=== PATIENT | female | born 1945 | race Caucasian/White ===

== ENCOUNTER 2016-08-01 14:41 | Outpatient (RCR) | payer MEDICARE ==
[~2016-08-01 14:41] MED LIST: ALBU2.5V52 INH; ALPR.5T; ALPR0.5T PO; ALPR0.5T7 PO; ALPR0.5T72 PO; ATR20T PO; AZIT500T2 PO; BACL20TA PO; CALC625T; CEFD300C3 PO; CEPH500C PO; CITA20TA7 PO; DOCU-161; DOCU100T7; DULO60CA6; ENOX40DI8 SC; ERGO2000 PO; FRSM40T; FURO20TA4 PO; FURO40TA4; FURO40TA4 PO; GABA-488 PO; GABA800T2 PO; HYDR-2856; HYDR-2890 PO; HYDR-3583 PO; HYDR-3720; HYDR-3820 PO; IPRA3AMP IH; IPRA3AMP INH; LACT1CAP53 PO; LACT1CAP62 PO; LISI-556 PO; MELA1TAB20 PO; MELO15TA14; METF-380 PO; NFPRILOC40; NITR100C3 PO; OMEP20CA6 PO; RIVA10TA PO; SENN-40 PO; SULF1TAB35 PO; TRAZ150T42 PO; TRZ100T PO; TRZ50T; vitamin d2 PO
--- OUTSIDE RECORDS SUMMARY | 2016-08-01 14:45 | XMS REPORT | Continuity of Care Document ---
Author Author [facility] Organization [facility] Address Unknown Phone Unavailable Care Team Providers Care Machine Shop Helper Name Role Phone RICHARDSON SANDRA DO PCP Insurance Providers Payer Name Policy Number Subscriber Name Relationship Wps Medicare [id number] Jeri Byrd 18 Self / Same As Patient Advance Directives Directive Response Recorded Date/Time Advance Directives No 04/11/16 5:22am Health Care Power of Operations Coordinator No 04/11/16 5:22am Organ Donor No 04/11/16 5:22am Resuscitation Status Full Code 04/11/16 5:22am Chief Complaint and Reason for Visit Chief Complaint LEFT DISLOCATED TIB/FIB FX,ACUTE ON CHRONIC RENAL Reason for Visit COPD (chronic obstructive pulmonary disease) Dislocation of left ankle joint Fall from chair or bed Fracture of tibia and fibula Hypoventilation associated with obesity syndrome Hypoxia Urinary tract infection Problems Active Problems Medical Problem Onset Date Status Acute on chronic renal failure Unknown Acute COPD (chronic obstructive pulmonary disease) Unknown Acute Dislocation of left ankle joint Unknown Acute Fall from chair or bed Unknown Acute Fracture of tibia and fibula Unknown Acute Hypoventilation associated with obesity syndrome Unknown Acute Hypoxia Unknown Acute Urinary tract infection Unknown Acute Medications Current Home Medications Medication Dose Units Route Directions Days/Qty Instructions Start Date Omeprazole 20 Mg 20 Mg Oral Twice A Day 01/17/10 Hydrocodone Bit/Acetaminophen 1 Each 1-2 Tab Oral Every 4HRS as needed for Pain NEEDED FOR PAIN 10-325MG TABLET 01/15/14 Atorvastatin Calcium 20 Mg 20 Mg Oral Bedtime 01/15/14 Lisinopril 5 Mg 5 Mg Oral Daily 07/04/15 Citalopram Hydrobromide 20 Mg 20 Mg Oral Daily 07/04/15 [Vitamin D2] Unknown Dose Oral Every Saturday07/04/15 Furosemide 20 Mg 20 Mg Oral Daily 04/12/16 Gabapentin 300 Mg 300 Mg Oral Bedtime 04/12/16 Ipratropium/Albuterol Sulfate (Duoneb) 3 Ml 3 Ml Inhalation As Needed as needed for Shortness Of Breath 30 04/17/16 Enoxaparin Sodium 40 Mg/0.4 Ml 40 Mg Subcutaneously Daily@ 30 Sennosides/Docusate Sodium 1 Each 1 Each Oral Twice A Day 60 04/17/16 Alprazolam 0.5 Mg 0.5 Mg Oral Twice A Day as needed for Anxiety 60 Past Home Medications Medication Directions Ordered Status Furosemide (Lasix) 40 Mg Tablet, 11/21/09 Discontinued Omeprazole 40 Mg Capsule., 11/21/09 Discontinued Gabapentin 800 Mg Tablet, 800 Mg Oral Three Times A Day 11/21/09 Discontinued Trazodone Hcl 50 Mg Tab, 11/21/09 Discontinued Metformin Hcl (Glucophage) 1,000 Mg Tablet, 1000 Mg Oral Twice A Day Discontinued Acetaminophen/Hydrocodone Bitart 1 Ea Tab, 11/21/09 Discontinued Duloxetine Hcl 60 Mg Capsule., 11/21/09 Discontinued Docusate Sodium 100 Mg Tablet, 11/21/09 Discontinued Calcium Polycarbophil 625 Mg Tablet, 11/21/09 Discontinued Alprazolam 0.5 Mg Tablet, 11/21/09 Discontinued Trimethoprim/Sulfamethoxazole 1 Each Tablet, 1 Each Oral Twice A Day Discontinued Trazodone Hcl 100 Mg Tab, 150 Mg Oral Bedtime 01/17/10 Discontinued Furosemide 40 Mg Tab, 01/17/10 Discontinued Docusate Sodium 100 Mg Capsule, 01/17/10 Discontinued Meloxicam 15 Mg Tablet, 01/17/10 Discontinued Hydroxyzine Hcl 25 Mg Tablet, 01/17/10 Discontinued Alprazolam 0.5 Mg Tab.rapdis, 0.5 Mg Oral Bedtime for Insomnia 09/21/10 Discontinued Cefdinir (Omnicef) 300 Mg Capsule, 2 Each Oral Daily 09/27/10 Discontinued Acetaminophen/Hydrocodone Bitart 1 Tab Tab, 1-2 Ea Oral Q4hr Prn 09/27/10 Discontinued Furosemide (Lasix) 40 Mg Tablet, 1 Each Oral Daily 10/26/12 Discontinued Cephalexin Monohydrate (Keflex) 500 Mg Capsule, 1 Each Oral Four Times Daily 01/03/14 Discontinued Lactobacillus Acidophilus 1 Mg Tablet, 1 Mg Oral Twice A Day 01/03/14 Discontinued Trazodone Hcl 150 Mg Tablet, 150 Mg Oral Bedtime 01/15/14 Discontinued Alprazolam 0.5 Mg Tablet, 0.5 Mg Oral Twice A Day as needed for Anxiety 01/15 Discontinued Lactobacillus Acidophilus 1 Each Capsule, 1 Cap Oral Twice A Day 01/15/14 Discontinued Nitrofurantoin Macrocrystals 100 Mg Capsule, 100 Mg Oral Daily 01/15/14 Discontinued Metformin Hcl (Glucophage) 1,000 Mg Tablet, 1000 Mg Oral Daily 01/18/14 Discontinued Albuterol Sulfate 2.5 Mg/3 Ml Nebu, 2.5 Mg Inhalation Respiratory Three Times A Day 01/18/14 Discontinued Cefdinir (Omnicef) 300 Mg Capsule, 1 Each Oral Twice A Day 01/18/14 Discontinued Melatonin/Pyridoxine Hcl (B6) 1 Each Tab.mphase, 10 Mg Oral Bedtime 07/04/15 Discontinued Baclofen 20 Mg Tablet, 20 Mg Oral Bedtime 04/12/16 Discontinued Social History Social History Problem Response Recorded Date/Time Alcohol Use Denies Use 04/11/2016 5:23am Recreational Drug Use No 04/11/2016 5:23am Recent Foreign Travel No 04/11/2016 5:17am Recent Infectious Disease Exposure No 04/11/2016 5:17am Hospitalization with Isolation Droplet 04/17/2016 3:37pm Sexually Transmitted Disease No 04/11/2016 5:23am HIV/AIDS No 04/11/2016 5:23am Smoking Status Former Smoker 04/11/2016 5:25am Do you dip or chew tobacco? No 07/04/2015 10:04am Type Used Cigarettes 04/17/2016 3:37pm Query Response Start Date Stop Date Smoking Status Former Smoker 07/07/2005 Hospital Discharge Instructions Patient Instructions Physician Instructions Goal/Follow Up Appt.: Fwup with [place] in [address] Peck on April 26 Activity as Tolerated: No (complet non weight bearing of left leg) PT and OT Total non weightbearing to left leg Elevate Extremity: Elevate Above Heart Discharge Diet: ADA Diet, Cardiac Diet Symptoms to Report to Physicia: Extremity Discoloration, Swelling Increased, Fever Over 101 Degrees F, Pain/Pressure in Chest, Shortness of Breath If Any Problems/Questions/Issu: Go to Emergency Room Infection Signs and Symptoms: Increased Redness, Foul Odor of Wound, Increased Drainage, Increased Swelling, Temperature Above 101 F Operative Area Clean and Dry: Keep Incision Clean/Dry Care Plan Goal:: Fwup with me in [address] Peck on April 26 Plan of Care Discharge Date 04/17/16 2:40pm Disposition 03 XFER SNF Instructions/Education Provided Ankle Fracture (GEN) Prescriptions See Medication Section Referrals (Unspecified) - Today Reason(s) for Referral: COPD (chronic obstructive pulmonary disease) Hypoxia Hypoventilation associated with obesity syndrome RICHARDSON SANDRA DO (Unspecified) - 3 Weeks Address: [address] [place] [address] VICTOR HUGO PECK MD (Unspecified) - 04/26/16 Address: [address] [place] [phone] Care Plan and Goals See Discharge Instructions Section Functional Status Query Response Date Recorded Patient Orientation Person Confused April 16, 2016 1:55pm Patient Orientation Person Situation Confused April 17, 2016 3:37pm Comprehension Ability Understands Concepts April 17, 2016 8:00am Allergies, Adverse Reactions, Alerts Allergen Type Severity Reaction Status Last Updated ciprofloxacin ([id number]) Allergy Unknown Active 10/11/08 ofloxacin ([id number]) Allergy Unknown Active 10/11/08 Immunizations No immunization records. Vital Signs Acute Vital Signs Vital Response Date/Time Temperature (Fahrenheit) 96.2 degrees F (97.6 - 99.5) 04/17/2016 2:40pm Temperature (Calculated Celsius) 35.90385 degrees C (36.4 - 37.5) 04/17/2016 1:37pm Temperature Source Tympanic 04/17/2016 2:40pm Pulse Rate (adult) 72 bpm (60 - 90) 04/17/2016 2:40pm Respiratory Rate 18 bpm (12 - 24) 04/17/2016 2:40pm O2 Sat by Pulse Oximetry 100 % (88 - 100) 04/17/2016 2:40pm Blood Pressure 136/64 mm Hg 04/17/2016 2:40pm Blood Pressure Mean 88 mm Hg 04/17/2016 1:37pm Pain Numeric Pain Scale 9 04/17/2016 2:40pm Height (Feet) 5 feet 04/11/2016 5:17am Height (Inches) 0.00 inches 04/11/2016 5:17am Height (Calculated Centimeters) 152.916134 cm 04/11/2016 5:17am Weight (Pounds) 252 pounds 04/17/2016 6:00am Weight (Ounces) 0.0 oz 04/14/2016 6:00am Weight (Calculated Grams) 708395.278 gm 04/17/2016 6:00am Weight (Calculated Kilograms) 114.272029 kilograms 04/17/2016 6:00am Calculated BMI 45.2 04/11/2016 5:17am Results Laboratory Results Test Name Result Units Flags Reference Collection Date/Time Result Date/ Time Comments White Blood Count 5.0 10^3/uL 4.3-11.0 03/06/2016 1:pm 03/06/2016 1: 39pm Red Blood Count 3.99 10^6/uL L 4.35-5.85 03/06/2016 1:03/06/2016 1: 39pm Hemoglobin 11.3 G/DL L 11.5-16.0 03/06/2016 1:03/06/2016 1:39pm Hematocrit 37 % 35-52 03/06/2016 1:03/06/2016 1:39pm Mean Corpuscular Volume 93 FL 80-99 03/06/2016 1:03/06/2016 1: 39pm Mean Corpuscular Hemoglobin 28 PG 25-34 03/06/2016 1:pm 03/06/2016 1: 39pm Mean Corpuscular Hemoglobin Concent 31 G/DL L 32-36 03/06/2016 1: 1:39pm Red Cell Distribution Width 15.4 % H 10.0-14.5 03/06/2016 1:2015 1:39pm Platelet Count 151 10^3/uL 130-400 03/06/2016 1:03/06/2016 1:39pm Mean Platelet Volume 10.0 FL 7.4-10.4 03/06/2016 1:03/06/2016 1: 39pm Neutrophils (%) (Auto) 71 % 42-75 03/06/2016 1:03/06/2016 1:39pm Lymphocytes (%) (Auto) 8 % L 12-44 03/06/2016 1:03/06/2016 1:39pm Monocytes (%) (Auto) 7 % 0-12 03/06/2016 1:03/06/2016 1:39pm Eosinophils (%) (Auto) 15 % H 0-10 03/06/2016 1:03/06/2016 1:39pm Basophils (%) (Auto) 0 % 0-10 03/06/2016 1:03/06/2016 1:39pm Neutrophils # (Auto) 3.5 X 10^3 1.8-7.8 03/06/2016 1:03/06/2016 1: 39pm Lymphocytes # (Auto) 0.4 X 10^3 L 1.0-4.0 03/06/2016 1:03/06/2016 1: 39pm Monocytes # (Auto) 0.3 X 10^3 0.0-1.0 03/06/2016 1:03/06/2016 1: 39pm Eosinophils # (Auto) 0.7 10^3/uL H 0.0-0.3 03/06/2016 1:03/06/2016 1 :39pm Basophils # (Auto) 0.0 10^3/uL 0.0-0.1 03/06/2016 1:03/06/2016 1: 39pm Sodium Level 139 MMOL/L 135-145 03/06/2016 1:03/06/2016 2:08pm Potassium Level 4.6 MMOL/L 3.6-5.0 03/06/2016 1:38pm 03/06/2016 2:08pm Chloride Level 108 MMOL/L H 98-107 03/06/2016 1:03/06/2016 2:08pm Carbon Dioxide Level 26 MMOL/L 21-32 03/06/2016 1:38pm 03/06/2016 2: 08pm Anion Gap 5 MMOL/L 5-14 03/06/2016 1:38pm 03/06/2016 2:08pm Blood Urea Nitrogen 31 MG/DL H 7-18 03/06/2016 1:38pm 03/06/2016 2:08pm Creatinine 1.66 MG/DL H 0.60-1.30 03/06/2016 1:38pm 03/06/2016 2:08pm BUN/Creatinine Ratio 19 03/06/2016 1:38pm 03/06/2016 2:08pm Estimat Glomerular Filtration Rate 31 03/06/2016 1:38pm 03/06/2016 2:08pm GFR INTERPRETIVE DATA UNITS FOR ESTIMATED GFR (eGFR): mL/min/1.73 M2 REFERENCE RANGE FOR ESTIMATED GFR (eGFR) eGFR NORMAL eGFR >60 MODERATELY DECREASED eGFR 30-59 SEVERLY DECREASED eGFR 15-29 KIDNEY FAILURE <15 (OR DIALYSIS) Glucose Level 93 MG/DL 70-105 03/06/2016 1:pm 03/06/2016 2:08pm Calcium Level 9.1 MG/DL 8.5-10.1 03/06/2016 1:38pm 03/06/2016 2:08pm Total Bilirubin 0.9 MG/DL 0.1-1.0 03/06/2016 1:38pm 03/06/2016 2:08pm Alkaline Phosphatase 92 U/L 40-136 03/06/2016 1:38pm 03/06/2016 2:08pm Aspartate Amino Transf (AST/SGOT) 14 U/L 5-34 03/06/2016 1:2015 2:08pm Alanine Aminotransferase (ALT/SGPT) < 6 U/L 0-55 03/06/2016 1:38pm 2:08pm Total Protein 6.2 G/DL L 6.4-8.2 03/06/2016 1:pm 03/06/2016 2:08pm Albumin 3.6 G/DL 3.2-4.5 03/06/2016 1:38pm 03/06/2016 2:08pm Thyroid Stimulating Hormone (TSH) 0.98 UIU/ML 0.35-4.94 03/06/2016 1: 38pm 03/06/2016 2:29pm Free Thyroxine 0.91 NG/DL 0.70-1.48 03/06/2016 1:38pm 03/06/2016 2: 29pm Pending Laboratory Results Test Name Collection Date/Time Pending Microbiology Results Procedure Source Collection Date/Time Procedures No known history of procedures. Encounters Encounter Location Arrival/Admit Date Discharge/Depart Date Attending Provider Discharged Inpatient [facility] 04/11/16 3:25am 2:40pm VICTOR HUGO PECK MD Registered Recurring [facility] 03/28/16 10:01am VITALY LIGHT MD Recent Diagnosis COPD (chronic obstructive pulmonary disease) Dislocation of left ankle joint Fall from chair or bed Fracture of tibia and fibula Hypoventilation associated with obesity syndrome Hypoxia Urinary tract infection
[2016-08-01 15:05] LABS: BASOPHILS % (AUTO) 0 % (0-10); EOSINOPHILS # (AUTO) 0.3 10^3/uL (0.0-0.3); EOSINOPHILS % (AUTO) 5 % (0-10); LYMPHOCYTES # (AUTO) 0.6 X 10^3 (1.0-4.0); LYMPHOCYTES % (AUTO) 10 % (12-44); MEAN CORPUSCULAR HEMOGLOBIN 28 PG (25-34); MEAN CORPUSCULAR HGB CONC 30 G/DL (32-36); MEAN CORPUSCULAR VOLUME 96 FL (80-99); MEAN PLATELET VOLUME 9.4 FL (7.4-10.4); MONOCYTES # (AUTO) 0.6 X 10^3 (0.0-1.0); MONOCYTES % (AUTO) 10 % (0-12); NEUTROPHILS # (AUTO) 4.8 X 10^3 (1.8-7.8); NEUTROPHILS % (AUTO) 75 % (42-75); PLATELET COUNT 278 10^3/uL (130-400); RED BLOOD COUNT 3.42 10^6/uL (4.35-5.85); RED CELL DISTRIBUTION WIDTH 15.9 % (10.0-14.5); WHITE BLOOD COUNT 6.3 10^3/uL (4.3-11.0)
[2016-08-01 15:52] LABS: ALANINE AMINOTRANSFERASE 11 U/L (0-55); ALBUMIN 3.2 G/DL (3.2-4.5); ANION GAP 6 MMOL/L (5-14); ASPARTATE AMINO TRANSFERASE 14 U/L (5-34); BILIRUBIN,TOTAL 1.5 MG/DL (0.1-1.0); BLOOD UREA NITROGEN 16 MG/DL (7-18); BUN/CREATININE RATIO 18; CALCIUM 9.3 MG/DL (8.5-10.1); CARBON DIOXIDE 32 MMOL/L (21-32); CHLORIDE 101 MMOL/L (98-107); GFR ESTIMATED > 60; GLUCOSE 95 MG/DL (70-105); POTASSIUM 4.2 MMOL/L (3.6-5.0); SODIUM 139 MMOL/L (135-145); TOTAL PROTEIN 6.8 G/DL (6.4-8.2)
[2016-08-22] MEDS ORDERED: MULT1TAB69 PO (16:01)
[2016-08-22] MEDS ORDERED: HYDR-3820 PO ×2 (16:01)
[2016-08-22] MEDS ORDERED: GUAI5SYR PO (16:01)
[2016-08-23] MEDS ORDERED: FURO-124 PO (09:20)
[2016-08-23] MEDS ORDERED: RIVA20TA PO (09:20)
[2016-08-23] MEDS ORDERED: POTA20TA8 PO (09:20)
== END 2016-10-30 | disposition home or self-care (01) ==
LOC: ONC 14:41
PROVIDERS: ATTEND Internal Medicine Hematology & Oncology
DX: C54.1 Malignant neoplasm of endometrium (principal)
CPT/HCPCS: 36415; 80053; 85025; 99213

== ENCOUNTER → 2016-10-18 | Outpatient (CLI) | payer MEDICARE ==
[~2016-10-18] MED LIST changes: +FURO-124 PO; +GUAI5SYR PO; +MULT1TAB69 PO; +POTA20TA8 PO; +RIVA20TA PO
--- OUTSIDE RECORDS SUMMARY | 2016-10-18 15:14 | XMS REPORT | Continuity of Care Document ---
Author Author [facility] Organization [facility] Address Unknown Phone Unavailable Care Team Providers Care Social Media Campaign Manager Name Role Phone RICHARDSON SANDRA DO PCP Insurance Providers Payer Name Policy Number Subscriber Name Relationship Wps Medicare [id number] Jeri Byrd 18 Self / Same As Patient Advance Directives Directive Response Recorded Date/Time Advance Directives No 04/11/16 5:22am Health Care Power of Synthetic Department Supervisor No 04/11/16 5:22am Organ Donor No 04/11/16 [...] Physician Instructions Goal/Follow Up Appt.: Fwup with [place] in [address] Peck [...] DO (Unspecified) - 3 Weeks Address: [address] [place] [address] VICTOR HUGO PECK MD (Unspecified) - 04/26/16 Address: [address] [place] [phone] Care Plan and Goals See Discharge Instructions Section Functional Status Query Response Date Recorded Patient Orientation Person Confused April 16, 2016 1:55pm Patient Orientation Person Situation Confused April 17, 2016 3:37pm Comprehension Ability Understands Concepts April 17, 2016 8:00am Allergies, Adverse Reactions, Alerts Allergen Type Severity Reaction Status Last Updated ciprofloxacin ([id number]) Allergy Unknown Active 10/11/08 ofloxacin ([id number]) Allergy Unknown Active 10/11/08 Immunizations No immunization records. Vital Signs Acute Vital Signs Vital Response Date/Time Temperature (Fahrenheit) 96.2 degrees F (97.6 - 99.5) 04/17/2016 2:40pm Temperature (Calculated Celsius) 35.80795 degrees C (36.4 - 37.5) 04/17/2016 1:37pm [...] 0.00 inches 04/11/2016 5:17am Height (Calculated Centimeters) 152.806550 cm 04/11/2016 5:17am Weight (Pounds) 252 pounds 04/17/2016 6:00am Weight (Ounces) 0.0 oz 04/14/2016 6:00am Weight (Calculated Grams) 116060.278 gm 04/17/2016 6:00am Weight (Calculated Kilograms) 114.712459 kilograms 04/17/2016 6:00am Calculated BMI 45.2 04/11/2016 [...] Discharge/Depart Date Attending Provider Discharged Inpatient [facility] 04/11/16 3:25am 2:40pm VICTOR HUGO PECK MD Registered Recurring [facility] 03/28/16 10:01am VITALY LIGHT MD Recent Diagnosis COPD (chronic obstructive pulmonary disease) Dislocation of left ankle joint Fall from chair or bed Fracture of tibia and fibula Hypoventilation associated with obesity syndrome Hypoxia Urinary tract infection
--- NOTE | 2016-10-18 18:17 | Diagnostic Imaging Report ---
INDICATION: Postop drainage. EXAMINATION: Left ankle. Three views were obtained. FINDINGS: The previous left ankle exam of 05/09/16 noted an orthopedic plate and screw fixation device securing a nondisplaced fracture of the distal fibula. There are also two orthopedic fixation screws obliquely traversing a fracture of the medial malleolus of the distal tibia. On this exam, the orthopedic hardware seems to be in good position. The fracture line involving the medial malleolus is still visible, however, indicating that the fracture has not healed completely. The fibular fracture appears stable. In the interval since the previous exam, the interface between the articular surfaces of the tibia and talar dome has become indistinct. I am concerned that there is an erosive process present such as osteomyelitis. I would recommend MRI be performed for further study. There is also generalized soft tissue edema about the ankle joint. IMPRESSION: 1. The articular surfaces of the distal tibia and talar dome are indistinct and the possibility that there is erosion of the articular surface due to osteomyelitis should certainly be considered. MRI would be recommended for further study. 2. The orthopedic hardware securing the fractures of the distal tibia and fibula, seen previously, appear stable. However, the fracture line through the medial malleolus is still evident indicating the fracture has not healed completely. 3. These results were discussed with Dr. Anita Tolliver.. Dictated by: Dictated on workstation # [id number]
== END ==
LOC: RAD 15:09
PROVIDERS: ATTEND Family Medicine
DX: M25.572 Pain in left ankle and joints of left foot (principal)
CPT/HCPCS: 73610

== ENCOUNTER → 2016-10-18 | Outpatient (CLI) | payer MEDICARE ==
--- OUTSIDE RECORDS SUMMARY | 2016-10-18 10:24 | XMS REPORT | Continuity of Care Document ---
Author Author [facility] Organization [facility] Address Unknown Phone Unavailable Care Team Providers Care Legal Financial Specialist Name Role Phone RICHARDSON SANDRA DO PCP Insurance Providers Payer Name Policy Number Subscriber Name Relationship Wps Medicare [id number] Jeri Byrd 18 Self / Same As Patient Advance Directives Directive Response Recorded Date/Time Advance Directives No 04/11/16 5:22am Health Care Power of Store Assistant No 04/11/16 5:22am Organ Donor No 04/11/16 [...] Physician Instructions Goal/Follow Up Appt.: Fwup with [place] in [address] Peck [...] DO (Unspecified) - 3 Weeks Address: [address] [place] [address] VICTOR HUGO PECK MD (Unspecified) - 04/26/16 Address: [address] [place] [phone] Care Plan and Goals See Discharge Instructions Section Functional Status Query Response Date Recorded Patient Orientation Person Confused April 16, 2016 1:55pm Patient Orientation Person Situation Confused April 17, 2016 3:37pm Comprehension Ability Understands Concepts April 17, 2016 8:00am Allergies, Adverse Reactions, Alerts Allergen Type Severity Reaction Status Last Updated ciprofloxacin ([id number]) Allergy Unknown Active 10/11/08 ofloxacin ([id number]) Allergy Unknown Active 10/11/08 Immunizations No immunization records. Vital Signs Acute Vital Signs Vital Response Date/Time Temperature (Fahrenheit) 96.2 degrees F (97.6 - 99.5) 04/17/2016 2:40pm Temperature (Calculated Celsius) 35.02975 degrees C (36.4 - 37.5) 04/17/2016 1:37pm [...] 0.00 inches 04/11/2016 5:17am Height (Calculated Centimeters) 152.350180 cm 04/11/2016 5:17am Weight (Pounds) 252 pounds 04/17/2016 6:00am Weight (Ounces) 0.0 oz 04/14/2016 6:00am Weight (Calculated Grams) 194357.278 gm 04/17/2016 6:00am Weight (Calculated Kilograms) 114.648105 kilograms 04/17/2016 6:00am Calculated BMI 45.2 04/11/2016 [...] Discharge/Depart Date Attending Provider Discharged Inpatient [facility] 04/11/16 3:25am 2:40pm VICTOR HUGO PECK MD Registered Recurring [facility] 03/28/16 10:01am VITALY LIGHT MD Recent Diagnosis COPD (chronic obstructive pulmonary disease) Dislocation of left ankle joint Fall from chair or bed Fracture of tibia and fibula Hypoventilation associated with obesity syndrome Hypoxia Urinary tract infection
[2016-10-18 11:09] LABS: ALBUMIN 3.3 G/DL (3.2-4.5); BILIRUBIN,TOTAL 0.7 MG/DL (0.1-1.0); CALCIUM 9.7 MG/DL (8.5-10.1); CREATININE SERUM 1.11 MG/DL (0.60-1.30); MAGNESIUM 1.7 MG/DL (1.8-2.4); POTASSIUM 4.2 MMOL/L (3.6-5.0); TOTAL PROTEIN 6.9 G/DL (6.4-8.2)
== END ==
LOC: LAB 10:20
PROVIDERS: ATTEND Nurse Practitioner Family
DX: R06.09 Other forms of dyspnea (principal); I10 Essential (primary) hypertension; I48.0 Paroxysmal atrial fibrillation; Z79.01 Long term (current) use of anticoagulants
CPT/HCPCS: 36415; 80053; 83735

== ENCOUNTER → 2016-10-18 | Outpatient (CLI) | payer MEDICARE ==
[~2016-10-18] VITALS: Ht 175.3 cm; Wt 95.3 kg
[~2016-10-18] MED LIST changes: +CATHETER FLUSH 10 ML SYR IV PRN; +REGADENOSON 0.4 MG/5 ML SYR (LEXISCAN) IV ONE
--- OUTSIDE RECORDS SUMMARY | 2016-10-18 07:21 | XMS REPORT | Continuity of Care Document ---
Author Author [facility] Organization [facility] Address Unknown Phone Unavailable Care Team Providers Care Boring Machine Operator Vertical Name Role Phone RICHARDSON SANDRA DO PCP Insurance Providers Payer Name Policy Number Subscriber Name Relationship Wps Medicare [id number] Jeri Byrd 18 Self / Same As Patient Advance Directives Directive Response Recorded Date/Time Advance Directives No 04/11/16 5:22am Health Care Power of Flux Mixer No 04/11/16 5:22am Organ Donor No 04/11/16 [...] Physician Instructions Goal/Follow Up Appt.: Fwup with [place] in [address] Peck [...] DO (Unspecified) - 3 Weeks Address: [address] [place] [address] VICTOR HUGO PECK MD (Unspecified) - 04/26/16 Address: [address] [place] [phone] Care Plan and Goals See Discharge Instructions Section Functional Status Query Response Date Recorded Patient Orientation Person Confused April 16, 2016 1:55pm Patient Orientation Person Situation Confused April 17, 2016 3:37pm Comprehension Ability Understands Concepts April 17, 2016 8:00am Allergies, Adverse Reactions, Alerts Allergen Type Severity Reaction Status Last Updated ciprofloxacin ([id number]) Allergy Unknown Active 10/11/08 ofloxacin ([id number]) Allergy Unknown Active 10/11/08 Immunizations No immunization records. Vital Signs Acute Vital Signs Vital Response Date/Time Temperature (Fahrenheit) 96.2 degrees F (97.6 - 99.5) 04/17/2016 2:40pm Temperature (Calculated Celsius) 35.56127 degrees C (36.4 - 37.5) 04/17/2016 1:37pm [...] 0.00 inches 04/11/2016 5:17am Height (Calculated Centimeters) 152.663065 cm 04/11/2016 5:17am Weight (Pounds) 252 pounds 04/17/2016 6:00am Weight (Ounces) 0.0 oz 04/14/2016 6:00am Weight (Calculated Grams) 236639.278 gm 04/17/2016 6:00am Weight (Calculated Kilograms) 114.333996 kilograms 04/17/2016 6:00am Calculated BMI 45.2 04/11/2016 [...] Discharge/Depart Date Attending Provider Discharged Inpatient [facility] 04/11/16 3:25am 2:40pm VICTOR HUGO PECK MD Registered Recurring [facility] 03/28/16 10:01am VITALY LIGHT MD Recent Diagnosis COPD (chronic obstructive pulmonary disease) Dislocation of left ankle joint Fall from chair or bed Fracture of tibia and fibula Hypoventilation associated with obesity syndrome Hypoxia Urinary tract infection
[2016-10-18 08:58] VITALS: BP 119/61
[2016-10-18 09:13] VITALS: BP 101/71
[2016-10-18 09:15] VITALS: BP 125/63
--- NOTE | 2016-10-19 08:27 | STRESS TEST ---
PROCEDURE PHYSICIAN: NASH ARCINIEGA DATE OF PROCEDURE: 10/18/2016 RESTING AND POST REGADENOSON TECHNETIUM 99M TETROFOSMIN SPECT CT IMAGING: ORDERING PHYSICIAN: Colleen Jesus APRN PRIMARY PHYSICIAN: Dr. Tolliver. CLINICAL DIAGNOSIS: 1. Exertional shortness of breath. 2. Hypertension. Baseline images were carried out after injection of 10.86 mCi of technetium 99m tetrofosmin. This was followed by 0.4 mg of regadenoson and 29.9 mCi tetrofosmin for stress imaging. The electrocardiogram showed sinus rhythm at baseline and it did not change significantly with the regadenoson infusion. Isolated premature ventricular contractions were seen. She noted mild shortness of breath following regadenoson infusion which resolved in a few minutes. Review of images at rest and following stress, does not indicate any significant perfusion defects consistent with significant myocardial ischemia or infarction. Gated images show normal global left ventricular systolic function with normal regional wall motion. Left ventricular ejection fraction is calculated to be 37 mL. TID is absent (0.98). CONCLUSION: 1. No evidence of significant myocardial ischemia or infarction on this study. 2. Normal regional wall motion. 3. Normal global left ventricular systolic function with a calculated ejection fraction of 76%. Job ID: [id number] Dictated Date: 10/18/2016 15:39:10 Event Planning Intern Date: 10/19/2016 08:17:59 / [email or web address]
== END ==
LOC: CARD 07:17
PROVIDERS: ATTEND Nurse Practitioner Family
DX: I10 Essential (primary) hypertension (principal); I48.0 Paroxysmal atrial fibrillation; R06.09 Other forms of dyspnea; Z79.01 Long term (current) use of anticoagulants
CPT/HCPCS: 78452; 93017

== ENCOUNTER → 2016-10-19 | Outpatient (CLI) | payer MEDICARE ==
[~2016-10-19] MED LIST changes: -CATHETER FLUSH 10 ML SYR IV PRN; -REGADENOSON 0.4 MG/5 ML SYR (LEXISCAN) IV ONE
--- OUTSIDE RECORDS SUMMARY | 2016-10-19 17:24 | XMS REPORT | Continuity of Care Document ---
Author Author [facility] Organization [facility] Address Unknown Phone Unavailable Care Team Providers Care Printed Circuit Board Reworker Name Role Phone RICHARDSON SANDRA DO PCP Insurance Providers Payer Name Policy Number Subscriber Name Relationship Wps Medicare [id number] Jeri Byrd 20 Self / Same As Patient Advance Directives Directive Response Recorded Date/Time Advance Directives No 04/11/16 5:22am Health Care Power of Store Manager No 04/11/16 5:22am Organ Donor No 04/11/16 [...] Physician Instructions Goal/Follow Up Appt.: Fwup with pa in [address] Peck [...] DO (Unspecified) - 3 Weeks Address: [address] [place] [address] VICTOR HUGO PECK MD (Unspecified) - 04/26/16 Address: [address] [place] [phone] Care Plan and Goals See Discharge Instructions Section Functional Status Query Response Date Recorded Patient Orientation Person Confused April 16, 2016 1:55pm Patient Orientation Person Situation Confused April 17, 2016 3:37pm Comprehension Ability Understands Concepts April 17, 2016 8:00am Allergies, Adverse Reactions, Alerts Allergen Type Severity Reaction Status Last Updated ciprofloxacin ([id number]) Allergy Unknown Active 10/11/08 ofloxacin ([id number]) Allergy Unknown Active 10/11/08 Immunizations No immunization records. Vital Signs Acute Vital Signs Vital Response Date/Time Temperature (Fahrenheit) 96.2 degrees F (97.6 - 99.5) 04/17/2016 2:40pm Temperature (Calculated Celsius) 35.50387 degrees C (36.4 - 37.5) 04/17/2016 1:37pm [...] 0.00 inches 04/11/2016 5:17am Height (Calculated Centimeters) 152.031361 cm 04/11/2016 5:17am Weight (Pounds) 252 pounds 04/17/2016 6:00am Weight (Ounces) 0.0 oz 04/14/2016 6:00am Weight (Calculated Grams) 817262.278 gm 04/17/2016 6:00am Weight (Calculated Kilograms) 114.092125 kilograms 04/17/2016 6:00am Calculated BMI 45.2 04/11/2016 [...] Discharge/Depart Date Attending Provider Discharged Inpatient [facility] 04/11/16 3:25am 2:40pm VICTOR HUGO PECK MD Registered Recurring [facility] 03/28/16 10:01am VITALY LIGHT MD Recent Diagnosis COPD (chronic obstructive pulmonary disease) Dislocation of left ankle joint Fall from chair or bed Fracture of tibia and fibula Hypoventilation associated with obesity syndrome Hypoxia Urinary tract infection
--- NOTE | 2016-10-19 20:00 | Diagnostic Imaging Report ---
PROCEDURE: MRI left joint lower extremity without contrast. TECHNIQUE: Multiplanar, multisequence non contrast-enhanced MRI of the left lower extremity was accomplished. INDICATION: Left ankle erosions COMPARISON: Radiographs dated October 18, 2016 FINDINGS: Examination is severely limited and nearly nondiagnostic secondary to artifact from orthopedic hardware and patient motion. Orthopedic hardware is identified associated with the distal tibia and fibula. Magnetic susceptibly artifact related to the hardware completely limits evaluation of these osseous structures. Low T1 weighted signal and slightly high T2 weighted signal is identified within the talus, most prominent on series 7, image 8. However, significant artifact is identified within this region, so it is unclear whether this is real signal or artifact. No definite large ankle joint effusion. Small posterior and plantar calcaneal enthesophytes. The Achilles tendon is intact. IMPRESSION: Severely limited examination which is nearly nondiagnostic. Abnormal signal identified within the talus. Although it is favored that this is simply artifact, marrow edema not excluded. Osteomyelitis not excluded. Three-phase nuclear bone scan could help further evaluate if there remains concern for osteomyelitis. Dictated by: Dictated on workstation # [id number]
== END ==
LOC: RAD 17:21
PROVIDERS: ATTEND Family Medicine
DX: M85.872 Other specified disorders of bone density and structure, left ankle and foot (principal)
CPT/HCPCS: 73721

== ENCOUNTER → 2016-11-06 | Outpatient (CLI) | payer MEDICARE ==
--- OUTSIDE RECORDS SUMMARY | 2016-11-06 10:10 | XMS REPORT | Continuity of Care Document ---
Author Author [facility] Organization [facility] Address Unknown Phone Unavailable Care Team Providers Care Camera Operator Name Role Phone RICHARDSON SANDRA DO PCP Insurance Providers Payer Name Policy Number Subscriber Name Relationship Wps Medicare [id number] Jeri Byrd 18 Self / Same As Patient Advance Directives Directive Response Recorded Date/Time Advance Directives No 04/11/16 5:22am Health Care Power of Airfield Operations Specialist No 04/11/16 5:22am Organ Donor No 04/11/16 [...] Physician Instructions Goal/Follow Up Appt.: Fwup with ok in [address] Peck [...] DO (Unspecified) - 3 Weeks Address: [address] [place] [address] VICTOR HUGO PECK MD (Unspecified) - 04/26/16 Address: [address] [place] [phone] Care Plan and Goals See Discharge Instructions Section Functional Status Query Response Date Recorded Patient Orientation Person Confused April 16, 2016 1:55pm Patient Orientation Person Situation Confused April 17, 2016 3:37pm Comprehension Ability Understands Concepts April 17, 2016 8:00am Allergies, Adverse Reactions, Alerts Allergen Type Severity Reaction Status Last Updated ciprofloxacin ([id number]) Allergy Unknown Active 10/11/08 ofloxacin ([id number]) Allergy Unknown Active 10/11/08 Immunizations No immunization records. Vital Signs Acute Vital Signs Vital Response Date/Time Temperature (Fahrenheit) 96.2 degrees F (97.6 - 99.5) 04/17/2016 2:40pm Temperature (Calculated Celsius) 35.61620 degrees C (36.4 - 37.5) 04/17/2016 1:37pm [...] 0.00 inches 04/11/2016 5:17am Height (Calculated Centimeters) 152.171451 cm 04/11/2016 5:17am Weight (Pounds) 252 pounds 04/17/2016 6:00am Weight (Ounces) 0.0 oz 04/14/2016 6:00am Weight (Calculated Grams) 940936.278 gm 04/17/2016 6:00am Weight (Calculated Kilograms) 114.630231 kilograms 04/17/2016 6:00am Calculated BMI 45.2 04/11/2016 [...] Discharge/Depart Date Attending Provider Discharged Inpatient [facility] 04/11/16 3:25am 2:40pm VICTOR HUGO PECK MD Registered Recurring [facility] 03/28/16 10:01am VITALY LIGHT MD Recent Diagnosis COPD (chronic obstructive pulmonary disease) Dislocation of left ankle joint Fall from chair or bed Fracture of tibia and fibula Hypoventilation associated with obesity syndrome Hypoxia Urinary tract infection
[2016-11-06] MEDS: NS 100 ML (IVPB) BAG IV ONE ×2 (10:37→11:03)
[2016-11-06] MEDS: IOHEXOL 350 MG/ML 100 ML (OMNIPAQUE 350) VIAL IV ONE ×2 (10:37→11:03)
== END ==
LOC: RAD 10:06
PROVIDERS: ATTEND Internal Medicine Hematology & Oncology
DX: C54.1 Malignant neoplasm of endometrium (principal)

== ENCOUNTER → 2016-12-06 | Outpatient (CLI) | payer MEDICARE ==
[~2016-12-06] MED LIST changes: +BARIUM SUSPENSION 2.1% (VANILLA SILQ) 450 ML PO ONE; +CATHETER FLUSH 10 ML SYR IV PRN; +IOHEXOL 350 MG/ML 100 ML (OMNIPAQUE 350) VIAL IV ONE; +NS 100 ML (IVPB) BAG IV ONE
--- OUTSIDE RECORDS SUMMARY | 2016-12-06 09:08 | XMS REPORT | Continuity of Care Document ---
Author Author [facility] Organization [facility] Address Unknown Phone Unavailable Care Team Providers Care Delphi Programmer Name Role Phone RICHARDSON SANDRA DO PCP Insurance Providers Payer Name Policy Number Subscriber Name Relationship Wps Medicare [id number] Jeri Byrd 20 Self / Same As Patient Advance Directives Directive Response Recorded Date/Time Advance Directives No 04/11/16 5:22am Health Care Power of Mushroom Spawn Maker No 04/11/16 5:22am Organ Donor No 04/11/16 [...] Physician Instructions Goal/Follow Up Appt.: Fwup with sd in [address] Peck [...] DO (Unspecified) - 3 Weeks Address: [address] [place] [address] VICTOR HUGO PECK MD (Unspecified) - 04/26/16 Address: [address] [place] [phone] Care Plan and Goals See Discharge Instructions Section Functional Status Query Response Date Recorded Patient Orientation Person Confused April 16, 2016 1:55pm Patient Orientation Person Situation Confused April 17, 2016 3:37pm Comprehension Ability Understands Concepts April 17, 2016 8:00am Allergies, Adverse Reactions, Alerts Allergen Type Severity Reaction Status Last Updated ciprofloxacin ([id number]) Allergy Unknown Active 10/11/08 ofloxacin ([id number]) Allergy Unknown Active 10/11/08 Immunizations No immunization records. Vital Signs Acute Vital Signs Vital Response Date/Time Temperature (Fahrenheit) 96.2 degrees F (97.6 - 99.5) 04/17/2016 2:40pm Temperature (Calculated Celsius) 35.42004 degrees C (36.4 - 37.5) 04/17/2016 1:37pm [...] 0.00 inches 04/11/2016 5:17am Height (Calculated Centimeters) 152.873101 cm 04/11/2016 5:17am Weight (Pounds) 252 pounds 04/17/2016 6:00am Weight (Ounces) 0.0 oz 04/14/2016 6:00am Weight (Calculated Grams) 530713.278 gm 04/17/2016 6:00am Weight (Calculated Kilograms) 114.802489 kilograms 04/17/2016 6:00am Calculated BMI 45.2 04/11/2016 [...] Discharge/Depart Date Attending Provider Discharged Inpatient [facility] 04/11/16 3:25am 2:40pm VICTOR HUGO PECK MD Registered Recurring [facility] 03/28/16 10:01am VITALY LIGHT MD Recent Diagnosis COPD (chronic obstructive pulmonary disease) Dislocation of left ankle joint Fall from chair or bed Fracture of tibia and fibula Hypoventilation associated with obesity syndrome Hypoxia Urinary tract infection
--- NOTE | 2016-12-06 13:09 | Diagnostic Imaging Report ---
PROCEDURE: CT chest, abdomen, and pelvis with contrast. TECHNIQUE: Multiple contiguous axial images were obtained through the chest, abdomen, and pelvis after the administration of intravenous contrast. INDICATION: History of endometrial carcinoma. Surveillance. COMPARISON: 11/10/15 and 10/15/13. CT CHEST FINDINGS: Visible thyroid has heterogeneous low attenuation which may represent thyroid nodules, is unchanged. No supraclavicular or axillary lymphadenopathy. No enlarged mediastinal lymph nodes. There are a few stable subcentimeter lower paratracheal lymph nodes, the largest measuring 0.6 cm. No hilar or juxtaphrenic lymphadenopathy. Normal-caliber thoracic aorta. The heart is normal in size without pericardial effusion. No hiatus hernia. No pleural effusion or pneumothorax. No endoluminal lesion in the trachea or central bronchi. Scattered mosaic attenuation within the lungs likely due to air trapping. Stable reticular nodular opacities in the right upper lobe, chronic in nature. Stable chronic linear scarring/atelectasis in the lung bases, greater on the right. No concerning osseous lesions in the thorax to suggest skeletal metastases. IMPRESSION: 1. Stable CT chest without evidence of metastatic disease. 2. Mosaic attenuation of the lungs suggests chronic air-trapping. CT ABDOMEN AND PELVIS FINDINGS: No free air or fluid in the abdomen and pelvis. No focal hepatic lesion. Gallbladder is normal. The spleen and adrenals are also normal. Diffuse fatty atrophy of the pancreas. 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 No suspicious renal mass lesion on either side. No obstructive uropathy. Status post hysterectomy. Urinary bladder is partially distended with mild circumferential wall thickening. Sigmoid colon diverticulosis without active diverticulitis. No dilated loops of small bowel to indicate obstruction. The stomach is decompressed, which limits evaluation for wall thickening. Normal-caliber thoracic aorta with moderate atherosclerotic plaquing. No abdominal or pelvic lymphadenopathy. No concerning osseous lesions in the abdomen and pelvis to suggest skeletal metastasis. Mild diastasis of the rectus abdominis muscles. IMPRESSION: 1. No evidence of metastatic disease in the abdomen or pelvis. 2. Hysterectomy without evidence of local recurrence. Dictated by: Dictated on workstation # [id number]
== END ==
LOC: RAD 09:04
PROVIDERS: ATTEND Internal Medicine Hematology & Oncology
DX: C54.1 Malignant neoplasm of endometrium (principal)
CPT/HCPCS: 71260; 74177

== ENCOUNTER 2017-01-23 13:52 | Outpatient (RCR) | payer MEDICARE ==
--- OUTSIDE RECORDS SUMMARY | 2016-10-31 13:02 | XMS REPORT | Continuity of Care Document ---
Author Author [facility] Organization [facility] Address Unknown Phone Unavailable Care Team Providers Care Internet Site Designer Name Role Phone RICHARDSON SANDRA DO PCP Insurance Providers Payer Name Policy Number Subscriber Name Relationship Wps Medicare [id number] Jeri Byrd 18 Self / Same As Patient Advance Directives Directive Response Recorded Date/Time Advance Directives No 04/11/16 5:22am Health Care Power of Rib Cutter No 04/11/16 5:22am Organ Donor No 04/11/16 [...] Physician Instructions Goal/Follow Up Appt.: Fwup with in in [address] Peck [...] DO (Unspecified) - 3 Weeks Address: [address] [place] [address] VICTOR HUGO PECK MD (Unspecified) - 04/26/16 Address: [address] [place] [phone] Care Plan and Goals See Discharge Instructions Section Functional Status Query Response Date Recorded Patient Orientation Person Confused April 16, 2016 1:55pm Patient Orientation Person Situation Confused April 17, 2016 3:37pm Comprehension Ability Understands Concepts April 17, 2016 8:00am Allergies, Adverse Reactions, Alerts Allergen Type Severity Reaction Status Last Updated ciprofloxacin ([id number]) Allergy Unknown Active 10/11/08 ofloxacin ([id number]) Allergy Unknown Active 10/11/08 Immunizations No immunization records. Vital Signs Acute Vital Signs Vital Response Date/Time Temperature (Fahrenheit) 96.2 degrees F (97.6 - 99.5) 04/17/2016 2:40pm Temperature (Calculated Celsius) 35.82028 degrees C (36.4 - 37.5) 04/17/2016 1:37pm [...] 0.00 inches 04/11/2016 5:17am Height (Calculated Centimeters) 152.292323 cm 04/11/2016 5:17am Weight (Pounds) 252 pounds 04/17/2016 6:00am Weight (Ounces) 0.0 oz 04/14/2016 6:00am Weight (Calculated Grams) 743529.278 gm 04/17/2016 6:00am Weight (Calculated Kilograms) 114.515839 kilograms 04/17/2016 6:00am Calculated BMI 45.2 04/11/2016 [...] Discharge/Depart Date Attending Provider Discharged Inpatient [facility] 04/11/16 3:25am 2:40pm VICTOR HUGO PECK MD Registered Recurring [facility] 03/28/16 10:01am VITALY LIGHT MD Recent Diagnosis COPD (chronic obstructive pulmonary disease) Dislocation of left ankle joint Fall from chair or bed Fracture of tibia and fibula Hypoventilation associated with obesity syndrome Hypoxia Urinary tract infection
[2016-10-31 13:22] LABS: BASOPHILS % (AUTO) 0 % (0-10); EOSINOPHILS # (AUTO) 0.2 10^3/uL (0.0-0.3); EOSINOPHILS % (AUTO) 5 % (0-10); LYMPHOCYTES # (AUTO) 0.6 X 10^3 (1.0-4.0); LYMPHOCYTES % (AUTO) 13 % (12-44); MEAN CORPUSCULAR HEMOGLOBIN 28 PG (25-34); MEAN CORPUSCULAR HGB CONC 31 G/DL (32-36); MEAN CORPUSCULAR VOLUME 91 FL (80-99); MONOCYTES # (AUTO) 0.4 X 10^3 (0.0-1.0); MONOCYTES % (AUTO) 8 % (0-12); NEUTROPHILS # (AUTO) 3.2 X 10^3 (1.8-7.8); NEUTROPHILS % (AUTO) 74 % (42-75); PLATELET COUNT 261 10^3/uL (130-400); RED BLOOD COUNT 4.05 10^6/uL (4.35-5.85); RED CELL DISTRIBUTION WIDTH 15.8 % (10.0-14.5); WHITE BLOOD COUNT 4.3 10^3/uL (4.3-11.0)
[2016-10-31 14:06] LABS: BILIRUBIN,TOTAL 0.6 MG/DL (0.1-1.0); CALCIUM 9.4 MG/DL (8.5-10.1); CREATININE SERUM 1.07 MG/DL (0.60-1.30); POTASSIUM 3.8 MMOL/L (3.6-5.0); TOTAL PROTEIN 6.4 G/DL (6.4-8.2)
[~2017-01-23 13:52] MED LIST changes: -BARIUM SUSPENSION 2.1% (VANILLA SILQ) 450 ML PO ONE; -CATHETER FLUSH 10 ML SYR IV PRN; -IOHEXOL 350 MG/ML 100 ML (OMNIPAQUE 350) VIAL IV ONE; -NS 100 ML (IVPB) BAG IV ONE
[2017-01-23 14:33] LABS: BASOPHILS % (AUTO) 0 % (0-10); EOSINOPHILS # (AUTO) 0.2 10^3/uL (0.0-0.3); EOSINOPHILS % (AUTO) 4 % (0-10); LYMPHOCYTES # (AUTO) 0.8 X 10^3 (1.0-4.0); LYMPHOCYTES % (AUTO) 16 % (12-44); MEAN CORPUSCULAR HEMOGLOBIN 28 PG (25-34); MEAN CORPUSCULAR HGB CONC 30 G/DL (32-36); MEAN CORPUSCULAR VOLUME 93 FL (80-99); MEAN PLATELET VOLUME 9.2 FL (7.4-10.4); MONOCYTES # (AUTO) 0.4 X 10^3 (0.0-1.0); MONOCYTES % (AUTO) 8 % (0-12); NEUTROPHILS # (AUTO) 3.5 X 10^3 (1.8-7.8); NEUTROPHILS % (AUTO) 72 % (42-75); PLATELET COUNT 231 10^3/uL (130-400); RED BLOOD COUNT 4.63 10^6/uL (4.35-5.85); RED CELL DISTRIBUTION WIDTH 14.9 % (10.0-14.5); WHITE BLOOD COUNT 4.9 10^3/uL (4.3-11.0)
[2017-01-23 15:27] LABS: ALBUMIN 3.5 G/DL (3.2-4.5); BILIRUBIN,TOTAL 0.7 MG/DL (0.1-1.0); CALCIUM 9.6 MG/DL (8.5-10.1); CREATININE SERUM 1.55 MG/DL (0.60-1.30); POTASSIUM 3.9 MMOL/L (3.6-5.0)
== END 2017-01-29 | disposition home or self-care (01) ==
LOC: ONC 13:52
PROVIDERS: ATTEND Internal Medicine Hematology & Oncology
DX: C54.1 Malignant neoplasm of endometrium (principal); J44.9 Chronic obstructive pulmonary disease, unspecified; G47.30 Sleep apnea, unspecified; I12.9 Hypertensive chronic kidney disease with stage 1 through stage 4 chronic kidney disease, or unspecified chronic kidney disease; E11.22 Type 2 diabetes mellitus with diabetic chronic kidney disease; N18.3 Chronic kidney disease, stage 3 (moderate); I48.91 Unspecified atrial fibrillation; G89.29 Other chronic pain; F32.9 Major depressive disorder, single episode, unspecified; E66.01 Morbid (severe) obesity due to excess calories; Z68.41 Body mass index [BMI] 40.0-44.9, adult; Z79.01 Long term (current) use of anticoagulants; Z79.899 Other long term (current) drug therapy
CPT/HCPCS: 36415; 80053; 82378; 85025; 86304; 99213

== ENCOUNTER → 2017-04-29 | Outpatient (CLI) | payer MEDICARE ==
[~2017-04-29] MED LIST changes: +ACIDOPHILUS PROB1 MG PO; -LACT1CAP53 PO
[2017-04-29 15:52] LABS: BILIRUBIN,URINE NEGATIVE (NEGATIVE); KETONES,URINE NEGATIVE (NEGATIVE); LEUKOCYTE ESTERASE ,URINE 3+ (NEGATIVE); NITRITE,URINE POSITIVE (NEGATIVE); PH,URINE 5 (5-9); PROTEIN,URINE 1+ (NEGATIVE); UROBILINOGEN,URINE NORMAL (NORMAL)
[2017-04-29 16:06] LABS: WBC,URINE TNTC /HPF
== END ==
LOC: CVS 15:37
PROVIDERS: ATTEND Family Medicine
DX: R41.0 Disorientation, unspecified (principal); R32 Unspecified urinary incontinence
CPT/HCPCS: 81000; 87077; 87088; 87186

== ENCOUNTER → 2017-05-15 | Outpatient (CLI) | payer MEDICARE ==
[~2017-05-15] MED LIST changes: +ACET325T38 PO; +CEPH-507 PO; +CHOL5000 PO; +DICL100G18 TP; +IBUP-1779 PO; +MAGN400O7 PO; +MULT-1073 PO; +POTA20TA15 PO; +PRD20T PO
--- NOTE | 2017-05-15 19:31 | Diagnostic Imaging Report ---
INDICATION: Bilateral breast pain. EXAMINATION: Bilateral breast ultrasound, complete. FINDINGS: The diagnostic mammogram performed earlier today noted diffuse abnormal densities throughout the upper outer aspects of each breast, particularly the left breast. There was also marked thickening of the skin. It was not certain whether these findings were related to an inflammatory/infectious process or to an inflammatory carcinoma. There also appear to be an area of architectural distortion in the upper-outer aspect of the right breast. On this exam, there is again evidence of generalized edema of both breasts, particularly the left breast. There is no discrete solid or cystic mass identified. There is no shadowing in the area of architectural distortion in the upper outer aspect of the right breast seen on the mammogram. The abnormal appearance of both breasts may be secondary to an inflammatory/infectious process. It would be unlikely, but possible, that there is involvement of each breast by inflammatory carcinoma of breast. However, the patient does have a strong family history (both sisters) for breast cancer as well as a personal history of uterine cancer. If further imaging of the breasts is desired, then MRI would be recommended. A surgical consult should also be obtained. IMPRESSION: 1. There is generalized edema of both breasts, particularly the left breast, but there is no discrete solid or cystic mass identified. Whether these changes are related to an inflammatory/infectious process or to neoplasm is not certain. Considerations and recommendations as above. 2. These results were discussed with Dr. Tolliver. ACR BI-RADS Category 4: Suspicious abnormality. Dictated by: Dictated on workstation # [id number]
--- NOTE | 2017-05-15 19:49 | Diagnostic Imaging Report ---
Digital mammogram bilateral diagnostic with tomosynthesis. This study was compared to the prior exams of 06/13/2015 and 10/19/2016. At this time, the patient does complain of pain in both breasts. The current study was also evaluated with a Computer Aided Detection (CAD) system. FINDINGS: The appearance of the breasts has changed significantly since the previous exam of 06/13/2015. Specifically, there is now diffusely increased density throughout the breast parenchyma in the upper-outer aspect of each breast. There is also generalized thickening of the skin of each breast. These findings are more pronounced on the left. There is no discrete mass identified, but the tomosynthesis images do show an area of architectural distortion in the upper-outer aspect of the right breast approximately 12-13 cm from the nipple. In reviewing the 2014 exam, there was a small area of increased density in this region but this area of increased density had decreased in size since the previous exam of 2009. Even so, the area of architectural distortion in the upper-outer aspect of the right breast is worrisome for malignancy. I would recommend that an ultrasound be performed for further study. The tomographic views failed to show any sign of malignancy otherwise. IMPRESSION: 1. There has been a considerable change in the appearance of the breasts since the prior exam. There is now diffusely increased density throughout the breast parenchyma of the upper-outer aspect of each breast and there is thickening of the skin of each breast. These findings are more pronounced on the left. This abnormal appearance could be secondary to an inflammatory/infectious process. The possibility that these findings are related to inflammatory breast carcinoma should also be considered. Furthermore, the area of architectural distortion in the upper-outer aspect of the right breast is also worrisome for malignancy. A surgical consult will be recommended. 2. These results were discussed with Dr. Tolliver. ACR BI-RADS Category 4: Suspicious abnormality. Result letter will be mailed to the patient. Note: At least 10% of breast cancer is not imaged by mammography. Dictated by: Dictated on workstation # [id number]
== END ==
LOC: RAD 13:24
PROVIDERS: ATTEND Family Medicine
DX: N64.4 Mastodynia (principal); R60.0 Localized edema
CPT/HCPCS: 77066

== ENCOUNTER → 2017-05-17 | Outpatient (CLI) | payer MEDICARE ==
[2017-05-17 14:20] LABS: BASOPHILS % (AUTO) 0 % (0-10); EOSINOPHILS # (AUTO) 0.3 10^3/uL (0.0-0.3); EOSINOPHILS % (AUTO) 7 % (0-10); LYMPHOCYTES # (AUTO) 0.6 X 10^3 (1.0-4.0); LYMPHOCYTES % (AUTO) 12 % (12-44); MEAN CORPUSCULAR HEMOGLOBIN 28 PG (25-34); MEAN CORPUSCULAR HGB CONC 29 G/DL (32-36); MEAN CORPUSCULAR VOLUME 97 FL (80-99); MONOCYTES # (AUTO) 0.5 X 10^3 (0.0-1.0); MONOCYTES % (AUTO) 11 % (0-12); NEUTROPHILS # (AUTO) 3.3 X 10^3 (1.8-7.8); NEUTROPHILS % (AUTO) 69 % (42-75); PLATELET COUNT 184 10^3/uL (130-400); RED BLOOD COUNT 3.71 10^6/uL (4.35-5.85); RED CELL DISTRIBUTION WIDTH 17.3 % (10.0-14.5); WHITE BLOOD COUNT 4.8 10^3/uL (4.3-11.0)
[2017-05-17 14:40] LABS: ALBUMIN 3.4 GM/DL (3.2-4.5); BILIRUBIN,TOTAL 1.5 MG/DL (0.1-1.0); CALCIUM 9.5 MG/DL (8.5-10.1); CREATININE SERUM 1.58 MG/DL (0.60-1.30); POTASSIUM 4.4 MMOL/L (3.6-5.0); TOTAL PROTEIN 6.6 GM/DL (6.4-8.2)
[2017-05-17 14:59] LABS: THYROID STIMULATING HORMONE 6.87 UIU/ML (0.35-4.94)
== END ==
LOC: CVS 14:12
PROVIDERS: ATTEND Family Medicine
DX: E11.40 Type 2 diabetes mellitus with diabetic neuropathy, unspecified (principal); D64.9 Anemia, unspecified; N17.9 Acute kidney failure, unspecified
CPT/HCPCS: 80053; 83036; 84439; 84443; 85025

== ENCOUNTER 2017-05-24 07:43 | Emergency (ER) | payer MEDICARE ==
[~2017-05-24] VITALS: Ht 147.3 cm; Wt 136.1 kg
[~2017-05-24 07:43] MED LIST changes: -ACET325T38 PO; -CEPH-507 PO; -CHOL5000 PO; -DICL100G18 TP; -IBUP-1779 PO; -MAGN400O7 PO; -MULT-1073 PO; -POTA20TA15 PO
[2017-05-24 08:29] LABS: BASOPHILS % (AUTO) 0 % (0-10); BILIRUBIN,URINE NEGATIVE (NEGATIVE); EOSINOPHILS # (AUTO) 0.4 10^3/uL (0.0-0.3); EOSINOPHILS % (AUTO) 9 % (0-10); KETONES,URINE NEGATIVE (NEGATIVE); LEUKOCYTE ESTERASE ,URINE NEGATIVE (NEGATIVE); LYMPHOCYTES # (AUTO) 0.5 X 10^3 (1.0-4.0); LYMPHOCYTES % (AUTO) 10 % (12-44); MEAN CORPUSCULAR HEMOGLOBIN 28 PG (25-34); MEAN CORPUSCULAR HGB CONC 30 G/DL (32-36); MEAN CORPUSCULAR VOLUME 95 FL (80-99); MEAN PLATELET VOLUME 10.4 FL (7.4-10.4); MONOCYTES # (AUTO) 0.4 X 10^3 (0.0-1.0); MONOCYTES % (AUTO) 8 % (0-12); NEUTROPHILS # (AUTO) 3.5 X 10^3 (1.8-7.8); NEUTROPHILS % (AUTO) 73 % (42-75); NITRITE,URINE NEGATIVE (NEGATIVE); PH,URINE 8 (5-9); PLATELET COUNT 168 10^3/uL (130-400); PROTEIN,URINE NEGATIVE (NEGATIVE); RED BLOOD COUNT 3.66 10^6/uL (4.35-5.85); UROBILINOGEN,URINE NORMAL (NORMAL); WHITE BLOOD COUNT 4.8 10^3/uL (4.3-11.0)
[2017-05-24 08:46] LABS: ALBUMIN 3.4 GM/DL (3.2-4.5); CALCIUM 9.6 MG/DL (8.5-10.1); CREATININE SERUM 1.25 MG/DL (0.60-1.30); POTASSIUM 4.4 MMOL/L (3.6-5.0); TOTAL PROTEIN 6.8 GM/DL (6.4-8.2)
--- NOTE | 2017-05-24 10:04 | ED General ---
General Chief Complaint: Altered Mental Status Stated Complaint: FALL Nursing Triage Note: pt sent from [facility] with reports of increased confusion and fall from bed. pt reports bilateral leg and hip pain. Nursing Sepsis Screen: No Definite Risk Source of Information: Patient, EMS Exam Limitations: No Limitations History of Present Illness Time Seen by Provider: 09:59 Initial Comments The patient is a 71-year-old white female resident of [facility]. She was sent allegedly because of increasing confusion. This apparently has been present for 3 weeks or more. She is morbidly obese and then known to have hypoxia. EMS reported that their initial reading SaO2 at the senior living was in the low 60s. long term readings were reportedly 80-95. She reports that today she had a fall from her bed but cannot tell me when this was the case. She had 2 ecchymotic areas on her right elbow but could not tell me precisely when these were incurred. She states that she sleeps on some sort of elevated mat. She does not know what day it is. She complains of rather generalized pain but no specific complaint. Timing/Duration: Other (3 weeks) Associated Systoms: Weakness Allergies and Home Medications Allergies Coded Allergies: ciprofloxacin (Verified Allergy, Unknown, 10/11/08) ofloxacin (Verified Allergy, Unknown, 10/11/08) Home Medications Alprazolam 0.5 Mg Tablet, 0.5 MG PO 1999, (Reported) Atorvastatin 20 Mg Tablet, 20 MG PO HS, (Reported) Citalopram Hydrobromide 20 Mg Tablet, 20 MG PO DAILY, (Reported) Ergocalciferol (Vitamin D2) 2,000 Unit Tablet, 5,000 UNIT PO We, (Reported) Furosemide 40 Mg Tablet, 40 MG PO DAILY, #30 Ref 5 Prescribed by: HORTENCIA SUMMERS on 08/23/16 0920 Gabapentin 300 Mg Capsule, 300 MG PO HS, (Reported) Guaifenesin/Dextromethorphan 5 Ml Syrup, 5 ML PO Q4H PRN for COUGH, (Reported) Hydrocodone/Acetaminophen 1 Each Tablet, 1 TAB PO TID, (Reported) Hydrocodone/Acetaminophen 1 Each Tablet, 1 TAB PO BID PRN for PAIN, (Reported) Multivitamin 1 Each Tablet, 1 TAB PO DAILY, (Reported) Omeprazole 20 Mg Capsule.dr, 20 MG PO BID, (Reported) Potassium Chloride 20 Meq Tab.er.prt, 20 MEQ PO DAILY@0700, #30 Ref 5 Prescribed by: HORTENCIA SUMMERS on 08/23/16 0920 Rivaroxaban 20 Mg Tablet, 20 MG PO DAILY@1700, #30 Ref 5 Prescribed by: HORTENCIA SUMMERS on 08/23/16 0920 Sennosides/Docusate Sodium 1 Each Tablet, 1 TAB PO BID, (Reported) Constitutional: see HPI EENTM: no symptoms reported Respiratory: dyspnea on exertion, short of breath Cardiovascular: no symptoms reported Gastrointestinal: no symptoms reported Genitourinary: no symptoms reported Musculoskeletal: no symptoms reported Skin: no symptoms reported Psychiatric/Neurological: Other (confusion) Hematologic/Lymphatic: No Symptoms Reported Immunological/Allergic: no symptoms reported Past Nachjxp-Vsbgda-Yzgovy Hx Patient Social History Alcohol Use: Denies Use Recreational Drug Use: No Smoking Status: Former Smoker Type Used: Cigarettes Former Smoker, Quit: Sep 23, 2007 2nd Hand Smoke Exposure: No Recent Foreign Travel: No Contact w/Someone Who Travel: No Recent Infectious Disease Expo: No Recent Hopitalizations: Yes Physical Abuse: No Sexual Abuse: No Mistreated: No Fear: No Immunizations Up To Date Tetanus Booster (TDap): More than 5yrs PED Vaccines UTD: No Date of Pneumonia Vaccine: Sep 23, 2012 Date of Influenza Vaccine: Jul 27, 2016 Seasonal Allergies Seasonal Allergies: No Surgeries Surgeries: Orthopedic Respiratory Respiratory Disorders: Asthma, COPD Currently Using CPAP: No Currently Using BIPAP: No Reproductive System Hx Reproductive Disorders: Yes (PMB) Sexually Transmitted Disease: No HIV/AIDS: No Female Reproductive Disorders: Denies Genitourinary Genitourinary Disorders: UTI-Chronic Gastrointestinal Gastrointestinal Disorders: Gastroesophageal Reflux Musculoskeletal Musculoskeletal Disorders: Degenerate Disk Disease, Arthritis, Chronic Back Pain, Fractures Endocrine Endocrine Disorders: Diabetes, Non-Insulin dep HEENT Loss of Vision: Denies Psychosocial Behavioral Health Disorders: Sleep Difficulties, Anxiety, Depression Suicide Risk Score: 0 Blood Transfusions Adverse Reaction to a Blood Tr: No Family Medical History Significant Family History: No Pertinent Family Hx Family Medial History: Cancer 03 MOTHER 09 SISTER Family history: Breast disease 09 SISTER Physical Exam Vital Signs Vital Sign - Last 12Hours 05/24/17 08:18 Temp 95.6 Pulse 93 Resp 20 B/P (MAP) 110/57 Pulse Ox 92 O2 Delivery OxyMask O2 Flow Rate 15.00 Capillary Refill : Less Than 3 Seconds General Appearance: Mild Distress, Other (morbidly obese) Eyes: Bilateral Eye Normal Inspection HEENT: Normal ENT Inspection Neck: Full Range of Motion, Normal Inspection, Non Tender, Supple, Carotid Bruit Respiratory: Chest Non Tender, Lungs Clear, Normal Breath Sounds, No Accessory Muscle Use, No Respiratory Distress Cardiovascular: Regular Rate, Rhythm, No Edema, No Gallop, No JVD, No Murmur, Normal Peripheral Pulses Gastrointestinal: Other (belly is huge) Extremity: Other (both legs show 2+ pitting edema. The left foot is deformed and there appears to be heel cord shortening. She states that there was a open compound fracture of the left ankle some years ago) Neurologic/Psychiatric: Alert, No Motor/Sensory Deficits, Depressed Affect, Other (confused about details and chronology) Skin: Other Patient Education: Explained Benefits, Explained Risks, Pt. Ack. Understanding Breath Sounds per Auscultation: Clear Heart Sounds per Auscultation: Regular Airway Exam: Mouth opens >2 fingers, Neck Full Range of Motion, Visulation of Uvula Sedation Adminstration Time: 0303 Re-examination Time: 0335 Progress/Results/Core Measures Results/Orders Lab Results Laboratory Tests Test 05/24/17 08:00 Range/Units White Blood Count 4.8 4.3-11.0 10^3/uL Red Blood Count 3.66 L 4.35-5.85 10^6/uL Hemoglobin 10.3 L 11.5-16.0 G/DL Hematocrit 35 35-52 % Mean Corpuscular Volume 95 80-99 FL Mean Corpuscular Hemoglobin 28 25-34 PG Mean Corpuscular Hemoglobin Concent 30 L 32-36 G/DL Red Cell Distribution Width 17.0 H 10.0-14.5 % Platelet Count 168 130-400 10^3/uL Mean Platelet Volume 10.4 7.4-10.4 FL Neutrophils (%) (Auto) 73 42-75 % Lymphocytes (%) (Auto) 10 L 12-44 % Monocytes (%) (Auto) 8 0-12 % Eosinophils (%) (Auto) 9 0-10 % Basophils (%) (Auto) 0 0-10 % Neutrophils # (Auto) 3.5 1.8-7.8 X 10^3 Lymphocytes # (Auto) 0.5 L 1.0-4.0 X 10^3 Monocytes # (Auto) 0.4 0.0-1.0 X 10^3 Eosinophils # (Auto) 0.4 H 0.0-0.3 10^3/uL Basophils # (Auto) 0.0 0.0-0.1 10^3/uL Urine Color YELLOW Urine Clarity CLEAR Urine pH 8 5-9 Urine Specific [place] 1.010 L 1.016-1.022 Urine Protein NEGATIVE NEGATIVE Urine Glucose (UA) NEGATIVE NEGATIVE Urine Ketones NEGATIVE NEGATIVE Urine Nitrite NEGATIVE NEGATIVE Urine Bilirubin NEGATIVE NEGATIVE Urine Urobilinogen NORMAL NORMAL MG/DL Urine Leukocyte Esterase NEGATIVE NEGATIVE Urine RBC (Auto) NEGATIVE NEGATIVE Urine RBC NONE /HPF Urine WBC NONE /HPF Urine Squamous Epithelial Cells NONE /HPF Urine Crystals NONE /LPF Urine Bacteria NEGATIVE /HPF Urine Casts NONE /LPF Urine Mucus NEGATIVE /LPF Urine Culture Indicated NO Sodium Level 140 135-145 MMOL/L Potassium Level 4.4 3.6-5.0 MMOL/L Chloride Level 99 98-107 MMOL/L Carbon Dioxide Level 29 21-32 MMOL/L Anion Gap 12 5-14 MMOL/L Blood Urea Nitrogen 17 7-18 MG/DL Creatinine 1.25 0.60-1.30 MG/DL Estimat Glomerular Filtration Rate 42 BUN/Creatinine Ratio 14 Glucose Level 82 70-105 MG/DL Calcium Level 9.6 8.5-10.1 MG/DL Total Bilirubin 2.0 H 0.1-1.0 MG/DL Aspartate Amino Transf (AST/SGOT) 33 5-34 U/L Alanine Aminotransferase (ALT/SGPT) 9 0-55 U/L Alkaline Phosphatase 66 40-136 U/L Total Protein 6.8 6.4-8.2 GM/DL Albumin 3.4 3.2-4.5 GM/DL My Orders Orders - YOLANDA ROBLES MD Cbc With Automated Diff (05/24/17 08:23) Comprehensive Metabolic Panel (05/24/17 08:23) Ua Culture If Indicated (05/24/17 08:23) Chest 1 View, Ap/Pa Only (05/24/17 09:29) Vital Signs/I&O Vital Sign - Last 12Hours 05/24/17 08:18 Temp 95.6 Pulse 93 Resp 20 B/P (MAP) 110/57 Pulse Ox 92 O2 Delivery OxyMask O2 Flow Rate 15.00 Blood Pressure Mean: 74 Departure Communication (Admissions) Progress Notes 1034. Interpretation of chest x-ray by me shows the a persistent bihilar infiltrates better than in July 2016. [address] Tolliver by phone. The patient will be sent back to the senior living Impression Impression: Primary Impression: confusion Additional Impression: COPD with chronic hypoxia Disposition: HOME, SELF-CARE Condition: Stable/Unchanged Departure-Patient Inst. Decision time for Depature: 10:43 Referrals: RICHARDSON TOLLIVER DO (PCP/Family) Primary Care Physician Add. Discharge Instructions: All discharge instructions reviewed with patient and/or family. Voiced understanding. Resume previous orders Return for schedule CT of head YOLANDA ROBLES MD May 24, 2017 10:04
--- NOTE | 2017-05-24 10:53 | Diagnostic Imaging Report ---
CLINICAL INDICATION: Patient with increased confusion and fall from bed. EXAM: Portable chest x-ray upright view. COMPARISON: Portable chest x-ray upright view dated 08/21/2016. FINDINGS: Again seen cardiomegaly. There is pulmonary vascular congestion which is also noted. There is slight improved aeration of both lungs, but there continue to be mild airspace opacities with the left lung base affected the most. There is subtle blunting of the right and left costophrenic angle regions which may represent small pleural effusions. There is mild elevation of the right hemidiaphragm. Bones show no significant abnormality. IMPRESSION: 1: There is cardiomegaly and pulmonary vascular congestion likely related to congestive heart failure. These findings are slightly improved compared to the prior study. 2: Possible small bilateral pleural effusions. 3: There are bilateral lung opacities with the left lung base affected the most which may represent lung infiltrates which may be related to pulmonary congestion, but superimposed infiltrate cannot be completely excluded. These findings are also improved compared to the prior chest x-ray. Dictated by: Dictated on workstation # [id number]
[2017-05-24 11:27] VITALS: BP 116/103
[2017-05-31] MEDS ORDERED: IPRA3AMP INH (11:38)
[2017-05-31] MEDS ORDERED: PRD20T PO (11:38)
[2017-05-31] MEDS ORDERED: HYDR-3820 PO ×2 (14:13)
[2017-05-31] MEDS ORDERED: ALPR0.5T PO (14:14)
== END 2017-05-24 11:27 | disposition home or self-care (01) ==
LOC: EDUNIT# 07:43 → ER 07:44
DX: R41.0 Disorientation, unspecified (principal); J44.9 Chronic obstructive pulmonary disease, unspecified; R09.02 Hypoxemia; M79.605 Pain in left leg; M79.604 Pain in right leg; M25.551 Pain in right hip; M25.552 Pain in left hip; E11.9 Type 2 diabetes mellitus without complications; F41.9 Anxiety disorder, unspecified; F32.9 Major depressive disorder, single episode, unspecified; G47.9 Sleep disorder, unspecified; M47.9 Spondylosis, unspecified; K21.9 Gastro-esophageal reflux disease without esophagitis; E66.01 Morbid (severe) obesity due to excess calories; Z87.891 Personal history of nicotine dependence; Z87.81 Personal history of (healed) traumatic fracture; Z68.44 Body mass index [BMI] 60.0-69.9, adult; W06.XXXA Fall from bed, initial encounter
CPT/HCPCS: 36415; 71010; 80053; 81000; 85025

== ENCOUNTER → 2017-05-24 | Outpatient (CLI) | payer MEDICARE ==
[~2017-05-24] MED LIST changes: -PRD20T PO
--- NOTE | 2017-05-24 12:44 | Diagnostic Imaging Report ---
INDICATION: Memory loss. TECHNIQUE: Routine non contrast-enhanced axial images were obtained from the skull base to the vertex. COMPARISON: 04/15/2016 FINDINGS: The ventricles and cortical sulci are diffusely prominent, compatible with age-related volume loss. There are confluent areas of abnormal, low attenuation in the periventricular white matter. This is consistent chronic small vessel ischemic changes. There is no midline shift or mass-effect. No acute intra-axial hemorrhage is seen. There are no abnormal areas of increased or decreased density to suggest acute hemorrhage or edema. No extra-axial masses or collections are present. The bony calvarium is intact. The visualized paranasal sinuses are unremarkable. The mastoid air cells are clear. IMPRESSION: 1. No acute intracranial abnormality. No CT evidence of mass, acute infarct or intracranial hemorrhage. 2. Chronic small vessel ischemic changes in deep white matter. Dictated by: Dictated on workstation # [id number]
== END ==
LOC: RAD 11:39
PROVIDERS: ATTEND Family Medicine
DX: R41.3 Other amnesia (principal); R94.6 Abnormal results of thyroid function studies; R41.0 Disorientation, unspecified
CPT/HCPCS: 70450

== ENCOUNTER 2017-05-28 17:44 | Inpatient (IN) | payer MEDICARE ==
[2017-05-28] VITALS (7 sets, daily range): BP systolic 107–132; BP diastolic 55–93
[~2017-05-28] VITALS: Ht 147.3 cm; Wt 110.8 kg
--- NOTE | 2017-05-28 17:56 | ED Cough/URI ---
General Chief Complaint: Respiratory Problems Stated Complaint: DYSPNEA Source: patient, EMS Exam Limitations: no limitations History of Present Illness Time seen by provider: 17:55 Initial Comments To ER per EMS from via [facility] with increasing dyspnea. Patient had an outpatient chest x-ray done this morning showing a right lower lobe infiltrate. Patient has a history of COPD. She was found to be hypoxic today at 86 percent SPO2 on 6 L of oxygen. EMS arrived, started DuoNeb treatment, increased oxygen to 10 L with oxygen saturation increasing to 97 percent. She is afebrile. She advises that she does not want to be intubated or have CPR done should either of these be required. BiPAP was started upon arrival to ER. Timing/Duration: constant, getting worse Severity/Quality: productive cough Associated Symptoms: cough, shortness of breath, wheezing Allergies and Home Medications Allergies Coded Allergies: ciprofloxacin (Verified Allergy, Unknown, 10/11/08) ofloxacin (Verified Allergy, Unknown, 10/11/08) Home Medications Alprazolam 0.5 Mg Tablet, 0.5 MG PO 2000, (Reported) Atorvastatin 20 Mg Tablet, 20 MG PO HS, (Reported) Citalopram Hydrobromide 20 Mg Tablet, 20 MG PO DAILY, (Reported) Ergocalciferol (Vitamin D2) 2,000 Unit Tablet, 5,000 UNIT PO We, (Reported) Furosemide 40 Mg Tablet, 40 MG PO DAILY, #30 Ref 5 Prescribed by: HORTENCIA SUMMERS on 08/23/16919 Gabapentin 300 Mg Capsule, 300 MG PO HS, (Reported) Guaifenesin/Dextromethorphan 5 Ml Syrup, 5 ML PO Q4H PRN for COUGH, (Reported) Hydrocodone/Acetaminophen 1 Each Tablet, 1 TAB PO TID, (Reported) Hydrocodone/Acetaminophen 1 Each Tablet, 1 TAB PO BID PRN for PAIN, (Reported) Multivitamin 1 Each Tablet, 1 TAB PO DAILY, (Reported) Omeprazole 20 Mg Capsule.dr, 20 MG PO BID, (Reported) Potassium Chloride 20 Meq Tab.er.prt, 20 MEQ PO DAILY@0700, #30 Ref 5 Prescribed by: HORTENCIA SUMMERS on 08/23/16919 Rivaroxaban 20 Mg Tablet, 20 MG PO DAILY@1700, #30 Ref 5 Prescribed by: HORTENCIA SUMMERS on 12/1/16 0920 Sennosides/Docusate Sodium 1 Each Tablet, 1 TAB PO BID, (Reported) Constitutional: see HPI, other (unable to obtain due to medical condition) Past Yefzawy-Pnvhpr-Iggycn Hx Patient Social History Type Used: Cigarettes Former Smoker, Quit: Sep 23, 2007 2nd Hand Smoke Exposure: No Recent Hopitalizations: Yes Immunizations Up To Date Tetanus Booster (TDap): More than 5yrs PED Vaccines UTD: No Date of Pneumonia Vaccine: Sep 23, 2012 Date of Influenza Vaccine: Jul 27, 2016 Seasonal Allergies Seasonal Allergies: No Surgeries Surgeries: Orthopedic Respiratory Respiratory Disorders: Asthma, COPD Currently Using CPAP: No Currently Using BIPAP: No Reproductive System Hx Reproductive Disorders: Yes (PMB) Sexually Transmitted Disease: No HIV/AIDS: No Female Reproductive Disorders: Denies Genitourinary Genitourinary Disorders: UTI-Chronic Gastrointestinal Gastrointestinal Disorders: Gastroesophageal Reflux Musculoskeletal Musculoskeletal Disorders: Degenerate Disk Disease, Arthritis, Chronic Back Pain, Fractures Endocrine Endocrine Disorders: Diabetes, Non-Insulin dep HEENT Loss of Vision: Denies Psychosocial Behavioral Health Disorders: Sleep Difficulties, Anxiety, Depression Blood Transfusions Adverse Reaction to a Blood Tr: No Family Medical History Significant Family History: No Pertinent Family Hx Family Medial History: Cancer 03 MOTHER 09 SISTER Family history: Breast disease 09 SISTER Physical Exam Vital Signs Vital Sign - Last 12Hours 05/28/17 05/28/17 17:51 18:10 Temp 97.9 Pulse 62 Resp 22 B/P (MAP) 116/103 Pulse Ox 93 O2 Delivery Non Rebreather O2 Flow Rate 60.00 Capillary Refill : General Appearance: WD/WN, no apparent distress, moderate distress, obese Eyes: Bilateral Eye Normal Inspection, Bilateral Eye PERRL, Bilateral Eye EOMI HEENT: PERRL/EOMI, normal ENT inspection Neck: non-tender, full range of motion Respiratory: no respiratory distress, no accessory muscle use, decreased breath sounds, wheezing Cardiovascular: regular rate, rhythm, no murmur Gastrointestinal: normal bowel sounds, non tender, soft Extremities: normal range of motion, non-tender, other (pedal edema. The knees , 2-3+.) Neurologic/Psychiatric: alert, normal mood/affect, oriented x 3 Skin: normal color, warm/dry Patient Education: Explained Benefits, Explained Risks, Pt. Ack. Understanding Breath Sounds per Auscultation: Clear Heart Sounds per Auscultation: Regular Airway Exam: Mouth opens >2 fingers, Neck Full Range of Motion, Visulation of Uvula Sedation Adminstration Time: 0303 Re-examination Time: 033 Progress/Results/Core Measures Results/Orders Lab Results Laboratory Tests Test 05/28/17 17:50 05/28/17 18:10 05/28/17 19:12 Range/Units Blood Gas Puncture Site LEFT RADIAL RIGHT RADIAL Blood Gas Patient Temperature 97.9 98.1 Arterial Blood pH 7.44 H 7.46 H 7.37-7.43 Arterial Blood Partial Pressure CO2 49 H 47 H 35-45 MMHG Arterial Blood Partial Pressure O2 52 L 145 H 79-93 MMHG Arterial Blood HCO3 33 H 33 H 23-27 MMOL/L Arterial Blood Total CO2 34.6 H 33.9 H 21.0-31.0 MMOL/L Arterial Blood Oxygen Saturation 81 L 100 94-100 % Arterial Blood Base Excess 8.6 H 8.3 H -2.5-2.5 MMOL/L Fidel Test POSITIVE POSITIVE Blood Gas Ventilator Setting NO NO Blood Gas Inspired Oxygen 10 BIPAP 50% White Blood Count 6.6 4.3-11.0 10^3/uL Red Blood Count 3.59 L 4.35-5.85 10^6/uL Hemoglobin 10.1 L 11.5-16.0 G/DL Hematocrit 35 35-52 % Mean Corpuscular Volume 96 80-99 FL Mean Corpuscular Hemoglobin 28 25-34 PG Mean Corpuscular Hemoglobin Concent 29 L 32-36 G/DL Red Cell Distribution Width 17.8 H 10.0-14.5 % Platelet Count 205 130-400 10^3/uL Mean Platelet Volume 9.3 7.4-10.4 FL Neutrophils (%) (Auto) 71 42-75 % Lymphocytes (%) (Auto) 17 12-44 % Monocytes (%) (Auto) 9 0-12 % Eosinophils (%) (Auto) 3 0-10 % Basophils (%) (Auto) 0 0-10 % Neutrophils # (Auto) 4.7 1.8-7.8 X 10^3 Lymphocytes # (Auto) 1.1 1.0-4.0 X 10^3 Monocytes # (Auto) 0.6 0.0-1.0 X 10^3 Eosinophils # (Auto) 0.2 0.0-0.3 10^3/uL Basophils # (Auto) 0.0 0.0-0.1 10^3/uL Sodium Level 142 135-145 MMOL/L Potassium Level 4.4 3.6-5.0 MMOL/L Chloride Level 98 98-107 MMOL/L Carbon Dioxide Level 32 21-32 MMOL/L Anion Gap 12 5-14 MMOL/L Blood Urea Nitrogen 18 7-18 MG/DL Creatinine 1.52 H 0.60-1.30 MG/DL Estimat Glomerular Filtration Rate 34 BUN/Creatinine Ratio 12 Glucose Level 107 H 70-105 MG/DL Calcium Level 9.6 8.5-10.1 MG/DL Total Bilirubin 2.3 H 0.1-1.0 MG/DL Aspartate Amino Transf (AST/SGOT) 25 5-34 U/L Alanine Aminotransferase (ALT/SGPT) 7 0-55 U/L Alkaline Phosphatase 75 40-136 U/L Troponin I < 0.30 <0.30 NG/ML B-Type Natriuretic Peptide 914.6 H <100.0 PG/ML Total Protein 7.2 6.4-8.2 GM/DL Albumin 3.7 3.2-4.5 GM/DL Thyroid Stimulating Hormone (TSH) 3.70 0.35-4.94 UIU/ML Free Thyroxine 1.18 0.70-1.48 NG/DL My Orders Orders - LUIS SULLIVAN APRN Arterial Blood Gas (05/28/17 17:53) Cbc With Automated Diff (05/28/17 17:53) Comprehensive Metabolic Panel (05/28/17 17:53) Troponin I (05/28/17 17:53) BNP (05/28/17 17:53) Ekg Tracing (05/28/17 17:53) Chest 1 View, Ap/Pa Only (05/28/17 17:53) Methylprednisolone Sod Succ (Solu-Medrol (05/28/17 18:00) Furosemide Injection (Lasix Injection) (05/28/17 18:00) Thyroid Stimulating Hormone (05/28/17 18:05) Free T4 (Free Thyroxine) (05/28/17 18:05) Arterial Blood Gas (05/28/17 19:00) Medications Given in ED Current Medications Medications Dose Ordered Sig/Betina Route Start Time Stop Time Status Last Admin Dose Admin Furosemide 40 mg ONCE ONCE IVP 05/28/17 18:00 05/28/17 18:01 DC 05/28/17 18:30 40 MG Methylprednisolone Sodium Succinate 125 mg ONCE ONCE IVP 05/28/17 18:00 05/28/17 18:01 DC 05/28/17 18:30 125 MG Vital Signs/I&O Vital Sign - Last 12Hours 05/28/17 05/28/17 17:51 18:10 Temp 97.9 Pulse 62 60 Resp 22 22 B/P (MAP) 116/103 Pulse Ox 93 92 O2 Delivery Non Rebreather O2 Flow Rate 60.00 Diagnostic Imaging Diagonstic Imaging: Xray Plain Films/CT/US/NM/MRI: chest Comments NAME: JERI BYRD [facility] REC#: [id number] PT STATUS: REG ER : 1945 PHYSICIAN: LUIS SULLIVAN APRN ADMIT DATE: 05/28/17/ER Draft Date of Exam:05/28/17 CHEST 1 VIEW, AP/PA ONLY EXAM: CHEST 1 VIEW, AP/PA ONLY INDICATION: Dyspnea. COMPARISON: Chest radiograph 05/24/2017. FINDINGS: Low lung volumes accentuate the cardiomegaly and pulmonary venous congestion. Persistent interstitial opacities consistent with interstitial edema. Calcified aorta. No definite pleural effusion or pneumothorax. No acute osseous findings. IMPRESSION: Persistent cardiomegaly and interstitial edema is accentuated by the low lung volumes. Dictated on workstation # [id number] Dict: 05/28/17 1816 Trans: 05/28/17 1820 [id number] Interpreted by: GENE COPE MD Electronically signed by: Departure Communication (Admissions) Progress Notes 1920-patient remains on BiPAP. States she is feeling better. Down to 50 percent FiO2 with SPO2 at 100 percent. Repeat ABG drawn, results not back yet. Impression Impression: Primary Impression: COPD (chronic obstructive pulmonary disease) Additional Impression: pulmonary interstitial edema Disposition: ADMITTED INPATIENT Condition: Critical Admissions Decision to Admit Reason: Admit from ER (General) Decision to Admit/Date: May 28, 2017 Time/Decision to Admit Time: 18:35 Departure-Patient Inst. Referrals: RICHARDSON SANDRA DO (PCP/Family) Primary Care Physician LUIS SULLIVAN APRN May 28, 2017 17:56
[2017-05-28] MEDS ORDERED: FUROSEMIDE 40 MG/4 ML INJ (LASIX) IVP ONE (18:00)
[2017-05-28] MEDS ORDERED: methylPREDNISolone 125 MG (Solu-MEDROL) VIAL IVP ONE (18:00)
[2017-05-28 18:01] LABS: ABG BASE EXCESS 8.6 MMOL/L (-2.5-2.5); ABG HCO3 33 MMOL/L (23-27); ABG OXYGEN SATURATION 81 % (94-100); ABG PCO2 49 MMHG (35-45); ABG PH 7.44 (7.37-7.43); ABG PO2 52 MMHG (79-93); ABG TCO2 34.6 MMOL/L (21.0-31.0); ALLENS TEST POSITIVE; PATIENT TEMP 97.9
--- NOTE | 2017-05-28 18:20 | Diagnostic Imaging Report ---
EXAM: CHEST 1 VIEW, AP/PA ONLY INDICATION: Dyspnea. COMPARISON: Chest radiograph 05/24/2017. FINDINGS: Low lung volumes accentuate the cardiomegaly and pulmonary venous congestion. Persistent interstitial opacities consistent with interstitial edema. Calcified aorta. No definite pleural effusion or pneumothorax. No acute osseous findings. IMPRESSION: Persistent cardiomegaly and interstitial edema is accentuated by the low lung volumes. Dictated by: Dictated on workstation # [id number]
[2017-05-28 18:26] LABS: BASOPHILS % (AUTO) 0 % (0-10); EOSINOPHILS # (AUTO) 0.2 10^3/uL (0.0-0.3); EOSINOPHILS % (AUTO) 3 % (0-10); LYMPHOCYTES # (AUTO) 1.1 X 10^3 (1.0-4.0); LYMPHOCYTES % (AUTO) 17 % (12-44); MEAN CORPUSCULAR HEMOGLOBIN 28 PG (25-34); MEAN CORPUSCULAR HGB CONC 29 G/DL (32-36); MEAN CORPUSCULAR VOLUME 96 FL (80-99); MEAN PLATELET VOLUME 9.3 FL (7.4-10.4); MONOCYTES # (AUTO) 0.6 X 10^3 (0.0-1.0); MONOCYTES % (AUTO) 9 % (0-12); NEUTROPHILS # (AUTO) 4.7 X 10^3 (1.8-7.8); NEUTROPHILS % (AUTO) 71 % (42-75); PLATELET COUNT 205 10^3/uL (130-400); RED BLOOD COUNT 3.59 10^6/uL (4.35-5.85); RED CELL DISTRIBUTION WIDTH 17.8 % (10.0-14.5); WHITE BLOOD COUNT 6.6 10^3/uL (4.3-11.0)
[2017-05-28 18:47] LABS: ANION GAP 12 MMOL/L (5-14); BLOOD UREA NITROGEN 18 MG/DL (7-18); BUN/CREATININE RATIO 12; CARBON DIOXIDE 32 MMOL/L (21-32); CHLORIDE 98 MMOL/L (98-107); CREATININE SERUM 1.52 MG/DL (0.60-1.30); GFR ESTIMATED 34; POTASSIUM 4.4 MMOL/L (3.6-5.0); SODIUM 142 MMOL/L (135-145)
[2017-05-28 18:48] LABS: ALANINE AMINOTRANSFERASE 7 U/L (0-55); ALBUMIN 3.7 GM/DL (3.2-4.5); ASPARTATE AMINO TRANSFERASE 25 U/L (5-34); BILIRUBIN,TOTAL 2.3 MG/DL (0.1-1.0); CALCIUM 9.6 MG/DL (8.5-10.1); GLUCOSE 107 MG/DL (70-105); TOTAL PROTEIN 7.2 GM/DL (6.4-8.2)
[2017-05-28 19:08] LABS: TROPONIN I < 0.30 NG/ML (<0.30)
[2017-05-28 19:19] LABS: ABG BASE EXCESS 8.3 MMOL/L (-2.5-2.5); ABG HCO3 33 MMOL/L (23-27); ABG OXYGEN SATURATION 100 % (94-100); ABG PCO2 47 MMHG (35-45); ABG PH 7.46 (7.37-7.43); ABG PO2 145 MMHG (79-93); ABG TCO2 33.9 MMOL/L (21.0-31.0); ALLENS TEST POSITIVE; PATIENT TEMP 98.1
[2017-05-28] MEDS ORDERED: CATHETER FLUSH 10 ML SYR IV PRN (20:30)
[2017-05-28] MEDS ORDERED: RT-ALBUTEROL/IPRATROPIUM 3 ML (DUONEB) VIAL INH PRN (23:00)
[2017-05-29] VITALS (29 sets, daily range): BP systolic 83–143; BP diastolic 44–117
[2017-05-29] MEDS: RT-ALBUTEROL/IPRATROPIUM 3 ML (DUONEB) VIAL INH SCH ×6 (01:56→22:24)
[2017-05-29] MEDS: CATHETER FLUSH 10 ML SYR IV SCH ×4 (02:17→22:14)
[2017-05-29] MEDS: methylPREDNISolone 125 MG (Solu-MEDROL) VIAL IV SCH ×3 (02:18→17:54)
[2017-05-29 05:04] LABS: BASOPHILS % (AUTO) 0 % (0-10); EOSINOPHILS % (AUTO) 0 % (0-10); LYMPHOCYTES # (AUTO) 0.4 X 10^3 (1.0-4.0); LYMPHOCYTES % (AUTO) 8 % (12-44); MEAN CORPUSCULAR HEMOGLOBIN 28 PG (25-34); MEAN CORPUSCULAR HGB CONC 30 G/DL (32-36); MEAN CORPUSCULAR VOLUME 95 FL (80-99); MEAN PLATELET VOLUME 10.3 FL (7.4-10.4); MONOCYTES # (AUTO) 0.1 X 10^3 (0.0-1.0); MONOCYTES % (AUTO) 1 % (0-12); NEUTROPHILS # (AUTO) 4.3 X 10^3 (1.8-7.8); NEUTROPHILS % (AUTO) 91 % (42-75); PLATELET COUNT 160 10^3/uL (130-400); RED BLOOD COUNT 3.48 10^6/uL (4.35-5.85); RED CELL DISTRIBUTION WIDTH 17.5 % (10.0-14.5); WHITE BLOOD COUNT 4.7 10^3/uL (4.3-11.0)
[2017-05-29 05:29] LABS: ALBUMIN 3.4 GM/DL (3.2-4.5); BILIRUBIN,TOTAL 2.1 MG/DL (0.1-1.0); CALCIUM 9.3 MG/DL (8.5-10.1); CREATININE SERUM 1.53 MG/DL (0.60-1.30); MAGNESIUM 2.2 MG/DL (1.8-2.4); PHOSPHORUS 3.2 MG/DL (2.3-4.7); POTASSIUM 3.9 MMOL/L (3.6-5.0); TOTAL PROTEIN 6.6 GM/DL (6.4-8.2)
[2017-05-29 06:03] LABS: ABG BASE EXCESS 8.4 MMOL/L (-2.5-2.5); ABG HCO3 33 MMOL/L (23-27); ABG OXYGEN SATURATION 99 % (94-100); ABG PCO2 47 MMHG (35-45); ABG PH 7.45 (7.37-7.43); ABG PO2 103 MMHG (79-93); ABG TCO2 34.3 MMOL/L (21.0-31.0); ALLENS TEST YES-POS; PATIENT TEMP 97.2
--- NOTE | 2017-05-29 06:54 | Diagnostic Imaging Report ---
INDICATION: CHF. Respiratory failure. COMPARISON: 05/28/2017 FINDINGS: Single frontal radiographic view of the chest was obtained and again demonstrates cardiomegaly and pulmonary vascular congestion. Interstitial opacities may be slightly improved. There is poor visualization of the left lower lung field. Right lung is relatively clear. There is no large effusion or pneumothorax on either side. Bony structures show no new acute abnormalities. IMPRESSION: 1. Persistent cardiomegaly and pulmonary vascular congestion. 2. Probable improving interstitial pulmonary edema. 3. Left basilar atelectasis and/or infiltrate. This may be accentuated by obscuration from overlying soft tissue structures. Continued followup is recommended. Dictated by: Dictated on workstation # [id number]
[2017-05-29] MEDS: FUROSEMIDE 40 MG/4 ML INJ (LASIX) IV SCH (06:58)
[2017-05-29] MEDS: KCL 20 MEQ TAB (K-DUR) PO SCH ×2 (06:58→08:00)
[2017-05-29] MEDS: MAGNESIUM 1 GM/100 ML IVPB 100 ML IV SCH (06:58)
[2017-05-29] MEDS: POTASSIUM CL 10MEQ/50ML IVPB 50 ML IV SCH (06:59)
--- NOTE | 2017-05-29 08:51 | Consultation-Cardiology ---
HPI-Cardiology Cardiology Consultation: Date of Consultation 05/29/17 Time Seen by Provider: 08:25 Date of Admission 05-28-17 Attending Physician Richardson Tolliver DO Admitting Physician Richardson Tolliver DO Consulting Physician Flaco Delacruz MD, MA FACP [facility] HPI: Chief Complaint: Dyspnea CHF Ms. Byrd is a 71 year old female who resides at [facility]. She is a poor historian. She is currently on Bi-pap. She reports she does not recall the events leading up to her admission. Information has been obtained from a chart review. She has been having increasing shortness of breath. CXR was obtained as an out-pt which showed infiltrate and pulmonary congestion. She was found to have low oxygen sats. She currently is reporting shortness of breath. No c/ o CP. Review of Systems-Cardiology Review of Systems Other comments Poor historian. To the extent that a ROS could be obtained is as noted in HPI WZC-Zcvrgy-Xhwlhh Hx Patient Social History Alcohol Use: Denies Use Recreational Drug Use: No Smoking Status: Unknown if Ever Smoked Former smoker/When Quit: Jul 07, 2005 Type Used: Cigarettes 2nd Hand Smoke Exposure: No Recent Foreign Travel: No Recent Infectious Disease Expo: No Physical Abuse Screen: No Sexual Abuse: No Immunizations Up To Date Tetanus Booster (TDap): More than 5yrs Date of Pneumonia Vaccine: Sep 23, 2012 Date of Influenza Vaccine: Jul 27, 2016 Past Medical History PMH As described under Assessment. Family Medical History Family History: Cancer 03 MOTHER 09 SISTER Family history: Breast disease 09 SISTER Allergies and Home Medications Allergies Coded Allergies: levofloxacin (Verified Allergy, Intermediate, 05/29/17) ciprofloxacin (Verified Allergy, Unknown, 10/11/08) ofloxacin (Verified Allergy, Unknown, 10/11/08) Home Medications Acetaminophen 325 Mg Tablet, 650 MG PO Q4H PRN for MILD PAIN/ELEVATED TEMP, ( Reported) TAKES 2 (325MG) TABLETS Alprazolam 0.5 Mg Tablet, 0.5 MG PO HS, (Reported) Atorvastatin 20 Mg Tablet, 20 MG PO HS, (Reported) Cephalexin 500 Mg Capsule, 500 MG PO TID, (Reported) START DATE 05-16-17 STOP DATE 05-31-17 Cholecalciferol (Vitamin D3) 5,000 Unit Capsule, 5,000 UNIT PO We, (Reported) Citalopram Hydrobromide 20 Mg Tablet, 20 MG PO DAILY, (Reported) Diclofenac Sodium 100 Gm Gel..gram., 4 GM TP BID, (Reported) APPLY TO LEFT ANKLE/FOOT Furosemide 40 Mg Tablet, 40 MG PO DAILY, (Reported) Gabapentin 300 Mg Capsule, 300 MG PO DAILY, (Reported) Guaifenesin/Dextromethorphan 5 Ml Syrup, 5 ML PO Q4H PRN for COUGH, (Reported) Hydrocodone/Acetaminophen 1 Each Tablet, 1 TAB PO TID PRN for PAIN-MODERATE, ( Reported) Hydrocodone/Acetaminophen 1 Each Tablet, 1 TAB PO UD PRN for 30 MIN BEFORE PHYSICAL THERAPY, (Reported) Ibuprofen 400 Mg Tablet, 400 MG PO TID PRN for PAIN-MILD, (Reported) Ipratropium/Albuterol Sulfate 3 Ml Ampul.neb, 3 ML IH TID PRN for SHORTNESS OF BREATH, (Reported) Magnesium Hydroxide 400 Mg/5 Ml Oral.susp, 30 ML PO DAILY PRN for CONSTIPATION- 7TH LINE, (Reported) Multivit,Calc,Mins/Iron/Folic 1 Each Tablet, 1 TAB PO DAILY, (Reported) Omeprazole 20 Mg Capsule.dr, 20 MG PO DAILY, (Reported) Potassium Chloride 20 Meq Tab.er.prt, 20 MEQ PO DAILY, (Reported) Rivaroxaban 20 Mg Tablet, 20 MG PO DAILY, (Reported) Sennosides/Docusate Sodium 1 Each Tablet, 1 TAB PO Q12H PRN for CONSTIPATION- 6TH LINE, (Reported) Physical Exam-Cardiology Physical Exam Vital Signs/I&O Vital Sign - Last 12Hours 05/29/17 05/29/17 05/29/17 05/29/17 01:56 02:00 02:30 03:00 Pulse 46 48 59 58 Resp 13 12 17 11 B/P (MAP) 104/87 94/83 106/63 Pulse Ox 95 96 96 96 O2 Delivery NIV Bilevel NIV Bilevel NIV Bilevel O2 Flow Rate 40.00 35.00 35.00 35.00 05/29/17 05/29/17 05/29/17 05/29/17 03:30 03:40 04:00 04:00 Pulse 55 56 Resp 14 15 B/P (MAP) 118/55 130/57 Pulse Ox 90 92 O2 Delivery NIV Bilevel NIV Bilevel NIV Bilevel NIV Bilevel O2 Flow Rate 35.00 35.00 FiO2 40 35 05/29/17 05/29/17 05/29/17 05/29/17 05:00 05:30 06:00 06:30 Pulse 60 59 54 51 Resp 19 14 14 16 B/P (MAP) 143/79 131/100 116/54 123/64 Pulse Ox 97 94 94 93 O2 Delivery NIV Bilevel NIV Bilevel NIV Bilevel NIV Bilevel O2 Flow Rate 35.00 35.00 35.00 35.00 05/29/17 05/29/17 05/29/17 05/29/17 06:30 07:00 07:00 07:22 Pulse 48 53 52 57 Resp 19 15 16 B/P (MAP) 111/48 Pulse Ox 94 97 93 O2 Delivery NIV Bilevel O2 Flow Rate 40.00 35.00 35.00 05/29/17 05/29/17 05/29/17 05/29/17 07:57 08:00 08:00 09:00 Temp 96.7 Pulse 56 99 Resp 15 20 B/P (MAP) 112/46 100/69 Pulse Ox 93 95 O2 Delivery NIV Bilevel NIV Bilevel NIV Bilevel O2 Flow Rate 35.00 35.00 FiO2 35 05/29/17 05/29/17 05/29/17 05/29/17 10:00 10:49 11:00 11:00 Pulse 64 64 Resp 12 18 B/P (MAP) 122/98 Pulse Ox 99 100 96 O2 Delivery NIV Bilevel Nasal Cannula High Flow N/C High Flow N/C O2 Flow Rate 35.00 6.00 6.00 6.00 05/29/17 05/29/17 12:00 12:00 Temp 97.5 Pulse 71 Resp 12 B/P (MAP) Pulse Ox 94 O2 Delivery High Flow N/C O2 Flow Rate 6.00 Capillary Refill : Less Than 3 SecondsLess Than 3 Seconds Constitutional: other (Drowsy, awakens easily, oriented to self and place) HEENT: PERRL, No discharge, hearing is well preserved, oral hygience is good, No ulceration, No xanthelasmas are seen Neck: No carotid bruit, carotid pulses are 2 + bilaterally Respiratory: other (diminised lower lobes bilat; Bi-pap in place) Cardiovascular: irregularly irregular, No JVD, S1 and S2 Gastrointestinal: No tender, soft, round Extremities: significant edema (mod bilat LE edema) Neurologic/Psychiatric: grossly intact Skin: No rash, other (bruising to arms bilat) Data Review Labs Laboratory Tests 05/28/17 17:50: Blood Gas Puncture Site LEFT RADIAL, Blood Gas Patient Temperature 97.9, Arterial Blood pH 7.44H, Arterial Blood Partial Pressure CO2 49H, Arterial Blood Partial Pressure O2 52L, Arterial Blood HCO3 33H, Arterial Blood Total CO2 34.6H, Arterial Blood Oxygen Saturation 81L, Arterial Blood Base Excess 8.6H , Fidel Test POSITIVE, Blood Gas Ventilator Setting NO, Blood Gas Inspired Oxygen 10 05/28/17 18:10: White Blood Count 6.6, Red Blood Count 3.59L, Hemoglobin 10.1L, Hematocrit 35, Mean Corpuscular Volume 96, Mean Corpuscular Hemoglobin 28, Mean Corpuscular Hemoglobin Concent 29L, Red Cell Distribution Width 17.8H, Platelet Count 205, Mean Platelet Volume 9.3, Neutrophils (%) (Auto) 71, Lymphocytes (%) (Auto) 17, Monocytes (%) (Auto) 9, Eosinophils (%) (Auto) 3, Basophils (%) (Auto) 0, Neutrophils # (Auto) 4.7, Lymphocytes # (Auto) 1.1, Monocytes # (Auto) 0.6, Eosinophils # (Auto) 0.2, Basophils # (Auto) 0.0, Sodium Level 142, Potassium Level 4.4, Chloride Level 98, Carbon Dioxide Level 32, Anion Gap 12, Blood Urea Nitrogen 18, Creatinine 1.52H, Estimat Glomerular Filtration Rate 34, BUN/ Creatinine Ratio 12, Glucose Level 107H, Calcium Level 9.6, Total Bilirubin 2.3H , Aspartate Amino Transf (AST/SGOT) 25, Alanine Aminotransferase (ALT/SGPT) 7, Alkaline Phosphatase 75, Troponin I < 0.30, B-Type Natriuretic Peptide 914.6H, Total Protein 7.2, Albumin 3.7, Thyroid Stimulating Hormone (TSH) 3.70, Free Thyroxine 1.18 05/28/17 19:12: Blood Gas Puncture Site RIGHT RADIAL, Blood Gas Patient Temperature 98.1, Arterial Blood pH 7.46H, Arterial Blood Partial Pressure CO2 47H, Arterial Blood Partial Pressure O2 145H, Arterial Blood HCO3 33H, Arterial Blood Total CO2 33.9H, Arterial Blood Oxygen Saturation 100, Arterial Blood Base Excess 8.3H , Fidel Test POSITIVE, Blood Gas Ventilator Setting NO, Blood Gas Inspired Oxygen BIPAP 50% 05/29/17 04:18: White Blood Count 4.7, Red Blood Count 3.48L, Hemoglobin 9.8L, Hematocrit 33L, Mean Corpuscular Volume 95, Mean Corpuscular Hemoglobin 28, Mean Corpuscular Hemoglobin Concent 30L, Red Cell Distribution Width 17.5H, Platelet Count 160, Mean Platelet Volume 10.3, Neutrophils (%) (Auto) 91H, Lymphocytes (%) (Auto) 8L , Monocytes (%) (Auto) 1, Eosinophils (%) (Auto) 0, Basophils (%) (Auto) 0, Neutrophils # (Auto) 4.3, Lymphocytes # (Auto) 0.4L, Monocytes # (Auto) 0.1, Eosinophils # (Auto) 0.0, Basophils # (Auto) 0.0, Sodium Level 143, Potassium Level 3.9, Chloride Level 99, Carbon Dioxide Level 28, Anion Gap 16H, Blood Urea Nitrogen 20H, Creatinine 1.53H, Estimat Glomerular Filtration Rate 34, BUN/ Creatinine Ratio 13, Glucose Level 188H, Calcium Level 9.3, Total Bilirubin 2.1H , Aspartate Amino Transf (AST/SGOT) 21, Alanine Aminotransferase (ALT/SGPT) 7, Alkaline Phosphatase 69, B-Type Natriuretic Peptide 434.6H, Total Protein 6.6, Albumin 3.4, Phosphorus Level 3.2, Magnesium Level 2.2 05/29/17 05:45: Blood Gas Puncture Site R RAD, Blood Gas Patient Temperature 97.2, Arterial Blood pH 7.45H, Arterial Blood Partial Pressure CO2 47H, Arterial Blood Partial Pressure O2 103H, Arterial Blood HCO3 33H, Arterial Blood Total CO2 34.3H, Arterial Blood Oxygen Saturation 99, Arterial Blood Base Excess 8.4H, Fidel Test YES-POS, Blood Gas Ventilator Setting NO, Blood Gas Inspired Oxygen 35% FIO2 05/29/17 10:52: Glucometer 189H Radiology NAME: JERI BYRD [employer] REC#: [id number] PT STATUS: ADM IN : 1945 PHYSICIAN: RICHARDSON TOLLIVER DO ADMIT DATE: 05/28/17/ICU Draft Date of Exam:05/29/17 CHEST 1 VIEW, AP/PA ONLY INDICATION: CHF. Respiratory failure. COMPARISON: 05/28/2017 FINDINGS: Single frontal radiographic view of the chest was obtained and again demonstrates cardiomegaly and pulmonary vascular congestion. Interstitial opacities may be slightly improved. There is poor visualization of the left lower lung field. Right lung is relatively clear. There is no large effusion or pneumothorax on either side. Bony structures show no new acute abnormalities. IMPRESSION: 1. Persistent cardiomegaly and pulmonary vascular congestion. 2. Probable improving interstitial pulmonary edema. 3. Left basilar atelectasis and/or infiltrate. This may be accentuated by obscuration from overlying soft tissue structures. Continued followup is recommended. Dictated on workstation # [id number] Dict: 05/29/1708 Trans: 05/29/17 [id number] [facility] [id number] Interpreted by: JACKIE RAMIREZ MD Electronically signed by: ECG Impression ECG Initial ECG Impression: Atrial Fibrillation A/P-Cardiology Assessment/Admission Diagnosis Multifactorial shortness of breath, see below Acute exacerbation of COPD likely due to pneumonia Probable pneumonia - medical services managing Acute diastolic CHF PAF - currently in a-fib with a controlled rate Xarelto for stroke prophylaxis MPI of October 18, 2016 showed no evidence of significant myocardial ischemia or infarction. Normal regional wall motion. LVEF 76% Echo of July 2016: Normal global left ventricular systolic function with an ejection fraction of approximately 60%. Mild aortic valve sclerosis without evidence of significant aortic stenosis. Mild mitral and tricuspid regurgitation. No evidence of significant valvular stenosis. Pulmonary artery systolic pressure is estimated to be approximately 45 mmHg. Minimal pericardial fluid which does not appear to be of hemodynamic significance. 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 Acute probable diastolic CHF. Continue diuretics. Echocardiogram to evaluated structure and LVEF. Currently in a-fib with a controlled rate. She is not on any rate controlling agents. Continue tele. Continue Continue OAC for stroke prophylaxis. Monitor lab. Further recommendations will be based on her hospital course. We would like to thank the medical services for this consult. This consult is being scribed by Meghna Jesus APRN on behalf of Dr. Delacruz after discussion regarding plan of care. Clinical Quality Measures DVT/VTE Risk/Contraindication: Risk Factor Score Per Nursin RFS Level Per Nursing on Admit: 4+=Very High Physician Assessment Physician Assessment Lungs: fair air entry, diminished at the bases; basal coarse crackles Cor: reg Ext: no c/c/e A&R * As documented in our note above that I updated (italics) and as noted below * Add diuretics to treat CHF * Echo to eval for etiology of CHF * Management of ac exac of COPD is with the Med Svce * Follow labs * I spoke with her and answered questions HORTENCIA JESUS May 29, 2017 08:51 FLACO DELACRUZ MD [facility] May 29, 2017 13:42
[2017-05-29] MEDS ORDERED: FURO40TA4 PO (10:40)
[2017-05-29] MEDS ORDERED: POTA20TA15 PO (10:40)
[2017-05-29] MEDS ORDERED: CHOL5000 PO (10:40)
[2017-05-29] MEDS ORDERED: IBUP-1779 PO (10:40)
[2017-05-29] MEDS ORDERED: RIVA20TA PO (10:40)
[2017-05-29] MEDS ORDERED: MULT-1073 PO (10:40)
[2017-05-29] MEDS ORDERED: IPRA3AMP IH (10:40)
[2017-05-29] MEDS ORDERED: ACET325T38 PO (10:40)
[2017-05-29] MEDS ORDERED: DICL100G18 TP (10:40)
[2017-05-29] MEDS ORDERED: MAGN400O7 PO (10:40)
[2017-05-29] MEDS ORDERED: CEPH-507 PO (10:50)
[2017-05-29] MEDS: inSUlin (REGULAR) HUMAN 1 UNIT/0.01 ML (CHARGE PER UNIT) SC SCH ×3 (11:00→22:13)
[2017-05-29] MEDS: RIVAROXABAN 20 MG TABLET (XARELTO) PO SCH (17:53)
[2017-05-29] MEDS ORDERED: MILK OF MAGNESIA 400 MG/5 ML 30 ML UDC PO PRN (18:45)
[2017-05-29] MEDS ORDERED: ACETAMINOPHEN 325 MG TABLET/CAPLET (TYLENOL) PO PRN (18:45)
[2017-05-29] MEDS ORDERED: RT-ALBUTEROL/IPRATROPIUM 3 ML (DUONEB) VIAL IH PRN (18:45)
[2017-05-29] MEDS ORDERED: HYDROcodone/APAP 10 MG/325 MG (LORTAB) TAB PO PRN (18:45)
[2017-05-29] MEDS ORDERED: SENNA W/DOCUSATE (SENOKOT S) TABLET PO PRN (18:45)
--- NOTE | 2017-05-29 18:48 | History & Physicial ---
History of Present Illness History of Present Illness Reason for visit/HPI This is a 71 year old female who resides at [facility] who was brought to the emergency room with worsening shortness of air and hypoxia. She was found to have an oxygen saturation of 86% on 6L NC upon arrival. She was given a duoneb treatment, IV lasix, IV solumedrol and placed on BIPAP. Her CXR showed bilateral pulmonary vascular congestion and she was found to have an elevated D-Dimer. She was also felt to be in a COPD exacerbation. She will be admitted to the ICU on BIPAP with IV lasix, IV solumedrol, SVNS with duoneb and cardiology consultation. Date of Admission May 28, 2017 at 19:37 Date Seen by Provider: May 29, 2017 Time Seen by Provider: 11:45 I consulted on this patient on 05/29/17 18:41 Attending Physician Yanira Tolliver DO Admitting Physician Yanira Tolliver DO Consult Allergies and Home Medications Allergies Coded Allergies: levofloxacin (Verified Allergy, Intermediate, 05/29/17) ciprofloxacin (Verified Allergy, Unknown, 10/11/08) ofloxacin (Verified Allergy, Unknown, 10/11/08) Home Medications Acetaminophen 325 Mg Tablet, 650 MG PO Q4H PRN for MILD PAIN/ELEVATED TEMP, ( Reported) TAKES 2 (325MG) TABLETS Alprazolam 0.5 Mg Tablet, 0.5 MG PO HS, (Reported) Atorvastatin 20 Mg Tablet, 20 MG PO HS, (Reported) Cephalexin 500 Mg Capsule, 500 MG PO TID, (Reported) START DATE 05-16-17 STOP DATE 05-31-17 Cholecalciferol (Vitamin D3) 5,000 Unit Capsule, 5,000 UNIT PO We, (Reported) Citalopram Hydrobromide 20 Mg Tablet, 20 MG PO DAILY, (Reported) Diclofenac Sodium 100 Gm Gel..gram., 4 GM TP BID, (Reported) APPLY TO LEFT ANKLE/FOOT Furosemide 40 Mg Tablet, 40 MG PO DAILY, (Reported) Gabapentin 300 Mg Capsule, 300 MG PO DAILY, (Reported) Guaifenesin/Dextromethorphan 5 Ml Syrup, 5 ML PO Q4H PRN for COUGH, (Reported) Hydrocodone/Acetaminophen 1 Each Tablet, 1 TAB PO TID PRN for PAIN-MODERATE, ( Reported) Hydrocodone/Acetaminophen 1 Each Tablet, 1 TAB PO UD PRN for 30 MIN BEFORE PHYSICAL THERAPY, (Reported) Ibuprofen 400 Mg Tablet, 400 MG PO TID PRN for PAIN-MILD, (Reported) Ipratropium/Albuterol Sulfate 3 Ml Ampul.neb, 3 ML IH TID PRN for SHORTNESS OF BREATH, (Reported) Magnesium Hydroxide 400 Mg/5 Ml Oral.susp, 30 ML PO DAILY PRN for CONSTIPATION- 7TH LINE, (Reported) Multivit,Calc,Mins/Iron/Folic 1 Each Tablet, 1 TAB PO DAILY, (Reported) Omeprazole 20 Mg Capsule.dr, 20 MG PO DAILY, (Reported) Potassium Chloride 20 Meq Tab.er.prt, 20 MEQ PO DAILY, (Reported) Rivaroxaban 20 Mg Tablet, 20 MG PO DAILY, (Reported) Sennosides/Docusate Sodium 1 Each Tablet, 1 TAB PO Q12H PRN for CONSTIPATION- 6TH LINE, (Reported) Past Fzotreq-Wqzexi-Brnpty Hx Patient Social History Alcohol Use: Denies Use Recreational Drug Use: No Smoking Status: Unknown if Ever Smoked Former Smoker, Quit: Sep 23, 2007 Type Used: Cigarettes 2nd Hand Smoke Exposure: No Physical Abuse Screen: No Sexual Abuse: No Recent Foreign Travel: No Contact w/other who traveled: No Recent Hopitalizations: Yes Recent Infectious Disease Expo: No Immunizations Up To Date Tetanus Booster (TDap): More than 5yrs Pediatric: No Date of Pneumonia Vaccine: Sep 23, 2012 Date of Influenza Vaccine: Jul 27, 2016 Seasonal Allergies Seasonal Allergies: No Surgeries Yes (UMBILICAL HERNIA REPAIR, D&C) Orthopedic Respiratory Yes Currently Using CPAP: No Currently Using BIPAP: No Cardiovascular Yes Hypertension Neurological Yes (BONE SPURS ALONG SPINE ) Reproductive System Hx Reproductive Disorders: Yes (PMB) Sexually Transmitted Disease: No HIV/AIDS: No Female Reproductive Disorders: Denies, Endometriosis Genitourinary Yes Renal Failure, UTI-Chronic Gastrointestinal Yes Gastroesophageal Reflux Musculoskeletal Yes Degenerate Disk Disease, Arthritis, Chronic Back Pain, Fractures Endocrine History of Endocrine Disorders: Yes (USED TO TAKE METFORMIN BUT NOW DIABETES IS DIET CONTROLLED) Endocrine Disorders: Diabetes, Non-Insulin dep HEENT Loss of Vision: Denies Cancer Yes (ENDOMETRIAL, MALIGNANT NEOPLASM UTERUS) Ovarian, Uterine Psychosocial History of Psychiatric Problem: Yes Behavioral Health Disorders: Sleep Difficulties, Anxiety, Depression Integumentary History of Skin or Integumenta: No Blood Transfusions History of Blood Disorders: No Adverse Reaction to a Blood Tr: No Family Medical History Significant Family History: No Pertinent Family Hx Family Hx: Cancer 03 MOTHER 09 SISTER Family history: Breast disease 09 SISTER Constitutional: weakness EENTM: No see HPI, No no symptoms reported, No ear discharge, No hearing loss, No ear pain, No blurred vision, No double vision, No eye pain, No tearing, No vision loss, No dental problems, No hoarseness, No mouth pain, No mouth swelling , No epistaxis, No nose congestion, No nose pain, No throat pain, No throat swelling, No other Respiratory: cough, dyspnea on exertion, short of breath Cardiovascular: edema Gastrointestinal: No RUQ, No LUQ, No RLQ, No LLQ, No no symptoms reported, No see HPI, No abdominal pain, No constipation, No diarrhea, No dysphagia, No hematemesis, No heartburn, No jaundice, No loss of appetite, No melena, No nausea, No vomiting, No other Genitourinary: incontinence (urge) : No Musculoskeletal: back pain, muscle weakness Skin: No no symptoms reported, No see HPI, No change in color, No change in hair/nails, No dryness, No hx of skin cancer, No lesions, No lumps, No pruritus , No rash, No other Psychiatric/Neurological: Anxiety, Numbness, Pre-Existing Deficit, Weakness Physical Exam Vital Signs Vital Sign - Last 12Hours 05/28/17 05/28/17 05/29/17 17:51 18:10 00:00 Temp 97.9 Pulse 62 Resp 22 B/P (MAP) 116/103 Pulse Ox 93 O2 Delivery Non Rebreather O2 Flow Rate 60.00 FiO2 35 Capillary Refill : Less Than 3 SecondsLess Than 3 Seconds General Appearance: No Apparent Distress HEENT: Normal ENT Inspection Neck: Supple Respiratory: Crackles, Decreased Breath Sounds Cardiovascular: Regular Rate, Rhythm, Systolic Murmur, Gallop/S4 Gastrointestinal: Normal Bowel Sounds, Non Tender, Soft Back: No CVA Tenderness Extremity: Non Tender, No Calf Tenderness, No Pedal Edema Neurologic/Psychiatric: Alert, Oriented x3 Skin: Warm/Dry Comments Laboratory Tests 05/28/17 19:12: Blood Gas Puncture Site RIGHT RADIAL, Blood Gas Patient Temperature 98.1, Arterial Blood pH 7.46H, Arterial Blood Partial Pressure CO2 47H, Arterial Blood Partial Pressure O2 145H, Arterial Blood HCO3 33H, Arterial Blood Total CO2 33.9H, Arterial Blood Oxygen Saturation 100, Arterial Blood Base Excess 8.3H , Fidel Test POSITIVE, Blood Gas Ventilator Setting NO, Blood Gas Inspired Oxygen BIPAP 50% 05/29/17 04:18: White Blood Count 4.7, Red Blood Count 3.48L, Hemoglobin 9.8L, Hematocrit 33L, Mean Corpuscular Volume 95, Mean Corpuscular Hemoglobin 28, Mean Corpuscular Hemoglobin Concent 30L, Red Cell Distribution Width 17.5H, Platelet Count 160, Mean Platelet Volume 10.3, Neutrophils (%) (Auto) 91H, Lymphocytes (%) (Auto) 8L , Monocytes (%) (Auto) 1, Eosinophils (%) (Auto) 0, Basophils (%) (Auto) 0, Neutrophils # (Auto) 4.3, Lymphocytes # (Auto) 0.4L, Monocytes # (Auto) 0.1, Eosinophils # (Auto) 0.0, Basophils # (Auto) 0.0, Sodium Level 143, Potassium Level 3.9, Chloride Level 99, Carbon Dioxide Level 28, Anion Gap 16H, Blood Urea Nitrogen 20H, Creatinine 1.53H, Estimat Glomerular Filtration Rate 34, BUN/ Creatinine Ratio 13, Glucose Level 188H, Calcium Level 9.3, Phosphorus Level 3.2 , Magnesium Level 2.2, Total Bilirubin 2.1H, Aspartate Amino Transf (AST/SGOT) 21, Alanine Aminotransferase (ALT/SGPT) 7, Alkaline Phosphatase 69, B-Type Natriuretic Peptide 434.6H, Total Protein 6.6, Albumin 3.4 05/29/17 05:45: Blood Gas Puncture Site R RAD, Blood Gas Patient Temperature 97.2, Arterial Blood pH 7.45H, Arterial Blood Partial Pressure CO2 47H, Arterial Blood Partial Pressure O2 103H, Arterial Blood HCO3 33H, Arterial Blood Total CO2 34.3H, Arterial Blood Oxygen Saturation 99, Arterial Blood Base Excess 8.4H, Fidel Test YES-POS, Blood Gas Ventilator Setting NO, Blood Gas Inspired Oxygen 35% FIO2 05/29/17 10:52: Glucometer 189H 05/29/17 17:15: Glucometer 194H Assessment/Plan Assessment and Plan 1. Acute Respiratory Failure with Hypoxia--admit on BIPAP to ICU 2. Acute Exacerbation of COPD--IV solumedrol and SVNs with albuterol 3. Acute Pulmonary Edema--IV lasix, Check ECHO, consult cardiology 4. Acute on Chronic Diastolic CHF--Check 2-D ECHO 5. Diabetes mellitus II--accuchecks with SSI 6. Uterine Cancer-following with oncology Problems: Clinical Quality Measures DVT/VTE Risk/Contraindication: Risk Factor Score Per Nursin RFS Level Per Nursing on Admit: 4+=Very High YANIRA TOLLIVER DO May 29, 2017 18:48
[2017-05-29] MEDS ORDERED: NON-FORMULARY MEDICATION 1 EA EA (Atorvastatin (Lipitor 20MG) 20 MG) PO SCH (21:00)
[2017-05-29] MEDS: methylPREDNISolone 40 MG/ML (Solu-MEDROL) VIAL IV SCH (22:13)
[2017-05-29] MEDS: ALPRAZolam 0.5 MG (XANAX) TAB PO SCH (22:14)
[2017-05-29] MEDS: ATORVASTATIN 20 MG (LIPITOR) TABLET PO SCH (22:14)
[2017-05-29] MEDS: DICLOFENAC 1% GEL 100 GM (VOLTAREN) TUBE TP SCH (22:14)
[2017-05-30] VITALS (16 sets, daily range): BP systolic 85–127; BP diastolic 47–112
[2017-05-30] MEDS: RT-ALBUTEROL/IPRATROPIUM 3 ML (DUONEB) VIAL INH SCH ×6 (02:01→21:51)
[2017-05-30 05:07] LABS: BASOPHILS % (AUTO) 0 % (0-10); EOSINOPHILS % (AUTO) 0 % (0-10); LYMPHOCYTES # (AUTO) 0.3 X 10^3 (1.0-4.0); LYMPHOCYTES % (AUTO) 4 % (12-44); MEAN CORPUSCULAR HEMOGLOBIN 27 PG (25-34); MEAN CORPUSCULAR HGB CONC 29 G/DL (32-36); MEAN CORPUSCULAR VOLUME 95 FL (80-99); MEAN PLATELET VOLUME 10.1 FL (7.4-10.4); MONOCYTES # (AUTO) 0.2 X 10^3 (0.0-1.0); MONOCYTES % (AUTO) 3 % (0-12); NEUTROPHILS # (AUTO) 6.8 X 10^3 (1.8-7.8); NEUTROPHILS % (AUTO) 93 % (42-75); PLATELET COUNT 167 10^3/uL (130-400); RED BLOOD COUNT 3.16 10^6/uL (4.35-5.85); RED CELL DISTRIBUTION WIDTH 17.7 % (10.0-14.5); WHITE BLOOD COUNT 7.3 10^3/uL (4.3-11.0)
[2017-05-30 05:31] LABS: ALBUMIN 3.3 GM/DL (3.2-4.5); BILIRUBIN,TOTAL 1.7 MG/DL (0.1-1.0); CALCIUM 9.1 MG/DL (8.5-10.1); CREATININE SERUM 1.31 MG/DL (0.60-1.30); MAGNESIUM 2.3 MG/DL (1.8-2.4); PHOSPHORUS 3.5 MG/DL (2.3-4.7); POTASSIUM 3.8 MMOL/L (3.6-5.0); TOTAL PROTEIN 6.1 GM/DL (6.4-8.2)
[2017-05-30] MEDS: MAGNESIUM 1 GM/100 ML IVPB 100 ML IV SCH (05:47)
[2017-05-30] MEDS: POTASSIUM CL 10MEQ/50ML IVPB 50 ML IV SCH (05:47)
[2017-05-30] MEDS: CATHETER FLUSH 10 ML SYR IV SCH ×3 (05:47→22:48)
[2017-05-30] MEDS: KCL 20 MEQ TAB (K-DUR) PO SCH ×2 (05:48→06:22)
[2017-05-30] MEDS: inSUlin (REGULAR) HUMAN 1 UNIT/0.01 ML (CHARGE PER UNIT) SC SCH ×4 (06:14→20:44)
[2017-05-30] MEDS: FUROSEMIDE 40 MG/4 ML INJ (LASIX) IV SCH (06:22)
[2017-05-30] MEDS ORDERED: PANTOPRAZOLE 20 MG TABLET (PROTONIX) PO SCH (07:00)
--- NOTE | 2017-05-30 07:56 | Diagnostic Imaging Report ---
EXAM: CHEST 1 VIEW, AP/PA ONLY INDICATION: COPD. Congestive heart failure. COMPARISON: Chest radiograph 05/29/2017. FINDINGS: Stable cardiomegaly with pulmonary venous congestion. Persistent left basilar atelectasis and/or infiltrate. There may be a small left pleural effusion as well. No pneumothorax. No acute osseous findings. IMPRESSION: Stable exam including cardiomegaly, pulmonary venous congestion and left basilar atelectasis and/or infiltrate. Probable small left pleural effusion. Dictated by: Dictated on workstation # [id number]
--- NOTE | 2017-05-30 08:53 | Progress Note-Cardiology ---
Cardiology SOAP Progress Note Subjective: Sitting up in bed with oxygen on per NC. She is more alert today. She states her breathing is better. No c/o CP, palpitations. C/O MORALES. Objective: I&O/Vital Signs Vital Sign - Last 12Hours 05/29/17 05/29/17 05/29/17 05/30/17 22:00 22:24 23:00 00:00 Pulse 78 69 65 Resp 17 18 11 B/P (MAP) 83/69 87/47 127/86 Pulse Ox 93 96 92 94 O2 Delivery Nasal Cannula O2 Flow Rate 6.00 05/30/17 05/30/17 05/30/17 05/30/17 00:00 00:00 01:00 01:00 Temp 97.7 Pulse 72 60 Resp 11 B/P (MAP) 94/77 Pulse Ox 94 O2 Delivery High Flow N/C High Flow N/C High Flow N/C O2 Flow Rate 6.00 6.00 6.00 05/30/17 05/30/17 05/30/17 05/30/17 02:00 02:01 03:00 04:00 Pulse 57 60 62 Resp 14 12 21 B/P (MAP) 112/55 121/112 121/60 Pulse Ox 95 96 95 95 O2 Delivery High Flow N/C Nasal Cannula High Flow N/C High Flow N/C O2 Flow Rate 6.00 6.00 6.00 6.00 05/30/17 05/30/17 05/30/17 05/30/17 04:00 05:00 06:00 07:00 Pulse 58 55 57 Resp 14 12 B/P (MAP) 104/47 85/50 Pulse Ox 97 93 O2 Delivery High Flow N/C High Flow N/C High Flow N/C O2 Flow Rate 6.00 6.00 6.00 05/30/17 05/30/17 07:19 07:58 Temp 98.0 Pulse Ox 98 O2 Delivery Nasal Cannula O2 Flow Rate 5.00 Weight (Pounds): 244 Weight (Ounces): 0.0 Weight (Calculated Kilograms): 110.806338 Constitutional: AAO x 3 Respiratory: other (diminised lower lobes bilat) Cardiovascular: regular rate-rhythm, No JVD, S1 and S2 Gastrointestional: No tender, soft, round Extremities: significant edema (mod bilat LE edema) Neurologic/Psychiatric: grossly intact Skin: No rash, other (bruising to arms bilat) Results/Procedures: Labs Laboratory Tests 05/29/17 10:52: Glucometer 189H 05/29/17 17:15: Glucometer 194H 05/29/17 21:51: Glucometer 173H 05/30/17 04:21: White Blood Count 7.3, Red Blood Count 3.16L, Hemoglobin 8.6L, Hematocrit 30L, Mean Corpuscular Volume 95, Mean Corpuscular Hemoglobin 27, Mean Corpuscular Hemoglobin Concent 29L, Red Cell Distribution Width 17.7H, Platelet Count 167, Mean Platelet Volume 10.1, Neutrophils (%) (Auto) 93H, Lymphocytes (%) (Auto) 4L , Monocytes (%) (Auto) 3, Eosinophils (%) (Auto) 0, Basophils (%) (Auto) 0, Neutrophils # (Auto) 6.8, Lymphocytes # (Auto) 0.3L, Monocytes # (Auto) 0.2, Eosinophils # (Auto) 0.0, Basophils # (Auto) 0.0, Sodium Level 141, Potassium Level 3.8, Chloride Level 96L, Carbon Dioxide Level 33H, Anion Gap 12, Blood Urea Nitrogen 27H, Creatinine 1.31H, Estimat Glomerular Filtration Rate 40, BUN/ Creatinine Ratio 21, Glucose Level 177H, Calcium Level 9.1, Phosphorus Level 3.5 , Magnesium Level 2.3, Total Bilirubin 1.7H, Aspartate Amino Transf (AST/SGOT) 19, Alanine Aminotransferase (ALT/SGPT) 8, Alkaline Phosphatase 57, Total Protein 6.1L, Albumin 3.3 Microbiology 05/28/17 MRSA Screen - Final, Complete MRSA not isolated Procedures NAME: JERI BYRD [facility] REC#: [id number] PT STATUS: ADM IN : 1945 PHYSICIAN: RICHARDSON SANDRA DO ADMIT DATE: 05/28/17/ICU Draft Date of Exam:05/30/17 CHEST 1 VIEW, AP/PA ONLY EXAM: CHEST 1 VIEW, AP/PA ONLY INDICATION: COPD. Congestive heart failure. COMPARISON: Chest radiograph 05/29/2017. FINDINGS: Stable cardiomegaly with pulmonary venous congestion. Persistent left basilar atelectasis and/or infiltrate. There may be a small left pleural effusion as well. No pneumothorax. No acute osseous findings. IMPRESSION: Stable exam including cardiomegaly, pulmonary venous congestion and left basilar atelectasis and/or infiltrate. Probable small left pleural effusion. Dictated on workstation # [id number] Dict: 05/30/17 0749 Trans: 05/30/17 0755 [id number] Interpreted by: GENE COPE MD Electronically signed by: A/P: Assessment: Multifactorial shortness of breath, see below Acute exacerbation of COPD likely due to pneumonia Probable pneumonia - medical services managing Acute diastolic CHF - clinically improving PAF - currently in SR Xarelto for stroke prophylaxis MPI of October 18, 2016 showed no evidence of significant myocardial ischemia or infarction. Normal regional wall motion. LVEF 76% Echo of May 29, 2017 Normal global left ventricular systolic function with an ejection fraction of approximately 60-65%. Mild aortic valve sclerosis without evidence of significant aortic stenosis. Mild mitral and tricuspid regurgitation. No evidence of significant valvular stenosis. Pulmonary artery systolic pressure is estimated to be approximately 40 mmHg. 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 Acute diastolic CHF. Continue diuretics. Converted to SR OAC with Xarelto being continued Anemia of undermined etiology - medical services managing Monitor lab closely Physician Assessment Physician Assessment Shortness of breath somewhat better Lungs: fair air entry, diminished at the bases Cor: reg Ext: no c/c; mild swelling A&R * As documented in our note above that I updated (italics) and as noted below * Monitor labs * I spoke with her and explained echo results and our treatment plan HORTENCIA SUMMERS [employer] PROFESSOR May 30, 2017 08:53 NASH ARCINIEGA MD FACP FAC CCDS May 30, 2017 09:30
[2017-05-30] MEDS ORDERED: OMEPRAZOLE 20 MG (PriLOSEC) CAP NON-FORMULARY PO SCH (09:00)
[2017-05-30] MEDS ORDERED: RIVAROXABAN 20 MG TABLET (XARELTO) PO SCH (09:00)
[2017-05-30] MEDS ORDERED: KCL 20 MEQ TAB (K-DUR) PO SCH (09:00)
[2017-05-30] MEDS: GABAPENTIN 300 MG (NEURONTIN) CAP PO SCH (09:49)
[2017-05-30] MEDS: methylPREDNISolone 40 MG/ML (Solu-MEDROL) VIAL IV SCH ×2 (09:49→20:44)
[2017-05-30] MEDS: DICLOFENAC 1% GEL 100 GM (VOLTAREN) TUBE TP SCH ×2 (09:51→20:44)
[2017-05-30] MEDS ORDERED: PANTOPRAZOLE 20 MG TABLET (PROTONIX) PO NR (12:18)
--- NOTE | 2017-05-30 12:22 | Progress Note (SOAP) ---
Subjective Date Seen by Provider: May 30, 2017 Time Seen by Provider: 12:16 Subjective/Events-last exam Fwup acute respiratory failure, pulmonary vascular congestion, Exacerbation of COPD, DMII, CHRISTINA. Has not had to go back on BIPAP and down to 2L on NC. Objective Exam Vital Signs Date Time Temp Pulse Resp B/P (MAP) Pulse Ox O2 Delivery O2 Flow Rate FiO2 05/30/17 10:59 98 Nasal Cannula 3.00 05/30/17 08:00 High Flow N/C 6.00 05/30/17 07:58 98.0 05/30/17 07:19 98 Nasal Cannula 5.00 05/30/17 07:00 57 05/30/17 06:00 55 12 85/50 93 High Flow N/C 6.00 05/30/17 05:00 58 14 104/47 97 High Flow N/C 6.00 05/30/17 04:00 High Flow N/C 6.00 05/30/17 04:00 62 21 121/60 95 High Flow N/C 6.00 05/30/17 03:00 60 12 121/112 95 High Flow N/C 6.00 05/30/17 02:01 96 Nasal Cannula 6.00 05/30/17 02:00 57 14 112/55 95 High Flow N/C 6.00 05/30/17 01:00 60 11 94/77 94 High Flow N/C 6.00 05/30/17 01:00 72 05/30/17 00:00 97.7 High Flow N/C 6.00 05/30/17 00:00 High Flow N/C 6.00 05/30/17 00:00 65 11 127/86 94 05/29/17 23:00 69 18 87/47 92 05/29/17 22:24 96 Nasal Cannula 6.00 05/29/17 22:00 78 17 83/69 93 05/29/17 21:00 64 16 118/104 96 High Flow N/C 6.00 05/29/17 20:00 66 15 116/60 93 High Flow N/C 6.00 05/29/17 20:00 High Flow N/C 6.00 05/29/17 20:00 99.4 05/29/17 19:03 96 Nasal Cannula 4.00 05/29/17 19:00 68 05/29/17 19:00 70 17 107/44 95 High Flow N/C 6.00 05/29/17 18:00 71 22 97/54 97 High Flow N/C 6.00 05/29/17 17:00 68 22 138/99 96 High Flow N/C 6.00 05/29/17 16:00 High Flow N/C 6.00 05/29/17 16:00 98.4 High Flow N/C 6.00 05/29/17 15:00 65 13 90 High Flow N/C 6.00 05/29/17 15:00 124/99 05/29/17 14:56 99 Nasal Cannula 6.00 05/29/17 14:00 68 17 123/55 100 High Flow N/C 6.00 05/29/17 13:00 63 05/29/17 13:00 76 15 119/49 91 High Flow N/C 6.00 I & O 05/31/17 07:00 Intake Total 150 ml Output Total 125 ml Balance 25 ml Capillary Refill : Less Than 3 SecondsLess Than 3 Seconds General Appearance: No Apparent Distress Neck: Supple Respiratory: Lungs Clear, Decreased Breath Sounds Cardiovascular: Regular Rate, Rhythm, Systolic Murmur, Gallop/S4 Gastrointestinal: normal bowel sounds, non tender, soft Extremity: Non Tender, No Calf Tenderness, Pedal Edema Neurologic/Psychiatric: Alert, Oriented x3 Results Lab Laboratory Tests 05/29/17 17:15: Glucometer 194H 05/29/17 21:51: Glucometer 173H 05/30/17 04:21: White Blood Count 7.3, Red Blood Count 3.16L, Hemoglobin 8.6L, Hematocrit 30L, Mean Corpuscular Volume 95, Mean Corpuscular Hemoglobin 27, Mean Corpuscular Hemoglobin Concent 29L, Red Cell Distribution Width 17.7H, Platelet Count 167, Mean Platelet Volume 10.1, Neutrophils (%) (Auto) 93H, Lymphocytes (%) (Auto) 4L , Monocytes (%) (Auto) 3, Eosinophils (%) (Auto) 0, Basophils (%) (Auto) 0, Neutrophils # (Auto) 6.8, Lymphocytes # (Auto) 0.3L, Monocytes # (Auto) 0.2, Eosinophils # (Auto) 0.0, Basophils # (Auto) 0.0, Sodium Level 141, Potassium Level 3.8, Chloride Level 96L, Carbon Dioxide Level 33H, Anion Gap 12, Blood Urea Nitrogen 27H, Creatinine 1.31H, Estimat Glomerular Filtration Rate 40, BUN/ Creatinine Ratio 21, Glucose Level 177H, Calcium Level 9.1, Phosphorus Level 3.5 , Magnesium Level 2.3, Total Bilirubin 1.7H, Aspartate Amino Transf (AST/SGOT) 19, Alanine Aminotransferase (ALT/SGPT) 8, Alkaline Phosphatase 57, Total Protein 6.1L, Albumin 3.3 Microbiology 05/28/17 MRSA Screen - Final, Complete MRSA not isolated Assessment/Plan Assessment/Plan Assess & Plan/Chief Complaint 1. Acute Respiratory Failure--resolved 2. Pulmonary Vascular Congestion--Acute on Chronic Diastolic CHF--improved after diuresis 3. Exacerbation of COPD--improved, solumedrol was weaned yesterday, continue SVNs 4. DMII--on Accuchecks with SSI 5. Acute on Chronic Anemia--will increase protonix dose and recheck Hgb in AM 6. Transfer to medical floor--possibly back to [place] tomorrow if stable Clinical Quality Measures DVT/VTE Risk/Contraindication: Risk Factor Score Per Nursin RFS Level Per Nursing on Admit: 4+=Very High RICHARDSON SANDRA DO May 30, 2017 12:22
[2017-05-30] MEDS: RIVAROXABAN 20 MG TABLET (XARELTO) PO SCH (17:36)
[2017-05-30] MEDS: ALPRAZolam 0.5 MG (XANAX) TAB PO SCH (20:44)
[2017-05-30] MEDS: ATORVASTATIN 20 MG (LIPITOR) TABLET PO SCH (20:44)
[2017-05-31] MEDS: RT-ALBUTEROL/IPRATROPIUM 3 ML (DUONEB) VIAL INH SCH ×4 (03:18→13:55)
[2017-05-31 04:00] VITALS: BP 133/59
[2017-05-31] MEDS: MAGNESIUM 1 GM/100 ML IVPB 100 ML IV SCH (05:27)
[2017-05-31] MEDS: POTASSIUM CL 10MEQ/50ML IVPB 50 ML IV SCH (05:27)
[2017-05-31] MEDS: CATHETER FLUSH 10 ML SYR IV SCH ×2 (05:27→14:03)
[2017-05-31] MEDS: KCL 20 MEQ TAB (K-DUR) PO SCH ×2 (05:28→06:00)
[2017-05-31] MEDS: FUROSEMIDE 40 MG/4 ML INJ (LASIX) IV SCH (06:00)
[2017-05-31] MEDS: inSUlin (REGULAR) HUMAN 1 UNIT/0.01 ML (CHARGE PER UNIT) SC SCH ×2 (06:18→11:25)
[2017-05-31 06:41] LABS: BASOPHILS % (AUTO) 0 % (0-10); EOSINOPHILS % (AUTO) 0 % (0-10); LYMPHOCYTES # (AUTO) 0.2 X 10^3 (1.0-4.0); LYMPHOCYTES % (AUTO) 3 % (12-44); MEAN CORPUSCULAR HEMOGLOBIN 27 PG (25-34); MEAN CORPUSCULAR HGB CONC 28 G/DL (32-36); MEAN CORPUSCULAR VOLUME 96 FL (80-99); MEAN PLATELET VOLUME 10.3 FL (7.4-10.4); MONOCYTES # (AUTO) 0.3 X 10^3 (0.0-1.0); MONOCYTES % (AUTO) 4 % (0-12); NEUTROPHILS # (AUTO) 6.8 X 10^3 (1.8-7.8); NEUTROPHILS % (AUTO) 93 % (42-75); PLATELET COUNT 170 10^3/uL (130-400); RED BLOOD COUNT 3.27 10^6/uL (4.35-5.85); RED CELL DISTRIBUTION WIDTH 17.7 % (10.0-14.5); WHITE BLOOD COUNT 7.3 10^3/uL (4.3-11.0)
[2017-05-31] MEDS ORDERED: PANTOPRAZOLE 40 MG (PROTONIX) TAB PO SCH (07:00)
[2017-05-31 07:04] LABS: CREATININE SERUM 1.35 MG/DL (0.60-1.30); POTASSIUM 3.9 MMOL/L (3.6-5.0)
[2017-05-31 07:05] LABS: ALBUMIN 3.5 GM/DL (3.2-4.5); BILIRUBIN,TOTAL 1.5 MG/DL (0.1-1.0); CALCIUM 9.1 MG/DL (8.5-10.1); TOTAL PROTEIN 6.3 GM/DL (6.4-8.2)
[2017-05-31 08:00] VITALS: BP 121/68
[2017-05-31] MEDS: DICLOFENAC 1% GEL 100 GM (VOLTAREN) TUBE TP SCH (08:01)
[2017-05-31] MEDS: methylPREDNISolone 40 MG/ML (Solu-MEDROL) VIAL IV SCH (08:01)
[2017-05-31] MEDS: GABAPENTIN 300 MG (NEURONTIN) CAP PO SCH (08:01)
--- NOTE | 2017-05-31 08:50 | Progress Note-Cardiology ---
Cardiology SOAP Progress Note Subjective: Feels less short of breath No cp or palp or syncope Objective: I&O/Vital Signs Vital Sign - Last 12Hours 05/30/17 05/30/17 05/30/17 05/31/17 21:00 21:51 23:36 01:00 Temp 98.5 Pulse 61 64 Resp 20 B/P (MAP) 123/57 Pulse Ox 92 90 O2 Delivery Nasal Cannula Nasal Cannula Room Air O2 Flow Rate 3.00 3.00 05/31/17 05/31/17 05/31/17 03:19 04:00 06:10 Temp 97.9 Pulse 78 Resp 20 B/P (MAP) 133/59 Pulse Ox 93 98 97 O2 Delivery Nasal Cannula Room Air Nasal Cannula O2 Flow Rate 3.00 3.00 Weight (Pounds): 244 Weight (Ounces): 3.0 Weight (Calculated Kilograms): 110.294075 Constitutional: AAO x 3 Respiratory: other (diminised lower lobes bilat) Cardiovascular: regular rate-rhythm, No JVD, S1 and S2 Gastrointestional: No tender, soft, round Extremities: significant edema (mod bilat LE edema) Neurologic/Psychiatric: grossly intact Skin: No rash, other (bruising to arms bilat) Results/Procedures: Labs Laboratory Tests 05/30/17 12:16: Glucometer 141H 05/30/17 16:53: Glucometer 162H 05/30/17 20:35: Glucometer 175H 05/31/17 05:30: White Blood Count 7.3, Red Blood Count 3.27L, Hemoglobin 8.9L, Hematocrit 31L, Mean Corpuscular Volume 96, Mean Corpuscular Hemoglobin 27, Mean Corpuscular Hemoglobin Concent 28L, Red Cell Distribution Width 17.7H, Platelet Count 170, Mean Platelet Volume 10.3, Neutrophils (%) (Auto) 93H, Lymphocytes (%) (Auto) 3L , Monocytes (%) (Auto) 4, Eosinophils (%) (Auto) 0, Basophils (%) (Auto) 0, Neutrophils # (Auto) 6.8, Lymphocytes # (Auto) 0.2L, Monocytes # (Auto) 0.3, Eosinophils # (Auto) 0.0, Basophils # (Auto) 0.0, Sodium Level 140, Potassium Level 3.9, Chloride Level 96L, Carbon Dioxide Level 30, Anion Gap 14, Blood Urea Nitrogen 34H, Creatinine 1.35H, Estimat Glomerular Filtration Rate 39, BUN/ Creatinine Ratio 25, Glucose Level 173H, Calcium Level 9.1, Total Bilirubin 1.5H , Aspartate Amino Transf (AST/SGOT) 18, Alanine Aminotransferase (ALT/SGPT) 8, Alkaline Phosphatase 60, Total Protein 6.3L, Albumin 3.5 05/31/17 06:12: Glucometer 194H Microbiology 05/28/17 MRSA Screen - Final, Complete MRSA not isolated Laboratory Tests 05/30/17 04:21 05/31/17 05:30 A/P: Assessment: Acute exacerbation of COPD likely due to pneumonia Probable pneumonia - medical services managing Acute diastolic CHF - clinically improving PAF - currently in SR Xarelto for stroke prophylaxis MPI of October 18, 2016 showed no evidence of significant myocardial ischemia or infarction. Normal regional wall motion. LVEF 76% Echo of May 29, 2017 Normal global left ventricular systolic function with an ejection fraction of approximately 60-65%. Mild aortic valve sclerosis without evidence of significant aortic stenosis. Mild mitral and tricuspid regurgitation. No evidence of significant valvular stenosis. Pulmonary artery systolic pressure is estimated to be approximately 40 mmHg. 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
--- NOTE | 2017-05-31 11:24 | Diagnostic Imaging Report ---
INDICATION: COPD, exacerbation, CHF. Compared to one day prior. FINDINGS: Heart size is unchanged. Vascular congestion improved. Bilateral mixed interstitial and airspace opacities likely edema have substantially improved. There may be a small residual left pleural effusion. No pneumothorax. IMPRESSION: Favorable changes suggest reduction in sequelae of failure or hypervolemia with no adverse development. Dictated by: Dictated on workstation # [id number]
[2017-05-31] MEDS ORDERED: IPRA3AMP INH (11:38)
[2017-05-31] MEDS ORDERED: PRD20T PO (11:38)
--- NOTE | 2017-05-31 11:42 | Discharge Inst-Skilled Nursing ---
Discharge Inst-Skilled NF Patient Instructions Patient Problems: Weakness with recent COPD exacerbation and Diastolic CHF Goal: Increase strength Consult/Follow Up/Orders Follow Up Appt.: 2 weeks Skilled NF Admit to: [facility] Certification (SNF) I certify that SNF services are required to be given on an inpatient basis because of the above named patient's need for [facility] care on a continuing basis for the conditions(s) for which he/she was receiving inpatient hospital services prior to his/her transfer to the SNF. Assisted Facility Order: [employer]-Evaluate & Treat, Physical Therapy-Evaluate & Treat Discharge Diet: Low Sodium Diet Daily Activity as Tolerated: No (up with assist only) New & Resume Previous Orders New & Resume Previous Orders Check CBC and CMP in 1 week Daily weight until fwup Yanira Tolliver May 31, 2017 11:40 YANIRA TOLLIVER DO May 31, 2017 11:42 am
[2017-05-31 12:00] VITALS: BP 132/73
[2017-05-31] MEDS ORDERED: HYDR-3820 PO ×2 (14:13)
[2017-05-31] MEDS ORDERED: ALPR0.5T PO (14:14)
--- NOTE | 2017-06-19 19:42 | Discharge Summary ---
Diagnosis/Chief Complaint Date of Admission May 28, 2017 at 19:37 Date of Discharge May 31, 2017 at 15:57 Discharge Date: May 31, 2017 Admission Diagnosis Admission Diagnosis 1. Acute Respiratory Failure with Hypoxia--admit on BIPAP to ICU 2. Acute Exacerbation of COPD--IV solumedrol and SVNs with albuterol 3. Acute Pulmonary Edema--IV lasix, Check ECHO, consult cardiology 4. Acute on Chronic Diastolic CHF--Check 2-D ECHO 5. Diabetes mellitus II--accuchecks with SSI 6. Uterine Cancer-following with oncology Discharge Diagnosis 1. Acute Respiratory Failure with Hypoxia--improved 2. Acute Exacerbation of COPD--improved 3. Acute Pulmonary Edema--improved 4. Acute on Chronic Diastolic CHF--stable 5. Diabetes mellitus II--stable 6. Uterine Cancer-following with oncology 7. Acute on Chronic Anemia Reason Hospital Visit This is a 71 year old female who resides at [facility] who was brought to the emergency room with worsening shortness of air and hypoxia. She was found to have an oxygen saturation of 86% on 6L NC upon arrival. She was given a duoneb treatment, IV lasix, IV solumedrol and placed on BIPAP. Her CXR showed bilateral pulmonary vascular congestion and she was found to have an elevated D-Dimer. She was also felt to be in a COPD exacerbation. She will be admitted to the ICU on BIPAP with IV lasix, IV solumedrol, SVNS with duoneb and cardiology consultation. Discharge Summary Hospital Course Hospital Course This is a 71 year old female who resides at [facility] [place] who was brought to the emergency room with worsening shortness of air and hypoxia. She was found to have an oxygen saturation of 86% on 6L NC upon arrival. She was given a duoneb treatment, IV lasix, IV solumedrol and placed on BIPAP. Her CXR showed bilateral pulmonary vascular congestion and she was found to have an elevated D-Dimer. She was also felt to be in a COPD exacerbation. She was admitted to the ICU on BIPAP with IV lasix, IV solumedrol , SVNS with duoneb and cardiology consultation. By the second hospital day, she was able to be weaned from the BIPAP to a nasal cannula. She was transferred to the medical floor and her solumedrol was weaned. There was no evidence of acute coronary syndrome and her echo showed a preserved EF of 60-65% . She was noted to have a drop in her hemoglobin but this was stable at discharge. She was continued on IV lasix until discharge with good diuresis. By the day of discharge, she was feeling much better like she was back to her baseline and it was decided she could be discharged back to the [place]. Procedures None. Discharge Physical Examination Allergies: Coded Allergies: levofloxacin (Verified Allergy, Intermediate, 05/29/17) ciprofloxacin (Verified Allergy, Unknown, 10/11/08) ofloxacin (Verified Allergy, Unknown, 10/11/08) General Appearance: Alert, Oriented X3, Cooperative, No Acute Distress Respiratory: Clear to Auscultation Cardiovascular: Regular Rate Abdominal: Normal Bowel Sounds, Soft, No Tenderness Extremities: No Clubbing, No Cyanosis, No Edema Psych/Mental Status: Mental Status NL, Mood NL Discharge Home Medications Reviewed and agree with Discharge Medication list on patient's Discharge Instruction sheet Instructions to Patient/Family Please see electronic discharge instructions given to patient. Clinical Quality Measures DVT/VTE Risk/Contraindication: Risk Factor Score Per Nursin RFS Level Per Nursing on Admit: 4+=Very High RICHARDSON SANDRA DO Jun 19, 2017 19:42
== END 2017-05-31 15:57 | DRG 291 ==
LOC: EDUNIT# 17:44 → ER 17:45 → ICU 19:37 → 4TH 05-30 13:30
PROVIDERS: ADMIT Family Medicine; ATTEND Family Medicine
DX: I50.33 Acute on chronic diastolic (congestive) heart failure (principal); J96.01 Acute respiratory failure with hypoxia; J44.0 Chronic obstructive pulmonary disease with (acute) lower respiratory infection; J44.1 Chronic obstructive pulmonary disease with (acute) exacerbation; J18.9 Pneumonia, unspecified organism; E66.2 Morbid (severe) obesity with alveolar hypoventilation; Z68.43 Body mass index [BMI] 50.0-59.9, adult; I48.0 Paroxysmal atrial fibrillation; Z66 Do not resuscitate; E11.9 Type 2 diabetes mellitus without complications; N18.2 Chronic kidney disease, stage 2 (mild); N39.41 Urge incontinence; K21.9 Gastro-esophageal reflux disease without esophagitis; M19.91 Primary osteoarthritis, unspecified site; M54.9 Dorsalgia, unspecified; Z87.891 Personal history of nicotine dependence; Z79.01 Long term (current) use of anticoagulants; Z85.42 Personal history of malignant neoplasm of other parts of uterus; Z90.710 Acquired absence of both cervix and uterus; Z90.722 Acquired absence of ovaries, bilateral; Z90.79 Acquired absence of other genital organ(s); Z79.84 Long term (current) use of oral hypoglycemic drugs
CPT/HCPCS: 36415; 51702; 71010; 80053; 82274; 82805; 82962; 83735; 83880; 84100; 84439; 84443; 84484; 85025; 87081; 93005; 93306; 94640; 94660; 94760; 96374; 96375

== ENCOUNTER 2017-06-21 09:01 | Outpatient (RCR) | payer MEDICARE ==
[~2017-06-21 09:01] MED LIST changes: +ACET325T38 PO; +CEPH-507 PO; +CHOL5000 PO; +DICL100G18 TP; +IBUP-1779 PO; +MAGN400O7 PO; +MULT-1073 PO; +POTA20TA15 PO; +PRD20T PO
[2017-06-21 09:12] LABS: BASOPHILS % (AUTO) 0 % (0-10); EOSINOPHILS # (AUTO) 0.1 10^3/uL (0.0-0.3); EOSINOPHILS % (AUTO) 4 % (0-10); LYMPHOCYTES # (AUTO) 0.5 X 10^3 (1.0-4.0); LYMPHOCYTES % (AUTO) 18 % (12-44); MEAN CORPUSCULAR HEMOGLOBIN 27 PG (25-34); MEAN CORPUSCULAR HGB CONC 29 G/DL (32-36); MEAN CORPUSCULAR VOLUME 93 FL (80-99); MEAN PLATELET VOLUME 10.2 FL (7.4-10.4); MONOCYTES # (AUTO) 0.3 X 10^3 (0.0-1.0); MONOCYTES % (AUTO) 13 % (0-12); NEUTROPHILS # (AUTO) 1.8 X 10^3 (1.8-7.8); NEUTROPHILS % (AUTO) 65 % (42-75); PLATELET COUNT 79 10^3/uL (130-400); RED BLOOD COUNT 3.19 10^6/uL (4.35-5.85); RED CELL DISTRIBUTION WIDTH 16.4 % (10.0-14.5); WHITE BLOOD COUNT 2.7 10^3/uL (4.3-11.0)
[2017-06-21 09:37] LABS: ALBUMIN 3.4 GM/DL (3.2-4.5); BILIRUBIN,TOTAL 1.9 MG/DL (0.1-1.0); CALCIUM 9.4 MG/DL (8.5-10.1); CREATININE SERUM 1.21 MG/DL (0.60-1.30); POTASSIUM 3.9 MMOL/L (3.6-5.0); TOTAL PROTEIN 6.1 GM/DL (6.4-8.2)
== END 2017-06-22 | disposition home or self-care (01) ==
LOC: ONC 09:01
PROVIDERS: ATTEND Internal Medicine Hematology & Oncology
DX: C54.1 Malignant neoplasm of endometrium (principal); J44.9 Chronic obstructive pulmonary disease, unspecified; G47.30 Sleep apnea, unspecified; I12.9 Hypertensive chronic kidney disease with stage 1 through stage 4 chronic kidney disease, or unspecified chronic kidney disease; E11.22 Type 2 diabetes mellitus with diabetic chronic kidney disease; N18.3 Chronic kidney disease, stage 3 (moderate); I48.91 Unspecified atrial fibrillation; G89.29 Other chronic pain; F32.9 Major depressive disorder, single episode, unspecified; E66.01 Morbid (severe) obesity due to excess calories; Z68.41 Body mass index [BMI] 40.0-44.9, adult; Z79.01 Long term (current) use of anticoagulants; Z79.899 Other long term (current) drug therapy
CPT/HCPCS: 36415; 80053; 85025; 99213

== ENCOUNTER 2017-07-18 12:25 | Outpatient (RCR) | payer MEDICARE ==
[2017-07-18 13:05] LABS: BASOPHILS % (AUTO) 0 % (0-10); EOSINOPHILS # (AUTO) 0.2 10^3/uL (0.0-0.3); EOSINOPHILS % (AUTO) 4 % (0-10); HEMATOCRIT 36 % (35-52); HEMOGLOBIN 10.5 G/DL (11.5-16.0); LYMPHOCYTES # (AUTO) 0.7 X 10^3 (1.0-4.0); LYMPHOCYTES % (AUTO) 16 % (12-44); MEAN CORPUSCULAR HEMOGLOBIN 28 PG (25-34); MEAN CORPUSCULAR HGB CONC 29 G/DL (32-36); MEAN CORPUSCULAR VOLUME 95 FL (80-99); MEAN PLATELET VOLUME 9.3 FL (7.4-10.4); MONOCYTES # (AUTO) 0.4 X 10^3 (0.0-1.0); MONOCYTES % (AUTO) 9 % (0-12); NEUTROPHILS # (AUTO) 3.1 X 10^3 (1.8-7.8); NEUTROPHILS % (AUTO) 71 % (42-75); PLATELET COUNT 189 10^3/uL (130-400); RED BLOOD COUNT 3.76 10^6/uL (4.35-5.85); RED CELL DISTRIBUTION WIDTH 17.8 % (10.0-14.5); WHITE BLOOD COUNT 4.4 10^3/uL (4.3-11.0)
[2017-07-18 13:31] LABS: ALBUMIN 3.5 GM/DL (3.2-4.5); BILIRUBIN,TOTAL 1.2 MG/DL (0.1-1.0); CREATININE SERUM 1.09 MG/DL (0.60-1.30); POTASSIUM 4.2 MMOL/L (3.6-5.0); TOTAL PROTEIN 6.5 GM/DL (6.4-8.2)
== END 2017-10-16 | disposition home or self-care (01) ==
LOC: ONC 12:25
PROVIDERS: ATTEND Internal Medicine Hematology & Oncology
DX: C54.1 Malignant neoplasm of endometrium (principal); J44.9 Chronic obstructive pulmonary disease, unspecified; G47.30 Sleep apnea, unspecified; I12.9 Hypertensive chronic kidney disease with stage 1 through stage 4 chronic kidney disease, or unspecified chronic kidney disease; E11.22 Type 2 diabetes mellitus with diabetic chronic kidney disease; N18.3 Chronic kidney disease, stage 3 (moderate); I48.91 Unspecified atrial fibrillation; G89.29 Other chronic pain; F32.9 Major depressive disorder, single episode, unspecified; E66.01 Morbid (severe) obesity due to excess calories; Z68.41 Body mass index [BMI] 40.0-44.9, adult; Z79.01 Long term (current) use of anticoagulants; Z79.899 Other long term (current) drug therapy
CPT/HCPCS: 36415; 80053; 85025; 86304; 99213

== ENCOUNTER → 2017-12-13 | Outpatient (CLI) | payer MEDICARE ==
[2017-12-13] MEDS: IOHEXOL 350 MG/ML 100 ML (OMNIPAQUE 350) VIAL IV ONE (14:18)
[2017-12-13] MEDS: NS 250 ML (IVPB) BAG IV ONE (14:18)
--- NOTE | 2017-12-13 16:36 | Diagnostic Imaging Report ---
CLINICAL INDICATION: Patient having right-sided headaches and history of endometrial cancer. EXAM: Axial CT scan of the brain performed without IV contrast. COMPARISON: Head CT without IV contrast dated 05/24/2017. FINDINGS: Of note, skull streak artifact obscures portions of the brainstem, posterior fossa, and portions of the brain near the skull base. There is no evidence of acute cerebral infarct, intracranial hemorrhage, or gross mass effect. The brain parenchymal volume appears appropriate for patient's age. There are a few patchy areas of low-attenuation white matter changes in both cerebral hemispheres, likely representing chronic small vessel ischemic disease. There is normal sanchez-white matter distinction. There is no significant midline shift or herniation. There is no evidence of hydrocephalus. The basal cisterns are unremarkable. The skull, extracranial soft tissue, and orbits are unremarkable. The paranasal sinuses are unremarkable. Temporal bones show no significant abnormality. IMPRESSION: 1: There is no gross CT evidence of acute intracranial process. 2: Age-related brain parenchymal changes with chronic small vessel ischemic disease and brain parenchymal volume loss. Dictated by: Dictated on workstation # [id number]
== END ==
LOC: RAD 13:36
PROVIDERS: ATTEND Internal Medicine Hematology & Oncology
DX: I67.82 Cerebral ischemia (principal); G93.89 Other specified disorders of brain; Z85.42 Personal history of malignant neoplasm of other parts of uterus
CPT/HCPCS: 70450

== ENCOUNTER 2017-12-16 13:47 | Outpatient (RCR) | payer MEDICARE ==
[2017-12-12 14:10] LABS: BASOPHILS % (AUTO) 0 % (0-10); EOSINOPHILS # (AUTO) 0.2 10^3/uL (0.0-0.3); EOSINOPHILS % (AUTO) 3 % (0-10); HEMATOCRIT 39 % (35-52); HEMOGLOBIN 12.1 G/DL (11.5-16.0); LYMPHOCYTES # (AUTO) 0.7 X 10^3 (1.0-4.0); LYMPHOCYTES % (AUTO) 10 % (12-44); MEAN CORPUSCULAR HEMOGLOBIN 29 PG (25-34); MEAN CORPUSCULAR HGB CONC 31 G/DL (32-36); MEAN CORPUSCULAR VOLUME 93 FL (80-99); MEAN PLATELET VOLUME 9.1 FL (7.4-10.4); MONOCYTES # (AUTO) 0.5 X 10^3 (0.0-1.0); MONOCYTES % (AUTO) 7 % (0-12); NEUTROPHILS # (AUTO) 5.4 X 10^3 (1.8-7.8); NEUTROPHILS % (AUTO) 80 % (42-75); PLATELET COUNT 188 10^3/uL (130-400); RED BLOOD COUNT 4.16 10^6/uL (4.35-5.85); RED CELL DISTRIBUTION WIDTH 15.7 % (10.0-14.5); WHITE BLOOD COUNT 6.8 10^3/uL (4.3-11.0)
[2017-12-12 14:27] LABS: ALBUMIN 3.8 GM/DL (3.2-4.5); BILIRUBIN,TOTAL 1.3 MG/DL (0.1-1.0); CALCIUM 9.9 MG/DL (8.5-10.1); CREATININE SERUM 1.2 MG/DL (0.60-1.30); POTASSIUM 4.4 MMOL/L (3.6-5.0)
[~2017-12-16 13:47] MED LIST changes: -CITA20TA7 PO; +CITA20TA9 PO
== END 2018-03-12 | disposition home or self-care (01) ==
LOC: ONC 13:47
PROVIDERS: ATTEND Internal Medicine Hematology & Oncology
DX: C54.1 Malignant neoplasm of endometrium (principal); D61.818 Other pancytopenia; R51 Headache; J44.9 Chronic obstructive pulmonary disease, unspecified; G47.30 Sleep apnea, unspecified; I12.9 Hypertensive chronic kidney disease with stage 1 through stage 4 chronic kidney disease, or unspecified chronic kidney disease; E11.22 Type 2 diabetes mellitus with diabetic chronic kidney disease; N18.3 Chronic kidney disease, stage 3 (moderate); I48.91 Unspecified atrial fibrillation; G89.29 Other chronic pain; F32.9 Major depressive disorder, single episode, unspecified; E66.01 Morbid (severe) obesity due to excess calories; Z68.41 Body mass index [BMI] 40.0-44.9, adult; Z79.01 Long term (current) use of anticoagulants; Z79.899 Other long term (current) drug therapy
CPT/HCPCS: 36415; 80053; 82728; 83540; 85025; 86304; 99213

== ENCOUNTER → 2018-01-03 | Outpatient (CLI) | payer MEDICARE ==
[~2018-01-03] MED LIST changes: +ALPR0.25 PO; +ATOR20TA66 PO; -IPRA3AMP IH; -IPRA3AMP INH; +IPRA3AMP31 IH; +IPRA3AMP31 INH; +MULT-640 PO; +OMEP20CA12 PO; +PRED10TA22 PO
--- NOTE | 2018-01-03 13:03 | Diagnostic Imaging Report ---
PROCEDURE: CT chest without contrast. TECHNIQUE: Multiple contiguous axial images were obtained through the chest without the use of intravenous contrast. INDICATION: Spitting up blood for two months. COMPARISON: Comparison is made with prior CT chest from 12/06/2016. FINDINGS: No axillary lymphadenopathy is seen. There appear to be multiple prominent lymph nodes in the mediastinum, increased when compared with the CT study from one year earlier. Evaluation is limited without intravenous contrast. A right paratracheal node measures approximately 10 mm in short axis compared with 7 mm on prior. There are also several mildly prominent prevascular nodes. There are coronary arterial calcifications present. The heart does appear to be enlarged. No pericardial or pleural fluid is detected. Central airways are patent. Mosaic attenuation is similar to prior exam, again perhaps owing to air trapping. There are areas of atelectasis or scarring in the right middle lobe and lingula as well as bilateral lower lobes. No discrete mass is identified. Bony structures appear nonacute. Upper abdomen does show multiple small stones within the gallbladder. IMPRESSION: 1. There has been some increase in size of mildly prominent mediastinal lymph nodes when compared with CT study from one year earlier, indeterminate. There are areas of air-trapping with atelectasis/scarring in the right middle lobe and lingula as well as bilateral lower lobes. No discrete parenchymal mass or chest effusion is seen. 2. Cholelithiasis. Dictated by: Dictated on workstation # [id number]
== END ==
LOC: RAD 11:52
PROVIDERS: ATTEND Family Medicine
DX: R59.0 Localized enlarged lymph nodes (principal); J98.4 Other disorders of lung; K80.20 Calculus of gallbladder without cholecystitis without obstruction
CPT/HCPCS: 71250

== ENCOUNTER 2018-04-01 20:47 | Inpatient (IN) | payer MEDICARE ==
[~2018-04-01] VITALS: Ht 147.3 cm; Wt 110.8 kg
[~2018-04-01 20:47] MED LIST changes: -ALPR0.25 PO; -ATOR20TA66 PO; -MULT-640 PO; -OMEP20CA12 PO; -PRED10TA22 PO
[2018-04-01] MEDS ORDERED: RT-ALBUTEROL/IPRATROPIUM 3 ML (DUONEB) VIAL ONE (20:50)
[2018-04-01] MEDS ORDERED: RT-ALBUTEROL/IPRATROPIUM 3 ML (DUONEB) VIAL INH ONE (21:00)
[2018-04-01 21:06] LABS: BASOPHILS % (AUTO) 0 % (0-10); EOSINOPHILS # (AUTO) 0.2 10^3/uL (0.0-0.3); EOSINOPHILS % (AUTO) 2 % (0-10); HEMATOCRIT 37 % (35-52); HEMOGLOBIN 11.2 G/DL (11.5-16.0); LYMPHOCYTES # (AUTO) 0.7 X 10^3 (1.0-4.0); LYMPHOCYTES % (AUTO) 11 % (12-44); MEAN CORPUSCULAR HEMOGLOBIN 29 PG (25-34); MEAN CORPUSCULAR HGB CONC 30 G/DL (32-36); MEAN CORPUSCULAR VOLUME 95 FL (80-99); MEAN PLATELET VOLUME 9.6 FL (7.4-10.4); MONOCYTES # (AUTO) 0.5 X 10^3 (0.0-1.0); MONOCYTES % (AUTO) 7 % (0-12); NEUTROPHILS # (AUTO) 5.3 X 10^3 (1.8-7.8); NEUTROPHILS % (AUTO) 80 % (42-75); PLATELET COUNT 182 10^3/uL (130-400); RED BLOOD COUNT 3.88 10^6/uL (4.35-5.85); RED CELL DISTRIBUTION WIDTH 16.9 % (10.0-14.5); WHITE BLOOD COUNT 6.7 10^3/uL (4.3-11.0)
[2018-04-01 21:11] LABS: ABG BASE EXCESS 7.2 MMOL/L (-2.5-2.5); ABG OXYGEN SATURATION 97 % (94-100); ABG PCO2 66 MMHG (35-45); ABG PO2 95 MMHG (79-93); ABG TCO2 34.8 MMOL/L (21.0-31.0)
[2018-04-01 21:15] LABS: ABG PH 7.33 (7.37-7.43); ALLENS TEST YES-POS; INSPIRED O2 6; PATIENT TEMP 100.6; VENTILATOR NO
[2018-04-01 21:16] LABS: PROTHROMBIN TIME PATIENT 22.9 SEC (12.2-14.7)
--- NOTE | 2018-04-01 21:24 | Diagnostic Imaging Report ---
INDICATION: Hypoxia and confusion Frontal chest obtained at 9:11 p.m. and compared with 05/31/2017. There is prominent cardiomegaly with central vascular congestion. There are chronic appearing increased interstitial markings. The left lung base is not well-seen but is probably technical. There is no pneumothorax. There is no significant pleural fluid on the right side. There may be a small amount of pleural fluid on the left side. IMPRESSION: Limited study. Cardiomegaly with central vascular prominence with chronic appearing increased markings. Left lung base not well-seen, there may be a small amount of left pleural fluid. Consider followup with PA and lateral views of the chest when the patient is able. Dictated by: Dictated on workstation # [id number]
[2018-04-01 21:26] LABS: ALBUMIN 3.6 GM/DL (3.2-4.5); BILIRUBIN,TOTAL 0.8 MG/DL (0.1-1.0); CALCIUM 9.7 MG/DL (8.5-10.1); CREATININE SERUM 1.58 MG/DL (0.60-1.30); POTASSIUM 4.1 MMOL/L (3.6-5.0); TOTAL PROTEIN 6.9 GM/DL (6.4-8.2)
--- NOTE | 2018-04-01 21:42 | ED General ---
General Chief Complaint: Respiratory Problems Stated Complaint: LOW O2 SAT Nursing Triage Note: low spo2 Nursing Sepsis Screen: No Definite Risk Source of Information: Patient, EMS Exam Limitations: Physical Impairments History of Present Illness Date Seen by Provider: Apr 01, 2018 Time Seen by Provider: 20:45 Initial Comments Here by EMS with report of low O2 sat at the senior living. Family she is on 3 L of nasal cannula typically. She was having problems yesterday and this which her to face mass which she did not tolerate. Today she was having O2 saturations at 49 percent per the senior living. EMS had evaluated her on their arrival and she did come up to 87 percent on her typical 3 L via nasal cannula. Patient is confused and does have a fever. Not answering questions well and is a poor historian. Does follow simple commands. Timing/Duration: 24 Hours, Getting Worse Severity: Moderate, Severe Associated Systoms: No Chest Pain, No Cough; Fever/Chills, Shortness of Air, Weakness Allergies and Home Medications Allergies Coded Allergies: levofloxacin (Verified Allergy, Intermediate, 05/29/17) ciprofloxacin (Verified Allergy, Unknown, 10/11/08) ofloxacin (Verified Allergy, Unknown, 10/11/08) Home Medications Acetaminophen 325 Mg Tablet, 650 MG PO Q4H PRN for MILD PAIN/ELEVATED TEMP, ( Reported) TAKES 2 (325MG) TABLETS Alprazolam 0.5 Mg Tablet, 0.5 MG PO HS Prescribed by: RICHARDSON TOLLIVER on 05/31/17 141 Atorvastatin 20 Mg Tablet, 20 MG PO HS, (Reported) Cholecalciferol (Vitamin D3) 5,000 Unit Capsule, 5,000 UNIT PO We, (Reported) Citalopram Hydrobromide 20 Mg Tablet, 20 MG PO DAILY, (Reported) Diclofenac Sodium 100 Gm Gel..gram., 4 GM TP BID, (Reported) APPLY TO LEFT ANKLE/FOOT Furosemide 40 Mg Tablet, 40 MG PO DAILY, (Reported) Gabapentin 300 Mg Capsule, 300 MG PO DAILY, (Reported) Guaifenesin/Dextromethorphan 5 Ml Syrup, 5 ML PO Q4H PRN for COUGH, (Reported) Hydrocodone/Acetaminophen 1 Each Tablet, 1 TAB PO TID PRN for PAIN-MODERATE Prescribed by: RICHARDSON TOLLIVER on 05/31/17 1413 Hydrocodone/Acetaminophen 1 Each Tablet, 1 TAB PO UD PRN for 30 MIN BEFORE PHYSICAL THERAPY Prescribed by: RICHARDSON TOLLIVER on 05/31/17 1413 Ipratropium/Albuterol Sulfate 3 Ml Ampul.neb, 3 ML INH RTQ6HR and Q4HR prn Prescribed by: RICHARDSON TOLLIVER on 05/31/17 1138 Magnesium Hydroxide 400 Mg/5 Ml Oral.susp, 30 ML PO DAILY PRN for CONSTIPATION- 7TH LINE, (Reported) Multivit,Calc,Mins/Iron/Folic 1 Each Tablet, 1 TAB PO DAILY, (Reported) Omeprazole 20 Mg Capsule.dr, 20 MG PO DAILY, (Reported) Potassium Chloride 20 Meq Tab.er.prt, 20 MEQ PO DAILY, (Reported) Prednisone 20 Mg Tab, 20 MG PO BID Prescribed by: RICHARDSON TOLLIVER on 05/31/17 1138 Rivaroxaban 20 Mg Tablet, 20 MG PO DAILY, (Reported) Sennosides/Docusate Sodium 1 Each Tablet, 1 TAB PO Q12H PRN for CONSTIPATION- 6TH LINE, (Reported) Patient Home Medication List Home Medication List Reviewed: Yes Review of Systems Constitutional: see HPI; No chills; fever, weakness Respiratory: short of breath; No wheezing Cardiovascular: No chest pain; edema Gastrointestinal: No nausea, No vomiting Genitourinary: no symptoms reported Review of systems Limited due to clinical condition and confusion. Past Abisulm-Rdfknd-Qhfhgg Hx Past Med/Social Hx: Reviewed Nursing Past Med/Soc Hx Patient Social History Alcohol Use: Denies Use Recreational Drug Use: No Smoking Status: Former Smoker Type Used: Cigarettes Former Smoker, Quit: Sep 23, 2007 2nd Hand Smoke Exposure: No Recent Foreign Travel: No Contact w/Someone Who Travel: No Recent Infectious Disease Expo: No Recent Hopitalizations: No Immunizations Up To Date Tetanus Booster (TDap): Unknown PED Vaccines UTD: No Date of Pneumonia Vaccine: Sep 23, 2012 Date of Influenza Vaccine: Jul 27, 2016 Seasonal Allergies Seasonal Allergies: No Past Medical History Surgeries: Yes (UMBILICAL HERNIA REPAIR, D&C) Orthopedic Respiratory: Yes Asthma, COPD Currently Using CPAP: No Currently Using BIPAP: No Cardiac: Yes Hypertension Neurological: Yes (BONE SPURS ALONG SPINE ) : No Reproductive Disorders: Yes (PMB) Female Reproductive Disorders: Denies, Endometriosis 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 Sexually Transmitted Disease: No HIV/AIDS: No Genitourinary: Yes Renal Failure, UTI-Chronic Gastrointestinal: Yes Gastroesophageal Reflux Musculoskeletal: Yes Degenerate Disk Disease, Arthritis, Chronic Back Pain, Fractures Endocrine: Yes (USED TO TAKE METFORMIN BUT NOW DIABETES IS DIET CONTROLLED) Diabetes, Non-Insulin dep Loss of Vision: Denies Cancer: Yes (ENDOMETRIAL, MALIGNANT NEOPLASM UTERUS) Ovarian, Uterine Psychosocial: Yes Sleep Difficulties, Anxiety, Depression Integumentary: No Blood Disorders: No Adverse Reaction/Blood Tranf: No Family Medical History Reviewed Nursing Family Hx Cancer 03 MOTHER 09 SISTER Family history: Breast disease 09 SISTER No Pertinent Family Hx Physical Exam-Suspected Sepsis Physical Exam Vital Signs Vital Signs - First Documented 04/01/18 20:50 Temp 100.6 Pulse 84 Resp 16 B/P (MAP) 133/74 (93) Pulse Ox 91 O2 Delivery Nasal Cannula O2 Flow Rate 6.00 Capillary Refill : Less Than 3 Seconds Blood Pressure Mean: 93 Height, Weight, BMI Height: 4', 10.00" Weight: 244lbs 3.0oz, [id number] Method:Estimated ,51.6BMI General Appearance: Mild Distress (confusion and respiratory), Obese HEENT: PERRL/EOMI, Pharynx Normal Neck: Non Tender, Supple Respiratory: Crackles, Decreased Breath Sounds, Wheezing (a few trace wheezes on expiratory cough) Cardiovascular: Regular Rate, Rhythm, No Murmur Gastrointestinal: Non Tender, Soft Back: Normal Inspection, No CVA Tenderness, No Vertebral Tenderness Extremity: Non Tender, Pedal Edema Neurologic/Psychiatric: Disoriented, Other (awake and follows simple commands but is confused) Skin: normal color, warm/dry Focused Exam Lactate Level 04/01/18 20:55: Lactic Acid Level 1.32 Lactic Acid Level Laboratory Tests Test 04/01/18 20:55 Lactic Acid Level 1.32 MMOL/L (0.50-2.00) Procedures/Interventions Patient Education: Explained Benefits, Explained Risks, Pt. Ack. Understanding Breath Sounds per Auscultation: Clear Heart Sounds per Auscultation: Regular Airway Exam: Mouth opens >2 fingers, Neck Full Range of Motion, Visulation of Uvula Sedation Adminstration Time: 0303 Re-examination Time: 0335 Progress/Results/Core Measures Suspected Sepsis Recent Fever Within 48 Hours: No Infection Criteria Present: Suspected New Infection New/Unexplained Altered Menta: No Sepsis Screen: No Definite Risk SIRS Temperature:100.6 Pulse: 84 Respiratory Rate: 16 Laboratory Tests 04/01/18 20:55: White Blood Count 6.7 Blood Pressure 133 /74 Mean: 93 04/01/18 20:55: Lactic Acid Level 1.32 Laboratory Tests 04/01/18 20:55: Creatinine 1.58H, INR Comment 2.0H, Platelet Count 182, Total Bilirubin 0.8 Results/Orders Lab Results Laboratory Tests Test 04/01/18 20:55 04/01/18 21:07 04/01/18 22:00 Range/Units White Blood Count 6.7 4.3-11.0 10^3/uL Red Blood Count 3.88 L 4.35-5.85 10^6/uL Hemoglobin 11.2 L 11.5-16.0 G/DL Hematocrit 37 35-52 % Mean Corpuscular Volume 95 80-99 FL Mean Corpuscular Hemoglobin 29 25-34 PG Mean Corpuscular Hemoglobin Concent 30 L 32-36 G/DL Red Cell Distribution Width 16.9 H 10.0-14.5 % Platelet Count 182 130-400 10^3/uL Mean Platelet Volume 9.6 7.4-10.4 FL Neutrophils (%) (Auto) 80 H 42-75 % Lymphocytes (%) (Auto) 11 L 12-44 % Monocytes (%) (Auto) 7 0-12 % Eosinophils (%) (Auto) 2 0-10 % Basophils (%) (Auto) 0 0-10 % Neutrophils # (Auto) 5.3 1.8-7.8 X 10^3 Lymphocytes # (Auto) 0.7 L 1.0-4.0 X 10^3 Monocytes # (Auto) 0.5 0.0-1.0 X 10^3 Eosinophils # (Auto) 0.2 0.0-0.3 10^3/uL Basophils # (Auto) 0.0 0.0-0.1 10^3/uL Prothrombin Time 22.9 H 12.2-14.7 SEC INR Comment 2.0 H 0.8-1.4 Activated Partial Thromboplast Time 45 H 24-35 SEC Sodium Level 144 135-145 MMOL/L Potassium Level 4.1 3.6-5.0 MMOL/L Chloride Level 103 98-107 MMOL/L Carbon Dioxide Level 30 21-32 MMOL/L Anion Gap 11 5-14 MMOL/L Blood Urea Nitrogen 31 H 7-18 MG/DL Creatinine 1.58 H 0.60-1.30 MG/DL Estimat Glomerular Filtration Rate 32 BUN/Creatinine Ratio 20 Glucose Level 133 H 70-105 MG/DL Lactic Acid Level 1.32 0.50-2.00 MMOL/L Calcium Level 9.7 8.5-10.1 MG/DL Total Bilirubin 0.8 0.1-1.0 MG/DL Aspartate Amino Transf (AST/SGOT) 20 5-34 U/L Alanine Aminotransferase (ALT/SGPT) 7 0-55 U/L Alkaline Phosphatase 80 40-136 U/L B-Type Natriuretic Peptide 432.0 H <100.0 PG/ML Total Protein 6.9 6.4-8.2 GM/DL Albumin 3.6 3.2-4.5 GM/DL Blood Gas Puncture Site RT RAD Blood Gas Patient Temperature 100.6 Arterial Blood pH 7.33 *L 7.37-7.43 Arterial Blood Partial Pressure CO2 66 H 35-45 MMHG Arterial Blood Partial Pressure O2 95 H 79-93 MMHG Arterial Blood HCO3 33 H 23-27 MMOL/L Arterial Blood Total CO2 34.8 H 21.0-31.0 MMOL/L Arterial Blood Oxygen Saturation 97 94-100 % Arterial Blood Base Excess 7.2 H -2.5-2.5 MMOL/L Fidel Test YES-POS Blood Gas Ventilator Setting NO Blood Gas Inspired Oxygen 6 Urine Color YELLOW Urine Clarity VERY CLOUDY H Urine pH 5 5-9 Urine Specific Jewell 1.020 1.016-1.022 Urine Protein 1+ H NEGATIVE Urine Glucose (UA) NEGATIVE NEGATIVE Urine Ketones NEGATIVE NEGATIVE Urine Nitrite NEGATIVE NEGATIVE Urine Bilirubin NEGATIVE NEGATIVE Urine Urobilinogen NORMAL NORMAL MG/DL Urine Leukocyte Esterase 3+ H NEGATIVE Urine RBC (Auto) 4+ H NEGATIVE Urine RBC 5-10 H /HPF Urine WBC 50-100 H /HPF Urine Squamous Epithelial Cells 2-5 /HPF Urine Crystals NONE /LPF Urine Bacteria LARGE H /HPF Urine Casts NONE /LPF Urine Mucus NEGATIVE /LPF Urine Culture Indicated YES My Orders Orders - BOSSMAN IVORY MD Albuterol/Ipra Inhalation Soln (Duoneb I (04/01/18 20:50) Cbc With Automated Diff (04/01/18 20:55) Comprehensive Metabolic Panel (04/01/18 20:55) Lactic Acid Analyzer (04/01/18 20:55) Blood Culture (04/01/18 20:55) Sputum Culture (04/01/18 20:55) Ua Culture If Indicated (04/01/18 20:55) Protime With Inr (04/01/18 20:55) Partial Thromboplastin Time (04/01/18 20:55) Chest 1 View, Ap/Pa Only (04/01/18 20:55) O2 (04/01/18 20:55) Saline Lock/Iv-Start (04/01/18 20:55) Saline Lock/Iv-Start (04/01/18 20:55) Vital Signs Adult Sepsis Patie Q15M (04/01/18 20:55) Remove Rings In Anticipation O (04/01/18 20:55) Albuterol/Ipra Inhalation Soln (Duoneb I (04/01/18 21:00) Svn Small Volume Nebulizer (04/01/18 20:55) Arterial Blood Gas (04/01/18 20:55) Arterial Blood Draw (04/01/18 ) BNP (04/01/18 21:34) Urine Culture (04/01/18 22:00) Albuterol Pre-Mix Nebs (Rt) (Proventil (04/01/18 22:49) Svn Small Volume Nebulizer (04/01/18 22:49) Methylprednisolone Sod Succ (Solu-Medrol (04/01/18 22:49) Medications Given in ED Current Medications Medications Dose Ordered Sig/Betina Route Start Time Stop Time Status Last Admin Dose Admin Albuterol/ Ipratropium 3 ml ONCE ONCE INH 04/01/18 21:00 04/01/18 21:01 DC 04/01/18 20:55 3 ML Vital Signs/I&O 04/01/18 04/01/18 04/01/18 20:50 20:55 20:58 Temp 100.6 Pulse 84 Resp 16 B/P (MAP) 133/74 (93) Pulse Ox 91 90 91 O2 Delivery Nasal Cannula Nasal Cannula Nasal Cannula O2 Flow Rate 6.00 4.50 6.00 Capillary Refill : Less Than 3 Seconds Blood Pressure Mean: 93 Progress Note : Progress Note Seen and evaluated. IV by EMS, labs, chest x-ray, blood cultures, lactic acid and UA ordered. Duo neb ordered. Patient has O2 sat in the low 90s on 5-6 L via nasal cannula. 2130: Chest x-ray does show vascular congestion. BNP ordered. Momin catheter ordered as there is concerns about volume overload. This may be multifactorial with respect to COPD exacerbation and heart failure. 2233: Patient still requiring oxygen. Additional nebulizer treatments ordered. Patient will require admission due to hypoxia and urinary tract infection. I did speak with Dr. Tolliver and she believes the patient is terminated from her service. 2239: Patient family believe that she was still a part of the service and I have rediscussed several Dr. Tolliver who states that she has definitely been terminated due to not coming to the office for evaluation. Patient is a senior living patient requires annual evaluation and the patient does not go. She will need to have another physician. 2244: I did speak with Dr. ROBLES, electron gun inspector for hospitalist. He accepts patient for admission, inpatient status. Rocephin 1 g IV as well as Solu-Medrol IV and albuterol treatments will continue. Findings and concerns including the need to find local physician that comes to the senior living was discussed with patient and family verbalize understanding. They agree with admission. Diagnostic Imaging Diagonstic Imaging: Xray Plain Films/CT/US/NM/MRI: chest Comments VIA [facility], [facility]. [place], [place] NAME: JERI BYRD [facility] REC#: [id number] PT STATUS: REG ER : 1945 PHYSICIAN: BOSSMAN IVORY MD ADMIT DATE: 04/01/18/ER Draft Date of Exam:04/01/18 CHEST 1 VIEW, AP/PA ONLY INDICATION: Hypoxia and confusion Frontal chest obtained at 9:11 p.m. and compared with 05/31/2017. There is prominent cardiomegaly with central vascular congestion. There are chronic appearing increased interstitial markings. The left lung base is not well-seen but is probably technical. There is no pneumothorax. There is no significant pleural fluid on the right side. There may be a small amount of pleural fluid on the left side. IMPRESSION: Limited study. Cardiomegaly with central vascular prominence with chronic appearing increased markings. Left lung base not well-seen, there may be a small amount of left pleural fluid. Consider followup with PA and lateral views of the chest when the patient is able. Dictated on workstation # [id number] Dict: 04/01/182116 Trans: 04/01/182122 [facility] [id number] Interpreted by: MARISELA SOARES MD Electronically signed by: Departure Communication (Admissions) Time/Spoke to Admitting Phy: 22:44 Impression Primary Impression: Urinary tract infection Qualified Codes: N30.00 - Acute cystitis without hematuria Additional Impressions: COPD (chronic obstructive pulmonary disease) Qualified Codes: J44.1 - Chronic obstructive pulmonary disease with (acute) exacerbation Hypoxia Disposition: ADMITTED INPATIENT Condition: Stable Admissions Decision to Admit Reason: Admit from ER (General) Decision to Admit/Date: Apr 01, 2018 Time/Decision to Admit Time: 22:44 Departure-Patient Inst. Referrals: RICHARDSON TOLLIVER DO (PCP/Family) Primary Care Physician BOSSMAN IVORY MD Apr 01, 2018 21:42
[2018-04-01 22:13] LABS: BILIRUBIN,URINE NEGATIVE (NEGATIVE); CLARITY,URINE VERY CLOUDY; COLOR,URINE YELLOW; GLUCOSE, URINE (UA) NEGATIVE (NEGATIVE); KETONES,URINE NEGATIVE (NEGATIVE); LEUKOCYTE ESTERASE ,URINE 3+ (NEGATIVE); NITRITE,URINE NEGATIVE (NEGATIVE); PH,URINE 5 (5-9); PROTEIN,URINE 1+ (NEGATIVE); UROBILINOGEN,URINE NORMAL (NORMAL)
[2018-04-01 22:22] LABS: BACTERIA,URINE LARGE /HPF; WBC,URINE 50-100 /HPF
[2018-04-01] MEDS ORDERED: methylPREDNISolone 125 MG (Solu-MEDROL) VIAL IV STA (22:49)
[2018-04-01] MEDS ORDERED: RT-ALBUTEROL SULF 2.5 MG/3 ML PRE-MIX VIAL INH STA (22:49)
--- OUTSIDE RECORDS SUMMARY | 2018-04-01 23:40 | XMS REPORT | Continuity of Care Document ---
Author Author [facility] Organization [facility] Address Unknown Phone Unavailable Allergies Active Description Code Type Severity Reaction Onset Reported/Identified Relationship to Patient Clinical Status Yes ciprofloxacin [id number] Drug Allergy Unknown N/A 10/11/2008 Yes ofloxacin [id number] Drug Allergy Unknown N/A 10/11/2008 Yes levofloxacin [id number] Drug Allergy Moderate N/A 05/29/2017 Medications There is no data. Problems Date Dx Coded Attending Type Code Diagnosis Diagnosed By 08/22/1322 NADEGE GARZA, VITALY Dubon Ot C54.1 MALIGNANT NEOPLASM OF ENDOMETRIUM 09/27/2010 Ot 041.4 09/27/2010 Ot 041.89 09/27/2010 Ot 250.00 09/27/2010 Ot 272.4 09/27/2010 Ot 276.51 09/27/2010 Ot 278.00 09/27/2010 Ot 311 09/27/2010 Ot 401.9 09/27/2010 Ot 428.0 09/27/2010 Ot 482.83 09/27/2010 Ot 493.22 09/27/2010 Ot 528.00 09/27/2010 Ot 530.81 09/27/2010 Ot 562.10 09/27/2010 Ot 599.0 09/27/2010 Ot 715.90 09/27/2010 Ot 721.3 09/27/2010 Ot 780.53 09/27/2010 Ot V85.42 10/26/2012 Ot 920 CONTUSION FACE/ SCALP/NCK 10/26/2012 Ot 959.01 HEAD INJURY , NOS 10/26/2012 Ot E000.8 OTHER EXTERNAL CAUSE STATUS 10/26/2012 Ot E849.0 ACCIDENT IN HOME 10/26/2012 Ot E888.1 FALL STRIKING OBJECT NEC 11/26/2012 Ot 722.51 THORACIC DISC DEGEN 11/26/2012 Ot 722.52 LUMB/ LUMBOSAC DISC DEGEN 11/26/2012 Ot 780.79 OTH MALAISE FATIGUE 11/26/2012 Ot V15.88 HISTORY OF FALL 11/26/2012 Ot V57.1 PHYSICAL THERAPY NEC 10/15/2013 LUIS SULLIVAN HYDRAULIC RUBBISH COMPACTOR MECHANIC Ot 959.09 INJURY OF FACE AND NECK 10/15/2013 LUIS SULLIVAN HYDRAULIC RUBBISH COMPACTOR MECHANIC Ot 959.12 OTH INJURY OF ABDOMEN 10/15/2013 LUIS SULLIVAN HYDRAULIC RUBBISH COMPACTOR MECHANIC Ot 959.19 OTH INJURY OF OTHER SITES OF TRUNK 10/15/2013 LUIS SULLIVAN HYDRAULIC RUBBISH COMPACTOR MECHANIC Ot E000.8 OTHER EXTERNAL CAUSE STATUS 10/15/2013 LUIS SULLIVAN HYDRAULIC RUBBISH COMPACTOR MECHANIC Ot E849.0 ACCIDENT IN HOME 10/15/2013 LUIS SULLIVAN HYDRAULIC RUBBISH COMPACTOR MECHANIC Ot E884.6 FALL FROM COMMODE,TOILET 01/03/2014 YANIRA TOLLIVER DO S Ot 250.00 DIAB JOSELIN WO COMPL, TYPE II OR UNSPEC TY 01/03/2014 DEVI TOLLIVER DOLINE S Ot 272.0 PURE HYPERCHOLESTEROLEM 01/03/2014 DEVI TOLLIVER DOLINE S Ot 278.00 OBESITY, NOS 01/03/2014 DEVI TOLLIVER DOLINE S Ot 300.00 ANXIETY STATE NOS 01/03/2014 REDD TOLLIVER DOQUELINE S Ot 311 DEPRESSIVE DISORDER NEC 01/03/2014 DEVI TOLLIVER DOLINE S Ot 355.9 MONONEURITIS NOS 01/03/2014 DEVI TOLLIVER DOLINE S Ot 401.9 HYPERTENSION NOS 01/03/2014 REDD TOLLIVER DOQUELINE S Ot 493.20 CHRONIC OBSTRUCTIVE ASTHMA, NOS 01/03/2014 DEVI TOLLIVER DOLINE S Ot 530.81 ESOPHAGEAL REFLUX 01/03/2014 REDD TOLLIVER DOQUELINE S Ot 562.10 DIVERTICULOSIS COLON (W/O MENT OF HEMORR 01/03/2014 REDD TOLLIVER DOQUELINE S Ot 599.0 URIN TRACT INFECTION NOS 01/03/2014 REDD TOLLIVER DOQUELINE S Ot 715.90 OSTEOARTHROS NOS-UNSPEC 01/03/2014 REDD TOLLIVER DOQUELINE S Ot 722.52 LUMB/LUMBOSAC DISC DEGEN 01/03/2014 REDD TOLLIVER DOQUELINE S Ot 780.57 UNSPECIFIED SLEEP APNEA 01/03/2014 REDD TOLLIVER DOQUELINE S Ot 780.79 OTH MALAISE FATIGUE 01/03/2014 YANIRA TOLLIVER DO S Ot 794.4 ABN KIDNEY FUNCT STUDY 01/03/2014 JOCY KAM YANIRA Diego Ot V15.88 HISTORY OF FALL 01/03/2014 DEVI TOLLIVER DOLINE S Ot V46.2 SUPPLEMENTAL OXYGEN 01/03/2014 YANIRA TOLLIVER DO S Ot V85.39 BODY MASS INDEX 39.0-39.9, ADULT 01/18/2014 JOCY KAM YANIRA S Ot 250.00 DIAB JOSELIN WO COMPL, TYPE II OR UNSPEC TY 01/18/2014 JOCY KAM YANIRA S Ot 300.00 ANXIETY STATE NOS 01/18/2014 JOCY KAM YANIRA S Ot 311 DEPRESSIVE DISORDER NEC 01/18/2014 JOCY KAM YANIRA S Ot 338.29 OTHER CHRONIC PAIN 01/18/2014 JOCY KAM YANIRA S Ot 482.9 BACTERIAL PNEUMONIA NOS 01/18/2014 KATLYNMAGALYS KAM YANIRA S Ot 493.20 CHRONIC OBSTRUCTIVE ASTHMA, NOS 01/18/2014 JOCY KAM YANIRA S Ot 716.90 ARTHROPATHY NOS-UNSPEC 01/18/2014 JOCY KAM YANIRA S Ot 724.5 BACKACHE NOS 01/18/2014 JOCY KAM YANIRA S Ot 780.52 INSOMNIA, UNSPECIFIED 01/18/2014 JOCY KAM YANIRA S Ot 780.79 OTH MALAISE FATIGUE 01/18/2014 JOCY KAM YANIRA S Ot V13.02 PERSONAL HISTORY, URINARY (TRACT) INFECT 01/18/2014 JOCY YANIRA S Ot V15.88 HISTORY OF FALL 01/18/2014 JOCY KAM YANIRA S Ot V46.2 SUPPLEMENTAL OXYGEN 08/06/2014 KATLYNTITIHARVEY YANIRA S Ot 250.00 08/06/2014 JOCY KAM YANIRA S Ot 585.9 08/06/2014 JOCY YANIRA S Ot 728.9 11/06/2014 Ot 783.21 11/06/2014 Ot 786.2 11/06/2014 Ot V15.89 11/06/2014 Ot V76.12 01/26/2015 Ot 783.21 01/26/2015 Ot 786.2 01/26/2015 Ot V15.89 01/26/2015 Ot V76.12 06/13/2015 Ot 244.9 06/13/2015 Ot 715.31 06/13/2015 Ot 721.2 06/13/2015 Ot 737.30 06/13/2015 Ot 250.00 06/13/2015 Ot 272.4 06/13/2015 Ot 780.79 06/13/2015 KATLYNNDER DODEVIYANIRA S Ot 250.00 06/13/2015 KATLYNNDHARVEY DO, YANIRA S Ot 585.9 06/13/2015 KATLYNNDER DO, YANIRA S Ot 728.9 06/13/2015 Ot 244.9 06/13/2015 Ot 715.31 06/13/2015 Ot 721.2 06/13/2015 Ot 737.30 06/13/2015 Ot 250.00 06/13/2015 Ot 272.4 06/13/2015 Ot 780.79 06/13/2015 DEVI TOLLIVER DOLINE S Ot 250.00 06/13/2015 JOCY KAM, YANIRA S Ot 585.9 06/13/2015 KATLYNNDHARVEY DO, YANIRA S Ot 728.9 06/13/2015 Ot 244.9 06/13/2015 Ot 715.31 06/13/2015 Ot 721.2 06/13/2015 Ot 737.30 06/13/2015 Ot 250.00 06/13/2015 Ot 272.4 06/13/2015 Ot 780.79 06/13/2015 DEVI TOLLIVER DOLINE S Ot 250.00 06/13/2015 DEVI TOLLIVER DOLINE S Ot 585.9 06/13/2015 KATLYNNDHARVEY DO, YANIRA S Ot 728.9 06/13/2015 Ot 244.9 06/13/2015 Ot 715.31 06/13/2015 Ot 721.2 06/13/2015 Ot 737.30 06/13/2015 Ot 250.00 06/13/2015 Ot 272.4 06/13/2015 Ot 780.79 06/13/2015 KATLYNNDER DODEVIYANIRA S Ot 250.00 06/13/2015 KATLYNNDDEVI GABRIEL DOLINE S Ot 585.9 06/13/2015 REDD TOLLIVER DOQUELINE S Ot 728.9 06/16/2015 [facility] Ot 611.79 06/16/2015 KATLYNNDER DO, YANIRA S Ot 627.1 06/21/2015 Ot 244.9 06/21/2015 Ot 715.31 06/21/2015 Ot 721.2 06/21/2015 Ot 737.30 06/21/2015 Ot 250.00 06/21/2015 Ot 272.4 06/21/2015 Ot 780.79 06/21/2015 KATLYNND DO, YANIRA S Ot 250.00 06/21/2015 KATLYNND DO, YANIRA S Ot 585.9 06/21/2015 KATLYNND DO, YANIRA S Ot 728.9 06/21/2015 KATLYNND DO, YANIRA S Ot 611.79 06/21/2015 ROZINA DEVI KAMLINE S Ot 627.1 07/06/2015 [facility] DEVI KAMLINE S Ot 611.79 07/06/2015 [facility] DEVI KAMLINE S Ot 627.1 07/07/2015 VICTOR HUGO FUENTES DO S Ot E11.9 TYPE 2 DIABETES MELLITUS WITHOUT COMPLIC 07/07/2015 ELADIOMARLEE VICTOR HUGO S Ot N95.0 POSTMENOPAUSAL BLEEDING 07/07/2015 ELADIOMARLEE VICTOR HUGO S Ot R93.8 ABNORMAL FINDINGS ON DIAGNOSTIC IMAGING 07/18/2015 YANIRA TOLLIVER DO S Ot 793.80 07/27/2015 Ot N95.0 07/27/2015 Ot R93.8 07/27/2015 Ot Z01.812 07/27/2015 Ot Z11.2 08/01/2015 ROZINA YANIRA S Ot 611.79 08/01/2015 KATLYNND DEVI KAMLINE S Ot 627.1 12/01/2015 ROZINAER DO YANIRA S Ot R05 12/01/2015 KATLYNND DO, YANIRA S Ot R06.00 12/01/2015 KATLYNNDER DO YANIRA S Ot R51 12/06/2015 ELIZABETH CRUZ APRN Ot M79.662 12/06/2015 ELIZABETH CRUZ APRN Ot M79.89 12/27/2015 ELIZABETH CRUZ APRN Ot M79.662 12/27/2015 ELIZABETH CRUZ APRN Ot M79.89 01/26/2016 VITALY LGIHT MD Ot C54.1 MALIGNANT NEOPLASM OF ENDOMETRIUM 03/15/2016 VITALY LIGHT MD Ot C54.1 MALIGNANT NEOPLASM OF ENDOMETRIUM 04/11/2016 Ot 244.9 HYPOTHYROIDISM NOS 04/11/2016 Ot 715.31 LOC OSTEOARTH NOS-SHLDER 04/11/2016 Ot 721.2 THORACIC SPONDYLOSIS 04/11/2016 Ot 737.30 IDIOPATHIC SCOLIOSIS 04/11/2016 Ot 250.00 DIAB JOSELIN WO COMPL, TYPE II OR UNSPEC TY 04/11/2016 Ot 272.4 HYPERLIPIDEMIA NEC/NOS 04/11/2016 Ot 780.79 OTH MALAISE FATIGUE 04/11/2016 KATLYNNDER DO, YANIRA S Ot 250.00 DIAB JOSELIN WO COMPL, TYPE II OR UNSPEC TY 04/11/2016 KATLYNNDER DO, YANIRA S Ot 585.9 CHRONIC KIDNEY DISEASE, UNSPECIFIED 04/11/2016 KATLYNNDER DOREDDYANIRA S Ot 728.9 MUSCLE/LIGAMENT DIS NOS 04/11/2016 KATLYNNDER DO, YANIRA S Ot 611.79 SYMPTOMS IN BREAST NEC 04/11/2016 KATLYNNDER DO, YANIRA S Ot 627.1 POSTMENOPAUSAL BLEEDING 04/11/2016 KATLYNNDER , YANIRA S Ot 793.80 UNSPEC ABNORMAL MAMMOGRAM 04/11/2016 Ot N95.0 POSTMENOPAUSAL BLEEDING 04/11/2016 Ot R93.8 ABNORMAL FINDINGS ON DIAGNOSTIC IMAGING 04/11/2016 Ot Z01.812 ENCOUNTER FOR PREPROCEDURAL LABORATORY E 04/11/2016 Ot Z11.2 ENCOUNTER FOR SCREENING FOR OTHER BACTER 04/11/2016 ORENDER DO, YANIRA S Ot R05 COUGH 04/11/2016 KATLYNNDER DO YANIRA S Ot R06.00 DYSPNEA, UNSPECIFIED 04/11/2016 KATLYNNDER DO YANIRA S Ot R51 HEADACHE 04/11/2016 ELIZABETH CRUZ APRN Ot M79.662 PAIN IN LEFT LOWER LEG 04/11/2016 ELIZABETH CRUZ APRN Ot M79.89 OTHER SPECIFIED SOFT TISSUE DISORDERS 04/11/2016 VITALY LIGHT MD Ot C54.1 MALIGNANT NEOPLASM OF ENDOMETRIUM 04/13/2016 VICTOR HUGO HARTMANN MD, Ot 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 04/13/2016 VICTOR HUGO HARTMANN MD, Ot E11.40 TYPE 2 DIABETES MELLITUS WITH DIABETIC N 04/13/2016 VICTOR HUGO HARTMANN MD, Ot E66.9 OBESITY, UNSPECIFIED 04/13/2016 VICTOR HUGO HARTMANN MD, Ot J44.9 CHRONIC OBSTRUCTIVE PULMONARY DISEASE, U 04/13/2016 VICTOR HUGO HARTMANN MD, Ot K21.9 GASTRO-ESOPHAGEAL REFLUX DISEASE WITHOUT 04/13/2016 VICTOR HUGO HARTMANN MD, Ot N17.9 ACUTE KIDNEY FAILURE, UNSPECIFIED 04/13/2016 VICTOR HUGO HARTMANN MD, Ot N18.9 CHRONIC KIDNEY DISEASE, UNSPECIFIED 04/13/2016 VCITOR HUGO HARTMANN MD, Ot N39.0 URINARY TRACT INFECTION, SITE NOT SPECIF 04/13/2016 VICTOR HUGO HARTMANN MD, Ot S82.402A UNSP FRACTURE OF SHAFT OF LEFT FIBULA, I 04/13/2016 VICTOR HUGO HARTMANN MD, Ot S82.842A DISPLACED BIMALLEOLAR FRACTURE OF LEFT L 04/13/2016 VICTOR HUGO HARTMANN MD, Ot W19.XXXA UNSPECIFIED FALL, INITIAL ENCOUNTER 04/13/2016 VICTOR HUGO HARTMANN MD, Ot Y92.[address] IN UNSP NON-INSTITUT (PRIVATE 04/13/2016 VICTOR HUGO HARTMANN MD, Ot Y99.8 OTHER EXTERNAL CAUSE STATUS 04/13/2016 VICTOR HUGO HARTMANN MD, Ot Z68.42 BODY MASS INDEX (BMI) 45.0-49.9, ADULT 04/13/2016 VICTOR HUGO HARTMANN MD, Ot Z85.43 PERSONAL HISTORY OF MALIGNANT NEOPLASM O 04/13/2016 VICTOR HUGO HARTMANN MD, Ot 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 04/13/2016 VICTOR HUGO HARTMANN MD, Ot E11.40 TYPE 2 DIABETES MELLITUS WITH DIABETIC N 04/13/2016 VICTOR HUGO HARTMANN MD, Ot E66.9 OBESITY, UNSPECIFIED 04/13/2016 VICTOR HUGO HARTMANN MD, Ot J44.9 CHRONIC OBSTRUCTIVE PULMONARY DISEASE, U 04/13/2016 VICTOR HUGO HARTMANN MD, Ot K21.9 GASTRO-ESOPHAGEAL REFLUX DISEASE WITHOUT 04/13/2016 ZAFUTA MD, VICTOR HUGO P Ot N17.9 ACUTE KIDNEY FAILURE, UNSPECIFIED 04/13/2016 VICTOR HUGO HARTMANN MD, Ot N18.9 CHRONIC KIDNEY DISEASE, UNSPECIFIED 04/13/2016 VICTOR HUGO HARTMANN MD, Ot N39.0 URINARY TRACT INFECTION, SITE NOT SPECIF 04/13/2016 VICTOR HUGO HARTMANN MD, Ot S82.402A UNSP FRACTURE OF SHAFT OF LEFT FIBULA, I 04/13/2016 VICTOR HUGO HARTMANN MD, Ot S82.842A DISPLACED BIMALLEOLAR FRACTURE OF LEFT L 04/13/2016 VICTOR HUGO HARTMANN MD, Ot W19.XXXA UNSPECIFIED FALL, INITIAL ENCOUNTER 04/13/2016 VICTOR HUGO HARTMANN MD, Ot Y92.[address] IN UNSP NON-INSTITUT (PRIVATE 04/13/2016 VICTOR HUGO HARTMANN MD, Ot Y99.8 OTHER EXTERNAL CAUSE STATUS 04/13/2016 VICTOR HUGO HARTMANN MD, Ot Z68.42 BODY MASS INDEX (BMI) 45.0-49.9, ADULT 04/13/2016 VICTOR HUGO HARTMANN MD, Ot Z85.43 PERSONAL HISTORY OF MALIGNANT NEOPLASM O 04/13/2016 VICTOR HUGO HARTMANN MD, Ot 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 04/13/2016 VICTOR HUGO HARTMANN MD, Ot E11.40 TYPE 2 DIABETES MELLITUS WITH DIABETIC N 04/13/2016 VICTOR HUGO HARTMANN MD, Ot E66.9 OBESITY, UNSPECIFIED 04/13/2016 VICTOR HUGO HARTMANN MD, Ot J44.9 CHRONIC OBSTRUCTIVE PULMONARY DISEASE, U 04/13/2016 VICTOR HUGO HARTMANN MD, Ot K21.9 GASTRO-ESOPHAGEAL REFLUX DISEASE WITHOUT 04/13/2016 VICTOR HUGO HARTMANN MD, Ot N17.9 ACUTE KIDNEY FAILURE, UNSPECIFIED 04/13/2016 VICTOR HUGO HARTMANN MD, Ot N18.9 CHRONIC KIDNEY DISEASE, UNSPECIFIED 04/13/2016 VICTOR HUGO HARTMANN MD, Ot N39.0 URINARY TRACT INFECTION, SITE NOT SPECIF 04/13/2016 VICTOR HUGO HARTMANN MD, Ot S82.402A UNSP FRACTURE OF SHAFT OF LEFT FIBULA, I 04/13/2016 VICTOR HUGO HARTMANN MD, Ot S82.842A DISPLACED BIMALLEOLAR FRACTURE OF LEFT L 04/13/2016 VICTOR HUGO HARTMANN MD, Ot W19.XXXA UNSPECIFIED FALL, INITIAL ENCOUNTER 04/13/2016 VICTOR HUGO HARTMANN MD Ot Y92.[address] IN [facility] NON-INSTITUT (PRIVATE 04/13/2016 VICTOR HUGO HARTMANN MD, Ot Y99.8 OTHER EXTERNAL CAUSE STATUS 04/13/2016 VICTOR HUGO HARTAMNN MD, Ot Z68.42 BODY MASS INDEX (BMI) 45.0-49.9, ADULT 04/13/2016 VICTOR HUGO HARTMANN MD, Ot Z85.43 PERSONAL HISTORY OF MALIGNANT NEOPLASM O 04/14/2016 VICTOR HUGO HARTMANN MD, Ot 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 04/14/2016 VICTOR HUGO HARTMANN MD Ot E11.40 TYPE 2 DIABETES MELLITUS WITH DIABETIC N 04/14/2016 VICTOR HUGO HARTMANN MD, Ot E66.9 OBESITY, UNSPECIFIED 04/14/2016 VICTOR HUGO HARTMANN MD, Ot J44.9 CHRONIC OBSTRUCTIVE PULMONARY DISEASE, U 04/14/2016 VICTOR HUGO HARTMANN MD Ot K21.9 GASTRO-ESOPHAGEAL REFLUX DISEASE WITHOUT 04/14/2016 VICTOR HUGO HARTMANN MD Ot N17.9 ACUTE KIDNEY FAILURE, UNSPECIFIED 04/14/2016 VICTOR HUGO HARTMANN MD, Ot N18.9 CHRONIC KIDNEY DISEASE, UNSPECIFIED 04/14/2016 VICTOR HUGO HARTMANN MD, Ot N39.0 URINARY TRACT INFECTION, SITE NOT SPECIF 04/14/2016 VICTOR HUGO HARTMANN MD Ot S82.402A UNSP FRACTURE OF SHAFT OF LEFT FIBULA, I 04/14/2016 VICTOR HUGO HARTMANN MD Ot S82.842A DISPLACED BIMALLEOLAR FRACTURE OF LEFT L 04/14/2016 VICTOR HUGO HARTMANN MD Ot W19.XXXA UNSPECIFIED FALL, INITIAL ENCOUNTER 04/14/2016 VICTOR HUGO HARTMANN MD, Ot Y92.[address] IN [facility] NON-INSTITUT (PRIVATE 04/14/2016 VICTOR HUGO HARTMANN MD, Ot Y99.8 OTHER EXTERNAL CAUSE STATUS 04/14/2016 VICTOR HUGO HARTMANN MD, Ot Z68.42 BODY MASS INDEX (BMI) 45.0-49.9, ADULT 04/14/2016 VICTOR HUGO HARTMANN MD Ot Z85.43 PERSONAL HISTORY OF MALIGNANT NEOPLASM O 04/16/2016 VICTOR HUGO HARTMANN MD Ot 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 04/16/2016 VICTOR HUGO HARTMANN MD, Ot E11.40 TYPE 2 DIABETES MELLITUS WITH DIABETIC N 04/16/2016 VICTOR HUGO HARTMANN MD, Ot E66.9 OBESITY, UNSPECIFIED 04/16/2016 VICTOR HUGO HARTMANN MD, Ot J44.9 CHRONIC OBSTRUCTIVE PULMONARY DISEASE, U 04/16/2016 VICTOR HUGO HARTMANN MD, Ot K21.9 GASTRO-ESOPHAGEAL REFLUX DISEASE WITHOUT 04/16/2016 VICTOR HUGO HARTMANN MD, Ot N17.9 ACUTE KIDNEY FAILURE, UNSPECIFIED 04/16/2016 VICTOR HUGO HARTMANN MD, Ot N18.9 CHRONIC KIDNEY DISEASE, UNSPECIFIED 04/16/2016 VICTOR HUGO HARTMANN MD, Ot N39.0 URINARY TRACT INFECTION, SITE NOT SPECIF 04/16/2016 VICTOR HUGO HARTMANN MD, Ot S82.402A UNSP FRACTURE OF SHAFT OF LEFT FIBULA, I 04/16/2016 VICTOR HUGO HARTMANN MD, Ot S82.842A DISPLACED BIMALLEOLAR FRACTURE OF LEFT L 04/16/2016 VICTOR HUGO HARTMANN MD, Ot W19.XXXA UNSPECIFIED FALL, INITIAL ENCOUNTER 04/16/2016 VICTOR HUGO HARTMANN MD, Ot Y92.[address] IN UNSP NON-INSTITUT (PRIVATE 04/16/2016 VICTOR HUGO HARTMANN MD, Ot Y99.8 OTHER EXTERNAL CAUSE STATUS 04/16/2016 VICTOR HUGO HARTMANN MD, Ot Z68.42 BODY MASS INDEX (BMI) 45.0-49.9, ADULT 04/16/2016 VICTOR HUGO HARTMANN MD, Ot Z85.43 PERSONAL HISTORY OF MALIGNANT NEOPLASM O 04/17/2016 VICTOR HUGO HARTMANN MD, Ot 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 04/17/2016 VICTOR HUGO HARTMANN MD, Ot E11.40 TYPE 2 DIABETES MELLITUS WITH DIABETIC N 04/17/2016 VICTOR HUGO HARTMANN MD, Ot E66.9 OBESITY, UNSPECIFIED 04/17/2016 VICTOR HUGO HARTMANN MD, Ot J44.9 CHRONIC OBSTRUCTIVE PULMONARY DISEASE, U 04/17/2016 VICTOR HUGO HARTMANN MD, Ot K21.9 GASTRO-ESOPHAGEAL REFLUX DISEASE WITHOUT 04/17/2016 VICTOR HUGO HARTMANN MD, Ot N17.9 ACUTE KIDNEY FAILURE, UNSPECIFIED 04/17/2016 VICTOR HUGO HARTMANN MD, Ot N18.9 CHRONIC KIDNEY DISEASE, UNSPECIFIED 04/17/2016 VICTOR HUGO HARTMANN MD, Ot N39.0 URINARY TRACT INFECTION, SITE NOT SPECIF 04/17/2016 VICTOR HUGO HARTMANN MD, Ot S82.402A UNSP FRACTURE OF SHAFT OF LEFT FIBULA, I 04/17/2016 VICTOR HUGO HARTMANN MD, Ot S82.842A DISPLACED BIMALLEOLAR FRACTURE OF LEFT L 04/17/2016 VICTOR HUGO HARTMANN MD, Ot W19.XXXA UNSPECIFIED FALL, INITIAL ENCOUNTER 04/17/2016 VICTOR HUGO HARTMANN MD, Ot Y92.[address] IN UNSP NON-INSTITUT (PRIVATE 04/17/2016 VICTOR HUGO HARTMANN MD, Ot Y99.8 OTHER EXTERNAL CAUSE STATUS 04/17/2016 VICTOR HUGO HARTMANN MD, Ot Z68.42 BODY MASS INDEX (BMI) 45.0-49.9, ADULT 04/17/2016 VICTOR HUGO HARTMANN MD, Ot Z85.43 PERSONAL HISTORY OF MALIGNANT NEOPLASM O 04/17/2016 VICTOR HUGO HARTMANN MD, Ot B37.2 CANDIDIASIS OF SKIN AND NAIL 04/17/2016 VICTOR HUGO HARTMANN MD, Ot 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 04/17/2016 VICTOR HUGO HARTMANN MD, Ot E11.40 TYPE 2 DIABETES MELLITUS WITH DIABETIC N 04/17/2016 VICTOR HUGO HARTMANN MD, Ot E66.9 OBESITY, UNSPECIFIED 04/17/2016 VICTOR HUGO HARTMANN MD, Ot J44.9 CHRONIC OBSTRUCTIVE PULMONARY DISEASE, U 04/17/2016 VICTOR HUGO HARTMANN MD, Ot K21.9 GASTRO-ESOPHAGEAL REFLUX DISEASE WITHOUT 04/17/2016 VICTOR HUGO HARTMANN MD, Ot N17.9 ACUTE KIDNEY FAILURE, UNSPECIFIED 04/17/2016 VICTOR HUGO HARTMANN MD, Ot N18.9 CHRONIC KIDNEY DISEASE, UNSPECIFIED 04/17/2016 VICTOR HUGO HARTMANN MD, Ot N39.0 URINARY TRACT INFECTION, SITE NOT SPECIF 04/17/2016 VICTOR HUGO HARTMANN MD, Ot R41.0 DISORIENTATION, UNSPECIFIED 04/17/2016 VICTOR HUGO HARTMANN MD, Ot S82.402A UNSP FRACTURE OF SHAFT OF LEFT FIBULA, I 04/17/2016 VICTOR HUGO HARTMANN MD, Ot S82.842A DISPLACED BIMALLEOLAR FRACTURE OF LEFT L 04/17/2016 VICOTR HUGO HARTMANN MD Ot W19.XXXA UNSPECIFIED FALL, INITIAL ENCOUNTER 04/17/2016 VICTOR HUGO HARTMANN MD Ot Y92.[address] [facility] [address] IN [facility] NON-INSTITUT (PRIVATE 04/17/2016 VICTOR HUGO HARTMANN MD Ot Y99.8 OTHER EXTERNAL CAUSE STATUS 04/17/2016 VICTOR HUGO HARTMANN MD Ot Z68.42 BODY MASS INDEX (BMI) 45.0-49.9, ADULT 04/17/2016 VICTOR HUGO HARTMANN MD Ot Z85.43 PERSONAL HISTORY OF MALIGNANT NEOPLASM O 04/17/2016 VICTOR HUGO HARTMANN MD Ot Z99.81 DEPENDENCE ON SUPPLEMENTAL OXYGEN 04/23/2016 Ot 244.9 HYPOTHYROIDISM NOS 04/23/2016 Ot 715.31 LOC OSTEOARTH NOS-SHLDER 04/23/2016 Ot 721.2 THORACIC SPONDYLOSIS 04/23/2016 Ot 737.30 IDIOPATHIC SCOLIOSIS 04/23/2016 Ot 250.00 DIAB JOSELIN WO COMPL, TYPE II OR UNSPEC TY 04/23/2016 Ot 272.4 HYPERLIPIDEMIA NEC/NOS 04/23/2016 Ot 780.79 OTH MALAISE FATIGUE 04/23/2016 DEVI TOLLIVER DOLINE S Ot 250.00 DIAB JOSELIN WO COMPL, TYPE II OR UNSPEC TY 04/23/2016 DEVI TOLLIVER DOLINE S Ot 585.9 CHRONIC KIDNEY DISEASE, UNSPECIFIED 04/23/2016 DEVI TOLLIVER DOLINE S Ot 728.9 MUSCLE/LIGAMENT DIS NOS 04/23/2016 DEVI TOLLIVER DOLINE S Ot 611.79 SYMPTOMS IN BREAST NEC 04/23/2016 YANIRA TOLLIVER DO S Ot 627.1 POSTMENOPAUSAL BLEEDING 04/23/2016 DEVI TOLLIVER DOLINE S Ot 793.80 UNSPEC ABNORMAL MAMMOGRAM 04/23/2016 Ot N95.0 POSTMENOPAUSAL BLEEDING 04/23/2016 Ot R93.8 ABNORMAL FINDINGS ON DIAGNOSTIC IMAGING 04/23/2016 Ot Z01.812 ENCOUNTER FOR PREPROCEDURAL LABORATORY E 04/23/2016 Ot Z11.2 ENCOUNTER FOR SCREENING FOR OTHER BACTER 04/23/2016 DEVI TOLLIVER DOLINE S Ot R05 COUGH 04/23/2016 YANIRA TOLLIVER DO S Ot R06.00 DYSPNEA, UNSPECIFIED 04/23/2016 ORENDER DO, YANIRA S Ot R51 HEADACHE 04/23/2016 ANTHONY ELIZABETH N HYDRAULIC RUBBISH COMPACTOR MECHANIC Ot M79.662 PAIN IN LEFT LOWER LEG 04/23/2016 ANTHONY ELIZABETHCLAYTON Nicholson APRN Ot M79.89 OTHER SPECIFIED SOFT TISSUE DISORDERS 04/23/2016 NADEGE GARZA, VITALY Dubon Ot C54.1 MALIGNANT NEOPLASM OF ENDOMETRIUM 04/23/2016 ORENDER DO, YANIRA S Ot 611.79 SYMPTOMS IN BREAST NEC 04/23/2016 ORENDER DO, YANIRA S Ot 627.1 POSTMENOPAUSAL BLEEDING 04/23/2016 ORENDER DO, YANIRA S Ot R05 COUGH 04/23/2016 ORENDER DO, YANIRA S Ot R06.00 DYSPNEA, UNSPECIFIED 04/23/2016 ORENDER DO, YANIRA S Ot R51 HEADACHE 04/23/2016 ORENDER DO, YANIRA S Ot R05 COUGH 04/23/2016 ORENDER DO, YANIRA S Ot R06.00 DYSPNEA, UNSPECIFIED 04/23/2016 ORENDER DO, YANIRA S Ot R51 HEADACHE 04/23/2016 ANTHONY ELIZABETHCLAYTON Nicholson APRN Ot M79.662 PAIN IN LEFT LOWER LEG 04/23/2016 ANTHONY ELIZABETHCLAYTON Nicholson APRN Ot M79.89 OTHER SPECIFIED SOFT TISSUE DISORDERS 04/23/2016 Ot 244.9 HYPOTHYROIDISM NOS 04/23/2016 Ot 715.31 LOC OSTEOARTH NOS-SHLDER 04/23/2016 Ot 721.2 THORACIC SPONDYLOSIS 04/23/2016 Ot 737.30 IDIOPATHIC SCOLIOSIS 04/23/2016 Ot 250.00 DIAB JOSELIN WO COMPL, TYPE II OR UNSPEC TY 04/23/2016 Ot 272.4 HYPERLIPIDEMIA NEC/NOS 04/23/2016 Ot 780.79 OTH MALAISE FATIGUE 04/23/2016 ORENDER DO, YANIRA S Ot 250.00 DIAB JOSELIN WO COMPL, TYPE II OR UNSPEC TY 04/23/2016 ORENDER DO, YANIRA S Ot 585.9 CHRONIC KIDNEY DISEASE, UNSPECIFIED 04/23/2016 ORENDER DO, YANIRA S Ot 728.9 MUSCLE/LIGAMENT DIS NOS 04/23/2016 ORENDER DO, YANIRA S Ot 611.79 SYMPTOMS IN BREAST NEC 04/23/2016 ORENDER DO, YANIRA S Ot 627.1 POSTMENOPAUSAL BLEEDING 04/23/2016 YANIRA TOLLIVER DO S Ot 793.80 UNSPEC ABNORMAL MAMMOGRAM 04/23/2016 Ot N95.0 POSTMENOPAUSAL BLEEDING 04/23/2016 Ot R93.8 ABNORMAL FINDINGS ON DIAGNOSTIC IMAGING 04/23/2016 Ot Z01.812 ENCOUNTER FOR PREPROCEDURAL LABORATORY E 04/23/2016 Ot Z11.2 ENCOUNTER FOR SCREENING FOR OTHER BACTER 04/23/2016 JOCY KAM YANIRA S Ot R05 COUGH 04/23/2016 JOCY KAM YANIRA S Ot R06.00 DYSPNEA, UNSPECIFIED 04/23/2016 JOCY KAM YANIRA S Ot R51 HEADACHE 04/23/2016 ELIZABETH CRUZ APRN Ot M79.662 PAIN IN LEFT LOWER LEG 04/23/2016 ELIZABETH CRUZ HYDRAULIC RUBBISH COMPACTOR MECHANIC Ot M79.89 OTHER SPECIFIED SOFT TISSUE DISORDERS 04/23/2016 NADEGE GARZA, VITALY Dubon Ot C54.1 MALIGNANT NEOPLASM OF ENDOMETRIUM 04/24/2016 VITALY LIGHT MD Ot C54.1 MALIGNANT NEOPLASM OF ENDOMETRIUM 04/24/2016 NADEGE GARZA, VITALY Dubon Ot Z51.0 ENCOUNTER FOR ANTINEOPLASTIC RADIATION T 04/25/2016 VITALY LIGHT MD Ot C54.1 MALIGNANT NEOPLASM OF ENDOMETRIUM 04/25/2016 NADEGE GARZA, VITALY Dubon Ot Z51.0 ENCOUNTER FOR ANTINEOPLASTIC RADIATION T 05/09/2016 Ot 244.9 HYPOTHYROIDISM NOS 05/09/2016 Ot 715.31 LOC OSTEOARTH NOS-SHLDER 05/09/2016 Ot 721.2 THORACIC SPONDYLOSIS 05/09/2016 Ot 737.30 IDIOPATHIC SCOLIOSIS 05/09/2016 Ot 250.00 DIAB JOSELIN WO COMPL, TYPE II OR UNSPEC TY 05/09/2016 Ot 272.4 HYPERLIPIDEMIA NEC/NOS 05/09/2016 Ot 780.79 OTH MALAISE FATIGUE 05/09/2016 JOCY KAM YANIRA S Ot 250.00 DIAB JOSELIN WO COMPL, TYPE II OR UNSPEC TY 05/09/2016 YANIRA TOLLIVER DO S Ot 585.9 CHRONIC KIDNEY DISEASE, UNSPECIFIED 05/09/2016 JOCY KAM YANIRA S Ot 728.9 MUSCLE/LIGAMENT DIS NOS 05/09/2016 YANIRA TOLLIVER DO S Ot 611.79 SYMPTOMS IN BREAST NEC 05/09/2016 JOCY KAM YANIRA S Ot 627.1 POSTMENOPAUSAL BLEEDING 05/09/2016 KATLYNMAGALYS KAM YANIRA S Ot 793.80 UNSPEC ABNORMAL MAMMOGRAM 05/09/2016 Ot N95.0 POSTMENOPAUSAL BLEEDING 05/09/2016 Ot R93.8 ABNORMAL FINDINGS ON DIAGNOSTIC IMAGING 05/09/2016 Ot Z01.812 ENCOUNTER FOR PREPROCEDURAL LABORATORY E 05/09/2016 Ot Z11.2 ENCOUNTER FOR SCREENING FOR OTHER BACTER 05/09/2016 JOCY KAM YANIRA S Ot R05 COUGH 05/09/2016 JOCY KAM YANIRA S Ot R06.00 DYSPNEA, UNSPECIFIED 05/09/2016 JOCY KAM YANIRA S Ot R51 HEADACHE 05/09/2016 ELIZABETH CRUZ HYDRAULIC RUBBISH COMPACTOR MECHANIC Ot M79.662 PAIN IN LEFT LOWER LEG 05/09/2016 ELIZABETH CRUZ HYDRAULIC RUBBISH COMPACTOR MECHANIC Ot M79.89 OTHER SPECIFIED SOFT TISSUE DISORDERS 05/09/2016 NADEGE GARZA, VITALY Dubon Ot C54.1 MALIGNANT NEOPLASM OF ENDOMETRIUM 05/09/2016 Ot 244.9 HYPOTHYROIDISM NOS 05/09/2016 Ot 715.31 LOC OSTEOARTH NOS-SHLDER 05/09/2016 Ot 721.2 THORACIC SPONDYLOSIS 05/09/2016 Ot 737.30 IDIOPATHIC SCOLIOSIS 05/09/2016 Ot 250.00 DIAB JOSELIN WO COMPL, TYPE II OR UNSPEC TY 05/09/2016 Ot 272.4 HYPERLIPIDEMIA NEC/NOS 05/09/2016 Ot 780.79 OTH MALAISE FATIGUE 05/09/2016 JOCY KAM YANIRA S Ot 250.00 DIAB JOSELIN WO COMPL, TYPE II OR UNSPEC TY 05/09/2016 JOCY KAM YANIRA S Ot 585.9 CHRONIC KIDNEY DISEASE, UNSPECIFIED 05/09/2016 KATLYNNDHARVEY KAM YANIRA S Ot 728.9 MUSCLE/LIGAMENT DIS NOS 05/09/2016 JOCY KAM YANIRA S Ot 611.79 SYMPTOMS IN BREAST NEC 05/09/2016 JOCY KAM YANIRA S Ot 627.1 POSTMENOPAUSAL BLEEDING 05/09/2016 JOCY KAM YANIRA S Ot 793.80 UNSPEC ABNORMAL MAMMOGRAM 05/09/2016 Ot N95.0 POSTMENOPAUSAL BLEEDING 05/09/2016 Ot R93.8 ABNORMAL FINDINGS ON DIAGNOSTIC IMAGING 05/09/2016 Ot Z01.812 ENCOUNTER FOR PREPROCEDURAL LABORATORY E 05/09/2016 Ot Z11.2 ENCOUNTER FOR SCREENING FOR OTHER BACTER 05/09/2016 KATLYNNDER DO, YANIRA S Ot R05 COUGH 05/09/2016 ORENDER DO, YANIRA S Ot R06.00 DYSPNEA, UNSPECIFIED 05/09/2016 ORENDER DO, YANIRA S Ot R51 HEADACHE 05/09/2016 ELIZABETH CRUZ HYDRAULIC RUBBISH COMPACTOR MECHANIC Ot M79.662 PAIN IN LEFT LOWER LEG 05/09/2016 ELIZABETH CRUZ HYDRAULIC RUBBISH COMPACTOR MECHANIC Ot M79.89 OTHER SPECIFIED SOFT TISSUE DISORDERS 05/09/2016 NADEGE GARZA, VITALY Dubon Ot C54.1 MALIGNANT NEOPLASM OF ENDOMETRIUM 05/09/2016 KATLYNNDER DO, YANIRA S Ot 611.79 SYMPTOMS IN BREAST NEC 05/09/2016 KATLYNNDER DO, YANIRA S Ot 627.1 POSTMENOPAUSAL BLEEDING 05/09/2016 KATLYNNDER DO YANIRA S Ot R05 COUGH 05/09/2016 KATLYNNDER DO, YANIRA S Ot R06.00 DYSPNEA, UNSPECIFIED 05/09/2016 KATLYNNDER DO, YANIRA S Ot R51 HEADACHE 05/09/2016 PRABHA VAUGHAN Ot L03.116 CELLULITIS OF LEFT LOWER LIMB 05/09/2016 PRABHA VAUGHAN Ot N28.9 DISORDER OF KIDNEY AND URETER, UNSPECIFI 05/09/2016 PRABHA VAUGHAN Ot Z98.89 OTHER SPECIFIED POSTPROCEDURAL STATES 05/10/2016 PRABHA VAUGHAN Ot L03.116 CELLULITIS OF LEFT LOWER LIMB 05/10/2016 PRABHA VAUGHAN Ot N28.9 DISORDER OF KIDNEY AND URETER, UNSPECIFI 05/10/2016 PRABHA VAUGHAN Ot Z98.89 OTHER SPECIFIED POSTPROCEDURAL STATES 05/11/2016 PRABHA VAUGHAN Ot L03.116 CELLULITIS OF LEFT LOWER LIMB 05/11/2016 PRABHA VAUGHAN Ot N28.9 DISORDER OF KIDNEY AND URETER, UNSPECIFI 05/11/2016 PRABHA VAUGHAN Ot Z98.89 OTHER SPECIFIED POSTPROCEDURAL STATES 05/18/2016 PRABHA VAUGHAN Ot L03.116 CELLULITIS OF LEFT LOWER LIMB 05/18/2016 PRABHA VAUGHAN Ot N28.9 DISORDER OF KIDNEY AND URETER, UNSPECIFI 05/18/2016 PRABHA VAUGHAN Ot Z98.89 OTHER SPECIFIED POSTPROCEDURAL STATES 05/21/2016 NADEGE GARZA, VITALY Dubon Ot C54.1 MALIGNANT NEOPLASM OF ENDOMETRIUM 06/01/2016 ORENDER DO, YANIRA S Ot D64.9 ANEMIA, UNSPECIFIED 06/01/2016 ORENDER DO, YANIRA S Ot E11.9 TYPE 2 DIABETES MELLITUS WITHOUT COMPLIC 06/01/2016 ORENDER DO, YANIRA S Ot E86.1 HYPOVOLEMIA 06/01/2016 ORENDER DO, YANIRA S Ot J44.9 CHRONIC OBSTRUCTIVE PULMONARY DISEASE, U 06/01/2016 ORENDER DO, YANIRA S Ot J45.909 UNSPECIFIED ASTHMA, UNCOMPLICATED 06/01/2016 ORENDER DO, YANIRA S Ot N17.9 ACUTE KIDNEY FAILURE, UNSPECIFIED 06/01/2016 ORENDER DO, YANIRA S Ot N18.9 CHRONIC KIDNEY DISEASE, UNSPECIFIED 06/01/2016 ORENDER DO, YANIRA S Ot Z66 DO NOT RESUSCITATE 07/02/2016 NADEGE GARZA, VITALY Dubon Ot C54.1 MALIGNANT NEOPLASM OF ENDOMETRIUM 07/08/2016 ELIZABETH CRUZ HYDRAULIC RUBBISH COMPACTOR MECHANIC Ot M79.662 PAIN IN LEFT LOWER LEG 07/08/2016 ELIZABETH CRUZ HYDRAULIC RUBBISH COMPACTOR MECHANIC Ot M79.89 OTHER SPECIFIED SOFT TISSUE DISORDERS 07/08/2016 Ot 244.9 HYPOTHYROIDISM NOS 07/08/2016 Ot 715.31 LOC OSTEOARTH NOS-SHLDER 07/08/2016 Ot 721.2 THORACIC SPONDYLOSIS 07/08/2016 Ot 737.30 IDIOPATHIC SCOLIOSIS 07/08/2016 Ot 250.00 DIAB JOSELIN WO COMPL, TYPE II OR UNSPEC TY 07/08/2016 Ot 272.4 HYPERLIPIDEMIA NEC/NOS 07/08/2016 Ot 780.79 OTH MALAISE FATIGUE 07/08/2016 ORENDER DO, YANIRA S Ot 250.00 DIAB JOSELIN WO COMPL, TYPE II OR UNSPEC TY 07/08/2016 ORENDER DO, YANIRA S Ot 585.9 CHRONIC KIDNEY DISEASE, UNSPECIFIED 07/08/2016 ORENDER DO, YANIRA S Ot 728.9 MUSCLE/LIGAMENT DIS NOS 07/08/2016 ROZINAHARVEY KAM YANIRA S Ot 611.79 SYMPTOMS IN BREAST NEC 07/08/2016 JOCY DO YANIRA S Ot 627.1 POSTMENOPAUSAL BLEEDING 07/08/2016 YANIRA TOLLIVER DO S Ot 793.80 UNSPEC ABNORMAL MAMMOGRAM 07/08/2016 Ot N95.0 POSTMENOPAUSAL BLEEDING 07/08/2016 Ot R93.8 ABNORMAL FINDINGS ON DIAGNOSTIC IMAGING 07/08/2016 Ot Z01.812 ENCOUNTER FOR PREPROCEDURAL LABORATORY E 07/08/2016 Ot Z11.2 ENCOUNTER FOR SCREENING FOR OTHER BACTER 07/08/2016 YANIRA TOLLIVER DO Ot R05 COUGH 07/08/2016 YANIRA TOLLIVER DO Ot R06.00 DYSPNEA, UNSPECIFIED 07/08/2016 YANIRA TOLLIVER DO S Ot R51 HEADACHE 07/08/2016 ELIZABETH CRUZ APRN Ot M79.662 PAIN IN LEFT LOWER LEG 07/08/2016 ELIZABETH CRUZ APRN Ot M79.89 OTHER SPECIFIED SOFT TISSUE DISORDERS 07/08/2016 VITALY LIGHT MD Ot C54.1 MALIGNANT NEOPLASM OF ENDOMETRIUM 07/27/2016 VITALY LIGHT MD Ot C54.1 MALIGNANT NEOPLASM OF ENDOMETRIUM 08/02/2016 VITALY LIGHT MD Ot C54.1 MALIGNANT NEOPLASM OF ENDOMETRIUM 08/14/2016 ELIZABETH CRUZ APRN Ot M79.662 PAIN IN LEFT LOWER LEG 08/14/2016 ELIZABETH CRUZ APRN Ot M79.89 OTHER SPECIFIED SOFT TISSUE DISORDERS 08/23/2016 YANIRA TOLLIVER DO Ot C54.1 MALIGNANT NEOPLASM OF ENDOMETRIUM 08/23/2016 YANIRA TOLLIVER DO S Ot E11.9 TYPE 2 DIABETES MELLITUS WITHOUT COMPLIC 08/23/2016 YANIRA TOLLIVER DO S Ot E66.2 MORBID (SEVERE) OBESITY WITH ALVEOLAR HY 08/23/2016 YANIRA TOLLIVER DO S Ot F32.9 MAJOR DEPRESSIVE DISORDER, SINGLE EPISOD 08/23/2016 YANIRA TOLLIVER DO S Ot F41.9 ANXIETY DISORDER, UNSPECIFIED 08/23/2016 YANIRA TOLLIVER DO S Ot G47.33 OBSTRUCTIVE SLEEP APNEA (ADULT) (PEDIATR 08/23/2016 YANIRA TOLLIVER DO Ot G47.9 SLEEP DISORDER, UNSPECIFIED 08/23/2016 YANIRA TOLLIVER DO S Ot I48.0 PAROXYSMAL ATRIAL FIBRILLATION 08/23/2016 YANIRA TOLLIVER DO S Ot I49.1 ATRIAL PREMATURE DEPOLARIZATION 08/23/2016 YANIRA TOLLIVER DO Ot I49.3 VENTRICULAR PREMATURE DEPOLARIZATION 08/23/2016 YANIRA TOLLIVER DO S Ot I50.33 ACUTE ON CHRONIC DIASTOLIC (CONGESTIVE) 08/23/2016 YANIRA TOLLIVER DO S Ot K21.9 GASTRO-ESOPHAGEAL REFLUX DISEASE WITHOUT 08/23/2016 YANIRA TOLLIVER DO S Ot L89.629 PRESSURE ULCER OF LEFT HEEL, UNSPECIFIED 08/23/2016 YANIRA TOLLIVER DO S Ot M19.90 UNSPECIFIED OSTEOARTHRITIS, UNSPECIFIED 08/23/2016 YANIRA TOLLIVER DO S Ot R09.02 HYPOXEMIA 08/23/2016 YANIRA TOLLIVER DO S Ot Z68.41 BODY MASS INDEX (BMI) 40.0-44.9, ADULT 08/23/2016 YANIRA TOLLIVER DO S Ot Z87.891 PERSONAL HISTORY OF NICOTINE DEPENDENCE 08/23/2016 YANIRA TOLLIVER DO S Ot Z99.81 DEPENDENCE ON SUPPLEMENTAL OXYGEN 08/23/2016 YANIRA TOLLIVER DO S Ot C54.1 MALIGNANT NEOPLASM OF ENDOMETRIUM 08/23/2016 YANIRA TOLLIVER DO S Ot E11.9 TYPE 2 DIABETES MELLITUS WITHOUT COMPLIC 08/23/2016 YANIRA TOLLIVER DO S Ot E66.2 MORBID (SEVERE) OBESITY WITH ALVEOLAR HY 08/23/2016 YAINRA TOLLIVER DO S Ot E83.42 HYPOMAGNESEMIA 08/23/2016 YANIRA TOLLIVER DO S Ot F32.9 MAJOR DEPRESSIVE DISORDER, SINGLE EPISOD 08/23/2016 YANIRA TOLLIVER DO S Ot F41.9 ANXIETY DISORDER, UNSPECIFIED 08/23/2016 YANIRA TOLLIVER DO S Ot G47.33 OBSTRUCTIVE SLEEP APNEA (ADULT) (PEDIATR 08/23/2016 YANIRA TOLLIVER DO Ot G47.9 SLEEP DISORDER, UNSPECIFIED 08/23/2016 YANIRA TOLLIVER DO Ot I48.0 PAROXYSMAL ATRIAL FIBRILLATION 08/23/2016 YANIRA TOLLIVER DO Ot I49.1 ATRIAL PREMATURE DEPOLARIZATION 08/23/2016 YANIRA TOLLIVER DO Ot I49.3 VENTRICULAR PREMATURE DEPOLARIZATION 08/23/2016 YANIRA TOLLIVER DO Ot I50.33 ACUTE ON CHRONIC DIASTOLIC (CONGESTIVE) 08/23/2016 YANIRA TOLLIVER DO Ot J44.9 CHRONIC OBSTRUCTIVE PULMONARY DISEASE, U 08/23/2016 YANIRA TOLLIVER DO Ot K21.9 GASTRO-ESOPHAGEAL REFLUX DISEASE WITHOUT 08/23/2016 YANIRA TOLLIVER DO Ot L89.629 PRESSURE ULCER OF LEFT HEEL, UNSPECIFIED 08/23/2016 JOCY KAM YANIRA Diego Ot M19.90 UNSPECIFIED OSTEOARTHRITIS, UNSPECIFIED 08/23/2016 JOCY KAM YANIRA Diego Ot R09.02 HYPOXEMIA 08/23/2016 JOCY KAM YANIRA Diego Ot Z66 DO NOT RESUSCITATE 08/23/2016 YANIRA TOLLIVER DO Ot Z68.41 BODY MASS INDEX (BMI) 40.0-44.9, ADULT 08/23/2016 YANIRA TOLLIVER DO Ot Z87.891 PERSONAL HISTORY OF NICOTINE DEPENDENCE 08/23/2016 JOCY KAM YANIRA Diego Ot Z99.81 DEPENDENCE ON SUPPLEMENTAL OXYGEN 09/20/2016 NADEGE GARZA, VITALY Dubon Ot C54.1 MALIGNANT NEOPLASM OF ENDOMETRIUM 10/18/2016 HORTENCIA SUMMERS FASHION COORDINATOR Ot R06.09 OTHER FORMS OF DYSPNEA 10/18/2016 HORTENCIA SUMMERS FASHION COORDINATOR Ot R06.09 OTHER FORMS OF DYSPNEA 10/18/2016 HORTENCIA SUMMERS FASHION COORDINATOR Ot I10 ESSENTIAL (PRIMARY) HYPERTENSION 10/18/2016 HORTENCIA SUMMERS FASHION COORDINATOR Ot I48.0 PAROXYSMAL ATRIAL FIBRILLATION 10/18/2016 HORTENCIA SUMMERS FASHION COORDINATOR Ot R06.09 OTHER FORMS OF DYSPNEA 10/18/2016 HORTENCIA SUMMERS FASHION COORDINATOR Ot Z79.01 CUSTODIAL (CURRENT) USE OF ANTICOAGULANT 10/18/2016 HORTENCIA SUMMERS L FASHION COORDINATOR Ot I10 ESSENTIAL (PRIMARY) HYPERTENSION 10/18/2016 HORTENCIA SUMMERS FASHION COORDINATOR Ot I48.0 PAROXYSMAL ATRIAL FIBRILLATION 10/18/2016 BAIMAHORTENCIA L FASHION COORDINATOR Ot R06.09 OTHER FORMS OF DYSPNEA 10/18/2016 BAIMAKAMILLAHORTENCIA L FASHION COORDINATOR Ot Z79.01 CUSTODIAL (CURRENT) USE OF ANTICOAGULANT 10/18/2016 BAIMA HORTENCIA L FASHION COORDINATOR Ot I10 ESSENTIAL (PRIMARY) HYPERTENSION 10/18/2016 BAIMA HORTENCIA L FASHION COORDINATOR Ot I48.0 PAROXYSMAL ATRIAL FIBRILLATION 10/18/2016 BAIMA, HORTENCIA L FASHION COORDINATOR Ot R06.09 OTHER FORMS OF DYSPNEA 10/18/2016 BAIMA, HORTENCIA L FASHION COORDINATOR Ot Z79.01 CUSTODIAL (CURRENT) USE OF ANTICOAGULANT 10/22/2016 BAIMA HORTENCIA L FASHION COORDINATOR Ot I10 ESSENTIAL (PRIMARY) HYPERTENSION 10/22/2016 BAIMAKAMILLAHORTENCIA L FASHION COORDINATOR Ot I48.0 PAROXYSMAL ATRIAL FIBRILLATION 10/22/2016 BAIMAKAMILLAHORTENCIA L FASHION COORDINATOR Ot R06.09 OTHER FORMS OF DYSPNEA 10/22/2016 BAIMAHORTENCIA L FASHION COORDINATOR Ot Z79.01 CUSTODIAL (CURRENT) USE OF ANTICOAGULANT 10/22/2016 YANIRA TOLLIVER DO S Ot M85.872 OTH DISRD OF BONE DENSITY AND STRUCTURE, 10/22/2016 YANIRA TOLLIVER DO S Ot M25.572 PAIN IN LEFT ANKLE AND JOINTS OF LEFT FO 10/25/2016 YANIRA TOLLIVER DO S Ot M85.872 OTH DISRD OF BONE DENSITY AND STRUCTURE, 10/25/2016 YANIRA TOLLIVER DO S Ot M85.872 OTH DISRD OF BONE DENSITY AND STRUCTURE, 10/30/2016 VITALY LIGHT MD Ot C54.1 MALIGNANT NEOPLASM OF ENDOMETRIUM 11/01/2016 VITALY LIGHT MD Ot C54.1 MALIGNANT NEOPLASM OF ENDOMETRIUM 11/07/2016 VITALY LIGHT MD Ot C54.1 MALIGNANT NEOPLASM OF ENDOMETRIUM 11/13/2016 BAIMAKAMILLAHORTENCIA L FASHION COORDINATOR Ot I10 ESSENTIAL (PRIMARY) HYPERTENSION 11/13/2016 BAIMAKAMILLAHORTENCIA L FASHION COORDINATOR Ot I48.0 PAROXYSMAL ATRIAL FIBRILLATION 11/13/2016 BAIMA, HORTENCIA L FASHION COORDINATOR Ot R06.09 OTHER FORMS OF DYSPNEA 11/13/2016 BAIMA HORTENCIA L FASHION COORDINATOR Ot 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 11/15/2016 HORTENCIA SUMMERS Ot I10 ESSENTIAL (PRIMARY) HYPERTENSION 11/15/2016 HORTENCIA SUMMERS Ot I48.0 PAROXYSMAL ATRIAL FIBRILLATION 11/15/2016 HORTENCIA SUMMERS Ot R06.09 OTHER FORMS OF DYSPNEA 11/15/2016 HORTENCIA SUMMERS Ot Z79.01 CUSTODIAL (CURRENT) USE OF ANTICOAGULANT 11/15/2016 YANIRA TOLLIVER DO Ot M25.572 PAIN IN LEFT ANKLE AND JOINTS OF LEFT FO 11/15/2016 YANIRA TOLLIVER DO Ot M85.872 OT DISRD OF BONE DENSITY AND STRUCTURE, 11/19/2016 Ot 244.9 HYPOTHYROIDISM NOS 11/19/2016 Ot 715.31 LOC OSTEOARTH NOS-SHLDER 11/19/2016 Ot 721.2 THORACIC SPONDYLOSIS 11/19/2016 Ot 737.30 IDIOPATHIC SCOLIOSIS 11/19/2016 Ot 250.00 DIAB JOSELIN WO COMPL, TYPE II OR UNSPEC TY 11/19/2016 Ot 272.4 HYPERLIPIDEMIA NEC/NOS 11/19/2016 Ot 780.79 OTH MALAISE FATIGUE 11/19/2016 YANIRA TOLLIVER DO Ot 250.00 DIAB JOSELIN WO COMPL, TYPE II OR UNSPEC TY 11/19/2016 YANIRA TOLLIVER DO Ot 585.9 CHRONIC KIDNEY DISEASE, UNSPECIFIED 11/19/2016 YANIRA TOLLIVER DO S Ot 728.9 MUSCLE/LIGAMENT DIS NOS 11/19/2016 YANIRA TOLLIVER DO Ot 611.79 SYMPTOMS IN BREAST NEC 11/19/2016 YANIRA TOLLIVER DO Ot 627.1 POSTMENOPAUSAL BLEEDING 11/19/2016 YANIRA TOLLIVER DO S Ot 793.80 UNSPEC ABNORMAL MAMMOGRAM 11/19/2016 Ot N95.0 POSTMENOPAUSAL BLEEDING 11/19/2016 Ot R93.8 ABNORMAL FINDINGS ON DIAGNOSTIC IMAGING 11/19/2016 Ot Z01.812 ENCOUNTER FOR PREPROCEDURAL LABORATORY E 11/19/2016 Ot Z11.2 ENCOUNTER FOR SCREENING FOR OTHER BACTER 11/19/2016 YANIRA TOLLIVER DO Ot R05 COUGH 11/19/2016 YANIRA TOLLIVER DO Ot R06.00 DYSPNEA, UNSPECIFIED 11/19/2016 YANIRA TOLLIVER DO Ot R51 HEADACHE 11/19/2016 ELIZABETH CRUZ HYDRAULIC RUBBISH COMPACTOR MECHANIC Ot M79.662 PAIN IN LEFT LOWER LEG 11/19/2016 ELIZABETH CRUZ HYDRAULIC RUBBISH COMPACTOR MECHANIC Ot M79.89 OTHER SPECIFIED SOFT TISSUE DISORDERS 11/19/2016 BAIMA, HORTENCIA L FASHION COORDINATOR Ot I10 ESSENTIAL (PRIMARY) HYPERTENSION 11/19/2016 BAIMA, HORTENCIA L FASHION COORDINATOR Ot I48.0 PAROXYSMAL ATRIAL FIBRILLATION 11/19/2016 BAIMA, HORTENCIA L FASHION COORDINATOR Ot R06.09 OTHER FORMS OF DYSPNEA 11/19/2016 BAIMA, HORTENCIA L FASHION COORDINATOR Ot 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 11/19/2016 BAIMA, HORTENCIA L FASHION COORDINATOR Ot I10 ESSENTIAL (PRIMARY) HYPERTENSION 11/19/2016 BAIMA, HORTENCIA L FASHION COORDINATOR Ot I48.0 PAROXYSMAL ATRIAL FIBRILLATION 11/19/2016 BAIMA, HORTENCIA L FASHION COORDINATOR Ot R06.09 OTHER FORMS OF DYSPNEA 11/19/2016 BAIMA, HORTENCIA L FASHION COORDINATOR Ot Z79.01 CUSTODIAL (CURRENT) USE OF ANTICOAGULANT 11/19/2016 YANIRA TOLLIVER DO S Ot M25.572 PAIN IN LEFT ANKLE AND JOINTS OF LEFT FO 11/19/2016 YANIRA TOLLIVER DO Ot M85.872 [facility] DISRD OF BONE DENSITY AND STRUCTURE, 11/19/2016 VITALY LIGHT MD, Ot C54.1 MALIGNANT NEOPLASM OF ENDOMETRIUM 11/19/2016 VITALY LIGHT MD, Ot C54.1 MALIGNANT NEOPLASM OF ENDOMETRIUM 12/06/2016 VITALY LIGHT MD, Ot C54.1 MALIGNANT NEOPLASM OF ENDOMETRIUM 12/27/2016 VITALY LIGHT MD, Ot C54.1 MALIGNANT NEOPLASM OF ENDOMETRIUM 01/15/2017 VITALY LIGHT MD, Ot C54.1 MALIGNANT NEOPLASM OF ENDOMETRIUM 01/29/2017 VITALY LIGHT MD, Ot C54.1 MALIGNANT NEOPLASM OF ENDOMETRIUM 01/29/2017 VITALY LIGHT MD Ot 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 01/29/2017 VITALY LIGHT MD Ot E66.01 MORBID (SEVERE) OBESITY DUE TO EXCESS CA 01/29/2017 VITALY LIGHT MD Ot F32.9 MAJOR DEPRESSIVE DISORDER, SINGLE EPISOD 01/29/2017 VITALY LIGHT MD Ot G47.30 SLEEP APNEA, UNSPECIFIED 01/29/2017 VITALY LIGHT MD Ot G89.29 OTHER CHRONIC PAIN 01/29/2017 VITALY LIGHT MD Ot I12.9 HYPERTENSIVE CHRONIC KIDNEY DISEASE W ST 01/29/2017 VITALY LIGHT MD Ot I48.91 UNSPECIFIED ATRIAL FIBRILLATION 01/29/2017 VITALY LIGHT MD Ot J44.9 CHRONIC OBSTRUCTIVE PULMONARY DISEASE, U 01/29/2017 VITALY LIGHT MD Ot N18.3 CHRONIC KIDNEY DISEASE, STAGE 3 (MODERAT 01/29/2017 VITALY LIGHT MD Ot Z68.41 BODY MASS INDEX (BMI) 40.0-44.9, ADULT 01/29/2017 VITALY LIGHT MD Ot Z79.01 CUSTODIAL (CURRENT) USE OF ANTICOAGULANT 01/29/2017 VITALY LIGHT MD Ot Z79.899 OTHER HOSPITAL CHIEF FINANCIAL OFFICER (CURRENT) DRUG THERAPY 04/30/2017 KATLYNNDER DO, YANIRA S Ot R32 UNSPECIFIED URINARY INCONTINENCE 04/30/2017 KATLYNNDER DO, YANIRA S Ot R41.0 DISORIENTATION, UNSPECIFIED 05/03/2017 ORENDER DO, YANIRA S Ot N61.0 MASTITIS WITHOUT ABSCESS 05/13/2017 ORENDER DO, YANIRA S Ot N61.0 MASTITIS WITHOUT ABSCESS 05/14/2017 ORENDER DO, YANIRA S Ot N61.0 MASTITIS WITHOUT ABSCESS 05/14/2017 ORENDER DO, YANIRA S Ot N61.0 MASTITIS WITHOUT ABSCESS 05/19/2017 KATLYNNDER DO, YANIRA S Ot E11.40 TYPE 2 DIABETES MELLITUS WITH DIABETIC N 05/20/2017 KATLYNNDER DO, YANIRA S Ot D64.9 ANEMIA, UNSPECIFIED 05/20/2017 ORENDER DO, YANIRA S Ot E11.40 TYPE 2 DIABETES MELLITUS WITH DIABETIC N 05/20/2017 ORENDER DO, YANIRA S Ot N17.9 ACUTE KIDNEY FAILURE, UNSPECIFIED 05/22/2017 KATLYNNDER DO YANIRA S Ot R32 UNSPECIFIED URINARY INCONTINENCE 05/22/2017 KATLYNNDER DO, YANIRA S Ot R41.0 DISORIENTATION, UNSPECIFIED 05/24/2017 YOLANDA ROBLES MD Ot E11.9 TYPE 2 DIABETES MELLITUS WITHOUT COMPLIC 05/24/2017 YOLANDA ROBLES MD Ot E66.01 MORBID (SEVERE) OBESITY DUE TO EXCESS CA 05/24/2017 YOLANDA ROBLES MD Ot F32.9 MAJOR DEPRESSIVE DISORDER, SINGLE EPISOD 05/24/2017 YOLANDA ROBLES MD Ot F41.9 ANXIETY DISORDER, UNSPECIFIED 05/24/2017 YOLANDA ROBLES MD Ot G47.9 SLEEP DISORDER, UNSPECIFIED 05/24/2017 YOLANDA ROBLES MD Ot J44.9 CHRONIC OBSTRUCTIVE PULMONARY DISEASE, U 05/24/2017 YOLANDA ROBLES MD Ot K21.9 GASTRO-ESOPHAGEAL REFLUX DISEASE WITHOUT 05/24/2017 YOLANDA ROBLES MD Ot M25.551 PAIN IN RIGHT HIP 05/24/2017 YOLANDA ROBLES MD, Ot M25.552 PAIN IN LEFT HIP 05/24/2017 YOLANDA ROBLES MD Ot M47.9 SPONDYLOSIS, UNSPECIFIED 05/24/2017 YOLANDA ROBLES MD Ot M79.604 PAIN IN RIGHT LEG 05/24/2017 YOLANDA ROBLES MD Ot M79.605 PAIN IN LEFT LEG 05/24/2017 YOLANDA ROBLES MD Ot R09.02 HYPOXEMIA 05/24/2017 YOLANDA ROBLES MD Ot R41.0 DISORIENTATION, UNSPECIFIED 05/24/2017 YOLANDA ROBLES MD Ot W06.XXXA FALL FROM BED, INITIAL ENCOUNTER 05/24/2017 YOLANDA ROBLES MD Ot Z68.44 BODY MASS INDEX (BMI) 60.0-69.9, ADULT 05/24/2017 YOLANDA ROBLES MD Ot Z87.81 PERSONAL HISTORY OF (HEALED) TRAUMATIC F 05/24/2017 YOLANDA ROBLES MD Ot Z87.891 PERSONAL HISTORY OF NICOTINE DEPENDENCE 05/27/2017 YOLANDA ROBLES MD Ot E11.9 TYPE 2 DIABETES MELLITUS WITHOUT COMPLIC 05/27/2017 YOLANDA ROBLES MD Ot E66.01 MORBID (SEVERE) OBESITY DUE TO EXCESS CA 05/27/2017 YLOANDA ROBLES MD Ot F32.9 MAJOR DEPRESSIVE DISORDER, SINGLE EPISOD 05/27/2017 YOLANDA ROBLES MD Ot F41.9 ANXIETY DISORDER, UNSPECIFIED 05/27/2017 YOLANDA ROBLES MD Ot G47.9 SLEEP DISORDER, UNSPECIFIED 05/27/2017 YOLANDA ROBLES MD Ot J44.9 CHRONIC OBSTRUCTIVE PULMONARY DISEASE, U 05/27/2017 YOLANDA ROBLES MD Ot K21.9 GASTRO-ESOPHAGEAL REFLUX DISEASE WITHOUT 05/27/2017 YOLANDA ROBLES MD Ot M25.551 PAIN IN RIGHT HIP 05/27/2017 YOLANDA ROBLES MD Ot M25.552 PAIN IN LEFT HIP 05/27/2017 YOLANDA ROBLES MD Ot M47.9 SPONDYLOSIS, UNSPECIFIED 05/27/2017 YOLANDA ROBLES MD Ot M79.604 PAIN IN RIGHT LEG 05/27/2017 YOLANDA ROBLES MD Ot M79.605 PAIN IN LEFT LEG 05/27/2017 YOLANDA ROBLES MD Ot R09.02 HYPOXEMIA 05/27/2017 YOLANDA ROBLES MD Ot R41.0 DISORIENTATION, UNSPECIFIED 05/27/2017 YOLANDA ROBLES MD Ot W06.XXXA FALL FROM BED, INITIAL ENCOUNTER 05/27/2017 YOLANDA ROBLES MD Ot Z68.44 BODY MASS INDEX (BMI) 60.0-69.9, ADULT 05/27/2017 YOLANDA ROBLES MD Ot Z87.81 PERSONAL HISTORY OF (HEALED) TRAUMATIC F 05/27/2017 YOLNADA ROBLES MD Ot Z87.891 PERSONAL HISTORY OF NICOTINE DEPENDENCE 05/29/2017 HAYDEE GARZA, VIKAS Ot C54.1 MALIGNANT NEOPLASM OF ENDOMETRIUM 05/29/2017 YANIRA TOLLIVER DO S Ot R41.0 DISORIENTATION, UNSPECIFIED 05/29/2017 YANIRA TOLLIVER DO S Ot R41.3 OTHER AMNESIA 05/29/2017 REDD TOLLIVER DOQUELINE S Ot R94.6 ABNORMAL RESULTS OF THYROID FUNCTION AURELIANO 05/29/2017 REDD TOLLIVER DOQUELINE S Ot E11.9 TYPE 2 DIABETES MELLITUS WITHOUT COMPLIC 05/29/2017 REDD TOLLIVER DOQUELINE S Ot E66.2 MORBID (SEVERE) OBESITY WITH ALVEOLAR HY 05/29/2017 JOCY KAM YANIRA S Ot I48.0 PAROXYSMAL ATRIAL FIBRILLATION 05/29/2017 REDD TOLLIVER DOQUELINE S Ot I50.31 ACUTE DIASTOLIC (CONGESTIVE) HEART FAILU 05/29/2017 YANIRA TOLLIVER DO S Ot J18.9 PNEUMONIA, UNSPECIFIED ORGANISM 05/29/2017 DEVI TOLLIVER DOLINE S Ot J44.0 CHRONIC OBSTRUCTIVE PULMON DISEASE W ACU 05/29/2017 YANIRA TOLLIVER DO S Ot J44.1 CHRONIC OBSTRUCTIVE PULMONARY DISEASE W 05/29/2017 DEVI TOLLIVER DOLINE S Ot K21.9 GASTRO-ESOPHAGEAL REFLUX DISEASE WITHOUT 05/29/2017 JOCY KAM YANIRA S Ot M19.91 PRIMARY OSTEOARTHRITIS, UNSPECIFIED SITE 05/29/2017 JOCY KAM YANIRA S Ot M54.9 DORSALGIA, UNSPECIFIED 05/29/2017 JOCY KAM YANIRA S Ot R09.02 HYPOXEMIA 05/29/2017 JOCY KAM YANIRA S Ot Z66 DO NOT RESUSCITATE 05/29/2017 JOCY KAM YANIRA S Ot Z68.43 BODY MASS INDEX (BMI) 50-59.9 , ADULT 05/29/2017 ROZINAHARVEY KAM YANIRA S Ot 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 05/29/2017 JOCY KAM YANIRA S Ot Z79.84 CUSTODIAL (CURRENT) USE OF ORAL HYPOGLYC 05/29/2017 JOCY KAM YANIRA S Ot Z85.42 PERSONAL HISTORY OF MALIGNANT NEOPLASM O 05/29/2017 KATLYNMAGALYS KAM YANIRA S Ot Z87.891 PERSONAL HISTORY OF NICOTINE DEPENDENCE 05/29/2017 KATLYNMAGALYS KAM YANIRA S Ot Z90.710 ACQUIRED ABSENCE OF BOTH CERVIX AND UTER 05/29/2017 KATLYNMAGALYS KAM YANIRA S Ot Z90.722 ACQUIRED ABSENCE OF OVARIES, BILATERAL 05/29/2017 KATLYNMAGALYS KAM YANIRA S Ot Z90.79 ACQUIRED ABSENCE OF OTHER GENITAL ORGAN( 05/29/2017 KATLYNMAGALYS KAM YANIRA S Ot D64.9 ANEMIA, UNSPECIFIED 05/29/2017 ROZINAHARVEY KAM YANIRA S Ot E11.40 TYPE 2 DIABETES MELLITUS WITH DIABETIC N 05/29/2017 JOCY YANIRA S Ot N17.9 ACUTE KIDNEY FAILURE, UNSPECIFIED 05/30/2017 YOLANDA ROBLES MD Ot E11.9 TYPE 2 DIABETES MELLITUS WITHOUT COMPLIC 05/30/2017 YOLANDA ROBLES MD Ot E66.01 MORBID (SEVERE) OBESITY DUE TO EXCESS CA 05/30/2017 YOLANDA ROBLES MD Ot F32.9 MAJOR DEPRESSIVE DISORDER, SINGLE EPISOD 05/30/2017 YOLANDA ROBLES MD Ot F41.9 ANXIETY DISORDER, UNSPECIFIED 05/30/2017 YOLANDA ROBLES MD Ot G47.9 SLEEP DISORDER, UNSPECIFIED 05/30/2017 YOLANDA ROBLES MD Ot J44.9 CHRONIC OBSTRUCTIVE PULMONARY DISEASE, U 05/30/2017 YOLANDA ROBLES MD, Ot K21.9 GASTRO-ESOPHAGEAL REFLUX DISEASE WITHOUT 05/30/2017 YOLANDA ROBLES MD Ot M25.551 PAIN IN RIGHT HIP 05/30/2017 YOLANDA ROBLES MD, Ot M25.552 PAIN IN LEFT HIP 05/30/2017 YOLANDA ROBLES MD Ot M47.9 SPONDYLOSIS, UNSPECIFIED 05/30/2017 YOLANDA ROBLES MD Ot M79.604 PAIN IN RIGHT LEG 05/30/2017 YOLANDA ROBLES MD Ot M79.605 PAIN IN LEFT LEG 05/30/2017 YOLANDA ROBLES MD Ot R09.02 HYPOXEMIA 05/30/2017 YOLANDA ROBLES MD Ot R41.0 DISORIENTATION, UNSPECIFIED 05/30/2017 YOLANDA ROBLES MD Ot W06.XXXA FALL FROM BED, INITIAL ENCOUNTER 05/30/2017 YOLANDA ROBLES MD Ot Z68.44 BODY MASS INDEX (BMI) 60.0-69.9, ADULT 05/30/2017 YOLANDA ROBLES MD Ot Z87.81 PERSONAL HISTORY OF (HEALED) TRAUMATIC F 05/30/2017 YOLANDA ROBLES MD Ot Z87.891 PERSONAL HISTORY OF NICOTINE DEPENDENCE 05/30/2017 YANIRA TOLLIVER DO S Ot E11.9 TYPE 2 DIABETES MELLITUS WITHOUT COMPLIC 05/30/2017 YANIRA TOLLIVER DO S Ot E66.2 MORBID (SEVERE) OBESITY WITH ALVEOLAR HY 05/30/2017 YANIRA TOLLIVER DO S Ot I48.0 PAROXYSMAL ATRIAL FIBRILLATION 05/30/2017 YANIRA TOLLIVER DO S Ot I50.31 ACUTE DIASTOLIC (CONGESTIVE) HEART FAILU 05/30/2017 YANIRA TOLLIVER DO S Ot J18.9 PNEUMONIA, UNSPECIFIED ORGANISM 05/30/2017 YANIRA TOLLIVER DO Ot J44.0 CHRONIC OBSTRUCTIVE PULMON DISEASE W ACU 05/30/2017 YANIRA TOLLIVER DO Ot J44.1 CHRONIC OBSTRUCTIVE PULMONARY DISEASE W 05/30/2017 YANIRA TOLLIVER DO Ot K21.9 GASTRO-ESOPHAGEAL REFLUX DISEASE WITHOUT 05/30/2017 YANIRA TOLLIVER DO Ot M19.91 PRIMARY OSTEOARTHRITIS, UNSPECIFIED SITE 05/30/2017 YANIRA TOLLIVER DO Ot M54.9 DORSALGIA, UNSPECIFIED 05/30/2017 YANIRA TOLLIVER DO S Ot R09.02 HYPOXEMIA 05/30/2017 YANIRA TOLLIVER DO Ot Z66 DO NOT RESUSCITATE 05/30/2017 YANIRA TOLLIVER DO Ot Z68.43 BODY MASS INDEX (BMI) 50-59.9 , ADULT 05/30/2017 YANIRA TOLLIVER DO Ot 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 05/30/2017 YANIRA TOLLIVER DO S Ot Z79.84 CUSTODIAL (CURRENT) USE OF ORAL HYPOGLYC 05/30/2017 YANIRA TOLLIVER DO S Ot Z85.42 PERSONAL HISTORY OF MALIGNANT NEOPLASM O 05/30/2017 YANIRA TOLLIVER DO Ot Z87.891 PERSONAL HISTORY OF NICOTINE DEPENDENCE 05/30/2017 YANIRA TOLLIVER DO S Ot Z90.710 ACQUIRED ABSENCE OF BOTH CERVIX AND UTER 05/30/2017 YANIRA TOLLIVER DO Ot Z90.722 ACQUIRED ABSENCE OF OVARIES, BILATERAL 05/30/2017 YANIRA TOLLIVER DO S Ot Z90.79 ACQUIRED ABSENCE OF OTHER GENITAL ORGAN( 05/30/2017 YANIRA TOLLIVER DO S Ot E11.9 TYPE 2 DIABETES MELLITUS WITHOUT COMPLIC 05/30/2017 YANIRA TOLLIVER DO S Ot E66.2 MORBID (SEVERE) OBESITY WITH ALVEOLAR HY 05/30/2017 YANIRA TOLLIVER DO S Ot I48.0 PAROXYSMAL ATRIAL FIBRILLATION 05/30/2017 YANIRA TOLLIVER DO S Ot I50.31 ACUTE DIASTOLIC (CONGESTIVE) HEART FAILU 05/30/2017 YANIRA TOLLIVER DO Ot J18.9 PNEUMONIA, UNSPECIFIED ORGANISM 05/30/2017 YANIRA TOLLIVER DO Ot J44.0 CHRONIC OBSTRUCTIVE PULMON DISEASE W ACU 05/30/2017 YANIRA TOLLIVER DO Ot J44.1 CHRONIC OBSTRUCTIVE PULMONARY DISEASE W 05/30/2017 YANIRA TOLLIVER DO Ot K21.9 GASTRO-ESOPHAGEAL REFLUX DISEASE WITHOUT 05/30/2017 YANIRA TOLLIVER DO Ot M19.91 PRIMARY OSTEOARTHRITIS, UNSPECIFIED SITE 05/30/2017 YANIRA TOLLIVER DO Ot M54.9 DORSALGIA, UNSPECIFIED 05/30/2017 YANIRA TOLLIVER DO S Ot R09.02 HYPOXEMIA 05/30/2017 YANIRA TOLLIVER DO Ot Z66 DO NOT RESUSCITATE 05/30/2017 YANIRA TOLLIVER DO S Ot Z68.43 BODY MASS INDEX (BMI) 50-59.9 , ADULT 05/30/2017 YANIRA TOLLIVER DO Ot 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 05/30/2017 YANIRA TOLLIVER DO S Ot Z79.84 HOSPITAL CHIEF FINANCIAL OFFICER (CURRENT) USE OF ORAL HYPOGLYC 05/30/2017 YANIRA TOLLIVER DO S Ot Z85.42 PERSONAL HISTORY OF MALIGNANT NEOPLASM O 05/30/2017 YANIRA TOLLIVER DO S Ot Z87.891 PERSONAL HISTORY OF NICOTINE DEPENDENCE 05/30/2017 YANIRA TOLLIVER DO S Ot Z90.710 ACQUIRED ABSENCE OF BOTH CERVIX AND UTER 05/30/2017 YANIRA TOLLIVER DO Ot Z90.722 ACQUIRED ABSENCE OF OVARIES, BILATERAL 05/30/2017 YANIRA TOLLIVER DO S Ot Z90.79 ACQUIRED ABSENCE OF OTHER GENITAL ORGAN( 05/31/2017 YANIRA TOLLIVER DO S Ot E11.9 TYPE 2 DIABETES MELLITUS WITHOUT COMPLIC 05/31/2017 YANIRA TOLLIVER DO S Ot E66.2 MORBID (SEVERE) OBESITY WITH ALVEOLAR HY 05/31/2017 YANIRA TOLLIVER DO S Ot I48.0 PAROXYSMAL ATRIAL FIBRILLATION 05/31/2017 YANIRA TOLLIVER DO S Ot I50.31 ACUTE DIASTOLIC (CONGESTIVE) HEART FAILU 05/31/2017 YANIRA TOLLIVER DO S Ot J18.9 PNEUMONIA, UNSPECIFIED ORGANISM 05/31/2017 YANIRA TOLLIVER DO S Ot J44.0 CHRONIC OBSTRUCTIVE PULMON DISEASE W ACU 05/31/2017 YANIRA TOLLIVER DO S Ot J44.1 CHRONIC OBSTRUCTIVE PULMONARY DISEASE W 05/31/2017 YANIRA TOLLIVER DO S Ot K21.9 GASTRO-ESOPHAGEAL REFLUX DISEASE WITHOUT 05/31/2017 YANIRA TOLLIVER DO S Ot M19.91 PRIMARY OSTEOARTHRITIS, UNSPECIFIED SITE 05/31/2017 YANIRA TOLLIVER DO S Ot M54.9 DORSALGIA, UNSPECIFIED 05/31/2017 YANIRA TOLLIVER DO S Ot R09.02 HYPOXEMIA 05/31/2017 YANIRA TOLLIVER DO S Ot Z66 DO NOT RESUSCITATE 05/31/2017 YANIRA TOLLIVER DO S Ot Z68.43 BODY MASS INDEX (BMI) 50-59.9 , ADULT 05/31/2017 YANIRA TOLLIVER DO S Ot 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 05/31/2017 DEVI TOLLIVER DOLINE S Ot Z79.84 CUSTODIAL (CURRENT) USE OF ORAL HYPOGLYC 05/31/2017 YANIRA TOLLIVER DO S Ot Z85.42 PERSONAL HISTORY OF MALIGNANT NEOPLASM O 05/31/2017 REDD TOLLIVER DOQUELINE S Ot Z87.891 PERSONAL HISTORY OF NICOTINE DEPENDENCE 05/31/2017 DEVI TOLLIVER DOLINE S Ot Z90.710 ACQUIRED ABSENCE OF BOTH CERVIX AND UTER 05/31/2017 YANIRA TOLLIVER DO S Ot Z90.722 ACQUIRED ABSENCE OF OVARIES, BILATERAL 05/31/2017 DEVI TOLLIVER DOLINE S Ot Z90.79 ACQUIRED ABSENCE OF OTHER GENITAL ORGAN( 05/31/2017 DEVI TOLLIVER DOLINE S Ot E11.9 TYPE 2 DIABETES MELLITUS WITHOUT COMPLIC 05/31/2017 DEVI TOLLIVER DOLINE S Ot E66.2 MORBID (SEVERE) OBESITY WITH ALVEOLAR HY 05/31/2017 DEVI TOLLIVER DOLINE S Ot I48.0 PAROXYSMAL ATRIAL FIBRILLATION 05/31/2017 DEVI TOLLIVER DOLINE S Ot I50.33 ACUTE ON CHRONIC DIASTOLIC (CONGESTIVE) 05/31/2017 YANIRA TOLLIVER DO S Ot J18.9 PNEUMONIA, UNSPECIFIED ORGANISM 05/31/2017 YANIRA TOLLIVER DO S Ot J44.0 CHRONIC OBSTRUCTIVE PULMON DISEASE W ACU 05/31/2017 YANIRA TOLLIVER DO S Ot J44.1 CHRONIC OBSTRUCTIVE PULMONARY DISEASE W 05/31/2017 YANIRA TOLLIVER DO S Ot J96.01 ACUTE RESPIRATORY FAILURE WITH HYPOXIA 05/31/2017 DEVI TOLLIVER DOLINE S Ot K21.9 GASTRO-ESOPHAGEAL REFLUX DISEASE WITHOUT 05/31/2017 DEVI TOLLIVER DOLINE S Ot M19.91 PRIMARY OSTEOARTHRITIS, UNSPECIFIED SITE 05/31/2017 YANIRA TOLLIVER DO S Ot M54.9 DORSALGIA, UNSPECIFIED 05/31/2017 DEVI TOLLIVER DOLINE S Ot N18.2 CHRONIC KIDNEY DISEASE, STAGE 2 (MILD) 05/31/2017 YANIRA TOLLIVER DO S Ot N39.41 URGE INCONTINENCE 05/31/2017 DEVI TOLLIVER DOLINE S Ot Z66 DO NOT RESUSCITATE 05/31/2017 YANIRA TOLLIVER DO S Ot Z68.43 BODY MASS INDEX (BMI) 50-59.9 , ADULT 05/31/2017 YANIRA TOLLIVER DO S Ot Z79.01 CUSTODIAL (CURRENT) USE OF ANTICOAGULANT 05/31/2017 DEVI TOLLIVER DOLINE S Ot Z79.84 HOSPITAL CHIEF FINANCIAL OFFICER (CURRENT) USE OF ORAL HYPOGLYC 05/31/2017 DEVI TOLLIVER DOLINE S Ot Z85.42 PERSONAL HISTORY OF MALIGNANT NEOPLASM O 05/31/2017 DEVI TOLLIVER DOLINE S Ot Z87.891 PERSONAL HISTORY OF NICOTINE DEPENDENCE 05/31/2017 DEVI TOLLIVER DOLINE S Ot Z90.710 ACQUIRED ABSENCE OF BOTH CERVIX AND UTER 05/31/2017 DEVI TOLLIVER DOLINE S Ot Z90.722 ACQUIRED ABSENCE OF OVARIES, BILATERAL 05/31/2017 DEVI TOLLIVER DOLINE S Ot Z90.79 ACQUIRED ABSENCE OF OTHER GENITAL ORGAN( 06/03/2017 DEVI TOLLIVER DOLINE S Ot R41.0 DISORIENTATION, UNSPECIFIED 06/03/2017 ORENDER DO, YANIRA S Ot R41.3 OTHER AMNESIA 06/03/2017 ORENDER DO, YANIRA S Ot R94.6 ABNORMAL RESULTS OF THYROID FUNCTION AURELIANO 06/03/2017 ORENDER DO, YANIRA S Ot R41.0 DISORIENTATION, UNSPECIFIED 06/03/2017 ORENDER DO, YANIRA S Ot R41.3 OTHER AMNESIA 06/03/2017 ORENDER DO, YANIRA S Ot R94.6 ABNORMAL RESULTS OF THYROID FUNCTION AURELIANO 06/06/2017 VIKAS HUBBARD MD Ot C54.1 MALIGNANT NEOPLASM OF ENDOMETRIUM 06/07/2017 ORENDER DO, YANIRA S Ot N64.4 MASTODYNIA 06/07/2017 ORENDER DO, YANIRA S Ot R60.0 LOCALIZED EDEMA 06/07/2017 ORENDER DO, YANIRA S Ot D64.9 ANEMIA, UNSPECIFIED 06/07/2017 ORENDER DO, YANIRA S Ot E11.40 TYPE 2 DIABETES MELLITUS WITH DIABETIC N 06/07/2017 KATLYNNDER DO, YANIRA S Ot N17.9 ACUTE KIDNEY FAILURE, UNSPECIFIED 06/20/2017 VIKAS HUBBARD MD, Ot C54.1 MALIGNANT NEOPLASM OF ENDOMETRIUM 06/22/2017 VIKAS HUBBARD MD, Ot C54.1 MALIGNANT NEOPLASM OF ENDOMETRIUM 06/22/2017 VIKAS HUBBARD MD, Ot 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 06/22/2017 VIKAS HUBBARD MD Ot E66.01 MORBID (SEVERE) OBESITY DUE TO EXCESS CA 06/22/2017 VIKAS HUBBARD MD Ot F32.9 MAJOR DEPRESSIVE DISORDER, SINGLE EPISOD 06/22/2017 VIKAS HUBBARD MD, Ot G47.30 SLEEP APNEA, UNSPECIFIED 06/22/2017 VIKAS HUBBARD MD Ot G89.29 OTHER CHRONIC PAIN 06/22/2017 VIKAS HUBBARD MD Ot I12.9 HYPERTENSIVE CHRONIC KIDNEY DISEASE W ST 06/22/2017 VIKAS HUBBARD MD, Ot I48.91 UNSPECIFIED ATRIAL FIBRILLATION 06/22/2017 VIKAS HUBBARD MD, Ot J44.9 CHRONIC OBSTRUCTIVE PULMONARY DISEASE, U 06/22/2017 VIKAS HUBBARD MD, Ot N18.3 CHRONIC KIDNEY DISEASE, STAGE 3 (MODERAT 06/22/2017 VIKAS HUBBARD MD, Ot Z68.41 BODY MASS INDEX (BMI) 40.0-44.9, ADULT 06/22/2017 VIKAS HUBBARD MD, Ot 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 06/22/2017 VIKAS HUBBARD MD, Ot Z79.899 OTHER HOSPITAL CHIEF FINANCIAL OFFICER (CURRENT) DRUG THERAPY 07/18/2017 ORENDER DO, YANIRA S Ot R41.0 DISORIENTATION, UNSPECIFIED 07/18/2017 ORENDER DO, YANIRA S Ot R41.3 OTHER AMNESIA 07/18/2017 ORENDER DO, YANIRA S Ot R94.6 ABNORMAL RESULTS OF THYROID FUNCTION AURELIANO 07/19/2017 VIKAS HUBBARD MD, Ot C54.1 MALIGNANT NEOPLASM OF ENDOMETRIUM 07/19/2017 VIKAS HUBBARD MD, Ot 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 07/19/2017 VIKAS HUBBARD MD, Ot E66.01 MORBID (SEVERE) OBESITY DUE TO EXCESS CA 07/19/2017 VIKAS HUBBARD MD, Ot F32.9 MAJOR DEPRESSIVE DISORDER, SINGLE EPISOD 07/19/2017 VIKAS HUBBARD MD, Ot G47.30 SLEEP APNEA, UNSPECIFIED 07/19/2017 VIKAS HUBBARD MD, Ot G89.29 OTHER CHRONIC PAIN 07/19/2017 VIKAS HUBBARD MD, Ot I12.9 HYPERTENSIVE CHRONIC KIDNEY DISEASE W ST 07/19/2017 VIKAS HUBBARD MD, Ot I48.91 UNSPECIFIED ATRIAL FIBRILLATION 07/19/2017 VIKAS HUBBARD MD, Ot J44.9 CHRONIC OBSTRUCTIVE PULMONARY DISEASE, U 07/19/2017 VIKAS HUBBARD MD, Ot N18.3 CHRONIC KIDNEY DISEASE, STAGE 3 (MODERAT 07/19/2017 VIKAS HUBBARD MD, Ot Z68.41 BODY MASS INDEX (BMI) 40.0-44.9, ADULT 07/19/2017 VIKAS HUBBARD MD, Ot 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 07/19/2017 VIKAS HUBBARD MD, Ot Z79.899 OTHER HOSPITAL CHIEF FINANCIAL OFFICER (CURRENT) DRUG THERAPY 08/16/2017 VIKAS HUBBARD MD, Ot C54.1 MALIGNANT NEOPLASM OF ENDOMETRIUM 08/16/2017 VIKAS HUBBARD MD, Ot 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 08/16/2017 VIKAS HUBBARD MD Ot E66.01 MORBID (SEVERE) OBESITY DUE TO EXCESS CA 08/16/2017 VIKAS HUBBARD MD, Ot F32.9 MAJOR DEPRESSIVE DISORDER, SINGLE EPISOD 08/16/2017 VIKAS HUBBARD MD Ot G47.30 SLEEP APNEA, UNSPECIFIED 08/16/2017 VIKAS HUBBARD MD Ot G89.29 OTHER CHRONIC PAIN 08/16/2017 VIKAS HUBBARD MD Ot I12.9 HYPERTENSIVE CHRONIC KIDNEY DISEASE W ST 08/16/2017 VIKAS HUBBARD MD Ot I48.91 UNSPECIFIED ATRIAL FIBRILLATION 08/16/2017 VIKAS HUBBARD MD, Ot J44.9 CHRONIC OBSTRUCTIVE PULMONARY DISEASE, U 08/16/2017 VIKAS HUBBARD MD, Ot N18.3 CHRONIC KIDNEY DISEASE, STAGE 3 (MODERAT 08/16/2017 VIKAS HUBBARD MD Ot Z68.41 BODY MASS INDEX (BMI) 40.0-44.9, ADULT 08/16/2017 VIKAS HUBBARD MD Ot 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 08/16/2017 VIKAS HUBBARD MD Ot Z79.899 OTHER HOSPITAL CHIEF FINANCIAL OFFICER (CURRENT) DRUG THERAPY 10/16/2017 VIKAS HUBBARD MD, Ot C54.1 MALIGNANT NEOPLASM OF ENDOMETRIUM 10/16/2017 VIKAS HUBBARD MD Ot 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 10/16/2017 VIKAS HUBBARD MD Ot E66.01 MORBID (SEVERE) OBESITY DUE TO EXCESS CA 10/16/2017 VIKAS UHBBARD MD, Ot F32.9 MAJOR DEPRESSIVE DISORDER, SINGLE EPISOD 10/16/2017 VIKAS HUBBARD MD, Ot G47.30 SLEEP APNEA, UNSPECIFIED 10/16/2017 VIKAS HUBBARD MD Ot G89.29 OTHER CHRONIC PAIN 10/16/2017 VIKAS HUBBARD MD Ot I12.9 HYPERTENSIVE CHRONIC KIDNEY DISEASE W ST 10/16/2017 VIKAS HUBBARD MD Ot I48.91 UNSPECIFIED ATRIAL FIBRILLATION 10/16/2017 VIKAS HUBBARD MD, Ot J44.9 CHRONIC OBSTRUCTIVE PULMONARY DISEASE, U 10/16/2017 VIKAS HUBBARD MD Ot N18.3 CHRONIC KIDNEY DISEASE, STAGE 3 (MODERAT 10/16/2017 VIKAS HUBBARD MD Ot Z68.41 BODY MASS INDEX (BMI) 40.0-44.9, ADULT 10/16/2017 VIKAS HUBBARD MD Ot 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 10/16/2017 VIKAS HUBBARD MD, Ot Z79.899 OTHER CUSTODIAL (CURRENT) DRUG THERAPY 10/17/2017 VIKAS HUBBARD MD, Ot C54.1 MALIGNANT NEOPLASM OF ENDOMETRIUM 10/17/2017 VIKAS HUBBARD MD Ot 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 10/17/2017 VIKAS HUBBARD MD Ot E66.01 MORBID (SEVERE) OBESITY DUE TO EXCESS CA 10/17/2017 VIKAS HUBBARD MD, Ot F32.9 MAJOR DEPRESSIVE DISORDER, SINGLE EPISOD 10/17/2017 VIKAS HUBBARD MD, Ot G47.30 SLEEP APNEA, UNSPECIFIED 10/17/2017 VIKAS HUBBARD MD Ot G89.29 OTHER CHRONIC PAIN 10/17/2017 VIKAS HUBBARD MD, Ot I12.9 HYPERTENSIVE CHRONIC KIDNEY DISEASE W ST 10/17/2017 VIKAS HUBBARD MD Ot I48.91 UNSPECIFIED ATRIAL FIBRILLATION 10/17/2017 VIKAS HUBBARD MD, Ot J44.9 CHRONIC OBSTRUCTIVE PULMONARY DISEASE, U 10/17/2017 VIKAS HUBBARD MD, Ot N18.3 CHRONIC KIDNEY DISEASE, STAGE 3 (MODERAT 10/17/2017 VIKAS HUBBARD MD, Ot Z68.41 BODY MASS INDEX (BMI) 40.0-44.9, ADULT 10/17/2017 VIKAS HUBBARD MD Ot 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 10/17/2017 VIKAS HUBBARD MD, Ot Z79.899 OTHER CUSTODIAL (CURRENT) DRUG THERAPY 12/13/2017 VIKAS HUBBARD MD, Ot C54.1 MALIGNANT NEOPLASM OF ENDOMETRIUM 12/13/2017 VIKAS HUBBARD MD Ot 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 12/13/2017 VIKAS HUBBARD MD Ot E66.01 MORBID (SEVERE) OBESITY DUE TO EXCESS CA 12/13/2017 VIKAS HUBBARD MD, Ot F32.9 MAJOR DEPRESSIVE DISORDER, SINGLE EPISOD 12/13/2017 VIKAS HUBBARD MD Ot G47.30 SLEEP APNEA, UNSPECIFIED 12/13/2017 VIKAS HUBBARD MD Ot G89.29 OTHER CHRONIC PAIN 12/13/2017 VIKAS HUBBARD MD Ot I12.9 HYPERTENSIVE CHRONIC KIDNEY DISEASE W ST 12/13/2017 VIKAS HUBBARD MD Ot I48.91 UNSPECIFIED ATRIAL FIBRILLATION 12/13/2017 VIKAS HUBBARD MD Ot J44.9 CHRONIC OBSTRUCTIVE PULMONARY DISEASE, U 12/13/2017 VIKAS HUBBARD MD Ot N18.3 CHRONIC KIDNEY DISEASE, STAGE 3 (MODERAT 12/13/2017 VIKAS HUBBARD MD Ot Z68.41 BODY MASS INDEX (BMI) 40.0-44.9, ADULT 12/13/2017 VIKAS HUBBARD MD Ot 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 12/13/2017 VIKAS HUBBARD MD Ot Z79.899 OTHER CUSTODIAL (CURRENT) DRUG THERAPY 12/16/2017 VIKAS HUBBARD MD Ot G93.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 12/16/2017 VIKAS HUBBARD MD Ot I67.82 CEREBRAL ISCHEMIA 12/16/2017 VIKAS HUBBARD MD Ot Z85.42 PERSONAL HISTORY OF MALIGNANT NEOPLASM O 01/01/2018 Ot 715.31 LOC OSTEOARTH NOS-SHLDER 01/01/2018 Ot 721.2 THORACIC SPONDYLOSIS 01/01/2018 Ot 737.30 IDIOPATHIC SCOLIOSIS 01/01/2018 Ot 250.00 DIAB JOSELIN WO COMPL, TYPE II OR UNSPEC TY 01/01/2018 Ot 272.4 HYPERLIPIDEMIA NEC/NOS 01/01/2018 Ot 780.79 OTH MALAISE FATIGUE 01/01/2018 DEVI TOLLIVER DOLINE S Ot 250.00 DIAB JOSELIN WO COMPL, TYPE II OR UNSPEC TY 01/01/2018 DEVI TOLLIVER DOLINE S Ot 585.9 CHRONIC KIDNEY DISEASE, UNSPECIFIED 01/01/2018 YANIRA TOLLIVER DO S Ot 728.9 MUSCLE/LIGAMENT DIS NOS 01/01/2018 YANIRA TOLLIVER DO S Ot 611.79 SYMPTOMS IN BREAST NEC 01/01/2018 YANIRA TOLLIVER DO S Ot 627.1 POSTMENOPAUSAL BLEEDING 01/01/2018 YANIRA TOLLIVER DO S Ot 793.80 UNSPEC ABNORMAL MAMMOGRAM 01/01/2018 Ot N95.0 POSTMENOPAUSAL BLEEDING 01/01/2018 Ot R93.8 ABNORMAL FINDINGS ON DIAGNOSTIC IMAGING 01/01/2018 Ot Z01.812 ENCOUNTER FOR PREPROCEDURAL LABORATORY E 01/01/2018 Ot Z11.2 ENCOUNTER FOR SCREENING FOR OTHER BACTER 01/01/2018 YANIRA TOLLIVER DO Ot R05 COUGH 01/01/2018 YANIRA TOLLIVER DO S Ot R06.00 DYSPNEA, UNSPECIFIED 01/01/2018 DEVI TOLLIVER DOLINE S Ot R51 HEADACHE 01/01/2018 ELIZABETH CRUZ HYDRAULIC RUBBISH COMPACTOR MECHANIC Ot M79.662 PAIN IN LEFT LOWER LEG 01/01/2018 ELIZABETH CRUZ HYDRAULIC RUBBISH COMPACTOR MECHANIC Ot M79.89 OTHER SPECIFIED SOFT TISSUE DISORDERS 01/01/2018 BAIMA, HORTENCIA L FASHION COORDINATOR Ot I10 ESSENTIAL (PRIMARY) HYPERTENSION 01/01/2018 BAIMA, HORTENCIA L FASHION COORDINATOR Ot I48.0 PAROXYSMAL ATRIAL FIBRILLATION 01/01/2018 BAIMA, HORTENCIA L FASHION COORDINATOR Ot R06.09 OTHER FORMS OF DYSPNEA 01/01/2018 BAIMA, HORTENCIA L FASHION COORDINATOR Ot 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 01/01/2018 BAIMA, HORTENCIA L FASHION COORDINATOR Ot I10 ESSENTIAL (PRIMARY) HYPERTENSION 01/01/2018 BAIMA, HORTENCIA L FASHION COORDINATOR Ot I48.0 PAROXYSMAL ATRIAL FIBRILLATION 01/01/2018 BAIMA, HORTENCIA L FASHION COORDINATOR Ot R06.09 OTHER FORMS OF DYSPNEA 01/01/2018 BAIMA, HORTENCIA L FASHION COORDINATOR Ot 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 01/01/2018 YANIRA TOLLIVER DO S Ot M25.572 PAIN IN LEFT ANKLE AND JOINTS OF LEFT FO 01/01/2018 DEVI TOLLIVER DOLINE S Ot M85.872 OT DISRD OF BONE DENSITY AND STRUCTURE, 01/01/2018 VITALY LIGHT MD Ot C54.1 MALIGNANT NEOPLASM OF ENDOMETRIUM 01/01/2018 VITALY LIGHT MD Ot C54.1 MALIGNANT NEOPLASM OF ENDOMETRIUM 01/01/2018 DEVI TOLLIVER DOLINE S Ot R32 UNSPECIFIED URINARY INCONTINENCE 01/01/2018 JOCY KAM YANIRA S Ot R41.0 DISORIENTATION, UNSPECIFIED 01/01/2018 ORENDER DO, YANIRA S Ot N64.4 MASTODYNIA 01/01/2018 ORENDER DO, YANIRA S Ot R60.0 LOCALIZED EDEMA 01/01/2018 ORENDER DO, YANIRA S Ot D64.9 ANEMIA, UNSPECIFIED 01/01/2018 ORENDER DO, YANIRA S Ot E11.40 TYPE 2 DIABETES MELLITUS WITH DIABETIC N 01/01/2018 ORENDER DO, YANIRA S Ot N17.9 ACUTE KIDNEY FAILURE, UNSPECIFIED 01/01/2018 ORENDER DO, YANIRA S Ot R41.0 DISORIENTATION, UNSPECIFIED 01/01/2018 ORENDER DO, YANIRA S Ot R41.3 OTHER AMNESIA 01/01/2018 ORENDER DO, YANIRA S Ot R94.6 ABNORMAL RESULTS OF THYROID FUNCTION AURELIANO 01/01/2018 VIKAS HUBBARD MD, Ot C54.1 MALIGNANT NEOPLASM OF ENDOMETRIUM 01/01/2018 VIKAS HUBBARD MD, Ot D61.818 OTHER PANCYTOPENIA 01/01/2018 VIKAS HUBBARD MD, Ot 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 01/01/2018 VIKAS HUBBARD MD, Ot E66.01 MORBID (SEVERE) OBESITY DUE TO EXCESS CA 01/01/2018 VIKAS HUBBARD MD, Ot F32.9 MAJOR DEPRESSIVE DISORDER, SINGLE EPISOD 01/01/2018 VIKAS HUBBARD MD, Ot G47.30 SLEEP APNEA, UNSPECIFIED 01/01/2018 VIKAS HUBBARD MD, Ot G89.29 OTHER CHRONIC PAIN 01/01/2018 VIKAS HUBBARD MD, Ot I12.9 HYPERTENSIVE CHRONIC KIDNEY DISEASE W ST 01/01/2018 VIKAS HUBBARD MD, Ot I48.91 UNSPECIFIED ATRIAL FIBRILLATION 01/01/2018 VIKAS HUBBARD MD, Ot J44.9 CHRONIC OBSTRUCTIVE PULMONARY DISEASE, U 01/01/2018 VIKAS HUBBARD MD, Ot N18.3 CHRONIC KIDNEY DISEASE, STAGE 3 (MODERAT 01/01/2018 VIKAS HUBBARD MD, Ot R51 HEADACHE 01/01/2018 VIKAS HUBBARD MD, Ot Z68.41 BODY MASS INDEX (BMI) 40.0-44.9, ADULT 01/01/2018 VIKAS HUBBARD MD, Ot 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 01/01/2018 VIKAS HUBBARD MD Ot Z79.899 OTHER CUSTODIAL (CURRENT) DRUG THERAPY 01/01/2018 VIKAS HUBBARD MD Ot G93.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 01/01/2018 VIKAS HUBBARD MD Ot I67.82 CEREBRAL ISCHEMIA 01/01/2018 VIKAS HUBBARD MD Ot Z85.42 PERSONAL HISTORY OF MALIGNANT NEOPLASM O 01/03/2018 Ot 715.31 LOC OSTEOARTH NOS-SHLDER 01/03/2018 Ot 721.2 THORACIC SPONDYLOSIS 01/03/2018 Ot 737.30 IDIOPATHIC SCOLIOSIS 01/03/2018 Ot 250.00 DIAB JOSELIN WO COMPL, TYPE II OR UNSPEC TY 01/03/2018 Ot 272.4 HYPERLIPIDEMIA NEC/NOS 01/03/2018 Ot 780.79 OTH MALAISE FATIGUE 01/03/2018 KATLYNNDREDD GABRIEL DOQUELINE S Ot 250.00 DIAB JOSELIN WO COMPL, TYPE II OR UNSPEC TY 01/03/2018 KATLYNNDER DO YANIRA S Ot 585.9 CHRONIC KIDNEY DISEASE, UNSPECIFIED 01/03/2018 KATLYNNDER DO YANIRA S Ot 728.9 MUSCLE/LIGAMENT DIS NOS 01/03/2018 KATLYNNDER DOREDDYANIRA S Ot 611.79 SYMPTOMS IN BREAST NEC 01/03/2018 KATLYNNDER DO YANIRA S Ot 627.1 POSTMENOPAUSAL BLEEDING 01/03/2018 KATLYNNDREDD GABRIEL DOQUELINE S Ot 793.80 UNSPEC ABNORMAL MAMMOGRAM 01/03/2018 Ot N95.0 POSTMENOPAUSAL BLEEDING 01/03/2018 Ot R93.8 ABNORMAL FINDINGS ON DIAGNOSTIC IMAGING 01/03/2018 Ot Z01.812 ENCOUNTER FOR PREPROCEDURAL LABORATORY E 01/03/2018 Ot Z11.2 ENCOUNTER FOR SCREENING FOR OTHER BACTER 01/03/2018 KATLYNNDER DOREDDYANIRA S Ot R05 COUGH 01/03/2018 KATLYNNDREDD GABRIEL DOQUELINE S Ot R06.00 DYSPNEA, UNSPECIFIED 01/03/2018 KATLYNNDER DO YANIRA S Ot R51 HEADACHE 01/03/2018 ELIZABETH CRUZ APRN Ot M79.662 PAIN IN LEFT LOWER LEG 01/03/2018 ELIZABETH CRUZ APRN Ot M79.89 OTHER SPECIFIED SOFT TISSUE DISORDERS 01/03/2018 HORTENCIA SUMMERS FASHION COORDINATOR Ot I10 ESSENTIAL (PRIMARY) HYPERTENSION 01/03/2018 HORTENCIA SUMMERS FASHION COORDINATOR Ot I48.0 PAROXYSMAL ATRIAL FIBRILLATION 01/03/2018 BAIHORTENCIA HUNTLEY FASHION COORDINATOR Ot R06.09 OTHER FORMS OF DYSPNEA 01/03/2018 HORTENCIA SUMMERS FASHION COORDINATOR Ot Z79.01 CUSTODIAL (CURRENT) USE OF ANTICOAGULANT 01/03/2018 BAIHROTENCIA HUNTLEY FASHION COORDINATOR Ot I10 ESSENTIAL (PRIMARY) HYPERTENSION 01/03/2018 BAIHORTENCIA HUNTLEY FASHION COORDINATOR Ot I48.0 PAROXYSMAL ATRIAL FIBRILLATION 01/03/2018 BAIMAHORTENCIA FASHION COORDINATOR Ot R06.09 OTHER FORMS OF DYSPNEA 01/03/2018 BAIHORTENCIA HUNTLEY FASHION COORDINATOR Ot 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 01/03/2018 DEVI TOLLIVER DOLINE S Ot M25.572 PAIN IN LEFT ANKLE AND JOINTS OF LEFT FO 01/03/2018 DEVI TOLLIVER DOLINE S Ot M85.872 OT DISRD OF BONE DENSITY AND STRUCTURE, 01/03/2018 NADEGE GARZA, VITALY Dubon Ot C54.1 MALIGNANT NEOPLASM OF ENDOMETRIUM 01/03/2018 VITALY LIGHT MD Ot C54.1 MALIGNANT NEOPLASM OF ENDOMETRIUM 01/03/2018 DEVI TOLLIVER DOLINE S Ot R32 UNSPECIFIED URINARY INCONTINENCE 01/03/2018 REDD TOLLIVER DOQUELINE S Ot R41.0 DISORIENTATION, UNSPECIFIED 01/03/2018 DEVI TOLLIVER DOLINE S Ot N64.4 MASTODYNIA 01/03/2018 DEVI TOLLIVER DOLINE S Ot R60.0 LOCALIZED EDEMA 01/03/2018 KATLYNNDER REDD KAMYANIRA S Ot D64.9 ANEMIA, UNSPECIFIED 01/03/2018 KATLYNNDER REDD KAMYANIRA S Ot E11.40 TYPE 2 DIABETES MELLITUS WITH DIABETIC N 01/03/2018 DEVI TOLLIVER DOLINE S Ot N17.9 ACUTE KIDNEY FAILURE, UNSPECIFIED 01/03/2018 KATLYNNDER REDD KAMYANIRA S Ot R41.0 DISORIENTATION, UNSPECIFIED 01/03/2018 KATLYNNDDEVI GABRIEL DOLINE S Ot R41.3 OTHER AMNESIA 01/03/2018 DEVI TOLLIVER DOLINE S Ot R94.6 ABNORMAL RESULTS OF THYROID FUNCTION AURELIANO 01/03/2018 VIKAS HUBBARD MD, Ot C54.1 MALIGNANT NEOPLASM OF ENDOMETRIUM 01/03/2018 VIKAS HUBBARD MD, Ot D61.818 OTHER PANCYTOPENIA 01/03/2018 VIKAS HUBBARD MD, Ot 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 01/03/2018 VIKAS HUBBARD MD, Ot E66.01 MORBID (SEVERE) OBESITY DUE TO EXCESS CA 01/03/2018 VIKAS HUBBARD MD, Ot F32.9 MAJOR DEPRESSIVE DISORDER, SINGLE EPISOD 01/03/2018 VIKAS HUBBARD MD, Ot G47.30 SLEEP APNEA, UNSPECIFIED 01/03/2018 VIKAS HUBBARD MD, Ot G89.29 OTHER CHRONIC PAIN 01/03/2018 VIKAS HUBBARD MD, Ot I12.9 HYPERTENSIVE CHRONIC KIDNEY DISEASE W ST 01/03/2018 VIKAS HUBBARD MD, Ot I48.91 UNSPECIFIED ATRIAL FIBRILLATION 01/03/2018 VIKAS HUBBARD MD, Ot J44.9 CHRONIC OBSTRUCTIVE PULMONARY DISEASE, U 01/03/2018 VIKAS HUBBARD MD, Ot N18.3 CHRONIC KIDNEY DISEASE, STAGE 3 (MODERAT 01/03/2018 VIKAS HUBBARD MD, Ot R51 HEADACHE 01/03/2018 VIKAS HUBBARD MD, Ot Z68.41 BODY MASS INDEX (BMI) 40.0-44.9, ADULT 01/03/2018 VIKAS HUBABRD MD, Ot 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 01/03/2018 VIKAS HUBBARD MD, Ot Z79.899 OTHER HOSPITAL CHIEF FINANCIAL OFFICER (CURRENT) DRUG THERAPY 01/03/2018 VIKAS HUBBARD MD, Ot G93.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 01/03/2018 VIKAS HUBBARD MD, Ot I67.82 CEREBRAL ISCHEMIA 01/03/2018 VIKAS HUBBARD MD, Ot Z85.42 PERSONAL HISTORY OF MALIGNANT NEOPLASM O 01/06/2018 YANIRA TOLLIVER DO Ot J98.4 OTHER DISORDERS OF LUNG 01/06/2018 YANIRA TOLLIVER DO Ot K80.20 CALCULUS OF GALLBLADDER W/O CHOLECYSTITI 01/06/2018 YANIRA TOLLIVER DO, Ot R59.0 LOCALIZED ENLARGED LYMPH NODES 01/15/2018 VIKAS HUBBARD MD, Ot C54.1 MALIGNANT NEOPLASM OF ENDOMETRIUM 01/15/2018 VIKAS HUBBARD MD, Ot D61.818 OTHER PANCYTOPENIA 01/15/2018 VIKAS HUBBARD MD, Ot 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 01/15/2018 VIKAS HUBBARD MD, Ot E66.01 MORBID (SEVERE) OBESITY DUE TO EXCESS CA 01/15/2018 VIKAS HUBBARD MD, Ot F32.9 MAJOR DEPRESSIVE DISORDER, SINGLE EPISOD 01/15/2018 VIKAS HUBBARD MD, Ot G47.30 SLEEP APNEA, UNSPECIFIED 01/15/2018 VIKAS HUBBARD MD, Ot G89.29 OTHER CHRONIC PAIN 01/15/2018 VIKAS HUBBARD MD, Ot I12.9 HYPERTENSIVE CHRONIC KIDNEY DISEASE W ST 01/15/2018 VIKAS HUBBARD MD, Ot I48.91 UNSPECIFIED ATRIAL FIBRILLATION 01/15/2018 VIKAS HUBBARD MD, Ot J44.9 CHRONIC OBSTRUCTIVE PULMONARY DISEASE, U 01/15/2018 VIKAS HUBBARD MD, Ot N18.3 CHRONIC KIDNEY DISEASE, STAGE 3 (MODERAT 01/15/2018 VIKAS HUBBARD MD, Ot R51 HEADACHE 01/15/2018 VIKAS HUBBARD MD, Ot Z68.41 BODY MASS INDEX (BMI) 40.0-44.9, ADULT 01/15/2018 VIKAS HUBBARD MD, Ot 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 01/15/2018 VIKAS HUBBARD MD, Ot Z79.899 OTHER HOSPITAL CHIEF FINANCIAL OFFICER (CURRENT) DRUG THERAPY 01/24/2018 YANIRA TOLLIVER DO Ot J98.4 OTHER DISORDERS OF LUNG 01/24/2018 YANIRA TOLLIVER DO Ot K80.20 CALCULUS OF GALLBLADDER W/O CHOLECYSTITI 01/24/2018 YANIRA TOLLIVER DO Ot R59.0 LOCALIZED ENLARGED LYMPH NODES 03/12/2018 VIKAS HUBBARD MD, Ot C54.1 MALIGNANT NEOPLASM OF ENDOMETRIUM 03/12/2018 VIKAS HUBBARD MD, Ot D61.818 OTHER PANCYTOPENIA 03/12/2018 VIKAS HUBBARD MD, Ot 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 03/12/2018 VIKAS HUBBARD MD, Ot E66.01 MORBID (SEVERE) OBESITY DUE TO EXCESS CA 03/12/2018 VIKAS HUBBARD MD, Ot F32.9 MAJOR DEPRESSIVE DISORDER, SINGLE EPISOD 03/12/2018 VIKAS HUBBARD MD, Ot G47.30 SLEEP APNEA, UNSPECIFIED 03/12/2018 VIKAS HUBBARD MD, Ot G89.29 OTHER CHRONIC PAIN 03/12/2018 VIKAS HUBBARD MD, Ot I12.9 HYPERTENSIVE CHRONIC KIDNEY DISEASE W ST 03/12/2018 VIKAS HUBBARD MD, Ot I48.91 UNSPECIFIED ATRIAL FIBRILLATION 03/12/2018 VIKAS HUBBARD MD, Ot J44.9 CHRONIC OBSTRUCTIVE PULMONARY DISEASE, U 03/12/2018 VIKAS HUBBARD MD, Ot N18.3 CHRONIC KIDNEY DISEASE, STAGE 3 (MODERAT 03/12/2018 VIKAS HUBBARD MD, Ot R51 HEADACHE 03/12/2018 VIKAS HUBBARD MD, Ot Z68.41 BODY MASS INDEX (BMI) 40.0-44.9, ADULT 03/12/2018 VIKAS HUBBARD MD, Ot Z79.01 CUSTODIAL (CURRENT) USE OF ANTICOAGULANT 03/12/2018 VIAKS HUBBARD MD, Ot Z79.899 OTHER CUSTODIAL (CURRENT) DRUG THERAPY 03/14/2018 VIKAS HUBBARD MD, Ot C54.1 MALIGNANT NEOPLASM OF ENDOMETRIUM 03/14/2018 VIKAS HUBBARD MD, Ot D61.818 OTHER PANCYTOPENIA 03/14/2018 VIKAS HUBBARD MD Ot 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 03/14/2018 VIKAS HUBBARD MD, Ot E66.01 MORBID (SEVERE) OBESITY DUE TO EXCESS CA 03/14/2018 VIKAS HUBBARD MD, Ot F32.9 MAJOR DEPRESSIVE DISORDER, SINGLE EPISOD 03/14/2018 VIKAS HUBBARD MD, Ot G47.30 SLEEP APNEA, UNSPECIFIED 03/14/2018 VIKAS HUBBARD MD, Ot G89.29 OTHER CHRONIC PAIN 03/14/2018 VIKAS HUBBARD MD, Ot I12.9 HYPERTENSIVE CHRONIC KIDNEY DISEASE W ST 03/14/2018 VIKAS HUBBARD MD, Ot I48.91 UNSPECIFIED ATRIAL FIBRILLATION 03/14/2018 VIKAS HUBBARD MD, Ot J44.9 CHRONIC OBSTRUCTIVE PULMONARY DISEASE, U 03/14/2018 VIKAS HUBBARD MD, Ot N18.3 CHRONIC KIDNEY DISEASE, STAGE 3 (MODERAT 03/14/2018 VIKAS HUBBARD MD, Ot R51 HEADACHE 03/14/2018 VIKAS HUBBARD MD, Ot Z68.41 BODY MASS INDEX (BMI) 40.0-44.9, ADULT 03/14/2018 VIKAS HUBBARD MD, Ot 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 03/14/2018 VIKAS HUBBARD MD, Ot Z79.899 OTHER CUSTODIAL (CURRENT) DRUG THERAPY Procedures Code Description Performed By Performed On [id number] REPOSITION LEFT FIBULA WITH INT FIX, OPE 04/11/2016 Results Test Result Range Complete urinalysis with reflex to culture - 05/09/16 11:35 Urine color determination YELLOW NRG Urine clarity determination CLEAR NRG Urine pH measurement by test strip 5 5-9 Specific gravity of urine by test strip 1.015 1.016- 1.022 Urine protein assay by test strip, semi-quantitative NEGATIVE NEGATIVE Urine glucose detection by automated test strip NEGATIVE NEGATIVE Erythrocytes detection in urine sediment by light microscopy NEGATIVE NEGATIVE Urine ketones detection by automated test strip NEGATIVE NEGATIVE Urine nitrite detection by test strip NEGATIVE NEGATIVE Urine total bilirubin detection by test strip NEGATIVE NEGATIVE Urine urobilinogen measurement by automated test strip (mass/volume) NORMAL NORMAL Urine leukocyte esterase detection by dipstick 1+ NEGATIVE Automated urine sediment erythrocyte count by microscopy (number/high power field) NONE NRG Automated urine sediment leukocyte count by microscopy (number/high power field ) [HPF] NRG Bacteria detection in urine sediment by light microscopy TRACE NRG Squamous epithelial cells detection in urine sediment by light microscopy 2-5 NRG Crystals detection in urine sediment by light microscopy NONE NRG Casts detection in urine sediment by light microscopy NONE NRG Mucus detection in urine sediment by light microscopy NEGATIVE NRG Complete urinalysis with reflex to culture NO NRG Complete blood count (CBC) with automated white blood cell (WBC) differential - 05/09/16 12:00 Blood leukocytes automated count (number/volume) 4.3 10*3/uL 4.3-11.0 Blood erythrocytes automated count (number/volume) 3.06 10*6/uL 4.35-5.85 Venous blood hemoglobin measurement (mass/volume) 9.0 g/dL 11.5-16.0 Blood hematocrit (volume fraction) 30 % 35-52 Automated erythrocyte mean corpuscular volume 96 [foz_us] 80-99 Automated erythrocyte mean corpuscular hemoglobin (mass per erythrocyte) 29 pg 25-34 Automated erythrocyte mean corpuscular hemoglobin concentration measurement ( mass/volume) 31 g/dL 32-36 Automated erythrocyte distribution width ratio 15.3 % 10.0-14.5 Automated blood platelet count (count/volume) 218 10*3/uL 130-400 Automated blood platelet mean volume measurement 9.4 [foz_us] 7.4-10.4 Automated blood neutrophils/100 leukocytes 78 % 42-75 Automated blood lymphocytes/100 leukocytes 10 % 12-44 Blood monocytes/100 leukocytes 11 % 0-12 Automated blood eosinophils/100 leukocytes 2 % 0-10 Automated blood basophils/100 leukocytes 0 % 0-10 Blood neutrophils automated count (number/volume) 3.4 10*3 1.8-7.8 Blood lymphocytes automated count (number/volume) 0.4 10*3 1.0-4.0 Blood monocytes automated count (number/volume) 0.5 10*3 0.0-1.0 Automated eosinophil count 0.1 10*3/uL 0.0-0.3 Automated blood basophil count (count/volume) 0.0 10*3/uL 0.0-0.1 Comprehensive metabolic panel - 05/09/16 12:00 Serum or plasma sodium measurement (moles/volume) 139 mmol/L 135-145 Serum or plasma potassium measurement (moles/volume) 4.6 mmol/L 3.6-5.0 Serum or plasma chloride measurement (moles/volume) 100 mmol/L 98-107 Carbon dioxide 30 mmol/L 21-32 Serum or plasma anion gap determination (moles/volume) 9 mmol/L 5-14 Serum or plasma urea nitrogen measurement (mass/volume) 30 mg/dL 7-18 Serum or plasma creatinine measurement (mass/volume) 1.40 mg/dL 0.60-1.30 Serum or plasma urea nitrogen/creatinine mass ratio 21 NRG Serum or plasma creatinine measurement with calculation of estimated glomerular filtration rate 37 NRG Serum or plasma glucose measurement (mass/volume) 113 mg/dL 70-105 Serum or plasma calcium measurement (mass/volume) 9.6 mg/dL 8.5-10.1 Serum or plasma total bilirubin measurement (mass/volume) 0.7 mg/dL 0.1-1.0 Serum or plasma alkaline phosphatase measurement (enzymatic activity/volume) 93 U/L 40-136 Serum or plasma aspartate aminotransferase measurement (enzymatic activity/ volume) 24 U/L 5-34 Serum or plasma alanine aminotransferase measurement (enzymatic activity/volume ) 17 U/L 0-55 Serum or plasma protein measurement (mass/volume) 6.6 g/dL 6.4-8.2 Serum or plasma albumin measurement (mass/volume) 3.2 g/dL 3.2-4.5 RED CELLS LEUKO REDUCED AS1 - 05/30/16 07:00 RED CELLS LEUKO REDUCED AS1 TRANSFUSED 05/31/16 1421 NRG [id number] - 05/30/16 07:00 [id number] SPECIMEN AVAILABLE [facility] Blood type T Indirect antibody screen panel - 05/30/16 07:00 ABO+Rh group AP NR Transfusion band number [id number] [facility] Blood group antibody screen NEGATIVE [facility] Capillary blood glucose measurement by glucometer (mass/volume) - 05/30/16 10: 53 Capillary blood glucose measurement by glucometer (mass/volume) 109 mg/dL 70-110 Capillary blood glucose measurement by glucometer (mass/volume) - 05/30/16 16: 23 Capillary blood glucose measurement by glucometer (mass/volume) 120 mg/dL 70-110 Capillary blood glucose measurement by glucometer (mass/volume) - 05/30/16 20: 33 Capillary blood glucose measurement by glucometer (mass/volume) 98 mg/dL 70-110 Capillary blood glucose measurement by glucometer (mass/volume) - 05/31/16 05: 28 Capillary blood glucose measurement by glucometer (mass/volume) 83 mg/dL 70-110 Complete blood count (CBC) with automated white blood cell (WBC) differential - 05/31/16 05:55 Blood leukocytes automated count (number/volume) 2.6 10*3/uL 4.3-11.0 Blood erythrocytes automated count (number/volume) 2.07 10*6/uL 4.35-5.85 Venous blood hemoglobin measurement (mass/volume) 6.0 g/dL 11.5-16.0 Blood hematocrit (volume fraction) 20 % 35-52 Automated erythrocyte mean corpuscular volume 96 [foz_us] 80-99 Automated erythrocyte mean corpuscular hemoglobin (mass per erythrocyte) 29 pg 25-34 Automated erythrocyte mean corpuscular hemoglobin concentration measurement ( mass/volume) 30 g/dL 32-36 Automated erythrocyte distribution width ratio 15.0 % 10.0-14.5 Automated blood platelet count (count/volume) 172 10*3/uL 130-400 Automated blood platelet mean volume measurement 10.3 [foz_us] 7.4-10.4 Automated blood neutrophils/100 leukocytes 55 % 42-75 Automated blood lymphocytes/100 leukocytes 24 % 12-44 Blood monocytes/100 leukocytes 15 % 0-12 Automated blood eosinophils/100 leukocytes 6 % 0-10 Automated blood basophils/100 leukocytes 0 % 0-10 Blood neutrophils automated count (number/volume) 1.4 10*3 1.8-7.8 Blood lymphocytes automated count (number/volume) 0.6 10*3 1.0-4.0 Blood monocytes automated count (number/volume) 0.4 10*3 0.0-1.0 Automated eosinophil count 0.1 10*3/uL 0.0-0.3 Automated blood basophil count (count/volume) 0.0 10*3/uL 0.0-0.1 Comprehensive metabolic panel - 05/31/16 05:55 Serum or plasma sodium measurement (moles/volume) 141 mmol/L 135-145 Serum or plasma potassium measurement (moles/volume) 4.3 mmol/L 3.6-5.0 Serum or plasma chloride measurement (moles/volume) 113 mmol/L 98-107 Carbon dioxide 19 mmol/L 21-32 Serum or plasma anion gap determination (moles/volume) 9 mmol/L 5-14 Serum or plasma urea nitrogen measurement (mass/volume) 33 mg/dL 7-18 Serum or plasma creatinine measurement (mass/volume) 1.56 mg/dL 0.60-1.30 Serum or plasma urea nitrogen/creatinine mass ratio 21 NRG Serum or plasma creatinine measurement with calculation of estimated glomerular filtration rate 33 NRG Serum or plasma glucose measurement (mass/volume) 80 mg/dL 70-105 Serum or plasma calcium measurement (mass/volume) 8.9 mg/dL 8.5-10.1 Serum or plasma total bilirubin measurement (mass/volume) 0.5 mg/dL 0.1-1.0 Serum or plasma alkaline phosphatase measurement (enzymatic activity/volume) 72 U/L 40-136 Serum or plasma aspartate aminotransferase measurement (enzymatic activity/ volume) 24 U/L 5-34 Serum or plasma alanine aminotransferase measurement (enzymatic activity/volume ) 17 U/L 0-55 Serum or plasma protein measurement (mass/volume) 5.3 g/dL 6.4-8.2 Serum or plasma albumin measurement (mass/volume) 2.6 g/dL 3.2-4.5 Capillary blood glucose measurement by glucometer (mass/volume) - 05/31/16 11: 04 Capillary blood glucose measurement by glucometer (mass/volume) 149 mg/dL 70-110 Capillary blood glucose measurement by glucometer (mass/volume) - 05/31/16 16: 01 Capillary blood glucose measurement by glucometer (mass/volume) 104 mg/dL 70-110 Capillary blood glucose measurement by glucometer (mass/volume) - 05/31/16 21: 10 Capillary blood glucose measurement by glucometer (mass/volume) 100 mg/dL 70-110 Complete blood count (CBC) with automated white blood cell (WBC) differential - 06/01/16 06:19 Blood leukocytes automated count (number/volume) 3.1 10*3/uL 4.3-11.0 Blood erythrocytes automated count (number/volume) 3.85 10*6/uL 4.35-5.85 Venous blood hemoglobin measurement (mass/volume) 11.5 g/dL 11.5-16.0 Blood hematocrit (volume fraction) 35 % 35-52 Automated erythrocyte mean corpuscular volume 90 [foz_us] 80-99 Automated erythrocyte mean corpuscular hemoglobin (mass per erythrocyte) 30 pg 25-34 Automated erythrocyte mean corpuscular hemoglobin concentration measurement ( mass/volume) 33 g/dL 32-36 Automated erythrocyte distribution width ratio 15.7 % 10.0-14.5 Automated blood platelet count (count/volume) 145 10*3/uL 130-400 Automated blood platelet mean volume measurement 10.5 [foz_us] 7.4-10.4 Automated blood neutrophils/100 leukocytes 66 % 42-75 Automated blood lymphocytes/100 leukocytes 17 % 12-44 Blood monocytes/100 leukocytes 13 % 0-12 Automated blood eosinophils/100 leukocytes 4 % 0-10 Automated blood basophils/100 leukocytes 0 % 0-10 Blood neutrophils automated count (number/volume) 2.1 10*3 1.8-7.8 Blood lymphocytes automated count (number/volume) 0.5 10*3 1.0-4.0 Blood monocytes automated count (number/volume) 0.4 10*3 0.0-1.0 Automated eosinophil count 0.1 10*3/uL 0.0-0.3 Automated blood basophil count (count/volume) 0.0 10*3/uL 0.0-0.1 Whole blood basic metabolic panel - 06/01/16 06:19 Serum or plasma sodium measurement (moles/volume) 140 mmol/L 135-145 Serum or plasma potassium measurement (moles/volume) 3.9 mmol/L 3.6-5.0 Serum or plasma chloride measurement (moles/volume) 112 mmol/L 98-107 Carbon dioxide 18 mmol/L 21-32 Serum or plasma anion gap determination (moles/volume) 10 mmol/L 5-14 Serum or plasma urea nitrogen measurement (mass/volume) 23 mg/dL 7-18 Serum or plasma creatinine measurement (mass/volume) 1.35 mg/dL 0.60-1.30 Serum or plasma urea nitrogen/creatinine mass ratio 17 NRG Serum or plasma creatinine measurement with calculation of estimated glomerular filtration rate 39 NRG Serum or plasma glucose measurement (mass/volume) 82 mg/dL 70-105 Serum or plasma calcium measurement (mass/volume) 8.9 mg/dL 8.5-10.1 Capillary blood glucose measurement by glucometer (mass/volume) - 06/01/16 11: 11 Capillary blood glucose measurement by glucometer (mass/volume) 141 mg/dL 70-110 Blood CBC with ordered manual differential panel - 08/21/16 17:15 Blood leukocytes automated count (number/volume) 5.2 10*3/uL 4.3-11.0 Blood erythrocytes automated count (number/volume) 3.73 10*6/uL 4.35-5.85 Venous blood hemoglobin measurement (mass/volume) 10.3 g/dL 11.5-16.0 Blood hematocrit (volume fraction) 36 % 35-52 Automated erythrocyte mean corpuscular volume 96 [foz_us] 80-99 Automated erythrocyte mean corpuscular hemoglobin (mass per erythrocyte) 28 pg 25-34 Automated erythrocyte mean corpuscular hemoglobin concentration measurement ( mass/volume) 29 g/dL 32-36 Automated erythrocyte distribution width ratio 17.0 % 10.0-14.5 Automated blood platelet count (count/volume) 249 10*3/uL 130-400 Automated blood platelet mean volume measurement 9.1 [foz_us] 7.4-10.4 Automated blood neutrophils/100 leukocytes 74 % 42-75 Automated blood lymphocytes/100 leukocytes 12 % 12-44 Blood monocytes/100 leukocytes 13 % NRG Automated blood eosinophils/100 leukocytes 4 % 0-10 Automated blood basophils/100 leukocytes 0 % 0-10 Blood neutrophils automated count (number/volume) 3.9 10*3 1.8-7.8 Blood lymphocytes automated count (number/volume) 0.6 10*3 1.0-4.0 Blood monocytes automated count (number/volume) 0.5 10*3 0.0-1.0 Automated eosinophil count 0.2 10*3/uL 0.0-0.3 Automated blood basophil count (count/volume) 0.0 10*3/uL 0.0-0.1 Manual blood segmented neutrophils/100 leukocytes 75 % NRG Blood band neutrophils/100 leukocytes 0 % NRG Manual eosinophils/100 leukocytes in nose 3 % NRG Manual blood basophils/100 leukocytes 0 % NRG Blood polychromasia detection by light microscopy SLIGHT NRG Blood anisocytosis detection by light microscopy SLIGHT NRG Blood poikilocytosis detection by light microscopy SLIGHT NRG Blood hypochromia detection by light microscopy SLIGHT NRG Blood spherocytes detection by light microscopy SLIGHT NRG Comprehensive metabolic panel - 08/21/16 17:15 Serum or plasma sodium measurement (moles/volume) 139 mmol/L 135-145 Serum or plasma potassium measurement (moles/volume) 4.6 mmol/L 3.6-5.0 Serum or plasma chloride measurement (moles/volume) 104 mmol/L 98-107 Carbon dioxide 30 mmol/L 21-32 Serum or plasma anion gap determination (moles/volume) 5 mmol/L 5-14 Serum or plasma urea nitrogen measurement (mass/volume) 14 mg/dL 7-18 Serum or plasma creatinine measurement (mass/volume) 0.91 mg/dL 0.60-1.30 Serum or plasma urea nitrogen/creatinine mass ratio 15 NRG Serum or plasma creatinine measurement with calculation of estimated glomerular filtration rate > NRG Serum or plasma glucose measurement (mass/volume) 92 mg/dL 70-105 Serum or plasma calcium measurement (mass/volume) 9.2 mg/dL 8.5-10.1 Serum or plasma total bilirubin measurement (mass/volume) 1.2 mg/dL 0.1-1.0 Serum or plasma alkaline phosphatase measurement (enzymatic activity/volume) 71 U/L 40-136 Serum or plasma aspartate aminotransferase measurement (enzymatic activity/ volume) 17 U/L 5-34 Serum or plasma alanine aminotransferase measurement (enzymatic activity/volume ) < U/L 0-55 Serum or plasma protein measurement (mass/volume) 6.1 g/dL 6.4-8.2 Serum or plasma albumin measurement (mass/volume) 2.9 g/dL 3.2-4.5 Magnesium - 08/21/16 17:15 Magnesium 1.6 mg/dL 1.8-2.4 Serum or plasma lithium measurement (moles/volume) - 08/21/16 17:15 BNP level 208.9 pg/mL <100.0 Complete urinalysis with reflex to culture - 08/21/16 21:15 Urine color determination YELLOW NRG Urine clarity determination SLIGHTLY CLOUDY NRG Urine pH measurement by test strip 8 5-9 Specific gravity of urine by test strip 1.010 1.016- 1.022 Urine protein assay by test strip, semi-quantitative NEGATIVE NEGATIVE Urine glucose detection by automated test strip NEGATIVE NEGATIVE Erythrocytes detection in urine sediment by light microscopy 3+ NEGATIVE Urine ketones detection by automated test strip NEGATIVE NEGATIVE Urine nitrite detection by test strip NEGATIVE NEGATIVE Urine total bilirubin detection by test strip NEGATIVE NEGATIVE Urine urobilinogen measurement by automated test strip (mass/volume) NORMAL NORMAL Urine leukocyte esterase detection by dipstick 3+ NEGATIVE Automated urine sediment erythrocyte count by microscopy (number/high power field) [HPF] NRG Automated urine sediment leukocyte count by microscopy (number/high power field ) > [HPF] NRG Bacteria detection in urine sediment by light microscopy TRACE NRG Squamous epithelial cells detection in urine sediment by light microscopy RARE NRG Crystals detection in urine sediment by light microscopy NONE NRG Casts detection in urine sediment by light microscopy NONE NRG Mucus detection in urine sediment by light microscopy NEGATIVE NRG Complete urinalysis with reflex to culture YES NRG Bacterial urine culture - 08/21/16 21:15 Bacterial urine culture [id number] NRG COLONY COUNT 10,000/ML - 100,000/ML NRG FTX;REPORTABLE SENSITIVITY REPORTED AT 0856, 12-1-16 [facility] Bacterial susceptibility panel - 08/21/16 21:15 Gentamicin susceptibility test by minimum inhibitory concentration < = NRG Trimethoprim/sulfamethoxazole susceptibility test by minimum inhibitoryconcentration <= NRG Ampicillin susceptibility test by minimum inhibitory concentration 4 NRG Tobramycin susceptibility test by minimum inhibitory concentration < = NRG Cefazolin susceptibility test by minimum inhibitory concentration < = NRG Ceftriaxone susceptibility test by minimum inhibitory concentration <= NRG Ampicillin/sulbactam susceptibility test by minimum inhibitory concentration 4 NRG Piperacillin/tazobactam susceptibility test by minimum inhibitory concentration <= NRG Ciprofloxacin susceptibility test by minimum inhibitory concentration <= NRG Meropenem susceptibility test by minimum inhibitory concentration < = NRG Nitrofurantoin susceptibility test by minimum inhibitory concentration <= NRG Aztreonam susceptibility test by minimum inhibitory concentration < = NRG Extended spectrum beta lactamase (ESBL) producing bacteria susceptibility test by minimum inhibitory concentration - [facility] Complete blood count (CBC) with automated white blood cell (WBC) differential - 08/22/16 04:00 Blood leukocytes automated count (number/volume) 5.6 10*3/uL 4.3-11.0 Blood erythrocytes automated count (number/volume) 3.69 10*6/uL 4.35-5.85 Venous blood hemoglobin measurement (mass/volume) 10.2 g/dL 11.5-16.0 Blood hematocrit (volume fraction) 35 % 35-52 Automated erythrocyte mean corpuscular volume 94 [foz_us] 80-99 Automated erythrocyte mean corpuscular hemoglobin (mass per erythrocyte) 28 pg 25-34 Automated erythrocyte mean corpuscular hemoglobin concentration measurement ( mass/volume) 29 g/dL 32-36 Automated erythrocyte distribution width ratio 17.0 % 10.0-14.5 Automated blood platelet count (count/volume) 253 10*3/uL 130-400 Automated blood platelet mean volume measurement 9.5 [foz_us] 7.4-10.4 Automated blood neutrophils/100 leukocytes 78 % 42-75 Automated blood lymphocytes/100 leukocytes 11 % 12-44 Blood monocytes/100 leukocytes 9 % 0-12 Automated blood eosinophils/100 leukocytes 2 % 0-10 Automated blood basophils/100 leukocytes 0 % 0-10 Blood neutrophils automated count (number/volume) 4.3 10*3 1.8-7.8 Blood lymphocytes automated count (number/volume) 0.6 10*3 1.0-4.0 Blood monocytes automated count (number/volume) 0.5 10*3 0.0-1.0 Automated eosinophil count 0.1 10*3/uL 0.0-0.3 Automated blood basophil count (count/volume) 0.0 10*3/uL 0.0-0.1 Comprehensive metabolic panel - 08/22/16 04:00 Serum or plasma sodium measurement (moles/volume) 141 mmol/L 135-145 Serum or plasma potassium measurement (moles/volume) 4.0 mmol/L 3.6-5.0 Serum or plasma chloride measurement (moles/volume) 99 mmol/L 98-107 Carbon dioxide 32 mmol/L 21-32 Serum or plasma anion gap determination (moles/volume) 10 mmol/L 5-14 Serum or plasma urea nitrogen measurement (mass/volume) 14 mg/dL 7-18 Serum or plasma creatinine measurement (mass/volume) 0.97 mg/dL 0.60-1.30 Serum or plasma urea nitrogen/creatinine mass ratio 14 NRG Serum or plasma creatinine measurement with calculation of estimated glomerular filtration rate 57 NRG Serum or plasma glucose measurement (mass/volume) 99 mg/dL 70-105 Serum or plasma calcium measurement (mass/volume) 9.3 mg/dL 8.5-10.1 Serum or plasma total bilirubin measurement (mass/volume) 1.3 mg/dL 0.1-1.0 Serum or plasma alkaline phosphatase measurement (enzymatic activity/volume) 77 U/L 40-136 Serum or plasma aspartate aminotransferase measurement (enzymatic activity/ volume) 16 U/L 5-34 Serum or plasma alanine aminotransferase measurement (enzymatic activity/volume ) < U/L 0-55 Serum or plasma protein measurement (mass/volume) 6.3 g/dL 6.4-8.2 Serum or plasma albumin measurement (mass/volume) 3.0 g/dL 3.2-4.5 Magnesium - 08/22/16 04:00 Magnesium 2.1 mg/dL 1.8-2.4 Complete blood count (CBC) with automated white blood cell (WBC) differential - 08/23/16 03:19 Blood leukocytes automated count (number/volume) 6.0 10*3/uL 4.3-11.0 Blood erythrocytes automated count (number/volume) 3.98 10*6/uL 4.35-5.85 Venous blood hemoglobin measurement (mass/volume) 11.1 g/dL 11.5-16.0 Blood hematocrit (volume fraction) 37 % 35-52 Automated erythrocyte mean corpuscular volume 93 [foz_us] 80-99 Automated erythrocyte mean corpuscular hemoglobin (mass per erythrocyte) 28 pg 25-34 Automated erythrocyte mean corpuscular hemoglobin concentration measurement ( mass/volume) 30 g/dL 32-36 Automated erythrocyte distribution width ratio 16.8 % 10.0-14.5 Automated blood platelet count (count/volume) 262 10*3/uL 130-400 Automated blood platelet mean volume measurement 9.7 [foz_us] 7.4-10.4 Automated blood neutrophils/100 leukocytes 79 % 42-75 Automated blood lymphocytes/100 leukocytes 12 % 12-44 Blood monocytes/100 leukocytes 8 % 0-12 Automated blood eosinophils/100 leukocytes 1 % 0-10 Automated blood basophils/100 leukocytes 0 % 0-10 Blood neutrophils automated count (number/volume) 4.7 10*3 1.8-7.8 Blood lymphocytes automated count (number/volume) 0.7 10*3 1.0-4.0 Blood monocytes automated count (number/volume) 0.5 10*3 0.0-1.0 Automated eosinophil count 0.1 10*3/uL 0.0-0.3 Automated blood basophil count (count/volume) 0.0 10*3/uL 0.0-0.1 Whole blood basic metabolic panel - 08/23/16 03:19 Serum or plasma sodium measurement (moles/volume) 138 mmol/L 135-145 Serum or plasma potassium measurement (moles/volume) 3.9 mmol/L 3.6-5.0 Serum or plasma chloride measurement (moles/volume) 92 mmol/L 98-107 Carbon dioxide 33 mmol/L 21-32 Serum or plasma anion gap determination (moles/volume) 13 mmol/L 5-14 Serum or plasma urea nitrogen measurement (mass/volume) 14 mg/dL 7-18 Serum or plasma creatinine measurement (mass/volume) 0.97 mg/dL 0.60-1.30 Serum or plasma urea nitrogen/creatinine mass ratio 14 NRG Serum or plasma creatinine measurement with calculation of estimated glomerular filtration rate 57 NRG Serum or plasma glucose measurement (mass/volume) 90 mg/dL 70-105 Serum or plasma calcium measurement (mass/volume) 9.7 mg/dL 8.5-10.1 Magnesium - 08/23/16 03:19 Magnesium 1.9 mg/dL 1.8-2.4 THYROID STIMULATING HORMONE - 08/23/16 03:19 THYROID STIMULATING HORMONE 1.07 u[iU]/mL 0.35-4.94 Bacterial urine culture - 04/29/17 00:00 Bacterial urine culture [id number] NR COLONY COUNT 10,000/ML - 100,000/ML NRG FTX;REPORTABLE SENSITIVITY REPORTED 04/30 16:30 [facility] Bacterial susceptibility panel - 04/29/17 00:00 Gentamicin susceptibility test by minimum inhibitory concentration < = NRG Trimethoprim/sulfamethoxazole susceptibility test by minimum inhibitoryconcentration <= NRG Ampicillin susceptibility test by minimum inhibitory concentration 8 NRG Tobramycin susceptibility test by minimum inhibitory concentration < = NRG Cefazolin susceptibility test by minimum inhibitory concentration < = NRG Ceftriaxone susceptibility test by minimum inhibitory concentration <= NRG Ampicillin/sulbactam susceptibility test by minimum inhibitory concentration 4 NRG Piperacillin/tazobactam susceptibility test by minimum inhibitory concentration <= NRG Ciprofloxacin susceptibility test by minimum inhibitory concentration <= NRG Meropenem susceptibility test by minimum inhibitory concentration < = NRG Nitrofurantoin susceptibility test by minimum inhibitory concentration <= NRG Aztreonam susceptibility test by minimum inhibitory concentration < = NRG Extended spectrum beta lactamase (ESBL) producing bacteria susceptibility test by minimum inhibitory concentration - [facility] Bacterial susceptibility panel - 04/29/17 00:00 Gentamicin susceptibility test by minimum inhibitory concentration 8 NRG Trimethoprim/sulfamethoxazole susceptibility test by minimum inhibitoryconcentration >= NRG Ampicillin susceptibility test by minimum inhibitory concentration < = NRG Tobramycin susceptibility test by minimum inhibitory concentration 8 NRG Cefazolin susceptibility test by minimum inhibitory concentration < = NRG Ceftriaxone susceptibility test by minimum inhibitory concentration <= NRG Ampicillin/sulbactam susceptibility test by minimum inhibitory concentration <= NRG Piperacillin/tazobactam susceptibility test by minimum inhibitory concentration <= NRG Ciprofloxacin susceptibility test by minimum inhibitory concentration >= NRG Meropenem susceptibility test by minimum inhibitory concentration < = NRG Nitrofurantoin susceptibility test by minimum inhibitory concentration 128 NRG Aztreonam susceptibility test by minimum inhibitory concentration < = NRG Amikacin susceptibility test by minimum inhibitory concentration [facility] Complete blood count (CBC) with automated white blood cell (WBC) differential - 05/17/17 13:51 Blood leukocytes automated count (number/volume) 4.8 10*3/uL 4.3-11.0 Blood erythrocytes automated count (number/volume) 3.71 10*6/uL 4.35-5.85 Venous blood hemoglobin measurement (mass/volume) 10.3 g/dL 11.5-16.0 Blood hematocrit (volume fraction) 36 % 35-52 Automated erythrocyte mean corpuscular volume 97 [foz_us] 80-99 Automated erythrocyte mean corpuscular hemoglobin (mass per erythrocyte) 28 pg 25-34 Automated erythrocyte mean corpuscular hemoglobin concentration measurement ( mass/volume) 29 g/dL 32-36 Automated erythrocyte distribution width ratio 17.3 % 10.0-14.5 Automated blood platelet count (count/volume) 184 10*3/uL 130-400 Automated blood platelet mean volume measurement 10.0 [foz_us] 7.4-10.4 Automated blood neutrophils/100 leukocytes 69 % 42-75 Automated blood lymphocytes/100 leukocytes 12 % 12-44 Blood monocytes/100 leukocytes 11 % 0-12 Automated blood eosinophils/100 leukocytes 7 % 0-10 Automated blood basophils/100 leukocytes 0 % 0-10 Blood neutrophils automated count (number/volume) 3.3 10*3 1.8-7.8 Blood lymphocytes automated count (number/volume) 0.6 10*3 1.0-4.0 Blood monocytes automated count (number/volume) 0.5 10*3 0.0-1.0 Automated eosinophil count 0.3 10*3/uL 0.0-0.3 Automated blood basophil count (count/volume) 0.0 10*3/uL 0.0-0.1 Comprehensive metabolic panel - 05/17/17 13:51 Serum or plasma sodium measurement (moles/volume) 143 mmol/L 135-145 Serum or plasma potassium measurement (moles/volume) 4.4 mmol/L 3.6-5.0 Serum or plasma chloride measurement (moles/volume) 99 mmol/L 98-107 Carbon dioxide 36 mmol/L 21-32 Serum or plasma anion gap determination (moles/volume) 8 mmol/L 5-14 Serum or plasma urea nitrogen measurement (mass/volume) 20 mg/dL 7-18 Serum or plasma creatinine measurement (mass/volume) 1.58 mg/dL 0.60-1.30 Serum or plasma urea nitrogen/creatinine mass ratio 13 NRG Serum or plasma creatinine measurement with calculation of estimated glomerular filtration rate 32 NRG Serum or plasma glucose measurement (mass/volume) 102 mg/dL 70-105 Serum or plasma calcium measurement (mass/volume) 9.5 mg/dL 8.5-10.1 Serum or plasma total bilirubin measurement (mass/volume) 1.5 mg/dL 0.1-1.0 Serum or plasma alkaline phosphatase measurement (enzymatic activity/volume) 76 U/L 40-136 Serum or plasma aspartate aminotransferase measurement (enzymatic activity/ volume) 22 U/L 5-34 Serum or plasma alanine aminotransferase measurement (enzymatic activity/volume ) 7 U/L 0-55 Serum or plasma protein measurement (mass/volume) 6.6 g/dL 6.4-8.2 Serum or plasma albumin measurement (mass/volume) 3.4 g/dL 3.2-4.5 THYROID STIMULATING HORMONE - 05/17/17 13:51 THYROID STIMULATING HORMONE 6.87 u[iU]/mL 0.35-4.94 Hemoglobin A1c - 05/17/17 13:51 Hemoglobin A1c 5.1 % 4.5-6.2 Serum or plasma thyroxine (T4) free measurement (mass/volume) - 05/17/17 13:51 Serum or plasma thyroxine (T4) free measurement (mass/volume) 1.19 ng/dL 0.70-1.48 Complete blood count (CBC) with automated white blood cell (WBC) differential - 05/24/17 08:00 Blood leukocytes automated count (number/volume) 4.8 10*3/uL 4.3-11.0 Blood erythrocytes automated count (number/volume) 3.66 10*6/uL 4.35-5.85 Venous blood hemoglobin measurement (mass/volume) 10.3 g/dL 11.5-16.0 Blood hematocrit (volume fraction) 35 % 35-52 Automated erythrocyte mean corpuscular volume 95 [foz_us] 80-99 Automated erythrocyte mean corpuscular hemoglobin (mass per erythrocyte) 28 pg 25-34 Automated erythrocyte mean corpuscular hemoglobin concentration measurement ( mass/volume) 30 g/dL 32-36 Automated erythrocyte distribution width ratio 17.0 % 10.0-14.5 Automated blood platelet count (count/volume) 168 10*3/uL 130-400 Automated blood platelet mean volume measurement 10.4 [foz_us] 7.4-10.4 Automated blood neutrophils/100 leukocytes 73 % 42-75 Automated blood lymphocytes/100 leukocytes 10 % 12-44 Blood monocytes/100 leukocytes 8 % 0-12 Automated blood eosinophils/100 leukocytes 9 % 0-10 Automated blood basophils/100 leukocytes 0 % 0-10 Blood neutrophils automated count (number/volume) 3.5 10*3 1.8-7.8 Blood lymphocytes automated count (number/volume) 0.5 10*3 1.0-4.0 Blood monocytes automated count (number/volume) 0.4 10*3 0.0-1.0 Automated eosinophil count 0.4 10*3/uL 0.0-0.3 Automated blood basophil count (count/volume) 0.0 10*3/uL 0.0-0.1 Complete urinalysis with reflex to culture - 05/24/17 08:00 Urine color determination YELLOW NRG Urine clarity determination CLEAR NRG Urine pH measurement by test strip 8 5-9 Specific gravity of urine by test strip 1.010 1.016- 1.022 Urine protein assay by test strip, semi-quantitative NEGATIVE NEGATIVE Urine glucose detection by automated test strip NEGATIVE NEGATIVE Erythrocytes detection in urine sediment by light microscopy NEGATIVE NEGATIVE Urine ketones detection by automated test strip NEGATIVE NEGATIVE Urine nitrite detection by test strip NEGATIVE NEGATIVE Urine total bilirubin detection by test strip NEGATIVE NEGATIVE Urine urobilinogen measurement by automated test strip (mass/volume) NORMAL NORMAL Urine leukocyte esterase detection by dipstick NEGATIVE NEGATIVE Automated urine sediment erythrocyte count by microscopy (number/high power field) NONE NRG Automated urine sediment leukocyte count by microscopy (number/high power field ) NONE NRG Bacteria detection in urine sediment by light microscopy NEGATIVE NRG Squamous epithelial cells detection in urine sediment by light microscopy NONE NRG Crystals detection in urine sediment by light microscopy NONE NRG Casts detection in urine sediment by light microscopy NONE NRG Mucus detection in urine sediment by light microscopy NEGATIVE NRG Complete urinalysis with reflex to culture NO NRG Comprehensive metabolic panel - 05/24/17 08:00 Serum or plasma sodium measurement (moles/volume) 140 mmol/L 135-145 Serum or plasma potassium measurement (moles/volume) 4.4 mmol/L 3.6-5.0 Serum or plasma chloride measurement (moles/volume) 99 mmol/L 98-107 Carbon dioxide 29 mmol/L 21-32 Serum or plasma anion gap determination (moles/volume) 12 mmol/L 5-14 Serum or plasma urea nitrogen measurement (mass/volume) 17 mg/dL 7-18 Serum or plasma creatinine measurement (mass/volume) 1.25 mg/dL 0.60-1.30 Serum or plasma urea nitrogen/creatinine mass ratio 14 NRG Serum or plasma creatinine measurement with calculation of estimated glomerular filtration rate 42 NRG Serum or plasma glucose measurement (mass/volume) 82 mg/dL 70-105 Serum or plasma calcium measurement (mass/volume) 9.6 mg/dL 8.5-10.1 Serum or plasma total bilirubin measurement (mass/volume) 2.0 mg/dL 0.1-1.0 Serum or plasma alkaline phosphatase measurement (enzymatic activity/volume) 66 U/L 40-136 Serum or plasma aspartate aminotransferase measurement (enzymatic activity/ volume) 33 U/L 5-34 Serum or plasma alanine aminotransferase measurement (enzymatic activity/volume ) 9 U/L 0-55 Serum or plasma protein measurement (mass/volume) 6.8 g/dL 6.4-8.2 Serum or plasma albumin measurement (mass/volume) 3.4 g/dL 3.2-4.5 Arterial blood gas measurement - 05/28/17 17:50 Blood pCO2 49 mm[Hg] 35-45 Blood pO2 52 mm[Hg] 79-93 Arterial blood bicarbonate measurement (moles/volume) 33 mmol/L 23-27 Arterial blood base excess by calculation 8.6 mmol/L -2.5 -2.5 Arterial blood oxygen saturation measurement 81 % 94-100 * Inhaled oxygen flow rate 10 NRG Arterial blood pH measurement with patient temperature correction 7.44 7.37-7.43 Arterial blood carbon dioxide, total measurement (moles/volume) 34.6 mmol/L 21.0-31.0 Body site LEFT RADIAL NRG Assessment of wrist artery patency prior to arterial puncture POSITIVE NRG Setting of ventilation mode NO NRG Measurement of body temperature 97.9 NRG Complete blood count (CBC) with automated white blood cell (WBC) differential - 05/28/17 18:10 Blood leukocytes automated count (number/volume) 6.6 10*3/uL 4.3-11.0 Blood erythrocytes automated count (number/volume) 3.59 10*6/uL 4.35-5.85 Venous blood hemoglobin measurement (mass/volume) 10.1 g/dL 11.5-16.0 Blood hematocrit (volume fraction) 35 % 35-52 Automated erythrocyte mean corpuscular volume 96 [foz_us] 80-99 Automated erythrocyte mean corpuscular hemoglobin (mass per erythrocyte) 28 pg 25-34 Automated erythrocyte mean corpuscular hemoglobin concentration measurement ( mass/volume) 29 g/dL 32-36 Automated erythrocyte distribution width ratio 17.8 % 10.0-14.5 Automated blood platelet count (count/volume) 205 10*3/uL 130-400 Automated blood platelet mean volume measurement 9.3 [foz_us] 7.4-10.4 Automated blood neutrophils/100 leukocytes 71 % 42-75 Automated blood lymphocytes/100 leukocytes 17 % 12-44 Blood monocytes/100 leukocytes 9 % 0-12 Automated blood eosinophils/100 leukocytes 3 % 0-10 Automated blood basophils/100 leukocytes 0 % 0-10 Blood neutrophils automated count (number/volume) 4.7 10*3 1.8-7.8 Blood lymphocytes automated count (number/volume) 1.1 10*3 1.0-4.0 Blood monocytes automated count (number/volume) 0.6 10*3 0.0-1.0 Automated eosinophil count 0.2 10*3/uL 0.0-0.3 Automated blood basophil count (count/volume) 0.0 10*3/uL 0.0-0.1 Comprehensive metabolic panel - 05/28/17 18:10 Serum or plasma sodium measurement (moles/volume) 142 mmol/L 135-145 Serum or plasma potassium measurement (moles/volume) 4.4 mmol/L 3.6-5.0 Serum or plasma chloride measurement (moles/volume) 98 mmol/L 98-107 Carbon dioxide 32 mmol/L 21-32 Serum or plasma anion gap determination (moles/volume) 12 mmol/L 5-14 Serum or plasma urea nitrogen measurement (mass/volume) 18 mg/dL 7-18 Serum or plasma creatinine measurement (mass/volume) 1.52 mg/dL 0.60-1.30 Serum or plasma urea nitrogen/creatinine mass ratio 12 NRG Serum or plasma creatinine measurement with calculation of estimated glomerular filtration rate 34 NRG Serum or plasma glucose measurement (mass/volume) 107 mg/dL 70-105 Serum or plasma calcium measurement (mass/volume) 9.6 mg/dL 8.5-10.1 Serum or plasma total bilirubin measurement (mass/volume) 2.3 mg/dL 0.1-1.0 Serum or plasma alkaline phosphatase measurement (enzymatic activity/volume) 75 U/L 40-136 Serum or plasma aspartate aminotransferase measurement (enzymatic activity/ volume) 25 U/L 5-34 Serum or plasma alanine aminotransferase measurement (enzymatic activity/volume ) 7 U/L 0-55 Serum or plasma protein measurement (mass/volume) 7.2 g/dL 6.4-8.2 Serum or plasma albumin measurement (mass/volume) 3.7 g/dL 3.2-4.5 Serum or plasma lithium measurement (moles/volume) - 05/28/17 18:10 BNP level 914.6 pg/mL <100.0 Serum or plasma troponin i.cardiac measurement (mass/volume) - 05/28/17 18:10 Serum or plasma troponin i.cardiac measurement (mass/volume) < ng/ mL <0.30 THYROID STIMULATING HORMONE - 05/28/17 18:10 THYROID STIMULATING HORMONE 3.70 u[iU]/mL 0.35-4.94 Serum or plasma thyroxine (T4) free measurement (mass/volume) - 05/28/17 18:10 Serum or plasma thyroxine (T4) free measurement (mass/volume) 1.18 ng/dL 0.70-1.48 Arterial blood gas measurement - 05/28/17 19:12 Blood pCO2 47 mm[Hg] 35-45 Blood pO2 145 mm[Hg] 79-93 Arterial blood bicarbonate measurement (moles/volume) 33 mmol/L 23-27 Arterial blood base excess by calculation 8.3 mmol/L -2.5 -2.5 Arterial blood oxygen saturation measurement 100 % 94- 100 * Inhaled oxygen flow rate BIPAP 50% NRG Arterial blood pH measurement with patient temperature correction 7.46 7.37-7.43 Arterial blood carbon dioxide, total measurement (moles/volume) 33.9 mmol/L 21.0-31.0 Body site RIGHT RADIAL NRG Assessment of wrist artery patency prior to arterial puncture POSITIVE NRG Setting of ventilation mode NO NRG Measurement of body temperature 98.1 NRG Methicillin resistant Staphylococcus aureus (MRSA) screening culture - 20:10 Methicillin resistant Staphylococcus aureus (MRSA) screening culture NEG NR Complete blood count (CBC) with automated white blood cell (WBC) differential - 05/29/17 04:18 Blood leukocytes automated count (number/volume) 4.7 10*3/uL 4.3-11.0 Blood erythrocytes automated count (number/volume) 3.48 10*6/uL 4.35-5.85 Venous blood hemoglobin measurement (mass/volume) 9.8 g/dL 11.5-16.0 Blood hematocrit (volume fraction) 33 % 35-52 Automated erythrocyte mean corpuscular volume 95 [foz_us] 80-99 Automated erythrocyte mean corpuscular hemoglobin (mass per erythrocyte) 28 pg 25-34 Automated erythrocyte mean corpuscular hemoglobin concentration measurement ( mass/volume) 30 g/dL 32-36 Automated erythrocyte distribution width ratio 17.5 % 10.0-14.5 Automated blood platelet count (count/volume) 160 10*3/uL 130-400 Automated blood platelet mean volume measurement 10.3 [foz_us] 7.4-10.4 Automated blood neutrophils/100 leukocytes 91 % 42-75 Automated blood lymphocytes/100 leukocytes 8 % 12-44 Blood monocytes/100 leukocytes 1 % 0-12 Automated blood eosinophils/100 leukocytes 0 % 0-10 Automated blood basophils/100 leukocytes 0 % 0-10 Blood neutrophils automated count (number/volume) 4.3 10*3 1.8-7.8 Blood lymphocytes automated count (number/volume) 0.4 10*3 1.0-4.0 Blood monocytes automated count (number/volume) 0.1 10*3 0.0-1.0 Automated eosinophil count 0.0 10*3/uL 0.0-0.3 Automated blood basophil count (count/volume) 0.0 10*3/uL 0.0-0.1 Comprehensive metabolic panel - 05/29/17 04:18 Serum or plasma sodium measurement (moles/volume) 143 mmol/L 135-145 Serum or plasma potassium measurement (moles/volume) 3.9 mmol/L 3.6-5.0 Serum or plasma chloride measurement (moles/volume) 99 mmol/L 98-107 Carbon dioxide 28 mmol/L 21-32 Serum or plasma anion gap determination (moles/volume) 16 mmol/L 5-14 Serum or plasma urea nitrogen measurement (mass/volume) 20 mg/dL 7-18 Serum or plasma creatinine measurement (mass/volume) 1.53 mg/dL 0.60-1.30 Serum or plasma urea nitrogen/creatinine mass ratio 13 NRG Serum or plasma creatinine measurement with calculation of estimated glomerular filtration rate 34 NRG Serum or plasma glucose measurement (mass/volume) 188 mg/dL 70-105 Serum or plasma calcium measurement (mass/volume) 9.3 mg/dL 8.5-10.1 Serum or plasma total bilirubin measurement (mass/volume) 2.1 mg/dL 0.1-1.0 Serum or plasma alkaline phosphatase measurement (enzymatic activity/volume) 69 U/L 40-136 Serum or plasma aspartate aminotransferase measurement (enzymatic activity/ volume) 21 U/L 5-34 Serum or plasma alanine aminotransferase measurement (enzymatic activity/volume ) 7 U/L 0-55 Serum or plasma protein measurement (mass/volume) 6.6 g/dL 6.4-8.2 Serum or plasma albumin measurement (mass/volume) 3.4 g/dL 3.2-4.5 Serum or plasma phosphate measurement (mass/volume) - 05/29/17 04:18 Serum or plasma phosphate measurement (mass/volume) 3.2 mg/dL 2.3-4.7 Magnesium - 05/29/17 04:18 Magnesium 2.2 mg/dL 1.8-2.4 Serum or plasma lithium measurement (moles/volume) - 05/29/17 04:18 BNP level 434.6 pg/mL <100.0 Arterial blood gas measurement - 05/29/17 05:45 Blood pCO2 47 mm[Hg] 35-45 Blood pO2 103 mm[Hg] 79-93 Arterial blood bicarbonate measurement (moles/volume) 33 mmol/L 23-27 Arterial blood base excess by calculation 8.4 mmol/L -2.5 -2.5 Arterial blood oxygen saturation measurement 99 % 94-100 * Inhaled oxygen flow rate 35% FIO2 NRG Arterial blood pH measurement with patient temperature correction 7.45 7.37-7.43 Arterial blood carbon dioxide, total measurement (moles/volume) 34.3 mmol/L 21.0-31.0 Body site R RAD NRG Assessment of wrist artery patency prior to arterial puncture YES- POS NRG Setting of ventilation mode NO NRG Measurement of body temperature 97.2 NRG Capillary blood glucose measurement by glucometer (mass/volume) - 05/29/17 10: 52 Capillary blood glucose measurement by glucometer (mass/volume) 189 mg/dL 70-110 Capillary blood glucose measurement by glucometer (mass/volume) - 05/29/17 17: 15 Capillary blood glucose measurement by glucometer (mass/volume) 194 mg/dL 70-110 Capillary blood glucose measurement by glucometer (mass/volume) - 05/29/17 21: 51 Capillary blood glucose measurement by glucometer (mass/volume) 173 mg/dL 70-110 Complete blood count (CBC) with automated white blood cell (WBC) differential - 05/30/17 04:21 Blood leukocytes automated count (number/volume) 7.3 10*3/uL 4.3-11.0 Blood erythrocytes automated count (number/volume) 3.16 10*6/uL 4.35-5.85 Venous blood hemoglobin measurement (mass/volume) 8.6 g/dL 11.5-16.0 Blood hematocrit (volume fraction) 30 % 35-52 Automated erythrocyte mean corpuscular volume 95 [foz_us] 80-99 Automated erythrocyte mean corpuscular hemoglobin (mass per erythrocyte) 27 pg 25-34 Automated erythrocyte mean corpuscular hemoglobin concentration measurement ( mass/volume) 29 g/dL 32-36 Automated erythrocyte distribution width ratio 17.7 % 10.0-14.5 Automated blood platelet count (count/volume) 167 10*3/uL 130-400 Automated blood platelet mean volume measurement 10.1 [foz_us] 7.4-10.4 Automated blood neutrophils/100 leukocytes 93 % 42-75 Automated blood lymphocytes/100 leukocytes 4 % 12-44 Blood monocytes/100 leukocytes 3 % 0-12 Automated blood eosinophils/100 leukocytes 0 % 0-10 Automated blood basophils/100 leukocytes 0 % 0-10 Blood neutrophils automated count (number/volume) 6.8 10*3 1.8-7.8 Blood lymphocytes automated count (number/volume) 0.3 10*3 1.0-4.0 Blood monocytes automated count (number/volume) 0.2 10*3 0.0-1.0 Automated eosinophil count 0.0 10*3/uL 0.0-0.3 Automated blood basophil count (count/volume) 0.0 10*3/uL 0.0-0.1 Comprehensive metabolic panel - 05/30/17 04:21 Serum or plasma sodium measurement (moles/volume) 141 mmol/L 135-145 Serum or plasma potassium measurement (moles/volume) 3.8 mmol/L 3.6-5.0 Serum or plasma chloride measurement (moles/volume) 96 mmol/L 98-107 Carbon dioxide 33 mmol/L 21-32 Serum or plasma anion gap determination (moles/volume) 12 mmol/L 5-14 Serum or plasma urea nitrogen measurement (mass/volume) 27 mg/dL 7-18 Serum or plasma creatinine measurement (mass/volume) 1.31 mg/dL 0.60-1.30 Serum or plasma urea nitrogen/creatinine mass ratio 21 NRG Serum or plasma creatinine measurement with calculation of estimated glomerular filtration rate 40 NRG Serum or plasma glucose measurement (mass/volume) 177 mg/dL 70-105 Serum or plasma calcium measurement (mass/volume) 9.1 mg/dL 8.5-10.1 Serum or plasma total bilirubin measurement (mass/volume) 1.7 mg/dL 0.1-1.0 Serum or plasma alkaline phosphatase measurement (enzymatic activity/volume) 57 U/L 40-136 Serum or plasma aspartate aminotransferase measurement (enzymatic activity/ volume) 19 U/L 5-34 Serum or plasma alanine aminotransferase measurement (enzymatic activity/volume ) 8 U/L 0-55 Serum or plasma protein measurement (mass/volume) 6.1 g/dL 6.4-8.2 Serum or plasma albumin measurement (mass/volume) 3.3 g/dL 3.2-4.5 Serum or plasma phosphate measurement (mass/volume) - 05/30/17 04:21 Serum or plasma phosphate measurement (mass/volume) 3.5 mg/dL 2.3-4.7 Magnesium - 05/30/17 04:21 Magnesium 2.3 mg/dL 1.8-2.4 Capillary blood glucose measurement by glucometer (mass/volume) - 05/30/17 12: 16 Capillary blood glucose measurement by glucometer (mass/volume) 141 mg/dL 70-110 Capillary blood glucose measurement by glucometer (mass/volume) - 05/30/17 16: 53 Capillary blood glucose measurement by glucometer (mass/volume) 162 mg/dL 70-110 Capillary blood glucose measurement by glucometer (mass/volume) - 05/30/17 20: 35 Capillary blood glucose measurement by glucometer (mass/volume) 175 mg/dL 70-110 Complete blood count (CBC) with automated white blood cell (WBC) differential - 05/31/17 05:30 Blood leukocytes automated count (number/volume) 7.3 10*3/uL 4.3-11.0 Blood erythrocytes automated count (number/volume) 3.27 10*6/uL 4.35-5.85 Venous blood hemoglobin measurement (mass/volume) 8.9 g/dL 11.5-16.0 Blood hematocrit (volume fraction) 31 % 35-52 Automated erythrocyte mean corpuscular volume 96 [foz_us] 80-99 Automated erythrocyte mean corpuscular hemoglobin (mass per erythrocyte) 27 pg 25-34 Automated erythrocyte mean corpuscular hemoglobin concentration measurement ( mass/volume) 28 g/dL 32-36 Automated erythrocyte distribution width ratio 17.7 % 10.0-14.5 Automated blood platelet count (count/volume) 170 10*3/uL 130-400 Automated blood platelet mean volume measurement 10.3 [foz_us] 7.4-10.4 Automated blood neutrophils/100 leukocytes 93 % 42-75 Automated blood lymphocytes/100 leukocytes 3 % 12-44 Blood monocytes/100 leukocytes 4 % 0-12 Automated blood eosinophils/100 leukocytes 0 % 0-10 Automated blood basophils/100 leukocytes 0 % 0-10 Blood neutrophils automated count (number/volume) 6.8 10*3 1.8-7.8 Blood lymphocytes automated count (number/volume) 0.2 10*3 1.0-4.0 Blood monocytes automated count (number/volume) 0.3 10*3 0.0-1.0 Automated eosinophil count 0.0 10*3/uL 0.0-0.3 Automated blood basophil count (count/volume) 0.0 10*3/uL 0.0-0.1 Comprehensive metabolic panel - 05/31/17 05:30 Serum or plasma sodium measurement (moles/volume) 140 mmol/L 135-145 Serum or plasma potassium measurement (moles/volume) 3.9 mmol/L 3.6-5.0 Serum or plasma chloride measurement (moles/volume) 96 mmol/L 98-107 Carbon dioxide 30 mmol/L 21-32 Serum or plasma anion gap determination (moles/volume) 14 mmol/L 5-14 Serum or plasma urea nitrogen measurement (mass/volume) 34 mg/dL 7-18 Serum or plasma creatinine measurement (mass/volume) 1.35 mg/dL 0.60-1.30 Serum or plasma urea nitrogen/creatinine mass ratio 25 NRG Serum or plasma creatinine measurement with calculation of estimated glomerular filtration rate 39 NRG Serum or plasma glucose measurement (mass/volume) 173 mg/dL 70-105 Serum or plasma calcium measurement (mass/volume) 9.1 mg/dL 8.5-10.1 Serum or plasma total bilirubin measurement (mass/volume) 1.5 mg/dL 0.1-1.0 Serum or plasma alkaline phosphatase measurement (enzymatic activity/volume) 60 U/L 40-136 Serum or plasma aspartate aminotransferase measurement (enzymatic activity/ volume) 18 U/L 5-34 Serum or plasma alanine aminotransferase measurement (enzymatic activity/volume ) 8 U/L 0-55 Serum or plasma protein measurement (mass/volume) 6.3 g/dL 6.4-8.2 Serum or plasma albumin measurement (mass/volume) 3.5 g/dL 3.2-4.5 Capillary blood glucose measurement by glucometer (mass/volume) - 05/31/17 06: 12 Capillary blood glucose measurement by glucometer (mass/volume) 194 mg/dL 70-110 Stool occult blood screen - 05/31/17 09:50 Stool gastrointestinal hemoglobin detection NEGATIVE NEGATIVE Capillary blood glucose measurement by glucometer (mass/volume) - 05/31/17 11: 13 Capillary blood glucose measurement by glucometer (mass/volume) 163 mg/dL 70-110 Encounters ACCT No. Visit Date/Time Discharge Status Pt. Type Provider Facility Loc./Unit Complaint [id number] 03/13/2018 00:10:00 03/13/2018 23:59:59 CLS Preadmit VIKAS HUBBARD MD [facility] ONC [id number] 12/16/2017 13:47:00 03/12/2018 00:01:00 DIS Outpatient VIKAS HUBBARD MD [facility] ONC [id number] 01/03/2018 11:52:00 01/03/2018 23:59:59 CLS Outpatient YANIRA TOLLIVER DO [facility] RAD LT LUNG DENSITY [id number] 12/13/2017 13:36:00 12/13/2017 23:59:59 CLS Outpatient VIKAS HUBBARD MD [facility] RAD R51 [id number] 07/18/2017 12:25:00 10/16/2017 00:01:00 DIS Outpatient VIKAS HUBBARD MD [facility] ONC [id number] 06/21/2017 09:01:00 06/22/2017 00:01:00 DIS Outpatient VIKAS HUBBARD MD [facility] ONC [id number] 06/04/2017 11:45:00 06/04/2017 23:59:59 CLS Preadmit VITALY LIGHT MD [facility] RAD ENDOMETRIAL CARCINOMA C54.1 [id number] 05/28/2017 19:37:00 05/28/2017 23:59:59 CLS Inpatient ORENDER DO, YANIRA S [facility] 4TH COPD EXACERBATION CHF [id number] 05/24/2017 11:39:00 05/24/2017 23:59:59 CLS Outpatient ORENDER DO, YANIRA S [facility] RAD R41.0 [id number] 05/24/2017 07:44:00 05/24/2017 11:27:00 DIS Emergency MARGARET GARZA, YOLANDA Dubon [facility] ER FALL [id number] 05/21/2017 11:25:00 05/21/2017 23:59:59 CLS Preadmit ORENDER DO, YANIRA S [facility] RAD R94.6 [id number] 05/17/2017 14:12:00 05/17/2017 23:59:59 CLS Outpatient ORENDER DO, YANIRA S [facility] CVS N17.9, D64.9, E11.40 [id number] 05/15/2017 13:24:00 05/15/2017 23:59:59 CLS Outpatient ORENDER DO, YANIRA S [facility] RAD N61.0 [id number] 04/29/2017 15:37:00 04/29/2017 23:59:59 CLS Outpatient ORENDER DO YANIRA S [facility] CVS ELEVATED CONFUSION AND INCONTINENCE [id number] 01/23/2017 13:52:00 01/29/2017 00:01:00 DIS Outpatient VITALY LIGHT MD [facility] ONC [id number] 12/06/2016 09:04:00 12/06/2016 23:59:59 CLS Outpatient VITALY LIGHT MD [facility] RAD ENDOMETRIAL CARCINOMA [id number] 11/06/2016 10:06:00 11/06/2016 23:59:59 CLS Outpatient VITALY LIGHT MD [facility] RAD ENDOMETRIAL CARCINOMA [id number] 08/01/2016 14:41:00 10/30/2016 00:01:00 DIS Outpatient VITALY LIGHT MD [facility] ONC [id number] 10/19/2016 17:21:00 10/19/2016 23:59:59 CLS Outpatient JOCY KAM YANIRA S [facility] RAD LT ANKLE EROSIONS [id number] 10/18/2016 15:09:00 10/18/2016 23:59:59 CLS Outpatient JOCY KAM YANIRA S [facility] RAD LEFT ANKLE PAIN [id number] 10/18/2016 10:20:00 10/18/2016 23:59:59 CLS Outpatient HORTENCIA SUMMERS L FASHION COORDINATOR [facility] LAB HTN,PAF,CHRONIC ANTICOAGULATION,DYSPNEA [id number] 10/18/2016 07:17:00 10/18/2016 23:59:59 CLS Outpatient KAMILLA SUMMERSHER L FASHION COORDINATOR [facility] CARD EXERTION DYSPNEA,HTN ,PAF [id number] 08/21/2016 16:20:00 08/23/2016 16:52:00 DIS Inpatient REDD TOLLIVER DOQUELINE S [facility] ICU ATRIAL FIBRILLATION, CONGESTIVE HEART FAILURE [id number] 05/29/2016 13:26:00 07/02/2016 13:23:00 DIS Outpatient VITALY LIGHT MD [facility] ONC [id number] 05/30/2016 12:30:00 06/01/2016 13:10:00 DIS Inpatient YANIRA TOLLIVER DO S [facility] 4TH ACUTE ON CHRONIC RENAL FAILURE [id number] 05/09/2016 10:59:00 05/09/2016 15:50:00 DIS Emergency NITA LEDBETTER, PRABHA Galvan [facility] ER LEFT ANKLE INJURY [id number] 03/28/2016 10:01:00 04/24/2016 00:01:00 DIS Outpatient VITALY LIGHT MD [facility] ONC [id number] 04/11/2016 03:25:00 04/17/2016 14:40:00 DIS Inpatient VICTOR HUGO HARTMANN MD [facility] 4TH LEFT DISLOCATED TIB/FIB FX,ACUTE ON CHRONIC RENAL [id number] 12/06/2015 13:54:00 12/06/2015 23:59:59 CLS Outpatient ELIZABETH CRUZ APRN [facility] RAD LT LEG SWELLING AND PAIN [id number] 11/10/2015 10:48:00 11/10/2015 23:59:59 CLS Outpatient YANIRA TOLLIVER DO S [facility] RAD DYSPNEA [id number] 07/07/2015 07:31:00 07/07/2015 14:45:00 DIS Outpatient VICTOR HUGO FUENTES DO [facility] SDC POST MENOPAUSAL BLEEDING; THICKENED ENDOMETRIUM [id number] 06/21/2015 13:45:00 06/21/2015 23:59:59 CLS Outpatient YANIRA TOLLIVER DO S [facility] RAD ABNORMAL MAMMOGRAM [id number] 06/13/2015 11:16:00 06/13/2015 23:59:59 CLS Outpatient YANIRA TOLLIVER DO S [facility] RAD LEFT BREAST DISCOLORATION POST MENAPAUSAL BLEEDING [id number] 07/15/2014 10:58:00 07/15/2014 23:59:59 CLS Outpatient YANIRA TOLLIVER DO S [facility] LAB MUSCLE DISORDER, DIABETES KIDNEY DISORDER [id number] 01/15/2014 04:30:00 01/18/2014 12:25:00 DIS Inpatient YANIRA TOLLIVER DO S [facility] 4TH PNEUMONIA, GENERALIZED WEAKNESS [id number] 01/03/2014 00:04:00 01/03/2014 16:40:00 DIS Inpatient YANIRA TOLLIVER DO [facility] 4TH UTI;GLOBAL WEAKNESS [id number] 10/15/2013 21:04:00 10/15/2013 22:42:00 DIS Emergency LUIS SULLIVAN APRN [facility] ER FELL AT HOME [id number] 07/04/2015 09:43:00 Document Registration [id number] 06/13/2015 11:16:00 Document Registration [id number] 06/13/2015 11:16:00 Document Registration [id number] 06/13/2015 11:16:00 Document Registration [id number] 11/06/2014 12:08:00 Document Registration [id number] 11/06/2014 12:08:00 Document Registration [id number] 11/06/2014 12:08:00 Document Registration [id number] 10/26/2012 21:43:00 Document Registration [id number] 10/10/2012 09:02:00 Document Registration [id number] 08/08/2012 11:33:00 Document Registration [id number] 09/21/2010 13:19:00 Document Registration [id number] 10/19/2009 15:02:00 Document Registration 06/09/11 03/13/2018 10:21:34 03/13/2018 23:59:59 CLS Outpatient Yanira Tolliver
[2018-04-01] MEDS ORDERED: CATHETER FLUSH 10 ML SYR IV PRN (23:45)
--- OUTSIDE RECORDS SUMMARY | 2018-04-01 23:47 | XMS REPORT | Continuity of Care Document ---
Author Author [facility] Organization [facility] Address Unknown Phone Unavailable Allergies Active Description Code Type Severity Reaction Onset Reported/Identified Relationship to Patient Clinical Status Yes ciprofloxacin [id number] Drug Allergy Unknown N/A 10/11/2008 Yes ofloxacin [id number] Drug Allergy Unknown N/A 10/11/2008 Yes levofloxacin [id number] Drug Allergy Moderate N/A 05/29/2017 Medications There [...] V57.1 PHYSICAL THERAPY NEC 10/15/2013 LUIS SULLIVAN BUSINESS DEAN Ot 959.09 INJURY OF FACE AND NECK 10/15/2013 LUIS SULLIVAN BUSINESS DEAN Ot 959.12 OTH INJURY OF ABDOMEN 10/15/2013 LUIS SULLIVAN BUSINESS DEAN Ot 959.19 OTH INJURY OF OTHER SITES OF TRUNK 10/15/2013 LUIS SULLIVAN BUSINESS DEAN Ot E000.8 OTHER EXTERNAL CAUSE STATUS 10/15/2013 LUIS SULLIVAN BUSINESS DEAN Ot E849.0 ACCIDENT IN HOME 10/15/2013 LUIS SULLIVAN BUSINESS DEAN Ot E884.6 FALL FROM COMMODE,TOILET 01/03/2014 YANIRA [...] REDD TOLLIVER DOQUELINE S Ot 728.9 [facility]A S Ot 611.79 06/16/2015 KATLYNNDER [...] ROZINA DEVI KAMLINE S Ot 627.1 07/06/2015 [facility] DEVI KAMLINE S Ot 611.79 07/06/2015 [facility] DEVI KAMLINE S Ot 627.1 07/07/2015 VICTOR [...] ELIZABETH CRUZ APRN Ot M79.89 01/26/2016 VITALY LIGHT MD Ot C54.1 MALIGNANT NEOPLASM [...] 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 04/13/2016 VICTOR HUGO HARTMANN MD, Ot E11.40 [...] 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 04/13/2016 VICTOR HUGO HARTMANN MD, Ot E11.40 [...] 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 04/13/2016 VICTOR HUGO HARTMANN MD, Ot E11.40 [...] HARTMANN MD Ot Y92.[address] IN [facility] NON-INSTITUT (PRIVATE 04/13/2016 VICTOR HUGO HARTMANN MD, Ot Y99.8 OTHER EXTERNAL CAUSE STATUS 04/13/2016 VICTOR HUGO HARTMANN MD, Ot Z68.42 BODY MASS INDEX (BMI) 45.0-49.9, ADULT 04/13/2016 VICTOR HUGO HARTMANN MD, Ot Z85.43 PERSONAL HISTORY OF MALIGNANT NEOPLASM O 04/14/2016 VICTOR HUGO HARTMANN MD, Ot 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 04/14/2016 VICTOR HUGO HARTMANN MD Ot E11.40 [...] HARTMANN MD, Ot Y92.[address] IN [facility] NON-INSTITUT (PRIVATE 04/14/2016 VICTOR HUGO HARTMANN MD, Ot Y99.8 OTHER EXTERNAL CAUSE STATUS 04/14/2016 VICTOR HUGO HARTMANN MD, Ot Z68.42 BODY MASS INDEX (BMI) 45.0-49.9, ADULT 04/14/2016 VICTOR HUGO HARTMANN MD Ot Z85.43 PERSONAL HISTORY OF MALIGNANT NEOPLASM O 04/16/2016 VICTOR HUGO HARTMANN MD Ot 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 04/16/2016 VICTOR HUGO HARTMANN MD, Ot E11.40 [...] 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 04/17/2016 VICTOR HUGO HARTMANN MD, Ot E11.40 [...] 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 04/17/2016 VICTOR HUGO HARTMANN MD, Ot E11.40 [...] OF LEFT L 04/17/2016 VICTOR HUGO HARTMANN MD Ot W19.XXXA UNSPECIFIED FALL, INITIAL ENCOUNTER 04/17/2016 VICTOR HUGO HARTMANN MD Ot Y92.[address] [facility] [address] IN [facility] NON-INSTITUT (PRIVATE 04/17/2016 VICTOR HUGO HARTMANN MD [...] Ot R51 HEADACHE 04/23/2016 ANTHONY ELIZABETH N BUSINESS DEAN Ot M79.662 PAIN IN LEFT LOWER LEG [...] IN LEFT LOWER LEG 04/23/2016 ELIZABETH CRUZ BUSINESS DEAN Ot M79.89 OTHER SPECIFIED SOFT TISSUE DISORDERS [...] YANIRA S Ot R05 COUGH 05/09/2016 JOCY KMA YANIRA S Ot R06.00 DYSPNEA, UNSPECIFIED 05/09/2016 JOCY KAM YANIRA S Ot R51 HEADACHE 05/09/2016 ELIZABETH CRUZ BUSINESS DEAN Ot M79.662 PAIN IN LEFT LOWER LEG 05/09/2016 ELIZABETH CRUZ BUSINESS DEAN Ot M79.89 OTHER SPECIFIED SOFT TISSUE DISORDERS [...] S Ot R51 HEADACHE 05/09/2016 ELIZABETH CRUZ BUSINESS DEAN Ot M79.662 PAIN IN LEFT LOWER LEG 05/09/2016 ELIZABETH CRUZ BUSINESS DEAN Ot M79.89 OTHER SPECIFIED SOFT TISSUE DISORDERS 05/09/2016 NADEGE GARZA, VITALY uDbon Ot C54.1 MALIGNANT NEOPLASM OF ENDOMETRIUM 05/09/2016 [...] MALIGNANT NEOPLASM OF ENDOMETRIUM 07/08/2016 ELIZABETH CRUZ BUSINESS DEAN Ot M79.662 PAIN IN LEFT LOWER LEG 07/08/2016 ELIZABETH CRUZ BUSINESS DEAN Ot M79.89 OTHER SPECIFIED SOFT TISSUE DISORDERS [...] 2 DIABETES MELLITUS WITHOUT COMPLIC 08/23/2016 YANIRA TOLLIVRE DO S Ot E66.2 MORBID (SEVERE) OBESITY WITH ALVEOLAR HY 08/23/2016 YANIRA TOLLIVER DO S Ot E83.42 HYPOMAGNESEMIA 08/23/2016 YANIRA TOLLIVER DO S Ot F32.9 MAJOR DEPRESSIVE DISORDER, SINGLE EPISOD 08/23/2016 YANIAR TOLLIVER DO S Ot F41.9 ANXIETY DISORDER, [...] MALIGNANT NEOPLASM OF ENDOMETRIUM 10/18/2016 HORTENCIA SUMMERS BLASTING CAP ASSEMBLER Ot R06.09 OTHER FORMS OF DYSPNEA 10/18/2016 HORTENCIA SUMMERS BLASTING CAP ASSEMBLER Ot R06.09 OTHER FORMS OF DYSPNEA 10/18/2016 HORTENCIA SUMMERS BLASTING CAP ASSEMBLER Ot I10 ESSENTIAL (PRIMARY) HYPERTENSION 10/18/2016 HORTENCIA SUMMERS BLASTING CAP ASSEMBLER Ot I48.0 PAROXYSMAL ATRIAL FIBRILLATION 10/18/2016 HORTENCIA SUMMERS BLASTING CAP ASSEMBLER Ot R06.09 OTHER FORMS OF DYSPNEA 10/18/2016 HORTENCIA SUMMERS BLASTING CAP ASSEMBLER Ot Z79.01 DETENTION (CURRENT) USE OF ANTICOAGULANT 10/18/2016 HORTENCIA SUMMERS L BLASTING CAP ASSEMBLER Ot I10 ESSENTIAL (PRIMARY) HYPERTENSION 10/18/2016 HORTENCIA SUMMERS BLASTING CAP ASSEMBLER Ot I48.0 PAROXYSMAL ATRIAL FIBRILLATION 10/18/2016 BAIMAHORTENCIA L BLASTING CAP ASSEMBLER Ot R06.09 OTHER FORMS OF DYSPNEA 10/18/2016 BAIMAKAMILLAHORTENCIA L BLASTING CAP ASSEMBLER Ot Z79.01 DETENTION (CURRENT) USE OF ANTICOAGULANT 10/18/2016 BAIMA HORTENCIA L BLASTING CAP ASSEMBLER Ot I10 ESSENTIAL (PRIMARY) HYPERTENSION 10/18/2016 BAIMA HORTENCIA L BLASTING CAP ASSEMBLER Ot I48.0 PAROXYSMAL ATRIAL FIBRILLATION 10/18/2016 BAIMA, HORTENCIA L BLASTING CAP ASSEMBLER Ot R06.09 OTHER FORMS OF DYSPNEA 10/18/2016 BAIMA, HORTENCIA L BLASTING CAP ASSEMBLER Ot Z79.01 DETENTION (CURRENT) USE OF ANTICOAGULANT 10/22/2016 BAIMA HORTENCIA L BLASTING CAP ASSEMBLER Ot I10 ESSENTIAL (PRIMARY) HYPERTENSION 10/22/2016 BAIMAKAMILLAHORTENCIA L BLASTING CAP ASSEMBLER Ot I48.0 PAROXYSMAL ATRIAL FIBRILLATION 10/22/2016 BAIMAKAMILLAHORTENCIA L BLASTING CAP ASSEMBLER Ot R06.09 OTHER FORMS OF DYSPNEA 10/22/2016 BAIMAHORTENCIA L BLASTING CAP ASSEMBLER Ot Z79.01 DETENTION (CURRENT) USE OF ANTICOAGULANT 10/22/2016 YANIRA TOLLIVER [...] MALIGNANT NEOPLASM OF ENDOMETRIUM 11/13/2016 BAIMAKAMILLAHORTENCIA L BLASTING CAP ASSEMBLER Ot I10 ESSENTIAL (PRIMARY) HYPERTENSION 11/13/2016 BAIMAKAMILLAHORTENCIA L BLASTING CAP ASSEMBLER Ot I48.0 PAROXYSMAL ATRIAL FIBRILLATION 11/13/2016 BAIMA, HORTENCIA L BLASTING CAP ASSEMBLER Ot R06.09 OTHER FORMS OF DYSPNEA 11/13/2016 BAIMA HORTENCIA L BLASTING CAP ASSEMBLER Ot Z79.01 SERVER DEVELOPER (CURRENT) USE OF ANTICOAGULANT 11/15/2016 HORTENCIA SUMMERS Ot I10 ESSENTIAL (PRIMARY) HYPERTENSION 11/15/2016 HORTENCIA SUMMERS Ot I48.0 PAROXYSMAL ATRIAL FIBRILLATION 11/15/2016 HORTENCIA SUMMERS Ot R06.09 OTHER FORMS OF DYSPNEA 11/15/2016 HORTENCIA SUMMERS Ot Z79.01 DETENTION (CURRENT) USE OF ANTICOAGULANT 11/15/2016 YANIRA TOLLIVER [...] Ot 728.9 MUSCLE/LIGAMENT DIS NOS 11/19/2016 YANIRA OTLLIVER DO Ot 611.79 SYMPTOMS IN BREAST NEC [...] DO Ot R51 HEADACHE 11/19/2016 ELIZABETH CRUZ BUSINESS DEAN Ot M79.662 PAIN IN LEFT LOWER LEG 11/19/2016 ELIZABETH CRUZ BUSINESS DEAN Ot M79.89 OTHER SPECIFIED SOFT TISSUE DISORDERS 11/19/2016 BAIMA, HORTENCIA L BLASTING CAP ASSEMBLER Ot I10 ESSENTIAL (PRIMARY) HYPERTENSION 11/19/2016 BAIMA, HORTENCIA L BLASTING CAP ASSEMBLER Ot I48.0 PAROXYSMAL ATRIAL FIBRILLATION 11/19/2016 BAIMA, HORTENCIA L BLASTING CAP ASSEMBLER Ot R06.09 OTHER FORMS OF DYSPNEA 11/19/2016 BAIMA, HORTENCIA L BLASTING CAP ASSEMBLER Ot Z79.01 SERVER DEVELOPER (CURRENT) USE OF ANTICOAGULANT 11/19/2016 BAIMA, HORTENCIA L BLASTING CAP ASSEMBLER Ot I10 ESSENTIAL (PRIMARY) HYPERTENSION 11/19/2016 BAIMA, HORTENCIA L BLASTING CAP ASSEMBLER Ot I48.0 PAROXYSMAL ATRIAL FIBRILLATION 11/19/2016 BAIMA, HORTENCIA L BLASTING CAP ASSEMBLER Ot R06.09 OTHER FORMS OF DYSPNEA 11/19/2016 BAIMA, HORTENCIA L BLASTING CAP ASSEMBLER Ot Z79.01 DETENTION (CURRENT) USE OF ANTICOAGULANT 11/19/2016 YANIRA TOLLIVER DO S Ot M25.572 PAIN IN LEFT ANKLE AND JOINTS OF LEFT FO 11/19/2016 YANIRA TOLLIVER DO Ot M85.872 [facility] DISRD OF BONE DENSITY AND STRUCTURE, 11/19/2016 [...] 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 01/29/2017 VITALY LIGHT MD Ot E66.01 MORBID [...] ADULT 01/29/2017 VITALY LIGHT MD Ot Z79.01 DETENTION (CURRENT) USE OF ANTICOAGULANT 01/29/2017 VITALY LIGHT MD Ot Z79.899 OTHER SERVER DEVELOPER (CURRENT) DRUG THERAPY 04/30/2017 KATLYNNDER DO, YANIRA [...] (SEVERE) OBESITY DUE TO EXCESS CA 05/27/2017 YOLANDA ROBLES MD Ot F32.9 MAJOR DEPRESSIVE [...] PERSONAL HISTORY OF (HEALED) TRAUMATIC F 05/27/2017 YOLANDA ROBLES MD Ot Z87.891 PERSONAL HISTORY [...] 05/29/2017 ROZINAHARVEY KAM YANIRA S Ot Z79.01 SERVER DEVELOPER (CURRENT) USE OF ANTICOAGULANT 05/29/2017 JOCY KAM YANIRA S Ot Z79.84 DETENTION (CURRENT) USE OF ORAL HYPOGLYC 05/29/2017 JOCY [...] BODY MASS INDEX (BMI) 60.0-69.9, ADULT 05/30/2017 YOALNDA ROBLES MD Ot Z87.81 PERSONAL HISTORY OF [...] ADULT 05/30/2017 YANIRA TOLLIVER DO Ot Z79.01 SERVER DEVELOPER (CURRENT) USE OF ANTICOAGULANT 05/30/2017 YANIRA TOLLIVER DO S Ot Z79.84 DETENTION (CURRENT) USE OF ORAL HYPOGLYC 05/30/2017 YANIRA [...] ADULT 05/30/2017 YANIRA TOLLIVER DO Ot Z79.01 SERVER DEVELOPER (CURRENT) USE OF ANTICOAGULANT 05/30/2017 YANIRA TOLLIVER DO S Ot Z79.84 SERVER DEVELOPER (CURRENT) USE OF ORAL HYPOGLYC 05/30/2017 YANIRA [...] 05/31/2017 YANIRA TOLLIVER DO S Ot Z79.01 SERVER DEVELOPER (CURRENT) USE OF ANTICOAGULANT 05/31/2017 DEVI TOLLIVER DOLINE S Ot Z79.84 DETENTION (CURRENT) USE OF ORAL HYPOGLYC 05/31/2017 YANIRA [...] 05/31/2017 YANIRA TOLLIVER DO S Ot Z79.01 DETENTION (CURRENT) USE OF ANTICOAGULANT 05/31/2017 DEVI TOLLIVER DOLINE S Ot Z79.84 SERVER DEVELOPER (CURRENT) USE OF ORAL HYPOGLYC 05/31/2017 DEVI [...] 2 DIABETES MELLITUS WITH DIABETIC N 06/07/2017 KALTYNNDER DO, YANIRA S Ot N17.9 ACUTE KIDNEY FAILURE, UNSPECIFIED 06/20/2017 VIKAS HUBBARD MD, Ot C54.1 MALIGNANT NEOPLASM OF ENDOMETRIUM 06/22/2017 VIKAS HUBBARD MD, Ot C54.1 MALIGNANT NEOPLASM OF ENDOMETRIUM 06/22/2017 VIKAS HUBBARD MD, Ot 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 06/22/2017 VIKAS HUBBARD MD Ot E66.01 MORBID [...] ADULT 06/22/2017 VIKAS HUBBARD MD, Ot Z79.01 SERVER DEVELOPER (CURRENT) USE OF ANTICOAGULANT 06/22/2017 VIKAS HUBBARD MD, Ot Z79.899 OTHER SERVER DEVELOPER (CURRENT) DRUG THERAPY 07/18/2017 ORENDER DO, YANIRA S Ot R41.0 DISORIENTATION, UNSPECIFIED 07/18/2017 ORENDER DO, YANIRA S Ot R41.3 OTHER AMNESIA 07/18/2017 ORENDER DO, YANIRA S Ot R94.6 ABNORMAL RESULTS OF THYROID FUNCTION AURELIANO 07/19/2017 VIKAS HUBBARD MD, Ot C54.1 MALIGNANT NEOPLASM OF ENDOMETRIUM 07/19/2017 VIKAS HUBBARD MD, Ot 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 07/19/2017 VIKAS HUBBARD MD, Ot E66.01 MORBID [...] ADULT 07/19/2017 VIKAS HUBBARD MD, Ot Z79.01 SERVER DEVELOPER (CURRENT) USE OF ANTICOAGULANT 07/19/2017 VIKAS HUBBARD MD, Ot Z79.899 OTHER SERVER DEVELOPER (CURRENT) DRUG THERAPY 08/16/2017 VIKAS HUBBARD MD, Ot C54.1 MALIGNANT NEOPLASM OF ENDOMETRIUM 08/16/2017 VIKAS HUBBARD MD, Ot 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 08/16/2017 VIKAS HUBBARD MD Ot E66.01 MORBID [...] ADULT 08/16/2017 VIKAS HUBBARD MD Ot Z79.01 SERVER DEVELOPER (CURRENT) USE OF ANTICOAGULANT 08/16/2017 VIKAS HUBBARD MD Ot Z79.899 OTHER SERVER DEVELOPER (CURRENT) DRUG THERAPY 10/16/2017 VIKAS HUBBARD MD, Ot C54.1 MALIGNANT NEOPLASM OF ENDOMETRIUM 10/16/2017 VIKAS HUBBARD MD Ot 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 10/16/2017 VIKAS HUBBARD MD Ot E66.01 MORBID (SEVERE) OBESITY DUE TO EXCESS CA 10/16/2017 VIKAS HUBBARD MD, Ot F32.9 MAJOR DEPRESSIVE [...] ADULT 10/16/2017 VIKAS HUBBARD MD Ot Z79.01 SERVER DEVELOPER (CURRENT) USE OF ANTICOAGULANT 10/16/2017 VIKAS HUBBARD MD, Ot Z79.899 OTHER DETENTION (CURRENT) DRUG THERAPY 10/17/2017 VIKAS HUBBARD MD, Ot C54.1 MALIGNANT NEOPLASM OF ENDOMETRIUM 10/17/2017 VIAKS HUBBARD MD Ot 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 10/17/2017 VIKAS HUBBARD MD Ot E66.01 MORBID [...] ADULT 10/17/2017 VIKAS HUBBARD MD Ot Z79.01 SERVER DEVELOPER (CURRENT) USE OF ANTICOAGULANT 10/17/2017 VIKAS HUBBARD MD, Ot Z79.899 OTHER DETENTION (CURRENT) DRUG THERAPY 12/13/2017 VIKAS HUBBARD MD, Ot C54.1 MALIGNANT NEOPLASM OF ENDOMETRIUM 12/13/2017 VIKAS HUBBARD MD Ot 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 12/13/2017 VIKAS HUBBARD MD Ot E66.01 MORBID [...] ADULT 12/13/2017 VIKAS HUBBARD MD Ot Z79.01 SERVER DEVELOPER (CURRENT) USE OF ANTICOAGULANT 12/13/2017 VIKAS HUBBARD MD Ot Z79.899 OTHER DETENTION (CURRENT) DRUG THERAPY 12/16/2017 VIKAS HUBBARD MD [...] S Ot R51 HEADACHE 01/01/2018 ELIZABETH CRUZ BUSINESS DEAN Ot M79.662 PAIN IN LEFT LOWER LEG 01/01/2018 ELIZABETH CRUZ BUSINESS DEAN Ot M79.89 OTHER SPECIFIED SOFT TISSUE DISORDERS 01/01/2018 BAIMA, HORTENCIA L BLASTING CAP ASSEMBLER Ot I10 ESSENTIAL (PRIMARY) HYPERTENSION 01/01/2018 BAIMA, HORTENCIA L BLASTING CAP ASSEMBLER Ot I48.0 PAROXYSMAL ATRIAL FIBRILLATION 01/01/2018 BAIMA, HORTENCIA L BLASTING CAP ASSEMBLER Ot R06.09 OTHER FORMS OF DYSPNEA 01/01/2018 BAIMA, HORTENCIA L BLASTING CAP ASSEMBLER Ot Z79.01 SERVER DEVELOPER (CURRENT) USE OF ANTICOAGULANT 01/01/2018 BAIMA, HORTENCIA L BLASTING CAP ASSEMBLER Ot I10 ESSENTIAL (PRIMARY) HYPERTENSION 01/01/2018 BAIMA, HORTENCIA L BLASTING CAP ASSEMBLER Ot I48.0 PAROXYSMAL ATRIAL FIBRILLATION 01/01/2018 BAIMA, HORTENCIA L BLASTING CAP ASSEMBLER Ot R06.09 OTHER FORMS OF DYSPNEA 01/01/2018 BAIMA, HORTENCIA L BLASTING CAP ASSEMBLER Ot Z79.01 SERVER DEVELOPER (CURRENT) USE OF ANTICOAGULANT 01/01/2018 YANIRA TOLLIVER [...] 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 01/01/2018 VIKAS HUBBARD MD, Ot E66.01 MORBID [...] HUBBARD MD, Ot R51 HEADACHE 01/01/2018 VIKAS HBUBARD MD, Ot Z68.41 BODY MASS INDEX (BMI) 40.0-44.9, ADULT 01/01/2018 VIKAS HUBBARD MD, Ot Z79.01 SERVER DEVELOPER (CURRENT) USE OF ANTICOAGULANT 01/01/2018 VIKAS HUBBARD MD Ot Z79.899 OTHER DETENTION (CURRENT) DRUG THERAPY 01/01/2018 VIKAS HUBBARD MD [...] SPECIFIED SOFT TISSUE DISORDERS 01/03/2018 HORTENCIA SUMMERS BLASTING CAP ASSEMBLER Ot I10 ESSENTIAL (PRIMARY) HYPERTENSION 01/03/2018 HORTENCIA SUMMERS BLASTING CAP ASSEMBLER Ot I48.0 PAROXYSMAL ATRIAL FIBRILLATION 01/03/2018 BAIHORTENCIA HUNTLEY BLASTING CAP ASSEMBLER Ot R06.09 OTHER FORMS OF DYSPNEA 01/03/2018 HORTENCIA SUMMERS BLASTING CAP ASSEMBLER Ot Z79.01 DETENTION (CURRENT) USE OF ANTICOAGULANT 01/03/2018 BAIHORTENCIA HUNTLEY BLASTING CAP ASSEMBLER Ot I10 ESSENTIAL (PRIMARY) HYPERTENSION 01/03/2018 BAIHORTENCIA HUNTLEY BLASTING CAP ASSEMBLER Ot I48.0 PAROXYSMAL ATRIAL FIBRILLATION 01/03/2018 BAIMAHORTENCIA BLASTING CAP ASSEMBLER Ot R06.09 OTHER FORMS OF DYSPNEA 01/03/2018 BAIHORTENCIA HUNTLEY BLASTING CAP ASSEMBLER Ot Z79.01 SERVER DEVELOPER (CURRENT) USE OF ANTICOAGULANT 01/03/2018 DEVI TOLLIVER [...] 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 01/03/2018 VIKAS HUBBARD MD, Ot E66.01 MORBID [...] MASS INDEX (BMI) 40.0-44.9, ADULT 01/03/2018 VIKAS HUBBARD MD, Ot Z79.01 SERVER DEVELOPER (CURRENT) USE OF ANTICOAGULANT 01/03/2018 VIKAS HUBBARD MD, Ot Z79.899 OTHER SERVER DEVELOPER (CURRENT) DRUG THERAPY 01/03/2018 VIKAS HUBBARD MD, [...] 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 01/15/2018 VIKAS HUBBARD MD, Ot E66.01 MORBID [...] ADULT 01/15/2018 VIKAS HUBBARD MD, Ot Z79.01 SERVER DEVELOPER (CURRENT) USE OF ANTICOAGULANT 01/15/2018 VIKAS HUBBARD MD, Ot Z79.899 OTHER SERVER DEVELOPER (CURRENT) DRUG THERAPY 01/24/2018 YANIRA TOLLIVER DO [...] 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 03/12/2018 VIKAS HUBBARD MD, Ot E66.01 MORBID [...] ADULT 03/12/2018 VIKAS HUBBARD MD, Ot Z79.01 DETENTION (CURRENT) USE OF ANTICOAGULANT 03/12/2018 VIKAS HUBBARD MD, Ot Z79.899 OTHER DETENTION (CURRENT) DRUG THERAPY 03/14/2018 VIKAS HUBBARD MD, Ot C54.1 MALIGNANT NEOPLASM OF ENDOMETRIUM 03/14/2018 VIKAS HUBBARD MD, Ot D61.818 OTHER PANCYTOPENIA 03/14/2018 VIKAS HUBBARD MD Ot 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 03/14/2018 VIKAS HUBBARD MD, Ot E66.01 MORBID [...] ADULT 03/14/2018 VIKAS HUBBARD MD, Ot Z79.01 SERVER DEVELOPER (CURRENT) USE OF ANTICOAGULANT 03/14/2018 VIKAS HUBBARD MD, Ot Z79.899 OTHER DETENTION (CURRENT) DRUG THERAPY Procedures Code Description Performed By Performed On [id number] REPOSITION LEFT FIBULA WITH INT FIX, OPE [...] LEUKO REDUCED AS1 TRANSFUSED 05/31/16 1421 NRG [id number] - 05/30/16 07:00 [id number] SPECIMEN AVAILABLE [facility] Blood type T Indirect antibody screen panel - 05/30/16 07:00 ABO+Rh group AP NR Transfusion band number [id number] [facility] Blood group antibody screen NEGATIVE [facility] Capillary blood glucose measurement by glucometer (mass/volume) [...] culture - 08/21/16 21:15 Bacterial urine culture [id number] NRG COLONY COUNT 10,000/ML - 100,000/ML NRG FTX;REPORTABLE SENSITIVITY REPORTED AT 0856, 12-1-16 [facility] Bacterial susceptibility panel - 08/21/16 21:15 Gentamicin [...] susceptibility test by minimum inhibitory concentration - [facility] Complete blood count (CBC) with automated white [...] culture - 04/29/17 00:00 Bacterial urine culture [id number] NR COLONY COUNT 10,000/ML - 100,000/ML NRG FTX;REPORTABLE SENSITIVITY REPORTED 04/30 16:30 [facility] Bacterial susceptibility panel - 04/29/17 00:00 Gentamicin [...] susceptibility test by minimum inhibitory concentration - [facility] Bacterial susceptibility panel - 04/29/17 00:00 Gentamicin [...] Amikacin susceptibility test by minimum inhibitory concentration [facility] Complete blood count (CBC) with [...] Status Pt. Type Provider Facility Loc./Unit Complaint [id number] 03/13/2018 00:10:00 03/13/2018 23:59:59 CLS Preadmit VIKAS HUBBARD MD [facility] ONC [id number] 12/16/2017 13:47:00 03/12/2018 00:01:00 DIS Outpatient VIKAS HUBBARD MD [facility] ONC [id number] 01/03/2018 11:52:00 01/03/2018 23:59:59 CLS Outpatient YANIRA TOLLIVER DO [facility] RAD LT LUNG DENSITY [id number] 12/13/2017 13:36:00 12/13/2017 23:59:59 CLS Outpatient VIKAS HUBBARD MD [facility] RAD R51 [id number] 07/18/2017 12:25:00 10/16/2017 00:01:00 DIS Outpatient VIKAS HUBBARD MD [facility] ONC [id number] 06/21/2017 09:01:00 06/22/2017 00:01:00 DIS Outpatient VIKAS HUBBARD MD [facility] ONC [id number] 06/04/2017 11:45:00 06/04/2017 23:59:59 CLS Preadmit VITALY LIGHT MD [facility] RAD ENDOMETRIAL CARCINOMA C54.1 [id number] 05/28/2017 19:37:00 05/28/2017 23:59:59 CLS Inpatient ORENDER DO, YANIRA S [facility] 4TH COPD EXACERBATION CHF [id number] 05/24/2017 11:39:00 05/24/2017 23:59:59 CLS Outpatient ORENDER DO, YANIRA S [facility] RAD R41.0 [id number] 05/24/2017 07:44:00 05/24/2017 11:27:00 DIS Emergency MARGARET GARZA, YOLANDA Dubon [facility] ER FALL [id number] 05/21/2017 11:25:00 05/21/2017 23:59:59 CLS Preadmit ORENDER DO, YANIRA S [facility] RAD R94.6 [id number] 05/17/2017 14:12:00 05/17/2017 23:59:59 CLS Outpatient ORENDER DO, YANIRA S [facility] CVS N17.9, D64.9, E11.40 [id number] 05/15/2017 13:24:00 05/15/2017 23:59:59 CLS Outpatient ORENDER DO, YANIRA S [facility] RAD N61.0 [id number] 04/29/2017 15:37:00 04/29/2017 23:59:59 CLS Outpatient ORENDER DO YANIRA S [facility] CVS ELEVATED CONFUSION AND INCONTINENCE [id number] 01/23/2017 13:52:00 01/29/2017 00:01:00 DIS Outpatient VITALY LIGHT MD [facility] ONC [id number] 12/06/2016 09:04:00 12/06/2016 23:59:59 CLS Outpatient VITALY LIGHT MD [facility] RAD ENDOMETRIAL CARCINOMA [id number] 11/06/2016 10:06:00 11/06/2016 23:59:59 CLS Outpatient VITALY LIGHT MD [facility] RAD ENDOMETRIAL CARCINOMA [id number] 08/01/2016 14:41:00 10/30/2016 00:01:00 DIS Outpatient VITALY LIGHT MD [facility] ONC [id number] 10/19/2016 17:21:00 10/19/2016 23:59:59 CLS Outpatient JOCY KAM YANIRA S [facility] RAD LT ANKLE EROSIONS [id number] 10/18/2016 15:09:00 10/18/2016 23:59:59 CLS Outpatient JOCY KAM YANIRA S [facility] RAD LEFT ANKLE PAIN [id number] 10/18/2016 10:20:00 10/18/2016 23:59:59 CLS Outpatient HORTENCIA SUMMERS L BLASTING CAP ASSEMBLER [facility] LAB HTN,PAF,CHRONIC ANTICOAGULATION,DYSPNEA [id number] 10/18/2016 07:17:00 10/18/2016 23:59:59 CLS Outpatient KAMILLA SUMMERSHER L [employer]ING [employer] [facility] CARD EXERTION DYSPNEA,HTN ,PAF [id number] 08/21/2016 16:20:00 08/23/2016 16:52:00 DIS Inpatient REDD TOLLIVER DOQUELINE S [facility] ICU ATRIAL FIBRILLATION, CONGESTIVE HEART FAILURE [id number] 05/29/2016 13:26:00 07/02/2016 13:23:00 DIS Outpatient VITALY LIGHT MD [facility] ONC [id number] 05/30/2016 12:30:00 06/01/2016 13:10:00 DIS Inpatient YANIRA TOLLIVER DO S [facility] 4TH ACUTE ON CHRONIC RENAL FAILURE [id number] 05/09/2016 10:59:00 05/09/2016 15:50:00 DIS Emergency NITA LEDBETTER, PRABHA Galvan [facility] ER LEFT ANKLE INJURY [id number] 03/28/2016 10:01:00 04/24/2016 00:01:00 DIS Outpatient VITALY LIGHT MD [facility] ONC [id number] 04/11/2016 03:25:00 04/17/2016 14:40:00 DIS Inpatient VICTOR HUGO HARTMANN MD [facility] 4TH LEFT DISLOCATED TIB/FIB FX,ACUTE ON CHRONIC RENAL [id number] 12/06/2015 13:54:00 12/06/2015 23:59:59 CLS Outpatient ELIZABETH CRUZ APRN [facility] RAD LT LEG SWELLING AND PAIN [id number] 11/10/2015 10:48:00 11/10/2015 23:59:59 CLS Outpatient YANIRA TOLLIVER DO S [facility] RAD DYSPNEA [id number] 07/07/2015 07:31:00 07/07/2015 14:45:00 DIS Outpatient VICTOR HUGO FUENTES DO [facility] SDC POST MENOPAUSAL BLEEDING; THICKENED ENDOMETRIUM [id number] 06/21/2015 13:45:00 06/21/2015 23:59:59 CLS Outpatient YANIRA TOLLIVER DO S [facility] RAD ABNORMAL MAMMOGRAM [id number] 06/13/2015 11:16:00 06/13/2015 23:59:59 CLS Outpatient YANIRA TOLLIVER DO S [facility] RAD LEFT BREAST DISCOLORATION POST MENAPAUSAL BLEEDING [id number] 07/15/2014 10:58:00 07/15/2014 23:59:59 CLS Outpatient YANIRA TOLLIVER DO S [facility] LAB MUSCLE DISORDER, DIABETES KIDNEY DISORDER [id number] 01/15/2014 04:30:00 01/18/2014 12:25:00 DIS Inpatient YANIRA TOLLIVER DO S [facility] 4TH PNEUMONIA, GENERALIZED WEAKNESS [id number] 01/03/2014 00:04:00 01/03/2014 16:40:00 DIS Inpatient YANIRA TOLLIVER DO [facility] 4TH UTI;GLOBAL WEAKNESS [id number] 10/15/2013 21:04:00 10/15/2013 22:42:00 DIS Emergency LUIS SULLIVAN APRN [facility] ER FELL AT HOME [id number] 07/04/2015 09:43:00 Document Registration [id number] 06/13/2015 11:16:00 Document Registration [id number] 06/13/2015 11:16:00 Document Registration [id number] 06/13/2015 11:16:00 Document Registration [id number] 11/06/2014 12:08:00 Document Registration [id number] 11/06/2014 12:08:00 Document Registration [id number] 11/06/2014 12:08:00 Document Registration [id number] 10/26/2012 21:43:00 Document Registration [id number] 10/10/2012 09:02:00 Document Registration [id number] 08/08/2012 11:33:00 Document Registration [id number] 09/21/2010 13:19:00 Document Registration [id number] 10/19/2009 15:02:00 Document Registration 06/09/11 03/13/2018 10:21:34 03/13/2018 23:59:59 CLS Outpatient Yanira Tolliver
[2018-04-02] MEDS ORDERED: SODIUM CHLORIDE IV SCH ×2
[2018-04-02] MEDS ORDERED: CEFTRIAXONE IV SCH ×2
[2018-04-02 00:07] VITALS: BP 138/71
[2018-04-02] MEDS ORDERED: NS (IVPB) 50 ML ONE (00:13)
[2018-04-02] MEDS ORDERED: cefTRIAXone 1 GM (ROCEPHIN) VIAL ONE (00:13)
[2018-04-02] MEDS: cefTRIAXone INJECTION 1,000 MG in NS (IVPB) 50 ML IV SCH ×2 (00:22→23:40)
[2018-04-02] MEDS ORDERED: RT-ALBUTEROL/IPRATROPIUM 3 ML (DUONEB) VIAL ONE (02:39)
[2018-04-02] MEDS: RT-ALBUTEROL/IPRATROPIUM 3 ML (DUONEB) VIAL INH SCH ×6 (02:42→22:19)
[2018-04-02 04:09] VITALS: BP 138/71
[2018-04-02] MEDS: CATHETER FLUSH 10 ML SYR IV SCH ×3 (05:32→21:02)
[2018-04-02] MEDS: methylPREDNISolone 125 MG (Solu-MEDROL) VIAL IV SCH ×3 (05:32→21:02)
[2018-04-02 06:13] LABS: BASOPHILS % (AUTO) 0 % (0-10); EOSINOPHILS % (AUTO) 0 % (0-10); HEMATOCRIT 36 % (35-52); HEMOGLOBIN 10.7 G/DL (11.5-16.0); LYMPHOCYTES # (AUTO) 0.4 X 10^3 (1.0-4.0); LYMPHOCYTES % (AUTO) 5 % (12-44); MEAN CORPUSCULAR HEMOGLOBIN 28 PG (25-34); MEAN CORPUSCULAR HGB CONC 30 G/DL (32-36); MEAN CORPUSCULAR VOLUME 96 FL (80-99); MONOCYTES # (AUTO) 0.1 X 10^3 (0.0-1.0); MONOCYTES % (AUTO) 1 % (0-12); NEUTROPHILS # (AUTO) 7.2 X 10^3 (1.8-7.8); NEUTROPHILS % (AUTO) 94 % (42-75); PLATELET COUNT 168 10^3/uL (130-400); RED BLOOD COUNT 3.78 10^6/uL (4.35-5.85); RED CELL DISTRIBUTION WIDTH 17.1 % (10.0-14.5); WHITE BLOOD COUNT 7.7 10^3/uL (4.3-11.0)
[2018-04-02 06:44] LABS: ALBUMIN 3.5 GM/DL (3.2-4.5); BILIRUBIN,TOTAL 0.6 MG/DL (0.1-1.0); CALCIUM 9.8 MG/DL (8.5-10.1); CREATININE SERUM 1.64 MG/DL (0.60-1.30); TOTAL PROTEIN 6.7 GM/DL (6.4-8.2)
[2018-04-02 07:09] LABS: NEUTROPHILS % (MANUAL) 89 %
[2018-04-02 07:10] LABS: ANISOCYTOSIS SLIGHT; BAND NEUTROPHILS 5 %; LYMPHOCYTES % (MANUAL) 3 %; MICROCYTOSIS SLIGHT; MONOCYTES % (MANUAL) 3 %; POIKILOCYTOSIS SLIGHT; POLYCHROMASIA SLIGHT; SPHEROCYTES SLIGHT
[2018-04-02 08:00] VITALS: BP 134/63
[2018-04-02] MEDS ORDERED: ALPR0.5T PO (08:54)
[2018-04-02] MEDS ORDERED: ATOR20TA66 PO (08:54)
[2018-04-02] MEDS ORDERED: OMEP20CA12 PO (08:54)
[2018-04-02] MEDS ORDERED: ALPR0.25 PO (08:54)
[2018-04-02] MEDS ORDERED: IPRA3AMP31 IH (08:54)
[2018-04-02] MEDS ORDERED: MULT-640 PO (08:54)
[2018-04-02] MEDS ORDERED: HYDR-3820 PO ×3 (08:54)
--- NOTE | 2018-04-02 09:26 | History & Physical-Hospitalist ---
History of Present Illness HPI/Chief Complaint Pt is a 72CF with a PMH of COPD who presented to the ER due to "breathing troubles." She is able to answer some questions but seems slightly confused and believes her is admitted as well and wants to see him. She does know that she came because she was feeling short of breath but is unsure how long this has been going on. She was found to be hypoxia at the alf reportedly with oxygen sats in the 40s. Per EMS note her sats were 87% and joe to >90% here because she was requiring 6lpm (up from her baseline of 3lpm.) She denies any cough or shortness of breath currently. Source: patient Exam Limitations: clinical condition Date Seen 04/02/18 Time Seen by Provider: 08:50 Attending Physician Stefan Hernandez MD PCP Yanira Tolliver DO Referring Physician Date of Admission Apr 01, 2018 at 22:00 Home Medications & Allergies Home Medications Reviewed patient Home Medication Reconciliation performed by pharmacy medication reconciliations hospital pharmacy technician and/or nursing. Patients Allergies have been reviewed. Allergies Allergies Coded Allergies levofloxacin (Verified Allergy, Intermediate, 05/29/17) ciprofloxacin (Verified Allergy, Unknown, 10/11/08) ofloxacin (Verified Allergy, Unknown, 10/11/08) Past Ayjszwc-Gdmvui-Zfhlop Hx Past Med/Social Hx: Reviewed Nursing Past Med/Soc Hx Patient Social History Marrital Status: Employed/Student: unemployed Alcohol Use: Denies Use Recreational Drug Use: No Smoking Status: Former Smoker Former Smoker, Quit: Sep 23, 2007 Type Used: Cigarettes 2nd Hand Smoke Exposure: No Physical Abuse Screen: No Sexual Abuse: No Recent Foreign Travel: No Contact w/other who traveled: No Recent Hopitalizations: No Recent Infectious Disease Expo: No Immunizations Up To Date Tetanus Booster (TDap): Unknown Pediatric: No Date of Pneumonia Vaccine: Sep 23, 2012 Date of Influenza Vaccine: Jul 27, 2016 Seasonal Allergies Seasonal Allergies: No Past Medical History Surgeries: Orthopedic Respiratory: Asthma, COPD Currently Using CPAP: No Currently Using BIPAP: No Cardiac: Hypertension : No Reproductive: Yes (PMB) Sexually Transmitted Disease: No HIV/AIDS: No Female Reproductive Disorders: Endometriosis Menopausal Genitourinary: Renal Failure, UTI-Chronic Gastrointestinal: Gastroesophageal Reflux Musculoskeletal: Degenerate Disk Disease, Arthritis, Chronic Back Pain, Fractures Endocrine: Diabetes, Non-Insulin dep Loss of Vision: Denies Cancer: Ovarian, Uterine Psychosocial: Sleep Difficulties, Anxiety, Depression History of Blood Disorders: No Adverse Reaction to Blood Benson: No Family History Reviewed Nursing Family Hx Cancer 03 MOTHER 09 SISTER Family history: Breast disease 09 SISTER No Pertinent Family Hx Review of Systems Constitutional: see HPI EENTM: no symptoms reported Respiratory: cough, short of breath Cardiovascular: no symptoms reported Gastrointestinal: no symptoms reported Musculoskeletal: no symptoms reported Skin: no symptoms reported Psychiatric/Neurological: No Symptoms Reported Physical Exam Physical Exam Vital Signs Vital Signs - First Documented 04/01/18 20:50 Temp 100.6 Pulse 84 Resp 16 B/P (MAP) 133/74 (93) Pulse Ox 91 O2 Delivery Nasal Cannula O2 Flow Rate 6.00 Capillary Refill : Less Than 3 Seconds Height, Weight, BMI Height: 4'10.00" Weight: 244lbs.[id number]; 51.0 BMI Method:Estimated General Appearance: WD/WN, Chronically ill Respiratory: Lungs Clear, No Respiratory Distress Cardiovascular: Regular Rate, Rhythm, No Murmur Gastrointestinal: Normal Bowel Sounds, Non Tender, Soft Extremity: No Calf Tenderness, No Pedal Edema Neurologic/Psychiatric: Alert, Disoriented (at baseline) Results Results/Procedures Labs Laboratory Tests 04/01/18 20:55 04/02/18 05:08 Patient resulted labs reviewed. Imaging: Reviewed Imaging Report Assessment/Plan Admission Diagnosis Acute COPD exacerbation Admission Status: Inpatient Order (span 2 midnights) Reason for Inpatient Admission: IV steroids Diagnosis/Problems Diagnosis/Problems (1) COPD exacerbation Assessment & Plan: Continue Steroids MAT protocol Symptoms improving Now nearly back to her baseline oxygen requirement of 3lpm (2) UTI (urinary tract infection) Status: Acute Assessment & Plan: Started on Rocephin in ER, will continue await culture previous cultures grew proteus and e coli both sensitive to Rocephin Qualifiers: Urinary tract infection type: acute cystitis Hematuria presence: with hematuria Qualified Codes: N30.01 - Acute cystitis with hematuria (3) Atrial fibrillation Assessment & Plan: in history here On Xarelto Currently in sinus Qualifiers: Atrial fibrillation type: paroxysmal Qualified Codes: I48.0 - Paroxysmal atrial fibrillation (4) History of DVT in adulthood Assessment & Plan: Per report from Dr Tolliver Continue Xarelto Clinical Quality Measures DVT/VTE Risk/Contraindication: Risk Factor Score Per Nursin RFS Level Per Nursing on Admit: 4+=Very High JIL STEVENS MD Apr 02, 2018 09:26
[2018-04-02 12:00] VITALS: BP 116/56
[2018-04-02] MEDS ORDERED: [UNRECOGNIZED DRUG - OTHER] PO PRN (15:00)
[2018-04-02] MEDS ORDERED: HYDROcodone/APAP 10 MG/325 MG (LORTAB) TAB PO PRN (15:00)
[2018-04-02] MEDS ORDERED: DEXTROMETHORPHAN PO PRN (15:00)
[2018-04-02] MEDS ORDERED: MILK OF MAGNESIA 400 MG/5 ML 30 ML UDC PO PRN (15:00)
[2018-04-02] MEDS ORDERED: GUAIFENESIN PO PRN (15:00)
[2018-04-02] MEDS ORDERED: guaiFENesin/DM (ROBITUSSIN DM) 10 ML UDC PO PRN (15:15)
[2018-04-02 15:40] VITALS: BP 129/57
[2018-04-02] MEDS ORDERED: RIVAROXABAN 20 MG TABLET (XARELTO) PO SCH (18:00)
[2018-04-02 19:55] VITALS: BP 144/59
[2018-04-02] MEDS ORDERED: ALPRAZolam 0.5 MG (XANAX) TAB PO SCH (21:00)
[2018-04-02] MEDS ORDERED: ATORVASTATIN 20 MG (LIPITOR) TABLET PO SCH (21:00)
[2018-04-03] VITALS: BP 106/54
[2018-04-03] MEDS: RT-ALBUTEROL/IPRATROPIUM 3 ML (DUONEB) VIAL INH SCH ×4 (02:30→13:12)
[2018-04-03 04:54] VITALS: BP 146/91
[2018-04-03] MEDS: methylPREDNISolone 125 MG (Solu-MEDROL) VIAL IV SCH (05:21)
[2018-04-03] MEDS: CATHETER FLUSH 10 ML SYR IV SCH ×2 (05:22→12:46)
[2018-04-03 08:00] VITALS: BP 142/72
[2018-04-03] MEDS ORDERED: KCL 20 MEQ TAB (K-DUR) PO SCH (08:00)
[2018-04-03] MEDS ORDERED: GABAPENTIN 300 MG (NEURONTIN) CAP PO SCH (09:00)
[2018-04-03] MEDS ORDERED: ALPRAZolam 0.25 MG (XANAX) TAB PO SCH (09:00)
[2018-04-03] MEDS ORDERED: FUROSEMIDE 40 MG (LASIX) TAB PO SCH (09:00)
[2018-04-03] MEDS ORDERED: PRD20T PO (10:00)
--- NOTE | 2018-04-03 10:10 | Discharge Inst-Simple/Standard ---
Discharge Inst-Standard Patient Instructions/Follow Up Plan of Care/Instructions/FU: Please continue to take your medications as written. Please follow up as scheduled with your doctor. Activity as Tolerated: Yes Discharge Diet: No Restrictions Return to The Hospital For: SOB, Chest pain, fever, confusion, or if you feel you are getting worse. JIL STEVENS MD Apr 03, 2018 10:09
[2018-04-03 12:00] VITALS: BP 128/56
[2018-04-03] MEDS: cefTRIAXone INJECTION 1,000 MG in NS (IVPB) 50 ML IV SCH (12:45)
[2018-04-03 14:15] VITALS: BP 128/56
--- NOTE | 2018-04-03 14:55 | Discharge Summary-Hospitalist ---
Diagnosis/Chief Complaint Date of Admission Apr 01, 2018 at 10:00 pm Date of Discharge Apr 03, 2018 at 2:15 pm Discharge Date: Apr 03, 2018 Admission Diagnosis Acute COPD exacerbation Discharge Diagnosis (1) COPD exacerbation Assessment & Plan: Continue Steroids MAT protocol Symptoms improving Now back to her baseline oxygen requirement of 3lpm (2) UTI (urinary tract infection) Status: Acute Assessment & Plan: Started on Rocephin in ER, completed 3 day course fo uncomplicated cystitis (3) Atrial fibrillation Assessment & Plan: in history here On Xarelto Currently in sinus (4) History of DVT in adulthood Assessment & Plan: Per report from Dr Tolliver Continue Xarelto Discharge Summary Discharge Physical Exam Allergies: Coded Allergies: levofloxacin (Verified Allergy, Intermediate, 05/29/17) ciprofloxacin (Verified Allergy, Unknown, 10/11/08) ofloxacin (Verified Allergy, Unknown, 10/11/08) Vitals & I&Os Vital Signs Date Time Temp Pulse Resp B/P (MAP) Pulse Ox O2 Delivery O2 Flow Rate FiO2 04/03/18 14:15 68 18 128/56 95 Nasal Cannula 4.00 04/03/18 12:00 98.2 General Appearance: Alert, Cooperative Respiratory: Clear to Auscultation Cardiovascular: Regular Rate Hospital Course Pt was admitted for COPD Exacerbation. She was treated with steroids and increased frequency of duonebs and responded well. Her oxygen requirement returned to her baseline of 3lpm. I discussed her case wtih Dr Tolliver who had taken care of her until recently. She is to return to the custodial and plans to establish care with the ophthalmic medical technologist, Dr Pike. She felt well and was ready for DC on day of discharge. She is to complete a steroid burst at the custodial. Labs (last 24 hrs) Microbiology 04/01/18 Blood Culture - Preliminary, Resulted No growth 04/01/18 Gram Stain - Final, Complete 04/01/18 Sputum Culture - Final, Complete Staphylococcus aureus Normal louise 04/01/18 Urine Culture - Final, Complete Sent To [facility] Patient resulted labs reviewed. Imaging: Reviewed Imaging Report Discussion & Recommendations Discharge Planning: >30 minutes discharge planning Discharge Home Medications: Active Scripts Active Prednisone 20 Mg Tab 40 Mg PO DAILY@0700 3 Days Reported Hydrocodon-Acetaminophn 10-325 (Hydrocodone/Acetaminophen) 1 Each Tablet 1 Tab PO TID PRN Xanax (Alprazolam) 0.5 Mg Tablet 0.5 Mg PO HS Xanax (Alprazolam) 0.25 Mg Tablet 0.25 Mg PO DAILY Hydrocodon-Acetaminophn 10-325 (Hydrocodone/Acetaminophen) 1 Each Tablet 1 Tab PO BID PRN Hydrocodon-Acetaminophn 10-325 (Hydrocodone/Acetaminophen) 1 Each Tablet 1 Tab PO UD PRN GIVE 1 TABLET 30 MINUTES PRIOR TO PHYSICAL THERAPY Iprat-Albut 0.5-3(2.5) mg/3 ml (Ipratropium/Albuterol Sulfate) 3 Ml Ampul.neb 3 Ml IH Q4H PRN Thera-M (Multivits,Th W-Fe,Other Min) 1 Each Tablet 1 Tab PO DAILY Atorvastatin Calcium 20 Mg Tablet 20 Mg PO HS Omeprazole 20 Mg Capsule.dr 20 Mg PO DAILY Milk of Magnesia (Magnesium Hydroxide) 400 Mg/5 Ml Oral.susp 30 Ml PO DAILY PRN Tylenol (Acetaminophen) 325 Mg Tablet 650 Mg PO Q4H PRN TAKES 2 (325MG) TABLETS Xarelto (Rivaroxaban) 20 Mg Tablet 20 Mg PO 1800 Vitamin D3 (Cholecalciferol (Vitamin D3)) 5,000 Unit Capsule 5,000 Unit PO WE Furosemide 40 Mg Tablet 40 Mg PO DAILY Potassium Chloride 20 Meq Tab.er.prt 20 Meq PO DAILY Guaifenesin Dm Syrup (Guaifenesin/Dextromethorphan) 5 Ml Syrup 5 Ml PO Q4H PRN Senokot-S Tablet (Sennosides/Docusate Sodium) 1 Each Tablet 1 Tab PO Q12H PRN Gabapentin 300 Mg Capsule 300 Mg PO DAILY Citalopram HBr (Citalopram Hydrobromide) 20 Mg Tablet 20 Mg PO DAILY Instructions to patient/family Please see electronic discharge instructions given to patient. Clinical Quality Measures DVT/VTE Risk/Contraindication: Risk Factor Score Per Nursin RFS Level Per Nursing on Admit: 4+=Very High Problem Qualifiers (1) UTI (urinary tract infection): Urinary tract infection type: acute cystitis Hematuria presence: with hematuria Qualified Codes: N30.01 - Acute cystitis with hematuria (2) Atrial fibrillation: Atrial fibrillation type: paroxysmal Qualified Codes: I48.0 - Paroxysmal atrial fibrillation JIL STEVENS MD Apr 03, 2018 14:55
[2018-04-04] MEDS ORDERED: predniSONE 20 MG TAB PO SCH (07:00)
== END 2018-04-03 14:15 | DRG 191 ==
LOC: ER 20:47 → EDUNIT# 20:47 → 4TH 22:00 → UNDOADMIN 22:44
PROVIDERS: ADMIT Internal Medicine; ATTEND Internal Medicine
DX: J44.1 Chronic obstructive pulmonary disease with (acute) exacerbation (principal); R09.02 Hypoxemia; N30.00 Acute cystitis without hematuria; Z68.43 Body mass index [BMI] 50.0-59.9, adult; R41.0 Disorientation, unspecified; I10 Essential (primary) hypertension; E11.9 Type 2 diabetes mellitus without complications; Z66 Do not resuscitate; K21.9 Gastro-esophageal reflux disease without esophagitis; M19.91 Primary osteoarthritis, unspecified site; M54.9 Dorsalgia, unspecified; G47.9 Sleep disorder, unspecified; F41.9 Anxiety disorder, unspecified; F32.9 Major depressive disorder, single episode, unspecified; E66.9 Obesity, unspecified; Z87.891 Personal history of nicotine dependence; Z85.42 Personal history of malignant neoplasm of other parts of uterus; Z85.43 Personal history of malignant neoplasm of ovary; Z79.01 Long term (current) use of anticoagulants
CPT/HCPCS: 36415; 36600; 71045; 80053; 81000; 82805; 83605; 83880; 85007; 85025; 85027; 85610; 85730; 87040; 87070; 87077; 87088; 87186; 87205; 94640; 94664; 94760; 96374

== ENCOUNTER 2018-04-09 18:12 | Inpatient (IN) | payer MEDICARE ==
[~2018-04-09] VITALS: Ht 154.9 cm; Wt 104.8 kg
[~2018-04-09 18:12] MED LIST changes: +ALPR0.25 PO; +ATOR20TA66 PO; +MULT-640 PO; +OMEP20CA12 PO
[2018-04-09] MEDS ORDERED: RT-ALBUTEROL/IPRATROPIUM 3 ML (DUONEB) VIAL ONE (18:21)
--- OUTSIDE RECORDS SUMMARY | 2018-04-09 18:24 | XMS REPORT | Continuity of Care Document ---
Author Author [facility] Organization [facility] Address Unknown Phone Unavailable Allergies Active Description Code Type Severity Reaction Onset Reported/Identified Relationship to Patient Clinical Status Yes ciprofloxacin [id number] Drug Allergy Unknown N/A 10/11/2008 Yes ofloxacin [id number] Drug Allergy Unknown N/A 10/11/2008 Yes levofloxacin [id number] Drug Allergy Moderate N/A 05/29/2017 Medications There [...] V57.1 PHYSICAL THERAPY NEC 10/15/2013 LUIS SULLIVAN MONTESSORI TEACHER Ot 959.09 INJURY OF FACE AND NECK 10/15/2013 LUIS SULLIVAN MONTESSORI TEACHER Ot 959.12 OTH INJURY OF ABDOMEN 10/15/2013 LIUS SULLIVAN MONTESSORI TEACHER Ot 959.19 OTH INJURY OF OTHER SITES OF TRUNK 10/15/2013 LUIS SULLIVAN MONTESSORI TEACHER Ot E000.8 OTHER EXTERNAL CAUSE STATUS 10/15/2013 LUIS SULLIVAN MONTESSORI TEACHER Ot E849.0 ACCIDENT IN HOME 10/15/2013 LUIS SULLIVAN MONTESSORI TEACHER Ot E884.6 FALL FROM COMMODE,TOILET 01/03/2014 YANIRA SANDRA DO S Ot 250.00 DIAB JOSELIN WO COMPL, TYPE II OR UNSPEC TY 01/03/2014 DEVI SANDRA DOLINE S Ot 272.0 PURE HYPERCHOLESTEROLEM 01/03/2014 DEVI SANDRA DOLINE S Ot 278.00 OBESITY, NOS 01/03/2014 DEVI SANDRA DOLINE S Ot 300.00 ANXIETY STATE NOS 01/03/2014 REDD SANDRA DOQUELINE S Ot 311 DEPRESSIVE DISORDER NEC 01/03/2014 DEVI SANDRA DOLINE S Ot 355.9 MONONEURITIS NOS 01/03/2014 DEVI SANDRA DOLINE S Ot 401.9 HYPERTENSION NOS 01/03/2014 REDD SANDRA DOQUELINE S Ot 493.20 CHRONIC OBSTRUCTIVE ASTHMA, NOS 01/03/2014 DEVI SANDRA DOLINE S Ot 530.81 ESOPHAGEAL REFLUX 01/03/2014 REDD SANDRA DOQUELINE S Ot 562.10 DIVERTICULOSIS COLON (W/O MENT OF HEMORR 01/03/2014 REDD SANDRA DOQUELINE S Ot 599.0 URIN TRACT INFECTION NOS 01/03/2014 REDD SANDRA DOQUELINE S Ot 715.90 OSTEOARTHROS NOS-UNSPEC 01/03/2014 REDD SANDRA DOQUELINE S Ot 722.52 LUMB/LUMBOSAC DISC DEGEN 01/03/2014 REDD SANDRA DOQUELINE S Ot 780.57 UNSPECIFIED SLEEP APNEA 01/03/2014 ERDD SANDRA DOQUELINE S Ot 780.79 OTH MALAISE FATIGUE 01/03/2014 YANIRA SANDRA DO S Ot 794.4 ABN KIDNEY FUNCT STUDY 01/03/2014 JOCY KAM YANIRA Diego Ot V15.88 HISTORY OF FALL 01/03/2014 DEVI SANDRA DOLINE S Ot V46.2 SUPPLEMENTAL OXYGEN 01/03/2014 YANIRA SANDRA DO S Ot V85.39 BODY MASS INDEX [...] 06/13/2015 Ot 272.4 06/13/2015 Ot 780.79 06/13/2015 KTALYNNDER DODEVIYANIRA S Ot 250.00 06/13/2015 KATLYNNDHARVEY DO, YANIRA S Ot 585.9 06/13/2015 KATLYNNDER DO, YANIRA S Ot 728.9 06/13/2015 Ot 244.9 06/13/2015 Ot 715.31 06/13/2015 Ot 721.2 06/13/2015 Ot 737.30 06/13/2015 Ot 250.00 06/13/2015 Ot 272.4 06/13/2015 Ot 780.79 06/13/2015 DEVI SANDRA DOLINE S Ot 250.00 06/13/2015 JOCY KAM, YANIRA S Ot 585.9 06/13/2015 KATLYNNDHARVEY DO, YANIRA S Ot 728.9 06/13/2015 Ot 244.9 06/13/2015 Ot 715.31 06/13/2015 Ot 721.2 06/13/2015 Ot 737.30 06/13/2015 Ot 250.00 06/13/2015 Ot 272.4 06/13/2015 Ot 780.79 06/13/2015 DEVI SANDRA DOLINE S Ot 250.00 06/13/2015 DEVI SANDRA DOLINE S Ot 585.9 06/13/2015 KATLYNNDHARVEY DO, YANIRA S Ot 728.9 06/13/2015 Ot 244.9 06/13/2015 Ot 715.31 06/13/2015 Ot 721.2 06/13/2015 Ot 737.30 06/13/2015 Ot 250.00 06/13/2015 Ot 272.4 06/13/2015 Ot 780.79 06/13/2015 KATLYNNDER DODEVIYANIRA S Ot 250.00 06/13/2015 KATLYNNDDEVI GABRIEL DOLINE S Ot 585.9 06/13/2015 REDD SANDRA DOQUELINE S Ot 728.9 06/16/2015 [facility] S Ot 611.79 [...] ROZINA DEVI KAMLINE S Ot 627.1 07/06/2015 [facility] DEVI KAMLINE S Ot 611.79 07/06/2015 [facility] DEVI KAMLINE S Ot 627.1 07/07/2015 VICTOR HUGO FUENTES DO S Ot E11.9 TYPE 2 DIABETES MELLITUS WITHOUT COMPLIC 07/07/2015 ELADIOMARLEE VICTOR HUGO S Ot N95.0 POSTMENOPAUSAL BLEEDING 07/07/2015 ELADIOMARLEE VICTOR HUGO S Ot R93.8 ABNORMAL FINDINGS ON DIAGNOSTIC IMAGING 07/18/2015 YANIRA SANDRA DO S Ot 793.80 07/27/2015 Ot N95.0 [...] 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 04/13/2016 VICTOR HUGO HARTMANN MD, Ot E11.40 [...] 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 04/13/2016 VICTOR HUGO HARTMANN MD, Ot E11.40 [...] 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 04/13/2016 VICTOR HUGO HARTMANN MD, Ot E11.40 [...] HARTMANN MD Ot Y92.[address] IN [facility] NON-INSTITUT (PRIVATE 04/13/2016 VICTOR HUGO HARTMANN MD, Ot Y99.8 OTHER EXTERNAL CAUSE STATUS 04/13/2016 VICTOR HUGO HARTMANN MD, Ot Z68.42 BODY MASS INDEX (BMI) 45.0-49.9, ADULT 04/13/2016 VICTOR HUGO HARTMANN MD, Ot Z85.43 PERSONAL HISTORY OF MALIGNANT NEOPLASM O 04/14/2016 VICTOR HUGO HARTMANN MD, Ot 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 04/14/2016 VICTOR HUGO HARTMANN MD Ot E11.40 [...] HARTMANN MD, Ot Y92.[address] IN [facility] NON-INSTITUT (PRIVATE 04/14/2016 VICTOR HUGO HARTMANN MD, Ot Y99.8 OTHER EXTERNAL CAUSE STATUS 04/14/2016 VICTOR HUGO HARTMANN MD, Ot Z68.42 BODY MASS INDEX (BMI) 45.0-49.9, ADULT 04/14/2016 VICTOR HUGO HARTMANN MD Ot Z85.43 PERSONAL HISTORY OF MALIGNANT NEOPLASM O 04/16/2016 VICTOR HUGO HARTMANN MD Ot 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 04/16/2016 VICTOR HUGO HARTMANN MD, Ot E11.40 [...] 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 04/17/2016 VICTOR HUGO HARTMANN MD, Ot E11.40 [...] 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 04/17/2016 VICTOR HUGO HARTMANN MD, Ot E11.40 TYPE 2 DIABETES MELLITUS WITH DIABETIC N 04/17/2016 VICTOR HUGO HARTMANN MD, Ot E66.9 OBESITY, UNSPECIFIED 04/17/2016 VICTOR HUGO HARTMANN MD, Ot J44.9 CHRONIC OBSTRUCTIVE PULMONARY DISEASE, U 04/17/2016 VICTOR HUGO HARTMANN MD, Ot K21.9 GASTRO-ESOPHAGEAL REFLUX DISEASE WITHOUT 04/17/2016 VICTOR HUGO HARTMANN MD, Ot N17.9 ACUTE KIDNEY FAILURE, UNSPECIFIED 04/17/2016 VITCOR HUGO HARTMANN MD, Ot N18.9 CHRONIC KIDNEY [...] 04/17/2016 VICTOR HUGO HARTMANN MD Ot Y92.[address] [facility] [address] IN [facility] NON-INSTITUT (PRIVATE 04/17/2016 VICTOR HUGO HARTMANN [...] Ot 780.79 OTH MALAISE FATIGUE 04/23/2016 DEVI SANDRA DOLINE S Ot 250.00 DIAB JOSELIN WO COMPL, TYPE II OR UNSPEC TY 04/23/2016 DEVI SANDRA DOLINE S Ot 585.9 CHRONIC KIDNEY DISEASE, UNSPECIFIED 04/23/2016 DEVI SANDRA DOLINE S Ot 728.9 MUSCLE/LIGAMENT DIS NOS 04/23/2016 DEVI SANDRA DOLINE S Ot 611.79 SYMPTOMS IN BREAST NEC 04/23/2016 YANIRA SANDRA DO S Ot 627.1 POSTMENOPAUSAL BLEEDING 04/23/2016 DEVI SANDRA DOLINE S Ot 793.80 UNSPEC ABNORMAL MAMMOGRAM 04/23/2016 Ot N95.0 POSTMENOPAUSAL BLEEDING 04/23/2016 Ot R93.8 ABNORMAL FINDINGS ON DIAGNOSTIC IMAGING 04/23/2016 Ot Z01.812 ENCOUNTER FOR PREPROCEDURAL LABORATORY E 04/23/2016 Ot Z11.2 ENCOUNTER FOR SCREENING FOR OTHER BACTER 04/23/2016 DEVI SANDRA DOLINE S Ot R05 COUGH 04/23/2016 YANIRA SANDRA DO S Ot R06.00 DYSPNEA, UNSPECIFIED 04/23/2016 ORENDER DO, YANIRA S Ot R51 HEADACHE 04/23/2016 ANTHONY ELIZABETH N MONTESSORI TEACHER Ot M79.662 PAIN IN LEFT LOWER LEG [...] 780.79 OTH MALAISE FATIGUE 04/23/2016 ORENDER DO, YAINRA S Ot 250.00 DIAB JOSELIN WO COMPL, TYPE II OR UNSPEC TY 04/23/2016 ORENDER DO, YANIRA S Ot 585.9 CHRONIC KIDNEY DISEASE, UNSPECIFIED 04/23/2016 ORENDER DO, YANIRA S Ot 728.9 MUSCLE/LIGAMENT DIS NOS 04/23/2016 ORENDER DO, YANIRA S Ot 611.79 SYMPTOMS IN BREAST NEC 04/23/2016 ORENDER DO, YANIRA S Ot 627.1 POSTMENOPAUSAL BLEEDING 04/23/2016 YANIRA SANDRA DO S Ot 793.80 UNSPEC ABNORMAL MAMMOGRAM [...] IN LEFT LOWER LEG 04/23/2016 ELIZABETH CRUZ MONTESSORI TEACHER Ot M79.89 OTHER SPECIFIED SOFT TISSUE DISORDERS [...] TYPE II OR UNSPEC TY 05/09/2016 YANIRA SANDRA DO S Ot 585.9 CHRONIC KIDNEY DISEASE, UNSPECIFIED 05/09/2016 JOCY KAM YANIRA S Ot 728.9 MUSCLE/LIGAMENT DIS NOS 05/09/2016 YANIRA SANDRA DO S Ot 611.79 SYMPTOMS IN BREAST [...] S Ot R51 HEADACHE 05/09/2016 ELIZABETH CRUZ MONTESSORI TEACHER Ot M79.662 PAIN IN LEFT LOWER LEG 05/09/2016 ELIZABETH CRUZ MONTESSORI TEACHER Ot M79.89 OTHER SPECIFIED SOFT TISSUE DISORDERS [...] S Ot R51 HEADACHE 05/09/2016 ELIZABETH CRUZ MONTESSORI TEACHER Ot M79.662 PAIN IN LEFT LOWER LEG 05/09/2016 ELIZABETH CRUZ MONTESSORI TEACHER Ot M79.89 OTHER SPECIFIED SOFT TISSUE DISORDERS [...] MALIGNANT NEOPLASM OF ENDOMETRIUM 07/08/2016 ELIZABETH CRUZ MONTESSORI TEACHER Ot M79.662 PAIN IN LEFT LOWER LEG 07/08/2016 ELIZABETH CRUZ MONTESSORI TEACHER Ot M79.89 OTHER SPECIFIED SOFT TISSUE DISORDERS [...] S Ot 627.1 POSTMENOPAUSAL BLEEDING 07/08/2016 YANIRA SANDRA DO S Ot 793.80 UNSPEC ABNORMAL MAMMOGRAM 07/08/2016 Ot N95.0 POSTMENOPAUSAL BLEEDING 07/08/2016 Ot R93.8 ABNORMAL FINDINGS ON DIAGNOSTIC IMAGING 07/08/2016 Ot Z01.812 ENCOUNTER FOR PREPROCEDURAL LABORATORY E 07/08/2016 Ot Z11.2 ENCOUNTER FOR SCREENING FOR OTHER BACTER 07/08/2016 YANIRA SANDRA DO Ot R05 COUGH 07/08/2016 YANIRA SANDRA DO Ot R06.00 DYSPNEA, UNSPECIFIED 07/08/2016 YANIRA SANDRA DO S Ot R51 HEADACHE 07/08/2016 ELIZABETH [...] OTHER SPECIFIED SOFT TISSUE DISORDERS 08/23/2016 YANIRA SANDRA DO Ot C54.1 MALIGNANT NEOPLASM OF ENDOMETRIUM 08/23/2016 YANIRA SANDRA DO S Ot E11.9 TYPE 2 DIABETES MELLITUS WITHOUT COMPLIC 08/23/2016 YANIRA SANDRA DO S Ot E66.2 MORBID (SEVERE) OBESITY WITH ALVEOLAR HY 08/23/2016 YANIRA SANDRA DO S Ot F32.9 MAJOR DEPRESSIVE DISORDER, SINGLE EPISOD 08/23/2016 YANIRA SANDRA DO S Ot F41.9 ANXIETY DISORDER, UNSPECIFIED 08/23/2016 YANIRA SANDRA DO S Ot G47.33 OBSTRUCTIVE SLEEP APNEA (ADULT) (PEDIATR 08/23/2016 YANIRA SANDRA DO Ot G47.9 SLEEP DISORDER, UNSPECIFIED 08/23/2016 YANIRA SANDRA DO S Ot I48.0 PAROXYSMAL ATRIAL FIBRILLATION 08/23/2016 YANIRA SANDRA DO S Ot I49.1 ATRIAL PREMATURE DEPOLARIZATION 08/23/2016 YANIRA SANDRA DO Ot I49.3 VENTRICULAR PREMATURE DEPOLARIZATION 08/23/2016 YANIRA SANDRA DO S Ot I50.33 ACUTE ON CHRONIC DIASTOLIC (CONGESTIVE) 08/23/2016 YANIRA SANDRA DO S Ot K21.9 GASTRO-ESOPHAGEAL REFLUX DISEASE WITHOUT 08/23/2016 YANIRA SANDRA DO S Ot L89.629 PRESSURE ULCER OF LEFT HEEL, UNSPECIFIED 08/23/2016 YANIRA SANDRA DO S Ot M19.90 UNSPECIFIED OSTEOARTHRITIS, UNSPECIFIED 08/23/2016 YANIRA SANDRA DO S Ot R09.02 HYPOXEMIA 08/23/2016 YANIRA SANDRA DO S Ot Z68.41 BODY MASS INDEX (BMI) 40.0-44.9, ADULT 08/23/2016 YANIRA SANDRA DO S Ot Z87.891 PERSONAL HISTORY OF NICOTINE DEPENDENCE 08/23/2016 YANIRA SANDRA DO S Ot Z99.81 DEPENDENCE ON SUPPLEMENTAL OXYGEN 08/23/2016 YANIRA SANDRA DO S Ot C54.1 MALIGNANT NEOPLASM OF ENDOMETRIUM 08/23/2016 YANIRA SANDRA DO S Ot E11.9 TYPE 2 DIABETES MELLITUS WITHOUT COMPLIC 08/23/2016 YANIRA SANDRA DO S Ot E66.2 MORBID (SEVERE) OBESITY WITH ALVEOLAR HY 08/23/2016 YANIRA SANDRA DO S Ot E83.42 HYPOMAGNESEMIA 08/23/2016 YANIRA SANDRA DO S Ot F32.9 MAJOR DEPRESSIVE DISORDER, SINGLE EPISOD 08/23/2016 YANIRA SANDRA DO S Ot F41.9 ANXIETY DISORDER, UNSPECIFIED 08/23/2016 YANIRA SANDRA DO S Ot G47.33 OBSTRUCTIVE SLEEP APNEA (ADULT) (PEDIATR 08/23/2016 YANIRA SANDRA DO Ot G47.9 SLEEP DISORDER, UNSPECIFIED 08/23/2016 YANIRA SANDRA DO Ot I48.0 PAROXYSMAL ATRIAL FIBRILLATION 08/23/2016 YANIRA SANDRA DO Ot I49.1 ATRIAL PREMATURE DEPOLARIZATION 08/23/2016 YANIRA SANDRA DO Ot I49.3 VENTRICULAR PREMATURE DEPOLARIZATION 08/23/2016 YANIRA SANDRA DO Ot I50.33 ACUTE ON CHRONIC DIASTOLIC (CONGESTIVE) 08/23/2016 YANIRA SANDRA DO Ot J44.9 CHRONIC OBSTRUCTIVE PULMONARY DISEASE, U 08/23/2016 YANIRA SANDRA DO Ot K21.9 GASTRO-ESOPHAGEAL REFLUX DISEASE WITHOUT 08/23/2016 YANIRA SANDRA DO Ot L89.629 PRESSURE ULCER OF LEFT HEEL, UNSPECIFIED 08/23/2016 JOCY KAM YANIRA Diego Ot M19.90 UNSPECIFIED OSTEOARTHRITIS, UNSPECIFIED 08/23/2016 JOCY KAM YANIRA Diego Ot R09.02 HYPOXEMIA 08/23/2016 JOCY KAM YANIRA Diego Ot Z66 DO NOT RESUSCITATE 08/23/2016 YANIRA SANDRA DO Ot Z68.41 BODY MASS INDEX (BMI) 40.0-44.9, ADULT 08/23/2016 YANIRA SANDRA DO Ot Z87.891 PERSONAL HISTORY OF NICOTINE DEPENDENCE 08/23/2016 JOCY KAM YANIRA Diego Ot Z99.81 DEPENDENCE ON SUPPLEMENTAL OXYGEN 09/20/2016 NADEGE GARZA, VITALY Dubon Ot C54.1 MALIGNANT NEOPLASM OF ENDOMETRIUM 10/18/2016 HORTENCIA SUMMERS HR OPERATIONS ADVISOR Ot R06.09 OTHER FORMS OF DYSPNEA 10/18/2016 HORTENCIA SUMMERS HR OPERATIONS ADVISOR Ot R06.09 OTHER FORMS OF DYSPNEA 10/18/2016 HORTENCIA SUMMERS HR OPERATIONS ADVISOR Ot I10 ESSENTIAL (PRIMARY) HYPERTENSION 10/18/2016 HORTENCIA SUMMERS HR OPERATIONS ADVISOR Ot I48.0 PAROXYSMAL ATRIAL FIBRILLATION 10/18/2016 HORTENCIA SUMMERS HR OPERATIONS ADVISOR Ot R06.09 OTHER FORMS OF DYSPNEA 10/18/2016 HORTENCIA SUMMERS HR OPERATIONS ADVISOR Ot Z79.01 SENIOR LIVING (CURRENT) USE OF ANTICOAGULANT 10/18/2016 HORTENCIA SUMMERS L HR OPERATIONS ADVISOR Ot I10 ESSENTIAL (PRIMARY) HYPERTENSION 10/18/2016 HORTENCIA SUMMERS HR OPERATIONS ADVISOR Ot I48.0 PAROXYSMAL ATRIAL FIBRILLATION 10/18/2016 BAIMAHORTENCIA L HR OPERATIONS ADVISOR Ot R06.09 OTHER FORMS OF DYSPNEA 10/18/2016 BAIMAKAMILLAHORTENCIA L HR OPERATIONS ADVISOR Ot Z79.01 SENIOR LIVING (CURRENT) USE OF ANTICOAGULANT 10/18/2016 BAIMA HORTENCIA L HR OPERATIONS ADVISOR Ot I10 ESSENTIAL (PRIMARY) HYPERTENSION 10/18/2016 BAIMA HORTENCIA L HR OPERATIONS ADVISOR Ot I48.0 PAROXYSMAL ATRIAL FIBRILLATION 10/18/2016 BAIMA, HORTENCIA L HR OPERATIONS ADVISOR Ot R06.09 OTHER FORMS OF DYSPNEA 10/18/2016 BAIMA, HORTENCIA L HR OPERATIONS ADVISOR Ot Z79.01 SENIOR LIVING (CURRENT) USE OF ANTICOAGULANT 10/22/2016 BAIMA HORTENCIA L HR OPERATIONS ADVISOR Ot I10 ESSENTIAL (PRIMARY) HYPERTENSION 10/22/2016 BAIMAKAMILLAHORTENCIA L HR OPERATIONS ADVISOR Ot I48.0 PAROXYSMAL ATRIAL FIBRILLATION 10/22/2016 BAIMAKAMILLAHORTENCIA L HR OPERATIONS ADVISOR Ot R06.09 OTHER FORMS OF DYSPNEA 10/22/2016 BAIMAHORTENCIA L HR OPERATIONS ADVISOR Ot Z79.01 SENIOR LIVING (CURRENT) USE OF ANTICOAGULANT 10/22/2016 YANIRA SANDRA DO S Ot M85.872 OTH DISRD OF BONE DENSITY AND STRUCTURE, 10/22/2016 YANIRA SANDRA DO S Ot M25.572 PAIN IN LEFT ANKLE AND JOINTS OF LEFT FO 10/25/2016 YANIRA SANDRA DO S Ot M85.872 OTH DISRD OF BONE DENSITY AND STRUCTURE, 10/25/2016 YANIRA SANDRA DO S Ot M85.872 OTH DISRD OF BONE DENSITY AND STRUCTURE, 10/30/2016 VITALY LIGHT MD Ot C54.1 MALIGNANT NEOPLASM OF ENDOMETRIUM 11/01/2016 VITALY LIGHT MD Ot C54.1 MALIGNANT NEOPLASM OF ENDOMETRIUM 11/07/2016 VITALY LIGHT MD Ot C54.1 MALIGNANT NEOPLASM OF ENDOMETRIUM 11/13/2016 BAIMAKAMILLAHORTENCIA L HR OPERATIONS ADVISOR Ot I10 ESSENTIAL (PRIMARY) HYPERTENSION 11/13/2016 BAIMAKAMILLAHORTENCIA L HR OPERATIONS ADVISOR Ot I48.0 PAROXYSMAL ATRIAL FIBRILLATION 11/13/2016 BAIMA, HORTENCIA L HR OPERATIONS ADVISOR Ot R06.09 OTHER FORMS OF DYSPNEA 11/13/2016 BAIMA HORTENCIA L HR OPERATIONS ADVISOR Ot Z79.01 ENTERTAINER & COMIC (CURRENT) USE OF ANTICOAGULANT 11/15/2016 HORTENCIA SUMMERS Ot I10 ESSENTIAL (PRIMARY) HYPERTENSION 11/15/2016 HORTENCIA SUMMERS Ot I48.0 PAROXYSMAL ATRIAL FIBRILLATION 11/15/2016 HORTENCIA SUMMERS Ot R06.09 OTHER FORMS OF DYSPNEA 11/15/2016 HORTENCIA SUMMERS Ot Z79.01 SENIOR LIVING (CURRENT) USE OF ANTICOAGULANT 11/15/2016 YANIRA SANDRA DO Ot M25.572 PAIN IN LEFT ANKLE AND JOINTS OF LEFT FO 11/15/2016 YANIRA SANDRA DO Ot M85.872 OT DISRD OF BONE DENSITY AND STRUCTURE, 11/19/2016 Ot 244.9 HYPOTHYROIDISM NOS 11/19/2016 Ot 715.31 LOC OSTEOARTH NOS-SHLDER 11/19/2016 Ot 721.2 THORACIC SPONDYLOSIS 11/19/2016 Ot 737.30 IDIOPATHIC SCOLIOSIS 11/19/2016 Ot 250.00 DIAB JOSELIN WO COMPL, TYPE II OR UNSPEC TY 11/19/2016 Ot 272.4 HYPERLIPIDEMIA NEC/NOS 11/19/2016 Ot 780.79 OTH MALAISE FATIGUE 11/19/2016 YANIRA SANDRA DO Ot 250.00 DIAB JOSELIN WO COMPL, TYPE II OR UNSPEC TY 11/19/2016 YANIRA SANDRA DO Ot 585.9 CHRONIC KIDNEY DISEASE, UNSPECIFIED 11/19/2016 YANIRA SANDRA DO S Ot 728.9 MUSCLE/LIGAMENT DIS NOS 11/19/2016 YANIRA SANDRA DO Ot 611.79 SYMPTOMS IN BREAST NEC 11/19/2016 YANIRA SANDRA DO Ot 627.1 POSTMENOPAUSAL BLEEDING 11/19/2016 YANIRA SANDRA DO S Ot 793.80 UNSPEC ABNORMAL MAMMOGRAM 11/19/2016 Ot N95.0 POSTMENOPAUSAL BLEEDING 11/19/2016 Ot R93.8 ABNORMAL FINDINGS ON DIAGNOSTIC IMAGING 11/19/2016 Ot Z01.812 ENCOUNTER FOR PREPROCEDURAL LABORATORY E 11/19/2016 Ot Z11.2 ENCOUNTER FOR SCREENING FOR OTHER BACTER 11/19/2016 YANIRA SANDRA DO Ot R05 COUGH 11/19/2016 YANIRA SANDRA DO Ot R06.00 DYSPNEA, UNSPECIFIED 11/19/2016 YANIAR SANDRA DO Ot R51 HEADACHE 11/19/2016 ELIZABETH CRUZ MONTESSORI TEACHER Ot M79.662 PAIN IN LEFT LOWER LEG 11/19/2016 ELIZABETH CRUZ MONTESSORI TEACHER Ot M79.89 OTHER SPECIFIED SOFT TISSUE DISORDERS 11/19/2016 BAIMA, HORTENCIA L HR OPERATIONS ADVISOR Ot I10 ESSENTIAL (PRIMARY) HYPERTENSION 11/19/2016 BAIMA, HORTENCIA L HR OPERATIONS ADVISOR Ot I48.0 PAROXYSMAL ATRIAL FIBRILLATION 11/19/2016 BAIMA, HORTENCIA L HR OPERATIONS ADVISOR Ot R06.09 OTHER FORMS OF DYSPNEA 11/19/2016 BAIMA, HORTENCIA L HR OPERATIONS ADVISOR Ot Z79.01 ENTERTAINER & COMIC (CURRENT) USE OF ANTICOAGULANT 11/19/2016 BAIMA, HORTENCIA L HR OPERATIONS ADVISOR Ot I10 ESSENTIAL (PRIMARY) HYPERTENSION 11/19/2016 BAIMA, HORTENCIA L HR OPERATIONS ADVISOR Ot I48.0 PAROXYSMAL ATRIAL FIBRILLATION 11/19/2016 BAIMA, HORTENCIA L HR OPERATIONS ADVISOR Ot R06.09 OTHER FORMS OF DYSPNEA 11/19/2016 BAIMA, HORTENCIA L HR OPERATIONS ADVISOR Ot Z79.01 SENIOR LIVING (CURRENT) USE OF ANTICOAGULANT 11/19/2016 YANIRA SANDRA DO S Ot M25.572 PAIN IN LEFT ANKLE AND JOINTS OF LEFT FO 11/19/2016 YANIRA SANDRA DO Ot M85.872 [facility] DISRD OF BONE DENSITY AND STRUCTURE, 11/19/2016 [...] 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 01/29/2017 VITALY LIGHT MD Ot E66.01 MORBID [...] ADULT 01/29/2017 VITALY LIGHT MD Ot Z79.01 SENIOR LIVING (CURRENT) USE OF ANTICOAGULANT 01/29/2017 VITALY LIGHT MD Ot Z79.899 OTHER ENTERTAINER & COMIC (CURRENT) DRUG THERAPY 04/30/2017 KATLYNNDER DO, YANIRA [...] MAJOR DEPRESSIVE DISORDER, SINGLE EPISOD 05/24/2017 YOLANDA ROLBES MD Ot F41.9 ANXIETY DISORDER, UNSPECIFIED 05/24/2017 [...] C54.1 MALIGNANT NEOPLASM OF ENDOMETRIUM 05/29/2017 YANIRA SANDRA DO S Ot R41.0 DISORIENTATION, UNSPECIFIED 05/29/2017 YANIRA SANDRA DO S Ot R41.3 OTHER AMNESIA 05/29/2017 REDD SANDRA DOQUELINE S Ot R94.6 ABNORMAL RESULTS OF THYROID FUNCTION AURELIANO 05/29/2017 REDD SANDRA DOQUELINE S Ot E11.9 TYPE 2 DIABETES MELLITUS WITHOUT COMPLIC 05/29/2017 REDD SANDRA DOQUELINE S Ot E66.2 MORBID (SEVERE) OBESITY WITH ALVEOLAR HY 05/29/2017 JOCY KAM YANIRA S Ot I48.0 PAROXYSMAL ATRIAL FIBRILLATION 05/29/2017 REDD SANDRA DOQUELINE S Ot I50.31 ACUTE DIASTOLIC (CONGESTIVE) HEART FAILU 05/29/2017 YANIRA SANDRA DO S Ot J18.9 PNEUMONIA, UNSPECIFIED ORGANISM 05/29/2017 DEVI SANDRA DOLINE S Ot J44.0 CHRONIC OBSTRUCTIVE PULMON DISEASE W ACU 05/29/2017 YANIRA SANDRA DO S Ot J44.1 CHRONIC OBSTRUCTIVE PULMONARY DISEASE W 05/29/2017 DEVI SANDRA DOLINE S Ot K21.9 GASTRO-ESOPHAGEAL REFLUX DISEASE [...] 05/29/2017 ROZINAHARVEY KAM YANIRA S Ot Z79.01 ENTERTAINER & COMIC (CURRENT) USE OF ANTICOAGULANT 05/29/2017 JOCY KAM YANIRA S Ot Z79.84 SENIOR LIVING (CURRENT) USE OF ORAL HYPOGLYC 05/29/2017 JOCY KAM YANIRA S Ot Z85.42 PERSONAL HISTORY OF MALIGNANT NEOPLASM O 05/29/2017 KATLYNMAGALYS KAM YANIRA S Ot Z87.891 PERSONAL HISTORY OF NICOTINE DEPENDENCE 05/29/2017 KATLYNMAGLAYS KAM YANIRA S Ot Z90.710 ACQUIRED ABSENCE [...] PERSONAL HISTORY OF NICOTINE DEPENDENCE 05/30/2017 YANIRA SANDRA DO S Ot E11.9 TYPE 2 DIABETES MELLITUS WITHOUT COMPLIC 05/30/2017 YANIRA SANDRA DO S Ot E66.2 MORBID (SEVERE) OBESITY WITH ALVEOLAR HY 05/30/2017 YANIRA SANDRA DO S Ot I48.0 PAROXYSMAL ATRIAL FIBRILLATION 05/30/2017 YANIRA SANDRA DO S Ot I50.31 ACUTE DIASTOLIC (CONGESTIVE) HEART FAILU 05/30/2017 YANIRA SANDRA DO S Ot J18.9 PNEUMONIA, UNSPECIFIED ORGANISM 05/30/2017 YANIRA SANDRA DO Ot J44.0 CHRONIC OBSTRUCTIVE PULMON DISEASE W ACU 05/30/2017 YANIRA SANDRA DO Ot J44.1 CHRONIC OBSTRUCTIVE PULMONARY DISEASE W 05/30/2017 YANIRA SANDRA DO Ot K21.9 GASTRO-ESOPHAGEAL REFLUX DISEASE WITHOUT 05/30/2017 YANIRA SANDRA DO Ot M19.91 PRIMARY OSTEOARTHRITIS, UNSPECIFIED SITE 05/30/2017 YANIRA SANDRA DO Ot M54.9 DORSALGIA, UNSPECIFIED 05/30/2017 YANIRA SANDRA DO S Ot R09.02 HYPOXEMIA 05/30/2017 YANIRA SANDRA DO Ot Z66 DO NOT RESUSCITATE 05/30/2017 YANIRA SANDRA DO Ot Z68.43 BODY MASS INDEX (BMI) 50-59.9 , ADULT 05/30/2017 YANIRA SANDRA DO Ot Z79.01 ENTERTAINER & COMIC (CURRENT) USE OF ANTICOAGULANT 05/30/2017 YANIRA SANDRA DO S Ot Z79.84 SENIOR LIVING (CURRENT) USE OF ORAL HYPOGLYC 05/30/2017 YANIRA SANDRA DO S Ot Z85.42 PERSONAL HISTORY OF MALIGNANT NEOPLASM O 05/30/2017 YANIRA SANDRA DO Ot Z87.891 PERSONAL HISTORY OF NICOTINE DEPENDENCE 05/30/2017 YANIRA SANDRA DO S Ot Z90.710 ACQUIRED ABSENCE OF BOTH CERVIX AND UTER 05/30/2017 YANIRA SANDRA DO Ot Z90.722 ACQUIRED ABSENCE OF OVARIES, BILATERAL 05/30/2017 YANIRA SANDRA DO S Ot Z90.79 ACQUIRED ABSENCE OF OTHER GENITAL ORGAN( 05/30/2017 YANIRA SANDRA DO S Ot E11.9 TYPE 2 DIABETES MELLITUS WITHOUT COMPLIC 05/30/2017 YANIRA SANDRA DO S Ot E66.2 MORBID (SEVERE) OBESITY WITH ALVEOLAR HY 05/30/2017 YANIRA SANDRA DO S Ot I48.0 PAROXYSMAL ATRIAL FIBRILLATION 05/30/2017 YANIRA SANDRA DO S Ot I50.31 ACUTE DIASTOLIC (CONGESTIVE) HEART FAILU 05/30/2017 YANIRA SANDRA DO Ot J18.9 PNEUMONIA, UNSPECIFIED ORGANISM 05/30/2017 YANIRA SANDRA DO Ot J44.0 CHRONIC OBSTRUCTIVE PULMON DISEASE W ACU 05/30/2017 YANIRA SANDRA DO Ot J44.1 CHRONIC OBSTRUCTIVE PULMONARY DISEASE W 05/30/2017 YANIRA SANDRA DO Ot K21.9 GASTRO-ESOPHAGEAL REFLUX DISEASE WITHOUT 05/30/2017 YNAIRA SANDRA DO Ot M19.91 PRIMARY OSTEOARTHRITIS, UNSPECIFIED SITE 05/30/2017 YANIRA SANDRA DO Ot M54.9 DORSALGIA, UNSPECIFIED 05/30/2017 YANIRA SANDRA DO S Ot R09.02 HYPOXEMIA 05/30/2017 YANIRA SANDRA DO Ot Z66 DO NOT RESUSCITATE 05/30/2017 YANIRA SANDRA DO S Ot Z68.43 BODY MASS INDEX (BMI) 50-59.9 , ADULT 05/30/2017 YANIRA SANDRA DO Ot Z79.01 ENTERTAINER & COMIC (CURRENT) USE OF ANTICOAGULANT 05/30/2017 YANIRA SANDRA DO S Ot Z79.84 ENTERTAINER & COMIC (CURRENT) USE OF ORAL HYPOGLYC 05/30/2017 YANIRA SANDRA DO S Ot Z85.42 PERSONAL HISTORY OF MALIGNANT NEOPLASM O 05/30/2017 YANIRA SANDRA DO S Ot Z87.891 PERSONAL HISTORY OF NICOTINE DEPENDENCE 05/30/2017 YANIRA SANDRA DO S Ot Z90.710 ACQUIRED ABSENCE OF BOTH CERVIX AND UTER 05/30/2017 YANIRA SANDRA DO Ot Z90.722 ACQUIRED ABSENCE OF OVARIES, BILATERAL 05/30/2017 YANIRA SANDRA DO S Ot Z90.79 ACQUIRED ABSENCE OF OTHER GENITAL ORGAN( 05/31/2017 YANIRA SANDRA DO S Ot E11.9 TYPE 2 DIABETES MELLITUS WITHOUT COMPLIC 05/31/2017 YANIRA SANDRA DO S Ot E66.2 MORBID (SEVERE) OBESITY WITH ALVEOLAR HY 05/31/2017 YANIRA SANDRA DO S Ot I48.0 PAROXYSMAL ATRIAL FIBRILLATION 05/31/2017 YANIRA SANDRA DO S Ot I50.31 ACUTE DIASTOLIC (CONGESTIVE) HEART FAILU 05/31/2017 YANIRA SANDRA DO S Ot J18.9 PNEUMONIA, UNSPECIFIED ORGANISM 05/31/2017 YANIRA SANDRA DO S Ot J44.0 CHRONIC OBSTRUCTIVE PULMON DISEASE W ACU 05/31/2017 YANIRA SANDRA DO S Ot J44.1 CHRONIC OBSTRUCTIVE PULMONARY DISEASE W 05/31/2017 YANIRA SANDRA DO S Ot K21.9 GASTRO-ESOPHAGEAL REFLUX DISEASE WITHOUT 05/31/2017 YANIRA SANDRA DO S Ot M19.91 PRIMARY OSTEOARTHRITIS, UNSPECIFIED SITE 05/31/2017 YANIRA SANDRA DO S Ot M54.9 DORSALGIA, UNSPECIFIED 05/31/2017 YANIRA SANDRA DO S Ot R09.02 HYPOXEMIA 05/31/2017 YANIRA SANDRA DO S Ot Z66 DO NOT RESUSCITATE 05/31/2017 YANIRA SANDRA DO S Ot Z68.43 BODY MASS INDEX (BMI) 50-59.9 , ADULT 05/31/2017 YANIRA SANDRA DO S Ot Z79.01 ENTERTAINER & COMIC (CURRENT) USE OF ANTICOAGULANT 05/31/2017 DEVI SANDRA DOLINE S Ot Z79.84 SENIOR LIVING (CURRENT) USE OF ORAL HYPOGLYC 05/31/2017 YANIRA SANDRA DO S Ot Z85.42 PERSONAL HISTORY OF MALIGNANT NEOPLASM O 05/31/2017 REDD SANDRA DOQUELINE S Ot Z87.891 PERSONAL HISTORY OF NICOTINE DEPENDENCE 05/31/2017 DEVI SANDRA DOLINE S Ot Z90.710 ACQUIRED ABSENCE OF BOTH CERVIX AND UTER 05/31/2017 YANIRA SANDRA DO S Ot Z90.722 ACQUIRED ABSENCE OF OVARIES, BILATERAL 05/31/2017 DEVI SANDRA DOLINE S Ot Z90.79 ACQUIRED ABSENCE OF OTHER GENITAL ORGAN( 05/31/2017 DEVI SANDRA DOLINE S Ot E11.9 TYPE 2 DIABETES MELLITUS WITHOUT COMPLIC 05/31/2017 DEVI SANDRA DOLINE S Ot E66.2 MORBID (SEVERE) OBESITY WITH ALVEOLAR HY 05/31/2017 DEVI SANDRA DOLINE S Ot I48.0 PAROXYSMAL ATRIAL FIBRILLATION 05/31/2017 DEVI SANDRA DOLINE S Ot I50.33 ACUTE ON CHRONIC DIASTOLIC (CONGESTIVE) 05/31/2017 YANIRA SANDRA DO S Ot J18.9 PNEUMONIA, UNSPECIFIED ORGANISM 05/31/2017 YANIRA SANDRA DO S Ot J44.0 CHRONIC OBSTRUCTIVE PULMON DISEASE W ACU 05/31/2017 YANIRA SANDRA DO S Ot J44.1 CHRONIC OBSTRUCTIVE PULMONARY DISEASE W 05/31/2017 YANIRA SANDRA DO S Ot J96.01 ACUTE RESPIRATORY FAILURE WITH HYPOXIA 05/31/2017 DEVI SANDRA DOLINE S Ot K21.9 GASTRO-ESOPHAGEAL REFLUX DISEASE WITHOUT 05/31/2017 DEVI SADNRA DOLINE S Ot M19.91 PRIMARY OSTEOARTHRITIS, UNSPECIFIED SITE 05/31/2017 YANIRA SANDRA DO S Ot M54.9 DORSALGIA, UNSPECIFIED 05/31/2017 DEVI SANDRA DOLINE S Ot N18.2 CHRONIC KIDNEY DISEASE, STAGE 2 (MILD) 05/31/2017 YANIRA SANDRA DO S Ot N39.41 URGE INCONTINENCE 05/31/2017 DEVI SANDRA DOLINE S Ot Z66 DO NOT RESUSCITATE 05/31/2017 YANIRA SANDRA DO S Ot Z68.43 BODY MASS INDEX (BMI) 50-59.9 , ADULT 05/31/2017 YANIRA SANDRA DO S Ot Z79.01 SENIOR LIVING (CURRENT) USE OF ANTICOAGULANT 05/31/2017 DEVI SANDRA DOLINE S Ot Z79.84 ENTERTAINER & COMIC (CURRENT) USE OF ORAL HYPOGLYC 05/31/2017 DEVI SANDRA DOLINE S Ot Z85.42 PERSONAL HISTORY OF MALIGNANT NEOPLASM O 05/31/2017 DEVI SANDRA DOLINE S Ot Z87.891 PERSONAL HISTORY OF NICOTINE DEPENDENCE 05/31/2017 DEVI SANDRA DOLINE S Ot Z90.710 ACQUIRED ABSENCE OF BOTH CERVIX AND UTER 05/31/2017 DEVI SANDRA DOLINE S Ot Z90.722 ACQUIRED ABSENCE OF OVARIES, BILATERAL 05/31/2017 DEVI SANDRA DOLINE S Ot Z90.79 ACQUIRED ABSENCE OF OTHER GENITAL ORGAN( 06/03/2017 DEVI SANDRA DOLINE S Ot R41.0 DISORIENTATION, UNSPECIFIED 06/03/2017 [...] 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 06/22/2017 VIKAS HUBBARD MD Ot E66.01 MORBID [...] ADULT 06/22/2017 VIKAS HUBBARD MD, Ot Z79.01 ENTERTAINER & COMIC (CURRENT) USE OF ANTICOAGULANT 06/22/2017 VIKAS HUBBARD MD, Ot Z79.899 OTHER ENTERTAINER & COMIC (CURRENT) DRUG THERAPY 07/18/2017 ORENDER DO, YANIRA S Ot R41.0 DISORIENTATION, UNSPECIFIED 07/18/2017 ORENDER DO, YANIRA S Ot R41.3 OTHER AMNESIA 07/18/2017 ORENDER DO, YANIRA S Ot R94.6 ABNORMAL RESULTS OF THYROID FUNCTION AURELIANO 07/19/2017 VIKAS HUBBARD MD, Ot C54.1 MALIGNANT NEOPLASM OF ENDOMETRIUM 07/19/2017 VIKAS HUBBARD MD, Ot 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 07/19/2017 VIKAS HUBBARD MD, Ot E66.01 MORBID [...] ADULT 07/19/2017 VIKAS HUBBARD MD, Ot Z79.01 ENTERTAINER & COMIC (CURRENT) USE OF ANTICOAGULANT 07/19/2017 VIKAS HUBBARD MD, Ot Z79.899 OTHER ENTERTAINER & COMIC (CURRENT) DRUG THERAPY 08/16/2017 VIKAS HUBBARD MD, Ot C54.1 MALIGNANT NEOPLASM OF ENDOMETRIUM 08/16/2017 VIKAS HUBBARD MD, Ot 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 08/16/2017 VIKAS HUBBARD MD Ot E66.01 MORBID [...] ADULT 08/16/2017 VIKAS HUBBARD MD Ot Z79.01 ENTERTAINER & COMIC (CURRENT) USE OF ANTICOAGULANT 08/16/2017 VIKAS HUBBARD MD Ot Z79.899 OTHER ENTERTAINER & COMIC (CURRENT) DRUG THERAPY 10/16/2017 VIKAS HUBBARD MD, Ot C54.1 MALIGNANT NEOPLASM OF ENDOMETRIUM 10/16/2017 VIKAS HUBBARD MD Ot 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 10/16/2017 VIKAS HUBBARD MD Ot E66.01 MORBID [...] ADULT 10/16/2017 VIKAS HUBBARD MD Ot Z79.01 ENTERTAINER & COMIC (CURRENT) USE OF ANTICOAGULANT 10/16/2017 VIKAS HUBBARD MD, Ot Z79.899 OTHER SENIOR LIVING (CURRENT) DRUG THERAPY 10/17/2017 VIKAS HUBBARD MD, Ot C54.1 MALIGNANT NEOPLASM OF ENDOMETRIUM 10/17/2017 VIKAS HUBBARD MD Ot 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 10/17/2017 VIKAS HUBBARD MD Ot E66.01 MORBID [...] ADULT 10/17/2017 VIKAS HUBBARD MD Ot Z79.01 ENTERTAINER & COMIC (CURRENT) USE OF ANTICOAGULANT 10/17/2017 VIKAS HUBBARD MD, Ot Z79.899 OTHER SENIOR LIVING (CURRENT) DRUG THERAPY 12/13/2017 VIKAS HUBBARD MD, Ot C54.1 MALIGNANT NEOPLASM OF ENDOMETRIUM 12/13/2017 VIKAS HUBBARD MD Ot 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 12/13/2017 VIKAS HUBBARD MD Ot E66.01 MORBID [...] ADULT 12/13/2017 VIKAS HUBBARD MD Ot Z79.01 ENTERTAINER & COMIC (CURRENT) USE OF ANTICOAGULANT 12/13/2017 VIKAS HUBBARD MD Ot Z79.899 OTHER SENIOR LIVING (CURRENT) DRUG THERAPY 12/16/2017 VIKAS HUBBARD MD [...] Ot 780.79 OTH MALAISE FATIGUE 01/01/2018 DEVI SANDRA DOLINE S Ot 250.00 DIAB JOSELIN WO COMPL, TYPE II OR UNSPEC TY 01/01/2018 DEVI SANDRA DOLINE S Ot 585.9 CHRONIC KIDNEY DISEASE, UNSPECIFIED 01/01/2018 YANIRA SANDRA DO S Ot 728.9 MUSCLE/LIGAMENT DIS NOS 01/01/2018 YANIRA SANDRA DO S Ot 611.79 SYMPTOMS IN BREAST NEC 01/01/2018 YANIRA SANDRA DO S Ot 627.1 POSTMENOPAUSAL BLEEDING 01/01/2018 YANIAR SANDRA DO S Ot 793.80 UNSPEC ABNORMAL MAMMOGRAM 01/01/2018 Ot N95.0 POSTMENOPAUSAL BLEEDING 01/01/2018 Ot R93.8 ABNORMAL FINDINGS ON DIAGNOSTIC IMAGING 01/01/2018 Ot Z01.812 ENCOUNTER FOR PREPROCEDURAL LABORATORY E 01/01/2018 Ot Z11.2 ENCOUNTER FOR SCREENING FOR OTHER BACTER 01/01/2018 YANIRA SANDRA DO Ot R05 COUGH 01/01/2018 YANIRA SANDRA DO S Ot R06.00 DYSPNEA, UNSPECIFIED 01/01/2018 DEVI SANDRA DOLINE S Ot R51 HEADACHE 01/01/2018 ELIZABETH CRUZ MONTESSORI TEACHER Ot M79.662 PAIN IN LEFT LOWER LEG 01/01/2018 ELIZABETH CRUZ MONTESSORI TEACHER Ot M79.89 OTHER SPECIFIED SOFT TISSUE DISORDERS 01/01/2018 BAIMA, HORTENCIA L HR OPERATIONS ADVISOR Ot I10 ESSENTIAL (PRIMARY) HYPERTENSION 01/01/2018 BAIMA, HORTENCIA L HR OPERATIONS ADVISOR Ot I48.0 PAROXYSMAL ATRIAL FIBRILLATION 01/01/2018 BAIMA, HORTENCIA L HR OPERATIONS ADVISOR Ot R06.09 OTHER FORMS OF DYSPNEA 01/01/2018 BAIMA, HORTENCIA L HR OPERATIONS ADVISOR Ot Z79.01 ENTERTAINER & COMIC (CURRENT) USE OF ANTICOAGULANT 01/01/2018 BAIMA, HORTENCIA L HR OPERATIONS ADVISOR Ot I10 ESSENTIAL (PRIMARY) HYPERTENSION 01/01/2018 BAIMA, HORTENCIA L HR OPERATIONS ADVISOR Ot I48.0 PAROXYSMAL ATRIAL FIBRILLATION 01/01/2018 BAIMA, HORTENCIA L HR OPERATIONS ADVISOR Ot R06.09 OTHER FORMS OF DYSPNEA 01/01/2018 BAIMA, HORTENCIA L HR OPERATIONS ADVISOR Ot Z79.01 ENTERTAINER & COMIC (CURRENT) USE OF ANTICOAGULANT 01/01/2018 YANIRA SANDRA DO S Ot M25.572 PAIN IN LEFT ANKLE AND JOINTS OF LEFT FO 01/01/2018 DEVI SANDRA DOLINE S Ot M85.872 OT DISRD OF BONE DENSITY AND STRUCTURE, 01/01/2018 VITALY LIGHT MD Ot C54.1 MALIGNANT NEOPLASM OF ENDOMETRIUM 01/01/2018 VITALY LIGHT MD Ot C54.1 MALIGNANT NEOPLASM OF ENDOMETRIUM 01/01/2018 DEVI SANDRA DOLINE S Ot R32 UNSPECIFIED URINARY INCONTINENCE [...] 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 01/01/2018 VIKAS HUBBARD MD, Ot E66.01 MORBID (SEVERE) OBESITY DUE TO EXCESS CA 01/01/2018 VIKAS HUBBARD MD, Ot F32.9 MAJOR DEPRESSIVE DISORDER, SINGLE EPISOD 01/01/2018 VIKAS HBUBARD MD, Ot G47.30 SLEEP APNEA, UNSPECIFIED 01/01/2018 [...] ADULT 01/01/2018 VIKAS HUBBARD MD, Ot Z79.01 ENTERTAINER & COMIC (CURRENT) USE OF ANTICOAGULANT 01/01/2018 VIKAS HUBBARD MD Ot Z79.899 OTHER SENIOR LIVING (CURRENT) DRUG THERAPY 01/01/2018 VIKAS HUBBARD MD [...] Ot 728.9 MUSCLE/LIGAMENT DIS NOS 01/03/2018 KATLYNNDER DORDEDYANIRA S Ot 611.79 SYMPTOMS IN BREAST NEC 01/03/2018 KATLYNNDER DO YANIRA S Ot 627.1 POSTMENOPAUSAL BLEEDING 01/03/2018 KATLYNNDREDD GABRIEL DOQUELINE S Ot 793.80 UNSPEC ABNORMAL MAMMOGRAM 01/03/2018 Ot N95.0 POSTMENOPAUSAL BLEEDING 01/03/2018 Ot R93.8 ABNORMAL FINDINGS ON DIAGNOSTIC IMAGING 01/03/2018 Ot Z01.812 ENCOUNTER FOR PREPROCEDURAL LABORATORY E 01/03/2018 Ot Z11.2 ENCOUNTER FOR SCREENING FOR OTHER BACTER 01/03/2018 KATLYNNDER DOERDDYANIRA S Ot R05 COUGH 01/03/2018 KATLYNNDRDED GABRIEL DOQUELINE S Ot R06.00 DYSPNEA, UNSPECIFIED 01/03/2018 KATLYNNDER DO YANIRA S Ot R51 HEADACHE 01/03/2018 ELIZABETH CRUZ APRN Ot M79.662 PAIN IN LEFT LOWER LEG 01/03/2018 ELIZABETH CRUZ APRN Ot M79.89 OTHER SPECIFIED SOFT TISSUE DISORDERS 01/03/2018 HORTENCIA SUMMERS HR OPERATIONS ADVISOR Ot I10 ESSENTIAL (PRIMARY) HYPERTENSION 01/03/2018 HORTENCIA SUMMERS HR OPERATIONS ADVISOR Ot I48.0 PAROXYSMAL ATRIAL FIBRILLATION 01/03/2018 BAIHORTENCIA HUNTLEY HR OPERATIONS ADVISOR Ot R06.09 OTHER FORMS OF DYSPNEA 01/03/2018 HORTENCIA SUMMERS HR OPERATIONS ADVISOR Ot Z79.01 SENIOR LIVING (CURRENT) USE OF ANTICOAGULANT 01/03/2018 BAIHORTENCIA HUNTLEY HR OPERATIONS ADVISOR Ot I10 ESSENTIAL (PRIMARY) HYPERTENSION 01/03/2018 BAIHORTENCIA HUNTLEY HR OPERATIONS ADVISOR Ot I48.0 PAROXYSMAL ATRIAL FIBRILLATION 01/03/2018 BAIMAHORTENCIA HR OPERATIONS ADVISOR Ot R06.09 OTHER FORMS OF DYSPNEA 01/03/2018 BAIHORTENCIA HUNTLEY HR OPERATIONS ADVISOR Ot Z79.01 ENTERTAINER & COMIC (CURRENT) USE OF ANTICOAGULANT 01/03/2018 DEVI SANDRA DOLINE S Ot M25.572 PAIN IN LEFT ANKLE AND JOINTS OF LEFT FO 01/03/2018 DEVI SANDRA DOLINE S Ot M85.872 OT DISRD OF BONE DENSITY AND STRUCTURE, 01/03/2018 NADEGE GARZA, VITALY Dubon Ot C54.1 MALIGNANT NEOPLASM OF ENDOMETRIUM 01/03/2018 VITALY LIGHT MD Ot C54.1 MALIGNANT NEOPLASM OF ENDOMETRIUM 01/03/2018 DEVI SANDRA DOLINE S Ot R32 UNSPECIFIED URINARY INCONTINENCE 01/03/2018 REDD SANDRA DOQUELINE S Ot R41.0 DISORIENTATION, UNSPECIFIED 01/03/2018 DEVI SANDRA DOLINE S Ot N64.4 MASTODYNIA 01/03/2018 DEVI SANDRA DOLINE S Ot R60.0 LOCALIZED EDEMA 01/03/2018 KATLYNNDER REDD KAMYANIRA S Ot D64.9 ANEMIA, UNSPECIFIED 01/03/2018 KATLYNNDER REDD KAMYANIRA S Ot E11.40 TYPE 2 DIABETES MELLITUS WITH DIABETIC N 01/03/2018 DEVI SANDRA DOLINE S Ot N17.9 ACUTE KIDNEY FAILURE, UNSPECIFIED 01/03/2018 KATLYNNDER REDD KAMYANIRA S Ot R41.0 DISORIENTATION, UNSPECIFIED 01/03/2018 KATLYNNDDEVI GABRIEL DOLINE S Ot R41.3 OTHER AMNESIA 01/03/2018 DEVI SANDRA DOLINE S Ot R94.6 ABNORMAL RESULTS OF THYROID FUNCTION AURELIANO 01/03/2018 VIKAS HUBBARD MD, Ot C54.1 MALIGNANT NEOPLASM OF ENDOMETRIUM 01/03/2018 VIKAS HUBBARD MD, Ot D61.818 OTHER PANCYTOPENIA 01/03/2018 VIKAS HUBBARD MD, Ot 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 01/03/2018 VIKAS HUBBARD MD, Ot E66.01 MORBID [...] ADULT 01/03/2018 VIKAS HUBBARD MD, Ot Z79.01 ENTERTAINER & COMIC (CURRENT) USE OF ANTICOAGULANT 01/03/2018 VIKAS HUBBARD MD, Ot Z79.899 OTHER ENTERTAINER & COMIC (CURRENT) DRUG THERAPY 01/03/2018 VIKAS HUBBARD MD, Ot G93.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 01/03/2018 VIKAS HUBBARD MD, Ot I67.82 CEREBRAL ISCHEMIA 01/03/2018 VIKAS HUBBARD MD, Ot Z85.42 PERSONAL HISTORY OF MALIGNANT NEOPLASM O 01/06/2018 YANIRA SANDRA DO Ot J98.4 OTHER DISORDERS OF LUNG 01/06/2018 YANIRA SANDRA DO Ot K80.20 CALCULUS OF GALLBLADDER W/O CHOLECYSTITI 01/06/2018 YANIRA SANDRA DO, Ot R59.0 LOCALIZED ENLARGED LYMPH NODES 01/15/2018 VIKAS HUBBARD MD, Ot C54.1 MALIGNANT NEOPLASM OF ENDOMETRIUM 01/15/2018 VIKAS HUBBARD MD, Ot D61.818 OTHER PANCYTOPENIA 01/15/2018 VIKAS HUBBARD MD, Ot 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 01/15/2018 VIKAS HUBBARD MD, Ot E66.01 MORBID [...] ADULT 01/15/2018 VIKAS HUBBARD MD, Ot Z79.01 ENTERTAINER & COMIC (CURRENT) USE OF ANTICOAGULANT 01/15/2018 VIKAS HUBBARD MD, Ot Z79.899 OTHER ENTERTAINER & COMIC (CURRENT) DRUG THERAPY 01/24/2018 YANIRA SANDRA DO Ot J98.4 OTHER DISORDERS OF LUNG 01/24/2018 YANIRA SANDRA DO Ot K80.20 CALCULUS OF GALLBLADDER W/O CHOLECYSTITI 01/24/2018 YANIRA SANDRA DO Ot R59.0 LOCALIZED ENLARGED LYMPH NODES 03/12/2018 VIKAS HUBBARD MD, Ot C54.1 MALIGNANT NEOPLASM OF ENDOMETRIUM 03/12/2018 VIKAS HUBBARD MD, Ot D61.818 OTHER PANCYTOPENIA 03/12/2018 VIKAS HUBBARD MD, Ot 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 03/12/2018 VIKAS HUBBARD MD, Ot E66.01 MORBID [...] ADULT 03/12/2018 VIKAS HUBBARD MD, Ot Z79.01 SENIOR LIVING (CURRENT) USE OF ANTICOAGULANT 03/12/2018 VIKAS HUBBARD MD, Ot Z79.899 OTHER SENIOR LIVING (CURRENT) DRUG THERAPY 03/14/2018 VIKAS HUBBARD MD, Ot C54.1 MALIGNANT NEOPLASM OF ENDOMETRIUM 03/14/2018 VIKAS HUBBARD MD, Ot D61.818 OTHER PANCYTOPENIA 03/14/2018 VIKAS HUBBARD MD Ot 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 03/14/2018 VIKAS HBUBARD MD, Ot E66.01 MORBID (SEVERE) OBESITY DUE [...] ADULT 03/14/2018 VIKAS HUBBARD MD, Ot Z79.01 ENTERTAINER & COMIC (CURRENT) USE OF ANTICOAGULANT 03/14/2018 VIKAS HUBBARD MD, Ot Z79.899 OTHER SENIOR LIVING (CURRENT) DRUG THERAPY 04/03/2018 YOLANDA ROBLES MD, Ot E11.9 TYPE 2 DIABETES MELLITUS WITHOUT COMPLIC 04/03/2018 YOLANDA ROBLES MD, Ot E66.9 OBESITY, UNSPECIFIED 04/03/2018 YOLANDA ROBLES MD, Ot F32.9 MAJOR DEPRESSIVE DISORDER, SINGLE EPISOD 04/03/2018 YOLANDA ROBLES MD, Ot F41.9 ANXIETY DISORDER, UNSPECIFIED 04/03/2018 YOLANDA ROBLES MD, Ot G47.9 SLEEP DISORDER, UNSPECIFIED 04/03/2018 YOLANDA ROBLES MD Ot I10 ESSENTIAL (PRIMARY) HYPERTENSION 04/03/2018 YOLANDA ROBLES MD, Ot J44.1 CHRONIC OBSTRUCTIVE PULMONARY DISEASE W 04/03/2018 YOLANDA ROBLES MD, Ot K21.9 GASTRO-ESOPHAGEAL REFLUX DISEASE WITHOUT 04/03/2018 YOLANDA ROBLES MD Ot M19.91 PRIMARY OSTEOARTHRITIS, UNSPECIFIED SITE 04/03/2018 YOLANDA ROBLES MD, Ot M54.9 DORSALGIA, UNSPECIFIED 04/03/2018 YOLANDA ROBLES MD Ot N30.00 ACUTE CYSTITIS WITHOUT HEMATURIA 04/03/2018 YOLANDA ROBLES MD Ot R09.02 HYPOXEMIA 04/03/2018 YOLANDA ROBLES MD Ot R41.0 DISORIENTATION, UNSPECIFIED 04/03/2018 YOLANDA ROBLES MD, Ot Z66 DO NOT RESUSCITATE 04/03/2018 YOLANDA ROBLES MD, Ot Z68.43 BODY MASS INDEX (BMI) 50-59.9 , ADULT 04/03/2018 YOLANDA ROBLES MD, Ot Z85.42 PERSONAL HISTORY OF MALIGNANT NEOPLASM O 04/03/2018 YOLANDA ROBLES MD, Ot Z85.43 PERSONAL HISTORY OF MALIGNANT NEOPLASM O 04/03/2018 YOLANDA ROBLES MD Ot Z87.891 PERSONAL HISTORY OF NICOTINE DEPENDENCE 04/03/2018 YOLANDA ROBLES MD Ot E11.9 TYPE 2 DIABETES MELLITUS WITHOUT COMPLIC 04/03/2018 YOLANDA ROBLES MD Ot E66.9 OBESITY, UNSPECIFIED 04/03/2018 YOLANDA ROBLES MD Ot F32.9 MAJOR DEPRESSIVE DISORDER, SINGLE EPISOD 04/03/2018 YOLANDA ROBLES MD Ot F41.9 ANXIETY DISORDER, UNSPECIFIED 04/03/2018 YOLANDA ROBLES MD Ot G47.9 SLEEP DISORDER, UNSPECIFIED 04/03/2018 YOLANDA ROBLES MD Ot I10 ESSENTIAL (PRIMARY) HYPERTENSION 04/03/2018 YOLANDA ROBLES MD Ot J44.1 CHRONIC OBSTRUCTIVE PULMONARY DISEASE W 04/03/2018 YOLANDA ROBLES MD Ot K21.9 GASTRO-ESOPHAGEAL REFLUX DISEASE WITHOUT 04/03/2018 YOLANDA ROBLES MD Ot M19.91 PRIMARY OSTEOARTHRITIS, UNSPECIFIED SITE 04/03/2018 YOLANDA ROBLES MD Ot M54.9 DORSALGIA, UNSPECIFIED 04/03/2018 YOLANDA ROBLES MD Ot N30.00 ACUTE CYSTITIS WITHOUT HEMATURIA 04/03/2018 YOLANDA ROBLES MD Ot R09.02 HYPOXEMIA 04/03/2018 YOLANDA ROBLES MD Ot R41.0 DISORIENTATION, UNSPECIFIED 04/03/2018 YOLANDA ROBLES MD Ot Z66 DO NOT RESUSCITATE 04/03/2018 YOLANDA ROBLES MD Ot Z68.43 BODY MASS INDEX (BMI) 50-59.9 , ADULT 04/03/2018 YOLANDA ROBLES MD Ot Z79.01 SENIOR LIVING (CURRENT) USE OF ANTICOAGULANT 04/03/2018 YOLANDA ROBLES MD Ot Z85.42 PERSONAL HISTORY OF MALIGNANT NEOPLASM O 04/03/2018 YOLANDA ROBLES MD Ot Z85.43 PERSONAL HISTORY OF MALIGNANT NEOPLASM O 04/03/2018 YOLANDA ROBLES MD Ot Z87.891 PERSONAL HISTORY OF NICOTINE DEPENDENCE Procedures Code Description Performed By Performed On [id number] REPOSITION LEFT FIBULA WITH INT FIX, OPE [...] calculation of estimated glomerular filtration rate 37 [facility] Serum or plasma glucose measurement (mass/volume) 113 [...] CELLS LEUKO REDUCED AS1 TRANSFUSED 05/31/16 1421 [facility] [id number] - 05/30/16 07:00 [id number] SPECIMEN AVAILABLE [facility] Blood type T Indirect antibody screen panel - 05/30/16 07:00 ABO+Rh group AP NRG Transfusion band number [id number] [facility] Blood group antibody screen NEGATIVE NR Capillary blood glucose measurement by glucometer (mass/volume) [...] culture - 08/21/16 21:15 Bacterial urine culture [id number] NRG COLONY COUNT 10,000/ML - 100,000/ML NRG FTX;REPORTABLE SENSITIVITY REPORTED AT 0856, 12--16 NR Bacterial susceptibility panel - 08/21/16 21:15 Gentamicin [...] susceptibility test by minimum inhibitory concentration - NRG Complete blood count (CBC) with automated [...] culture - 04/29/17 00:00 Bacterial urine culture [id number] NRG COLONY COUNT 10,000/ML - 100,000/ML NRG FTX;REPORTABLE SENSITIVITY REPORTED 04/30 16:30 NR Bacterial susceptibility panel - 04/29/17 00:00 Gentamicin [...] susceptibility test by minimum inhibitory concentration - [facility] Bacterial susceptibility panel - 04/29/17 [...] Amikacin susceptibility test by minimum inhibitory concentration S NRG Complete blood count (CBC) with automated [...] resistant Staphylococcus aureus (MRSA) screening culture NEG NRG Complete blood count (CBC) with automated [...] measurement by glucometer (mass/volume) 163 mg/dL 70-110 Complete blood count (CBC) with automated white blood cell (WBC) differential - 04/01/18 20:55 Blood leukocytes automated count (number/volume) 6.7 10*3/uL 4.3-11.0 Blood erythrocytes automated count (number/volume) 3.88 10*6/uL 4.35-5.85 Venous blood hemoglobin measurement (mass/volume) 11.2 g/dL 11.5-16.0 Blood hematocrit (volume fraction) 37 % 35-52 Automated erythrocyte mean corpuscular volume 95 [foz_us] 80-99 Automated erythrocyte mean corpuscular hemoglobin (mass per erythrocyte) 29 pg 25-34 Automated erythrocyte mean corpuscular hemoglobin concentration measurement ( mass/volume) 30 g/dL 32-36 Automated erythrocyte distribution width ratio 16.9 % 10.0-14.5 Automated blood platelet count (count/volume) 182 10*3/uL 130-400 Automated blood platelet mean volume measurement 9.6 [foz_us] 7.4-10.4 Automated blood neutrophils/100 leukocytes 80 % 42-75 Automated blood lymphocytes/100 leukocytes 11 % 12-44 Blood monocytes/100 leukocytes 7 % 0-12 Automated blood eosinophils/100 leukocytes 2 % 0-10 Automated blood basophils/100 leukocytes 0 % 0-10 Blood neutrophils automated count (number/volume) 5.3 10*3 1.8-7.8 Blood lymphocytes automated count (number/volume) 0.7 10*3 1.0-4.0 Blood monocytes automated count (number/volume) 0.5 10*3 0.0-1.0 Automated eosinophil count 0.2 10*3/uL 0.0-0.3 Automated blood basophil count (count/volume) 0.0 10*3/uL 0.0-0.1 PT panel in platelet poor plasma by coagulation assay - 04/01/18 20:55 Prothrombin time (PT) in platelet poor plasma by coagulation assay 22.9 s 12.2-14.7 INR in platelet poor plasma or blood by coagulation assay 2.0 0.8-1.4 Activated partial thromboplastin time (aPTT) in platelet poor plasma bycoagulation assay - 04/01/18 20:55 Activated partial thromboplastin time (aPTT) in platelet poor plasma bycoagulation assay 45 s 24-35 Blood lactic acid measurement (moles/volume) - 04/01/18 20:55 Blood lactic acid measurement (moles/volume) 1.32 mmol/L 0.50-2.00 Comprehensive metabolic panel - 04/01/18 20:55 Serum or plasma sodium measurement (moles/volume) 144 mmol/L 135-145 Serum or plasma potassium measurement (moles/volume) 4.1 mmol/L 3.6-5.0 Serum or plasma chloride measurement (moles/volume) 103 mmol/L 98-107 Carbon dioxide 30 mmol/L 21-32 Serum or plasma anion gap determination (moles/volume) 11 mmol/L 5-14 Serum or plasma urea nitrogen measurement (mass/volume) 31 mg/dL 7-18 Serum or plasma creatinine measurement (mass/volume) 1.58 mg/dL 0.60-1.30 Serum or plasma urea nitrogen/creatinine mass ratio 20 NRG Serum or plasma creatinine measurement with calculation of estimated glomerular filtration rate 32 NRG Serum or plasma glucose measurement (mass/volume) 133 mg/dL 70-105 Serum or plasma calcium measurement (mass/volume) 9.7 mg/dL 8.5-10.1 Serum or plasma total bilirubin measurement (mass/volume) 0.8 mg/dL 0.1-1.0 Serum or plasma alkaline phosphatase measurement (enzymatic activity/volume) 80 U/L 40-136 Serum or plasma aspartate aminotransferase measurement (enzymatic activity/ volume) 20 U/L 5-34 Serum or plasma alanine aminotransferase measurement (enzymatic activity/volume ) 7 U/L 0-55 Serum or plasma protein measurement (mass/volume) 6.9 g/dL 6.4-8.2 Serum or plasma albumin measurement (mass/volume) 3.6 g/dL 3.2-4.5 Serum or plasma lithium measurement (moles/volume) - 04/01/18 20:55 BNP level 432.0 pg/mL <100.0 Bacterial blood culture - 04/01/18 20:55 Bacterial blood culture NG NRG Sputum Gram stain - 04/01/18 21:00 GRAM STAIN SPUTUM FEW GRAM POSITIVE COCCI NRG Bacterial sputum culture - 04/01/18 21:00 FREE TEXT EXTERNAL FEW, SENSITIVITY REPORTED AT 0808, 7-13 NRG QUANTITY OF GROWTH Moderate Growth NRG MRSA AGAR Screening test for MRSA is NEGATIVE (Final to follow) NRG Bacterial sputum culture [id number] NR Bacterial susceptibility panel - 04/01/18 21:00 Oxacillin susceptibility test by minimum inhibitory concentration 1 NRG Gentamicin susceptibility test by minimum inhibitory concentration < = NRG Clindamycin susceptibility test by minimum inhibitory concentration R NRG Erythromycin susceptibility test by minimum inhibitory concentration R NRG Trimethoprim/sulfamethoxazole susceptibility test by minimum inhibitoryconcentration S NRG Vancomycin susceptibility test by minimum inhibitory concentration 1 NRG Levofloxacin susceptibility test by minimum inhibitory concentration 4 NRG Rifampin susceptibility test by minimum inhibitory concentration <= NRG Tetracycline susceptibility test by minimum inhibitory concentration <= NRG Ciprofloxacin susceptibility test by minimum inhibitory concentration R NRG Arterial blood gas measurement - 04/01/18 21:07 Blood pCO2 66 mm[Hg] 35-45 Blood pO2 95 mm[Hg] 79-93 Arterial blood bicarbonate measurement (moles/volume) 33 mmol/L 23-27 Arterial blood base excess by calculation 7.2 mmol/L -2.5 -2.5 Arterial blood oxygen saturation measurement 97 % 94-100 * Inhaled oxygen flow rate 6 NRG Arterial blood pH measurement with patient temperature correction 7.33 7.37-7.43 Arterial blood carbon dioxide, total measurement (moles/volume) 34.8 mmol/L 21.0-31.0 Body site RT RAD NRG Assessment of wrist artery patency prior to arterial puncture YES- POS NRG Setting of ventilation mode NO NRG Measurement of body temperature 100.6 NRG Bacterial blood culture - 04/01/18 21:24 Bacterial blood culture NG NRG Complete urinalysis with reflex to culture - 04/01/18 22:00 Urine color determination YELLOW NRG Urine clarity determination VERY CLOUDY NRG Urine pH measurement by test strip 5 5-9 Specific gravity of urine by test strip 1.020 1.016- 1.022 Urine protein assay by test strip, semi-quantitative 1+ NEGATIVE Urine glucose detection by automated test strip NEGATIVE NEGATIVE Erythrocytes detection in urine sediment by light microscopy 4+ NEGATIVE Urine ketones detection by automated test [...] detection in urine sediment by light microscopy LARGE NRG Squamous epithelial cells detection in urine sediment by light microscopy 2-5 NRG Crystals detection in urine sediment by light microscopy NONE NRG Casts detection in urine sediment by light microscopy NONE NRG Mucus detection in urine sediment by light microscopy NEGATIVE NRG Complete urinalysis with reflex to culture YES NRG Bacterial urine culture - 04/01/18 22:00 Bacterial urine culture RML NRG COLONY COUNT . NRG Complete blood count (CBC) with automated white blood cell (WBC) differential - 04/02/18 05:08 Blood leukocytes automated count (number/volume) 7.7 10*3/uL 4.3-11.0 Blood erythrocytes automated count (number/volume) 3.78 10*6/uL 4.35-5.85 Venous blood hemoglobin measurement (mass/volume) 10.7 g/dL 11.5-16.0 Blood hematocrit (volume fraction) 36 % 35-52 Automated erythrocyte mean corpuscular volume 96 [foz_us] 80-99 Automated erythrocyte mean corpuscular hemoglobin (mass per erythrocyte) 28 pg 25-34 Automated erythrocyte mean corpuscular hemoglobin concentration measurement ( mass/volume) 30 g/dL 32-36 Automated erythrocyte distribution width ratio 17.1 % 10.0-14.5 Automated blood platelet count (count/volume) 168 10*3/uL 130-400 Automated blood platelet mean volume measurement 10.0 [foz_us] 7.4-10.4 Automated blood neutrophils/100 leukocytes 94 % 42-75 Automated blood lymphocytes/100 leukocytes 5 % 12-44 Blood monocytes/100 leukocytes 1 % 0-12 Automated blood eosinophils/100 leukocytes 0 % 0-10 Automated blood basophils/100 leukocytes 0 % 0-10 Blood neutrophils automated count (number/volume) 7.2 10*3 1.8-7.8 Blood lymphocytes automated count (number/volume) 0.4 10*3 1.0-4.0 Blood monocytes automated count (number/volume) 0.1 10*3 0.0-1.0 Automated eosinophil count 0.0 10*3/uL 0.0-0.3 Automated blood basophil count (count/volume) 0.0 10*3/uL 0.0-0.1 Comprehensive metabolic panel - 04/02/18 05:08 Serum or plasma sodium measurement (moles/volume) 143 mmol/L 135-145 Serum or plasma potassium measurement (moles/volume) 4.0 mmol/L 3.6-5.0 Serum or plasma chloride measurement (moles/volume) 104 mmol/L 98-107 Carbon dioxide 24 mmol/L 21-32 Serum or plasma anion gap determination (moles/volume) 15 mmol/L 5-14 Serum or plasma urea nitrogen measurement (mass/volume) 34 mg/dL 7-18 Serum or plasma creatinine measurement (mass/volume) 1.64 mg/dL 0.60-1.30 Serum or plasma urea nitrogen/creatinine mass ratio 21 NRG Serum or plasma creatinine measurement with calculation of estimated glomerular filtration rate 31 NRG Serum or plasma glucose measurement (mass/volume) 215 mg/dL 70-105 Serum or plasma calcium measurement (mass/volume) 9.8 mg/dL 8.5-10.1 Serum or plasma total bilirubin measurement (mass/volume) 0.6 mg/dL 0.1-1.0 Serum or plasma alkaline phosphatase measurement (enzymatic activity/volume) 77 U/L 40-136 Serum or plasma aspartate aminotransferase measurement (enzymatic activity/ volume) 20 U/L 5-34 Serum or plasma alanine aminotransferase measurement (enzymatic activity/volume ) 8 U/L 0-55 Serum or plasma protein measurement (mass/volume) 6.7 g/dL 6.4-8.2 Serum or plasma albumin measurement (mass/volume) 3.5 g/dL 3.2-4.5 Blood manual differential performed detection - 04/02/18 05:08 Blood monocytes/100 leukocytes 3 % NRG Manual blood segmented neutrophils/100 leukocytes 89 % NRG Blood band neutrophils/100 leukocytes 5 % NRG Manual blood lymphocytes/100 leukocytes 3 % NRG Blood polychromasia detection by light microscopy SLIGHT NRG Blood anisocytosis detection by light microscopy SLIGHT NRG Blood poikilocytosis detection by light microscopy SLIGHT NRG Blood microcytes detection by light microscopy SLIGHT NRG Blood spherocytes detection by light microscopy SLIGHT NRG Encounters ACCT No. Visit Date/Time Discharge Status Pt. Type Provider Facility Loc./Unit Complaint [id number] 04/01/2018 22:00:00 04/03/2018 14:15:00 DIS Inpatient MARGARET GARZA, YOLANDA Dubon [facility] 4TH UTI,COPD W/ACUTE EXACERBATION,HYPOXIA [id number] 03/13/2018 00:10:00 03/13/2018 23:59:59 CLS Preadmit VIKAS HUBBARD MD [facility] ONC [id number] 12/16/2017 13:47:00 03/12/2018 00:01:00 DIS Outpatient VIKAS HUBBARD MD [facility] ONC [id number] 01/03/2018 11:52:00 01/03/2018 23:59:59 CLS Outpatient YANIRA SANDRA DO [facility] RAD LT LUNG DENSITY [id number] 12/13/2017 13:36:00 12/13/2017 23:59:59 CLS Outpatient VIKAS HUBBARD MD [facility] RAD R51 [id number] 07/18/2017 12:25:00 10/16/2017 00:01:00 DIS Outpatient VIKAS HUBBARD MD [facility] ONC [id number] 06/21/2017 09:01:00 06/22/2017 00:01:00 DIS Outpatient VIKAS HUBBARD MD [facility] ONC [id number] 06/04/2017 11:45:00 06/04/2017 23:59:59 CLS Preadmit VITALY LIGHT MD [facility] RAD ENDOMETRIAL CARCINOMA C54.1 [id number] 05/28/2017 19:37:00 05/28/2017 23:59:59 CLS Inpatient KATLYNNDER DEVI KAMLINE S [facility] 4TH COPD EXACERBATION CHF [id number] 05/24/2017 11:39:00 05/24/2017 23:59:59 CLS Outpatient KATLYNNDER DEVI KAMLINE S [facility] RAD R41.0 [id number] 05/24/2017 07:44:00 05/24/2017 11:27:00 DIS Emergency YOLANDA ROBLES MD [facility] ER FALL [id number] 05/21/2017 11:25:00 05/21/2017 23:59:59 CLS Preadmit KATLYNNDDEVI GABRIEL DOLINE S [facility] RAD R94.6 [id number] 05/17/2017 14:12:00 05/17/2017 23:59:59 CLS Outpatient KATLYNNDER DEVI KAMLINE S [facility] CVS N17.9, D64.9, E11.40 [id number] 05/15/2017 13:24:00 05/15/2017 23:59:59 CLS Outpatient KATLYNNDER DEVI KAMLINE S [facility] RAD N61.0 [id number] 04/29/2017 15:37:00 04/29/2017 23:59:59 CLS Outpatient KATLYNNDER REDD KAMYANIRA S [facility] CVS ELEVATED CONFUSION AND INCONTINENCE [id number] 01/23/2017 13:52:00 01/29/2017 00:01:00 DIS Outpatient VITALY LIGHT MD [facility] ONC [id number] 12/06/2016 09:04:00 12/06/2016 23:59:59 CLS Outpatient VITALY LIGHT MD [facility] RAD ENDOMETRIAL CARCINOMA [id number] 11/06/2016 10:06:00 11/06/2016 23:59:59 CLS Outpatient VITALY LIGHT MD [facility] RAD ENDOMETRIAL CARCINOMA [id number] 08/01/2016 14:41:00 10/30/2016 00:01:00 DIS Outpatient VITALY LIGHT MD [facility] ONC [id number] 10/19/2016 17:21:00 10/19/2016 23:59:59 CLS Outpatient YANIRA SANDRA DO [facility] RAD LT ANKLE EROSIONS [id number] 10/18/2016 15:09:00 10/18/2016 23:59:59 CLS Outpatient YANIRA SANDRA DO S [facility] RAD LEFT ANKLE PAIN [id number] 10/18/2016 10:20:00 10/18/2016 23:59:59 CLS Outpatient HORTENCIA SUMMERS [facility] LAB HTN,PAF,CHRONIC ANTICOAGULATION,DYSPNEA [id number] 10/18/2016 07:17:00 10/18/2016 23:59:59 CLS Outpatient HORTENCIA SUMMERS [facility] CARD EXERTION DYSPNEA,HTN ,PAF [id number] 08/21/2016 16:20:00 08/23/2016 16:52:00 DIS Inpatient YANIRA SANDRA DO [facility] ICU ATRIAL FIBRILLATION, CONGESTIVE HEART FAILURE [id number] 05/29/2016 13:26:00 07/02/2016 13:23:00 DIS Outpatient VITALY LIGHT MD [facility] ONC [id number] 05/30/2016 12:30:00 06/01/2016 13:10:00 DIS Inpatient YANIRA SANDRA DO S [facility] 4TH ACUTE ON CHRONIC RENAL FAILURE [id number] 05/09/2016 10:59:00 05/09/2016 15:50:00 DIS Emergency PRABHA VAUGHAN [facility] ER LEFT ANKLE INJURY [id number] 03/28/2016 10:01:00 04/24/2016 00:01:00 DIS Outpatient VITALY LIGHT MD [facility] ONC [id number] 04/11/2016 03:25:00 04/17/2016 14:40:00 DIS Inpatient VICTOR HUGO HARTMANN MD Via [facility] 4TH LEFT DISLOCATED TIB/FIB FX,ACUTE ON CHRONIC RENAL [id number] 12/06/2015 13:54:00 12/06/2015 23:59:59 CLS Outpatient ELIZABETH CRUZ APRN [facility] RAD LT LEG SWELLING AND PAIN [id number] 11/10/2015 10:48:00 11/10/2015 23:59:59 CLS Outpatient YANIRA SANDRA DO S [facility] RAD DYSPNEA [id number] 07/07/2015 07:31:00 07/07/2015 14:45:00 DIS Outpatient VICTOR HUGO FUENTES DO S Via [facility] SDC POST MENOPAUSAL BLEEDING; THICKENED ENDOMETRIUM [id number] 06/21/2015 13:45:00 06/21/2015 23:59:59 CLS Outpatient YANIRA SANDRA DO S [facility] RAD ABNORMAL MAMMOGRAM [id number] 06/13/2015 11:16:00 06/13/2015 23:59:59 CLS Outpatient YANIRA SANDRA DO S [facility] RAD LEFT BREAST DISCOLORATION POST MENAPAUSAL BLEEDING [id number] 07/15/2014 10:58:00 07/15/2014 23:59:59 CLS Outpatient YANIRA SANDRA DO S [facility] LAB MUSCLE DISORDER, DIABETES KIDNEY DISORDER [id number] 01/15/2014 04:30:00 01/18/2014 12:25:00 DIS Inpatient DEVI SANDRA DOLINE S [facility] 4TH PNEUMONIA, GENERALIZED WEAKNESS [id number] 01/03/2014 00:04:00 01/03/2014 16:40:00 DIS Inpatient REDD SANDRA DOQUELINE S [facility] 4TH UTI;GLOBAL WEAKNESS [id number] 10/15/2013 21:04:00 10/15/2013 22:42:00 DIS Emergency LUIS SULLIVAN APRN [facility] ER FELL AT HOME [id number] 04/09/2018 18:13:00 ACT Emergency ANIBAL STEPHENS MD [facility] ER HYPOXIA [id number] 07/04/2015 09:43:00 Document Registration [id number] 06/13/2015 11:16:00 Document Registration [id number] 06/13/2015 11:16:00 Document Registration [id number] 06/13/2015 11:16:00 Document Registration [id number] 11/06/2014 12:08:00 Document Registration [id number] 11/06/2014 12:08:00 Document Registration [id number] 11/06/2014 12:08:00 Document Registration [id number] 10/26/2012 21:43:00 Document Registration [id number] 10/10/2012 09:02:00 Document Registration [id number] 08/08/2012 11:33:00 Document Registration [id number] 09/21/2010 13:19:00 Document Registration [id number] 10/19/2009 15:02:00 Document Registration 06/09/11 03/13/2018 10:21:34 03/13/2018 23:59:59 Yanira Olmstead
[2018-04-09] MEDS ORDERED: RT-ALBUTEROL/IPRATROPIUM 3 ML (DUONEB) VIAL INH ONE (18:30)
[2018-04-09] MEDS ORDERED: ACETAMINOPHEN 500 MG TAB (TYLENOL) PO PRN (18:30)
[2018-04-09] MEDS ORDERED: CEFEPIME INJECTION 2,000 MG in NS (IVPB) 50 ML IV ONE (18:30)
[2018-04-09 18:36] LABS: BASOPHILS % (AUTO) 0 % (0-10); EOSINOPHILS # (AUTO) 0.2 10^3/uL (0.0-0.3); EOSINOPHILS % (AUTO) 1 % (0-10); HEMATOCRIT 40 % (35-52); HEMOGLOBIN 12.4 G/DL (11.5-16.0); LYMPHOCYTES # (AUTO) 0.7 X 10^3 (1.0-4.0); LYMPHOCYTES % (AUTO) 4 % (12-44); MEAN CORPUSCULAR HEMOGLOBIN 29 PG (25-34); MEAN CORPUSCULAR HGB CONC 31 G/DL (32-36); MEAN CORPUSCULAR VOLUME 92 FL (80-99); MEAN PLATELET VOLUME 9.6 FL (7.4-10.4); MONOCYTES % (AUTO) 6 % (0-12); NEUTROPHILS # (AUTO) 14.8 X 10^3 (1.8-7.8); NEUTROPHILS % (AUTO) 89 % (42-75); PLATELET COUNT 218 10^3/uL (130-400); RED BLOOD COUNT 4.33 10^6/uL (4.35-5.85); RED CELL DISTRIBUTION WIDTH 16.8 % (10.0-14.5); WHITE BLOOD COUNT 16.7 10^3/uL (4.3-11.0)
--- NOTE | 2018-04-09 18:37 | ED Respiratory ---
General Stated Complaint: HYPOXIA Source: patient Exam Limitations: clinical condition History of Present Illness Date Seen by Provider: Apr 09, 2018 Time Seen by Provider: 18:05 Initial Comments [facility] with a chief complaint of shortness of breath, oxygen sats in the low 80s on 4 L nasal cannula despite "multiple nebulizers". Patient is a history of COPD, heart failure and today was discovered to have a fever of 102. EMS reports fever 101.8. No report of Tylenol or Motrin. Patient has a history of cognitive communicative deficit and does not speak much at baseline. Staff reports that the patient was seen yesterday by the provider and was encouraged to use more nebulizers. Patient has a history of smoking although the amount is unknown. EMS reports they put her on room air briefly wall transferring to the [facility] and she got down to 74%. Allergies and Home Medications Allergies Coded Allergies: levofloxacin (Verified Allergy, Intermediate, 05/29/17) ciprofloxacin (Verified Allergy, Unknown, 10/11/08) ofloxacin (Verified Allergy, Unknown, 10/11/08) Home Medications Acetaminophen 325 Mg Tablet, 650 MG PO Q4H PRN for PAIN-MILD OR TEMPATURE, ( Reported) TAKES 2 (325MG) TABLETS Alprazolam 0.25 Mg Tablet, 0.25 MG PO DAILY, (Reported) Alprazolam 0.5 Mg Tablet, 0.5 MG PO HS, (Reported) Atorvastatin Calcium 20 Mg Tablet, 20 MG PO HS, (Reported) Cholecalciferol (Vitamin D3) 5,000 Unit Capsule, 5,000 UNIT PO We, (Reported) Citalopram Hydrobromide 20 Mg Tablet, 20 MG PO DAILY, (Reported) Furosemide 40 Mg Tablet, 40 MG PO DAILY, (Reported) Gabapentin 300 Mg Capsule, 300 MG PO DAILY, (Reported) Guaifenesin/Dextromethorphan 5 Ml Syrup, 5 ML PO Q4H PRN for COUGH, (Reported) Hydrocodone/Acetaminophen 1 Each Tablet, 1 TAB PO UD PRN for PAIN-MODERATE, ( Reported) GIVE 1 TABLET 30 MINUTES PRIOR TO PHYSICAL THERAPY Hydrocodone/Acetaminophen 1 Each Tablet, 1 TAB PO BID PRN for PAIN-MODERATE, ( Reported) Hydrocodone/Acetaminophen 1 Each Tablet, 1 TAB PO TID PRN for PAIN-MODERATE, ( Reported) Ipratropium/Albuterol Sulfate 3 Ml Ampul.neb, 3 ML IH Q4H PRN for COUGH/ CONGESTION, (Reported) Magnesium Hydroxide 400 Mg/5 Ml Oral.susp, 30 ML PO DAILY PRN for CONSTIPATION- 7TH LINE, (Reported) Multivits,Th W-Fe,Other Min 1 Each Tablet, 1 TAB PO DAILY, (Reported) Omeprazole 20 Mg Capsule.dr, 20 MG PO DAILY, (Reported) Potassium Chloride 20 Meq Tab.er.prt, 20 MEQ PO DAILY, (Reported) Prednisone 20 Mg Tab, 40 MG PO DAILY@0700 Prescribed by: JIL STEVENS on 04/03/18 1000 Rivaroxaban 20 Mg Tablet, 20 MG PO 1800, (Reported) Sennosides/Docusate Sodium 1 Each Tablet, 1 TAB PO Q12H PRN for CONSTIPATION- 6TH LINE, (Reported) Patient Home Medication List Home Medication List Reviewed: Yes Review of Systems Constitutional: No chills, No diaphoresis; fever, malaise EENTM: No ear discharge, No tearing, No hoarseness, No nose congestion, No throat pain Respiratory: short of breath, wheezing Cardiovascular: No chest pain, No palpitations, No syncope Gastrointestinal: No abdominal pain, No constipation, No diarrhea, No nausea, No vomiting Genitourinary: No discharge, No dysuria Musculoskeletal: No back pain, No joint pain Skin: No pruritus, No rash Psychiatric/Neurological: Denies Headache, Denies Numbness, Denies Paresthesia Past Pbiokyv-Vowfft-Nycrgd Hx Patient Social History Alcohol Use: Denies Use Recreational Drug Use: No Smoking Status: Former Smoker Type Used: Cigarettes Former Smoker, Quit: Sep 23, 2007 2nd Hand Smoke Exposure: No Recent Hopitalizations: No Immunizations Up To Date Tetanus Booster (TDap): Unknown PED Vaccines UTD: No Date of Pneumonia Vaccine: Sep 23, 2012 Date of Influenza Vaccine: Jul 27, 2016 Seasonal Allergies Seasonal Allergies: No Past Medical History Surgeries: Yes (UMBILICAL HERNIA REPAIR, D&C) Orthopedic Respiratory: Yes Asthma, COPD Currently Using CPAP: No Currently Using BIPAP: No Cardiac: Yes Hypertension Neurological: Yes (BONE SPURS ALONG SPINE ) Reproductive Disorders: Yes (PMB) Female Reproductive Disorders: Endometriosis [employer] History: Menopausal Sexually Transmitted Disease: No HIV/AIDS: No Genitourinary: Yes Renal Failure, UTI-Chronic Gastrointestinal: Yes Gastroesophageal Reflux Musculoskeletal: Yes Degenerate Disk Disease, Arthritis, Chronic Back Pain, Fractures Endocrine: Yes (USED TO TAKE METFORMIN BUT NOW DIABETES IS DIET CONTROLLED) Diabetes, Non-Insulin dep Loss of Vision: Denies Cancer: Yes (ENDOMETRIAL, MALIGNANT NEOPLASM UTERUS) Ovarian, Uterine Psychosocial: Yes Sleep Difficulties, Anxiety, Depression Integumentary: No Blood Disorders: No Adverse Reaction/Blood Tranf: No Family Medical History Cancer 03 MOTHER 09 SISTER Family history: Breast disease 09 SISTER No Pertinent Family Hx Physical Exam Vital Signs - First Documented 04/09/18 04/09/18 18:22 18:37 Temp 100.8 Pulse 87 Resp 16 B/P (MAP) 125/82 (96) Pulse Ox 98 O2 Delivery OxyMask O2 Flow Rate 10.00 Capillary Refill : Height: 4'10.00" Weight: 244lbs. 3.0oz. 110.772441mz; 51.0 BMI Method:Estimated General Appearance: WD/WN, mild distress Eyes: Bilateral Eye Normal Inspection, Bilateral Eye PERRL, Bilateral Eye EOMI HEENT: PERRL/EOMI, normal ENT inspection, TMs normal, pharynx normal Neck: non-tender, full range of motion, supple, normal inspection Respiratory: chest non-tender, no accessory muscle use, respiratory distress ( mild), decreased breath sounds, rales (faint right base) Cardiovascular: normal peripheral pulses, regular rate, rhythm Gastrointestinal: non tender, soft Extremities: no pedal edema, normal capillary refill Neurologic/Psychiatric: alert, normal mood/affect, oriented x 3 Skin: normal color, warm/dry Focused Exam Lactate Level 04/09/18 18:15: Lactic Acid Level 3.14*H Lactic Acid Level Laboratory Tests Test 04/09/18 18:15 Lactic Acid Level 3.14 MMOL/L (0.50-2.00) *H Procedures/Interventions Patient Education: Explained Benefits, Explained Risks, Pt. Ack. Understanding Breath Sounds per Auscultation: Clear Heart Sounds per Auscultation: Regular Airway Exam: Mouth opens >2 fingers, Neck Full Range of Motion, Visulation of Uvula Sedation Adminstration Time: 0303 Re-examination Time: 0335 Progress/Results/Core Measures Suspected Sepsis SIRS Temperature: Pulse: Respiratory Rate: Laboratory Tests 04/09/18 18:15: White Blood Count 16.7H Blood Pressure / Mean: 04/09/18 18:15: Lactic Acid Level 3.14*H Laboratory Tests 04/09/18 18:15: Creatinine 1.29, INR Comment 1.4, Platelet Count 218, Total Bilirubin 1.2H Results/Orders Lab Results Laboratory Tests Test 04/09/18 18:15 04/09/18 18:20 04/09/18 18:45 Range/Units White Blood Count 16.7 H 4.3-11.0 10^3/uL Red Blood Count 4.33 L 4.35-5.85 10^6/uL Hemoglobin 12.4 11.5-16.0 G/DL Hematocrit 40 35-52 % Mean Corpuscular Volume 92 80-99 FL Mean Corpuscular Hemoglobin 29 25-34 PG Mean Corpuscular Hemoglobin Concent 31 L 32-36 G/DL Red Cell Distribution Width 16.8 H 10.0-14.5 % Platelet Count 218 130-400 10^3/uL Mean Platelet Volume 9.6 7.4-10.4 FL Neutrophils (%) (Auto) 89 H 42-75 % Lymphocytes (%) (Auto) 4 L 12-44 % Monocytes (%) (Auto) 6 0-12 % Eosinophils (%) (Auto) 1 0-10 % Basophils (%) (Auto) 0 0-10 % Neutrophils # (Auto) 14.8 H 1.8-7.8 X 10^3 Lymphocytes # (Auto) 0.7 L 1.0-4.0 X 10^3 Monocytes # (Auto) 1.0 0.0-1.0 X 10^3 Eosinophils # (Auto) 0.2 0.0-0.3 10^3/uL Basophils # (Auto) 0.0 0.0-0.1 10^3/uL Neutrophils % (Manual) 81 % Lymphocytes % (Manual) 3 % Monocytes % (Manual) 5 % Eosinophils % (Manual) 2 % Basophils % (Manual) 0 % Band Neutrophils 9 % Blood Morphology Comment NORMAL Prothrombin Time 17.1 H 12.2-14.7 SEC INR Comment 1.4 0.8-1.4 Activated Partial Thromboplast Time 30 24-35 SEC Sodium Level 142 135-145 MMOL/L Potassium Level 4.2 3.6-5.0 MMOL/L Chloride Level 99 98-107 MMOL/L Carbon Dioxide Level 32 21-32 MMOL/L Anion Gap 11 5-14 MMOL/L Blood Urea Nitrogen 37 H 7-18 MG/DL Creatinine 1.29 0.60-1.30 MG/DL Estimat Glomerular Filtration Rate 41 BUN/Creatinine Ratio 29 Glucose Level 144 H 70-105 MG/DL Lactic Acid Level 3.14 *H 0.50-2.00 MMOL/L Calcium Level 9.4 8.5-10.1 MG/DL Total Bilirubin 1.2 H 0.1-1.0 MG/DL Aspartate Amino Transf (AST/SGOT) 20 5-34 U/L Alanine Aminotransferase (ALT/SGPT) 14 0-55 U/L Alkaline Phosphatase 71 40-136 U/L Total Protein 6.6 6.4-8.2 GM/DL Albumin 3.7 3.2-4.5 GM/DL Urine Color YELLOW Urine Clarity CLEAR Urine pH 8 5-9 Urine Specific Wells 1.010 L 1.016-1.022 Urine Protein NEGATIVE NEGATIVE Urine Glucose (UA) NEGATIVE NEGATIVE Urine Ketones NEGATIVE NEGATIVE Urine Nitrite NEGATIVE NEGATIVE Urine Bilirubin NEGATIVE NEGATIVE Urine Urobilinogen NORMAL NORMAL MG/DL Urine Leukocyte Esterase 2+ H NEGATIVE Urine RBC (Auto) NEGATIVE NEGATIVE Urine RBC NONE /HPF Urine WBC 2-5 /HPF Urine Crystals NONE /LPF Urine Bacteria NONE /HPF Urine Casts NONE /LPF Urine Mucus NEGATIVE /LPF Urine Culture Indicated NO Blood Gas Puncture Site LEFT RADIAL Blood Gas Patient Temperature 101.8 Arterial Blood pH 7.42 7.37-7.43 Arterial Blood Partial Pressure CO2 47 H 35-45 MMHG Arterial Blood Partial Pressure O2 91 79-93 MMHG Arterial Blood HCO3 29 H 23-27 MMOL/L Arterial Blood Total CO2 30.7 21.0-31.0 MMOL/L Arterial Blood Oxygen Saturation 97 94-100 % Arterial Blood Base Excess 5.4 H -2.5-2.5 MMOL/L Fidel Test POSITIVE Blood Gas Ventilator Setting NO Blood Gas Inspired Oxygen 10L My Orders Orders - ANIBAL STEPHENS Albuterol/Ipra Inhalation Soln (Duoneb I (04/09/18 18:21) Cbc With Automated Diff (04/09/18 18:25) Comprehensive Metabolic Panel (04/09/18 18:25) Lactic Acid Analyzer (04/09/18 18:25) Blood Culture (04/09/18 18:25) Sputum Culture (04/09/18 18:25) Ua Culture If Indicated (04/09/18 18:25) Protime With Inr (04/09/18 18:25) Partial Thromboplastin Time (04/09/18 18:25) Chest 1 View, Ap/Pa Only (04/09/18 18:25) O2 (04/09/18 18:25) Acetaminophen Tablet (Tylenol Tablet) (04/09/18 18:30) Saline Lock/Iv-Start (04/09/18 18:25) Saline Lock/Iv-Start (04/09/18 18:25) Cefepime Injection (Maxipime Injection) (04/09/18 18:30) Vital Signs Adult Sepsis Patie Q15M (04/09/18 18:25) Remove Rings In Anticipation O (04/09/18 18:25) Ns Iv 1000 Ml (Sodium Chloride 0.9%) (04/09/18 18:25) Albuterol/Ipra Inhalation Soln (Duoneb I (04/09/18 18:30) Catheter(Urinary) Insert & Ass 03,15 (04/09/18 18:25) Svn Small Volume Nebulizer (04/09/18 18:25) Manual Differential (04/09/18 18:15) Arterial Blood Gas (04/09/18 18:45) Medications Given in ED Current Medications Medications Dose Ordered Sig/Betina Route Start Time Stop Time Status Last Admin Dose Admin Acetaminophen 1,000 mg ONCE PRN PO 04/09/18 18:30 04/09/18 18:59 DC 04/09/18 18:58 1,000 MG Albuterol/ Ipratropium 3 ml ONCE ONCE INH 04/09/18 18:30 04/09/18 18:31 DC 04/09/18 18:22 3 ML Cefepime HCl 2000 mg/Sodium Chloride 50 ml @ 100 mls/hr ONCE ONCE IV 04/09/18 18:30 04/09/18 18:59 DC 04/09/18 18:59 100 MLS/HR Vital Signs/I&O 18 1818 718 18:22 18:37 18:51 Temp 100.8 Pulse 87 Resp 16 B/P (MAP) 125/82 (96) Pulse Ox 98 91 97 O2 Delivery OxyMask Simple Mask OxyMask O2 Flow Rate 10.00 4.00 10.00 Capillary Refill : Progress Note : Time: 18:40 Progress Note We will start with a septic workup and start with cefepime as she lives in a [place] [facility]. We are not sure when the last time she got a nebulized treatments or give her a DuoNeb and obtain an ABG. Diagnostic Imaging Diagonstic Imaging: Xray Plain Films/CT/US/NM/MRI: chest (1v) Comments NAME: JERI BYRD MED REC#: [id number] PHYSICIAN: ANIBAL STEPHENS MD CC: GAURI ZAVALA MD; ANIBAL STEPHENS Page 1 of 1 RADIOLOGY REPORT VIA [facility] [place], [place] CC: GAURI ZAVALA MD; ANIBAL STEPHENS Page 1 of 1 RADIOLOGY REPORT NAME: JERI BYRD MED REC#: [id number] PT STATUS: REG ER : 1945 PHYSICIAN: ANIBAL STEPHENS MD ADMIT DATE: 04/09/18/ER Signed Date of Exam: 04/09/18 CHEST 1 VIEW, AP/PA ONLY CLINICAL INDICATION: Patient with hypoxia. EXAM: Portable chest x-ray semiupright view. COMPARISON: Portable chest x-ray upright view dated 04/01/2018. FINDINGS: Again seen cardiomegaly with pulmonary vascular congestion which appears stable. There is slight increased airspace consolidation in lateral left lung base and left lung base region. There is mild atelectasis versus infiltrate in right lung base. There is no pneumothorax. There is blunting of left costophrenic angle and a left pleural effusion may be present. There are degenerative spurs involving the spine. IMPRESSION: 1: Stable cardiomegaly with pulmonary vascular congestion which could be seen with congestive heart failure. 2: Interval increase consolidation left lung base which may represent progression of atelectasis and/or infiltrate. A small pleural effusion also can't be completely excluded. Dictated by: Dictated on workstation # [id number] Dict: 04/09/18 1844 Trans: 04/09/181925 Interpreted by: GAURI ZAVALA MD Electronically signed by: GAURI ZAVALA MD 04/09/181925 Reviewed: Reviewed by Me Departure Communication (Admissions) Time/Spoke to Admitting Phy: 20:05 Discussed case lab imaging and antibiotic choice with Dr. Mendenhall Impression Primary Impression: Pneumonia Qualified Codes: J18.1 - Lobar pneumonia, unspecified organism Additional Impression: Sepsis Qualified Codes: A41.9 - Sepsis, unspecified organism Disposition: ADMITTED INPATIENT Condition: Improved Admissions Decision to Admit Reason: Admit from ER (General) Decision to Admit/Date: Apr 09, 2018 Time/Decision to Admit Time: 19:35 Departure-Patient Inst. Referrals: RICHARDSON SANDRA DO (PCP/Family) Primary Care Physician Copy Copies To 1: SHAHIDA SPEARS TITUS J Apr 09, 2018 18:37
[2018-04-09 18:42] LABS: BILIRUBIN,URINE NEGATIVE (NEGATIVE); CLARITY,URINE CLEAR; COLOR,URINE YELLOW; GLUCOSE, URINE (UA) NEGATIVE (NEGATIVE); KETONES,URINE NEGATIVE (NEGATIVE); LEUKOCYTE ESTERASE ,URINE 2+ (NEGATIVE); NITRITE,URINE NEGATIVE (NEGATIVE); PH,URINE 8 (5-9); PROTEIN,URINE NEGATIVE (NEGATIVE); UROBILINOGEN,URINE NORMAL (NORMAL)
--- NOTE | 2018-04-09 18:49 | Diagnostic Imaging Report ---
CLINICAL INDICATION: Patient with hypoxia. EXAM: Portable chest x-ray semiupright view. COMPARISON: Portable chest x-ray upright view dated 04/01/2018. FINDINGS: Again seen cardiomegaly with pulmonary vascular congestion which appears stable. There is slight increased airspace consolidation in lateral left lung base and left lung base region. There is mild atelectasis versus infiltrate in right lung base. There is no pneumothorax. There is blunting of left costophrenic angle and a left pleural effusion may be present. There are degenerative spurs involving the spine. IMPRESSION: 1: Stable cardiomegaly with pulmonary vascular congestion which could be seen with congestive heart failure. 2: Interval increase consolidation left lung base which may represent progression of atelectasis and/or infiltrate. A small pleural effusion also can't be completely excluded. Dictated by: Dictated on workstation # [id number]
[2018-04-09 18:50] LABS: ABG BASE EXCESS 5.4 MMOL/L (-2.5-2.5); ABG OXYGEN SATURATION 97 % (94-100); ABG PCO2 47 MMHG (35-45); ABG PH 7.42 (7.37-7.43); ABG PO2 91 MMHG (79-93); ABG TCO2 30.7 MMOL/L (21.0-31.0); ALLENS TEST POSITIVE; INSPIRED O2 10L
[2018-04-09 18:50] LABS: INR 1.4 (0.8-1.4); PROTHROMBIN TIME PATIENT 17.1 SEC (12.2-14.7)
[2018-04-09 18:51] LABS: PATIENT TEMP 101.8; VENTILATOR NO
[2018-04-09 18:55] LABS: ALBUMIN 3.7 GM/DL (3.2-4.5); BILIRUBIN,TOTAL 1.2 MG/DL (0.1-1.0); CALCIUM 9.4 MG/DL (8.5-10.1); CREATININE SERUM 1.29 MG/DL (0.60-1.30); POTASSIUM 4.2 MMOL/L (3.6-5.0); TOTAL PROTEIN 6.6 GM/DL (6.4-8.2)
[2018-04-09] MEDS: NS IV 1000 ML 1,000 ML IV SCH ×3 (18:59→22:11)
[2018-04-09 19:15] LABS: BAND NEUTROPHILS 9 %; BASOPHILS % (MANUAL) 0 %; EOSINOPHILS % (MANUAL) 2 %; LYMPHOCYTES % (MANUAL) 3 %; MONOCYTES % (MANUAL) 5 %; NEUTROPHILS % (MANUAL) 81 %
[2018-04-09 19:16] LABS: RBC MORPH NORMAL
[2018-04-09 20:50] VITALS: BP 143/65
[2018-04-09] MEDS ORDERED: ALPRAZolam 0.5 MG (XANAX) TAB PO PRN (21:45)
[2018-04-09] MEDS ORDERED: AZITHROMYCIN INJECTION 500 MG in NS (IVPB) 250 ML IV SCH (21:45)
[2018-04-09] MEDS ORDERED: 1/2 NS W/KCL 20 MEQ/L 1,000 ML IV SCH (21:45)
[2018-04-09 21:48] VITALS: BP 110/55
[2018-04-09] MEDS ORDERED: RT-ALBUTEROL/IPRATROPIUM 3 ML (DUONEB) VIAL INH SCH (22:00)
[2018-04-10 00:03] VITALS: BP 109/55
[2018-04-10] MEDS: RT-ALBUTEROL/IPRATROPIUM 3 ML (DUONEB) VIAL INH SCH ×6 (02:06→21:37)
[2018-04-10] MEDS: NS IV 1000 ML 1,000 ML IV SCH ×5 (03:38→15:02)
[2018-04-10 04:22] VITALS: BP 128/58
[2018-04-10 05:43] LABS: BASOPHILS % (AUTO) 0 % (0-10); EOSINOPHILS % (AUTO) 0 % (0-10); HEMATOCRIT 32 % (35-52); HEMOGLOBIN 9.5 G/DL (11.5-16.0); LYMPHOCYTES # (AUTO) 0.5 X 10^3 (1.0-4.0); LYMPHOCYTES % (AUTO) 5 % (12-44); MEAN CORPUSCULAR HEMOGLOBIN 28 PG (25-34); MEAN CORPUSCULAR HGB CONC 30 G/DL (32-36); MEAN CORPUSCULAR VOLUME 94 FL (80-99); MEAN PLATELET VOLUME 9.6 FL (7.4-10.4); MONOCYTES # (AUTO) 0.7 X 10^3 (0.0-1.0); MONOCYTES % (AUTO) 7 % (0-12); NEUTROPHILS # (AUTO) 9.4 X 10^3 (1.8-7.8); NEUTROPHILS % (AUTO) 88 % (42-75); PLATELET COUNT 188 10^3/uL (130-400); RED BLOOD COUNT 3.43 10^6/uL (4.35-5.85); RED CELL DISTRIBUTION WIDTH 16.9 % (10.0-14.5); WHITE BLOOD COUNT 10.7 10^3/uL (4.3-11.0)
[2018-04-10 06:15] LABS: CALCIUM 8.3 MG/DL (8.5-10.1); CREATININE SERUM 1.06 MG/DL (0.60-1.30); POTASSIUM 4.4 MMOL/L (3.6-5.0)
[2018-04-10 07:53] VITALS: BP 105/51
[2018-04-10] MEDS: CEFEPIME INJECTION 2,000 MG in NS (IVPB) 50 ML IV SCH ×2 (08:49→20:49)
[2018-04-10] MEDS ORDERED: GABAPENTIN 300 MG (NEURONTIN) CAP PO SCH (09:00)
[2018-04-10 12:35] VITALS: BP 123/56
[2018-04-10] MEDS: ACETAMINOPHEN 500 MG TAB (TYLENOL) PO PRN (13:50)
[2018-04-10 15:39] VITALS: BP 131/51
[2018-04-10] MEDS: RIVAROXABAN 20 MG TABLET (XARELTO) PO SCH (17:46)
--- NOTE | 2018-04-10 18:05 | History & Physicial (CHS) ---
HPI History of Present Illness: 72 yo F from [facility] that presented after she has been feeling more weak and not well for the last week. She has been having more shortness of breath and satting in the low 80s on 4L. Her normal is 3L NC. She was given multiple breathing treatments with minimal improvement. She denies any pain other then her baseline back pain. She has had a decreased appetite for the last few days. Denies any fever or chills. Source: patient, RN/MD, long-term records, old records Exam Limitations: no limitations Date seen by provider: Apr 10, 2018 Time Seen by Provider: 10:25 Attending Physician Terra Mendenhall MD PCP Consult Date of Admission Apr 09, 2018 at 20:17 Home Medications Home Medications Reviewed patient Home Medication Reconciliation performed by pharmacy medication reconciliations chemical radiation technician and/or nursing. Patients Allergies have been reviewed. Allergies Coded Allergies: levofloxacin (Verified Allergy, Intermediate, 05/29/17) ciprofloxacin (Verified Allergy, Unknown, 10/11/08) ofloxacin (Verified Allergy, Unknown, 10/11/08) CBD-Amnoqy-Jvapmz Hx Patient Social History Living Status: [facility] Alcohol Use: Denies Use Recreational Drug Use: No Smoking Status: Former Smoker Former smoker/When Quit: Jul 07, 2005 Type Used: Cigarettes 2nd Hand Smoke Exposure: No Recent Foreign Travel: No Contact w/other who traveled: No Recent Hopitalizations: No Recent Infectious Disease Expo: No Physical Abuse Screen: No Sexual Abuse: No Immunizations Up To Date Tetanus Booster (TDap): Unknown Date of Pneumonia Vaccine: Sep 23, 2012 Date of Influenza Vaccine: Jul 27, 2016 Past Medical History COPD with oxygen dependence 3L at baseline Normocytic Anemia of chronic disease HLD Anxiety Diastolic CHF Paroxysmal Atrial fibrillation CHRISTINA on CPAP h/o Uterine Ca Family Medical History Significant Family History: No Pertinent Family Hx Family History: Cancer 03 MOTHER 09 SISTER Family history: Breast disease 09 SISTER Review of Systems ([facility]) Constitutional: No chills; malaise, weakness EENTM: no symptoms reported Respiratory: cough, dyspnea on exertion; No orthopnea; short of breath Cardiovascular: no symptoms reported; No chest pain, No edema, No palpitations Gastrointestinal: no symptoms reported; No abdominal pain, No constipation, No diarrhea, No nausea, No vomiting Genitourinary: no symptoms reported; No dysuria, No frequency, No hematuria : No Musculoskeletal: back pain (chronic) Skin: no symptoms reported; No lesions, No rash Psychiatric/Neurological: Anxiety; Denies Headache, Denies Numbness; Weakness Reviewed Test Results Reviewed Test Results Lab Laboratory Tests Test 04/09/18 18:15 04/09/18 18:20 04/09/18 18:45 04/09/18 20:30 Range/Units White Blood Count 16.7 H 4.3-11.0 10^3/uL Red Blood Count 4.33 L 4.35-5.85 10^6/uL Hemoglobin 12.4 11.5-16.0 G/DL Hematocrit 40 35-52 % Mean Corpuscular Volume 92 80-99 FL Mean Corpuscular Hemoglobin 29 25-34 PG Mean Corpuscular Hemoglobin Concent 31 L 32-36 G/DL Red Cell Distribution Width 16.8 H 10.0-14.5 % Platelet Count 218 130-400 10^3/uL Mean Platelet Volume 9.6 7.4-10.4 FL Neutrophils (%) (Auto) 89 H 42-75 % Lymphocytes (%) (Auto) 4 L 12-44 % Monocytes (%) (Auto) 6 0-12 % Eosinophils (%) (Auto) 1 0-10 % Basophils (%) (Auto) 0 0-10 % Neutrophils # (Auto) 14.8 H 1.8-7.8 X 10^3 Lymphocytes # (Auto) 0.7 L 1.0-4.0 X 10^3 Monocytes # (Auto) 1.0 0.0-1.0 X 10^3 Eosinophils # (Auto) 0.2 0.0-0.3 10^3/uL Basophils # (Auto) 0.0 0.0-0.1 10^3/uL Neutrophils % (Manual) 81 % Lymphocytes % (Manual) 3 % Monocytes % (Manual) 5 % Eosinophils % (Manual) 2 % Basophils % (Manual) 0 % Band Neutrophils 9 % Blood Morphology Comment NORMAL Prothrombin Time 17.1 H 12.2-14.7 SEC INR Comment 1.4 0.8-1.4 Activated Partial Thromboplast Time 30 24-35 SEC Sodium Level 142 135-145 MMOL/L Potassium Level 4.2 3.6-5.0 MMOL/L Chloride Level 99 98-107 MMOL/L Carbon Dioxide Level 32 21-32 MMOL/L Anion Gap 11 5-14 MMOL/L Blood Urea Nitrogen 37 H 7-18 MG/DL Creatinine 1.29 0.60-1.30 MG/DL Estimat Glomerular Filtration Rate 41 BUN/Creatinine Ratio 29 Glucose Level 144 H 70-105 MG/DL Lactic Acid Level 3.14 *H 3.18 *H 0.50-2.00 MMOL/L Calcium Level 9.4 8.5-10.1 MG/DL Total Bilirubin 1.2 H 0.1-1.0 MG/DL Aspartate Amino Transf (AST/SGOT) 20 5-34 U/L Alanine Aminotransferase (ALT/SGPT) 14 0-55 U/L Alkaline Phosphatase 71 40-136 U/L Total Protein 6.6 6.4-8.2 GM/DL Albumin 3.7 3.2-4.5 GM/DL Urine Color YELLOW Urine Clarity CLEAR Urine pH 8 5-9 Urine Specific [place] 1.010 L 1.016-1.022 Urine Protein NEGATIVE NEGATIVE Urine Glucose (UA) NEGATIVE NEGATIVE Urine Ketones NEGATIVE NEGATIVE Urine Nitrite NEGATIVE NEGATIVE Urine Bilirubin NEGATIVE NEGATIVE Urine Urobilinogen NORMAL NORMAL MG/DL Urine Leukocyte Esterase 2+ H NEGATIVE Urine RBC (Auto) NEGATIVE NEGATIVE Urine RBC NONE /HPF Urine WBC 2-5 /HPF Urine Crystals NONE /LPF Urine Bacteria NONE /HPF Urine Casts NONE /LPF Urine Mucus NEGATIVE /LPF Urine Culture Indicated NO Blood Gas Puncture Site LEFT RADIAL Blood Gas Patient Temperature 101.8 Arterial Blood pH 7.42 7.37-7.43 Arterial Blood Partial Pressure CO2 47 H 35-45 MMHG Arterial Blood Partial Pressure O2 91 79-93 MMHG Arterial Blood HCO3 29 H 23-27 MMOL/L Arterial Blood Total CO2 30.7 21.0-31.0 MMOL/L Arterial Blood Oxygen Saturation 97 94-100 % Arterial Blood Base Excess 5.4 H -2.5-2.5 MMOL/L Fidel Test POSITIVE Blood Gas Ventilator Setting NO Blood Gas Inspired Oxygen 10L Test 04/10/18 00:45 04/10/18 05:32 04/10/18 09:36 04/10/18 14:48 Range/Units Lactic Acid Level 1.49 0.50-2.00 MMOL/L White Blood Count 10.7 4.3-11.0 10^3/uL Red Blood Count 3.43 L 4.35-5.85 10^6/uL Hemoglobin 9.5 #L 11.5-16.0 G/DL Hematocrit 32 L 35-52 % Mean Corpuscular Volume 94 80-99 FL Mean Corpuscular Hemoglobin 28 25-34 PG Mean Corpuscular Hemoglobin Concent 30 L 32-36 G/DL Red Cell Distribution Width 16.9 H 10.0-14.5 % Platelet Count 188 130-400 10^3/uL Mean Platelet Volume 9.6 7.4-10.4 FL Neutrophils (%) (Auto) 88 H 42-75 % Lymphocytes (%) (Auto) 5 L 12-44 % Monocytes (%) (Auto) 7 0-12 % Eosinophils (%) (Auto) 0 0-10 % Basophils (%) (Auto) 0 0-10 % Neutrophils # (Auto) 9.4 H 1.8-7.8 X 10^3 Lymphocytes # (Auto) 0.5 L 1.0-4.0 X 10^3 Monocytes # (Auto) 0.7 0.0-1.0 X 10^3 Eosinophils # (Auto) 0.0 0.0-0.3 10^3/uL Basophils # (Auto) 0.0 0.0-0.1 10^3/uL Sodium Level 145 135-145 MMOL/L Potassium Level 4.4 3.6-5.0 MMOL/L Chloride Level 111 #H 98-107 MMOL/L Carbon Dioxide Level 27 21-32 MMOL/L Anion Gap 7 5-14 MMOL/L Blood Urea Nitrogen 34 H 7-18 MG/DL Creatinine 1.06 0.60-1.30 MG/DL Estimat Glomerular Filtration Rate 51 BUN/Creatinine Ratio 32 Glucose Level 122 H 70-105 MG/DL Calcium Level 8.3 L 8.5-10.1 MG/DL Smear Scan Glucometer 127 H 102 70-110 MG/DL Test 04/10/18 22:10 04/11/18 05:44 04/11/18 06:11 04/11/18 11:09 Range/Units Glucometer 137 H 111 H 131 H 70-110 MG/DL White Blood Count 9.6 4.3-11.0 10^3/uL Red Blood Count 3.54 L 4.35-5.85 10^6/uL Hemoglobin 10.1 L 11.5-16.0 G/DL Hematocrit 33 L 35-52 % Mean Corpuscular Volume 94 80-99 FL Mean Corpuscular Hemoglobin 29 25-34 PG Mean Corpuscular Hemoglobin Concent 30 L 32-36 G/DL Red Cell Distribution Width 16.7 H 10.0-14.5 % Platelet Count 151 130-400 10^3/uL Mean Platelet Volume 10.0 7.4-10.4 FL Neutrophils (%) (Auto) 86 H 42-75 % Lymphocytes (%) (Auto) 5 L 12-44 % Monocytes (%) (Auto) 7 0-12 % Eosinophils (%) (Auto) 2 0-10 % Basophils (%) (Auto) 0 0-10 % Neutrophils # (Auto) 8.3 H 1.8-7.8 X 10^3 Lymphocytes # (Auto) 0.5 L 1.0-4.0 X 10^3 Monocytes # (Auto) 0.7 0.0-1.0 X 10^3 Eosinophils # (Auto) 0.2 0.0-0.3 10^3/uL Basophils # (Auto) 0.0 0.0-0.1 10^3/uL Sodium Level 137 135-145 MMOL/L Potassium Level 4.2 3.6-5.0 MMOL/L Chloride Level 108 H 98-107 MMOL/L Carbon Dioxide Level 22 21-32 MMOL/L Anion Gap 7 5-14 MMOL/L Blood Urea Nitrogen 22 H 7-18 MG/DL Creatinine 0.92 0.60-1.30 MG/DL Estimat Glomerular Filtration Rate 60 BUN/Creatinine Ratio 24 Glucose Level 102 70-105 MG/DL Calcium Level 9.0 8.5-10.1 MG/DL Total Bilirubin 1.2 H 0.1-1.0 MG/DL Aspartate Amino Transf (AST/SGOT) 24 5-34 U/L Alanine Aminotransferase (ALT/SGPT) 12 0-55 U/L Alkaline Phosphatase 53 40-136 U/L Total Protein 5.7 L 6.4-8.2 GM/DL Albumin 3.2 3.2-4.5 GM/DL Test 04/11/18 14:37 Range/Units Glucometer 108 70-110 MG/DL Radiology Date of Exam: 04/09/18 CHEST 1 VIEW, AP/PA ONLY CLINICAL INDICATION: Patient with hypoxia. EXAM: Portable chest x-ray semiupright view. COMPARISON: Portable chest x-ray upright view dated 04/01/2018. FINDINGS: Again seen cardiomegaly with pulmonary vascular congestion which appears stable. There is slight increased airspace consolidation in lateral left lung base and left lung base region. There is mild atelectasis versus infiltrate in right lung base. There is no pneumothorax. There is blunting of left costophrenic angle and a left pleural effusion may be present. There are degenerative spurs involving the spine. IMPRESSION: 1: Stable cardiomegaly with pulmonary vascular congestion which could be seen with congestive heart failure. 2: Interval increase consolidation left lung base which may represent progression of atelectasis and/or infiltrate. A small pleural effusion also can't be completely excluded. Physical Exam-([facility]) Physical Exam Vital Signs VS - Last 72 Hours, by Label 04/09/18 04/09/18 04/09/18 04/09/18 18:22 18:37 18:51 19:30 Temp 100.8 100.8 Pulse 87 89 Resp 16 23 B/P (MAP) 125/82 (96) 120/87 Pulse Ox 98 91 97 98 O2 Delivery OxyMask Simple Mask OxyMask OxyMask O2 Flow Rate 10.00 4.00 10.00 10.00 04/09/18 04/09/18 04/09/18 04/09/18 20:40 20:50 20:50 21:24 Temp 100.7 100.2 Pulse 79 83 Resp 19 24 B/P (MAP) 110/55 143/65 (91) Pulse Ox 98 97 97 95 O2 Delivery OxyMask OxyMask OxyMask OxyMask O2 Flow Rate 8.00 8.00 8.00 8.00 04/09/18 04/10/18 04/10/18 04/10/18 21:48 00:03 02:07 04:22 Temp 99.1 97.9 Pulse 79 79 76 Resp 20 19 B/P (MAP) 109/55 (73) 128/58 (81) Pulse Ox 94 97 97 97 O2 Delivery Nasal Cannula Nasal Cannula Nasal Cannula O2 Flow Rate 6.00 6.00 6.00 04/10/18 04/10/18 04/10/18 04/10/18 07:16 07:53 08:00 12:35 Temp 98.0 97.8 Pulse 53 61 Resp 20 20 B/P (MAP) 105/51 (69) 123/56 (78) Pulse Ox 93 98 94 O2 Delivery Nasal Cannula Nasal Cannula Nasal Cannula Nasal Cannula O2 Flow Rate 4.00 6.00 2.00 4.00 04/10/18 04/10/18 04/10/18 04/10/18 14:47 15:39 18:45 19:16 Temp 98.7 99.1 Pulse 64 63 Resp 20 20 B/P (MAP) 131/51 (77) 138/61 (86) Pulse Ox 95 97 95 97 O2 Delivery Nasal Cannula Nasal Cannula Nasal Cannula Nasal Cannula O2 Flow Rate 4.00 4.00 4.00 4.00 04/10/18 04/10/18 04/11/18 04/11/18 20:50 21:37 00:59 04:14 Temp 98.9 98.6 Pulse 92 64 Resp 19 18 B/P (MAP) 131/65 (87) 135/68 (90) Pulse Ox 97 97 95 91 O2 Delivery Nasal Cannula Nasal Cannula Nasal Cannula Nasal Cannula O2 Flow Rate 4.00 4.00 4.00 4.00 04/11/18 04/11/18 04/11/18 04/11/18 06:49 08:00 08:00 10:30 Temp 100.1 Pulse 86 Resp 18 B/P (MAP) 142/62 (88) Pulse Ox 94 92 96 96 O2 Delivery Nasal Cannula Nasal Cannula Nasal Cannula Nasal Cannula O2 Flow Rate 4.00 4.00 3.00 4.00 04/11/18 04/11/18 04/11/18 12:00 14:44 15:36 Temp 98.1 97.5 Pulse 79 Resp 18 B/P (MAP) 155/67 (96) Pulse Ox 97 97 O2 Delivery Nasal Cannula Nasal Cannula O2 Flow Rate 4.00 3.50 Capillary Refill : Less Than 3 Seconds General Appearance: WD/WN, no apparent distress HEENT: PERRL/EOMI, pharynx normal Neck: non-tender, full range of motion, supple Respiratory: chest non-tender, lungs clear, no respiratory distress, no accessory muscle use Cardiovascular: normal peripheral pulses, regular rate, rhythm, no edema, no murmur Gastrointestinal: normal bowel sounds, non tender, soft, no organomegaly Back: no CVA tenderness Extremities: no pedal edema, no calf tenderness, normal capillary refill Neurologic/Psychiatric: fire observer II-XII nml as tested, no motor/sensory deficits, alert, normal mood/affect Skin: normal color, warm/dry Lymphatic: no adenopathy Assessment/Plan Assessment/Plan Admission Status: Inpatient Order (span 2 midnights) Reason for Inpatient Admission: Respiratory distress requiring 2x oxygen (1) Acute and chronic respiratory failure Status: Acute Assessment & Plan: - Requiring 8L oxygen, MAT protocol started, will titrate as tolerated, antibiotics started to cover for HCAP (2) Sepsis Status: Acute Assessment & Plan: - Hemodynamically stable Qualifiers: Qualified Codes: A41.9 - Sepsis, unspecified organism (3) COPD exacerbation Status: Acute Assessment & Plan: - Will start steroids and antibiotics (4) Pneumonia Status: Acute Assessment & Plan: See Above Qualifiers: Qualified Codes: J18.1 - Lobar pneumonia, unspecified organism (5) Bacteremia Status: Acute Assessment & Plan: - Waiting for type and sensitivities, Gram Neg Gibran (6) Normocytic anemia Status: Chronic Assessment & Plan: - At patient's baseline, will continue to monitor, no concerns for acute bleeding (7) HLD (hyperlipidemia) Status: Chronic Assessment & Plan: - Continue statin Qualifiers: Qualified Codes: E78.2 - Mixed hyperlipidemia (8) Anxiety Status: Chronic Assessment & Plan: - Will continue home meds (9) CHRISTINA on CPAP Status: Chronic (10) History of uterine cancer Status: Resolved (11) Atrial fibrillation Status: Chronic Assessment & Plan: - Rate controlled, currently in sinus Qualifiers: Qualified Codes: I48.2 - Chronic atrial fibrillation Clinical Quality Measures DVT/VTE Risk/Contraindication: Risk Factor Score Per Nursin RFS Level Per Nursing on Admit: 4+=Very High Copy Copies To 1: Jennifer ROSENBERG HOLLY R MD Apr 10, 2018 18:05
[2018-04-10 19:16] VITALS: BP 138/61
[2018-04-10] MEDS: ATORVASTATIN 20 MG (LIPITOR) TABLET PO SCH (20:49)
[2018-04-10] MEDS: AZITHROMYCIN 250 MG TAB (ZITHROMAX) PO SCH (20:49)
[2018-04-11 00:59] VITALS: BP 131/65
[2018-04-11] MEDS: RT-ALBUTEROL/IPRATROPIUM 3 ML (DUONEB) VIAL INH SCH ×6 (02:02→22:01)
[2018-04-11 04:14] VITALS: BP 135/68
[2018-04-11] MEDS: NS IV 1000 ML 1,000 ML IV SCH ×2 (05:38→08:52)
[2018-04-11] MEDS: PANTOPRAZOLE 20 MG TABLET (PROTONIX) PO SCH (06:34)
[2018-04-11 06:44] LABS: BASOPHILS % (AUTO) 0 % (0-10); EOSINOPHILS # (AUTO) 0.2 10^3/uL (0.0-0.3); EOSINOPHILS % (AUTO) 2 % (0-10); HEMATOCRIT 33 % (35-52); HEMOGLOBIN 10.1 G/DL (11.5-16.0); LYMPHOCYTES # (AUTO) 0.5 X 10^3 (1.0-4.0); LYMPHOCYTES % (AUTO) 5 % (12-44); MEAN CORPUSCULAR HEMOGLOBIN 29 PG (25-34); MEAN CORPUSCULAR HGB CONC 30 G/DL (32-36); MEAN CORPUSCULAR VOLUME 94 FL (80-99); MONOCYTES # (AUTO) 0.7 X 10^3 (0.0-1.0); MONOCYTES % (AUTO) 7 % (0-12); NEUTROPHILS # (AUTO) 8.3 X 10^3 (1.8-7.8); NEUTROPHILS % (AUTO) 86 % (42-75); PLATELET COUNT 151 10^3/uL (130-400); RED BLOOD COUNT 3.54 10^6/uL (4.35-5.85); RED CELL DISTRIBUTION WIDTH 16.7 % (10.0-14.5); WHITE BLOOD COUNT 9.6 10^3/uL (4.3-11.0)
[2018-04-11 07:07] LABS: ALBUMIN 3.2 GM/DL (3.2-4.5); BILIRUBIN,TOTAL 1.2 MG/DL (0.1-1.0); CREATININE SERUM 0.92 MG/DL (0.60-1.30); POTASSIUM 4.2 MMOL/L (3.6-5.0); TOTAL PROTEIN 5.7 GM/DL (6.4-8.2)
[2018-04-11 08:00] VITALS: BP 142/62
[2018-04-11] MEDS: CEFEPIME INJECTION 2,000 MG in NS (IVPB) 50 ML IV SCH ×2 (08:44→21:19)
[2018-04-11] MEDS: ACETAMINOPHEN 500 MG TAB (TYLENOL) PO PRN (08:51)
[2018-04-11 15:36] VITALS: BP 155/67
[2018-04-11] MEDS: RIVAROXABAN 20 MG TABLET (XARELTO) PO SCH (17:12)
--- NOTE | 2018-04-11 17:54 | Progress Note (SOAP) ---
Subjective Subjective/Events-last exam Patient states that she is feeling better this AM. States that she is not having pain but is anxious. Tolerating PO diet. Shortness of breath has improved. Review of Systems Date Seen by Provider: Apr 11, 2018 Time Seen by Provider: 07:50 Pulmonary: Dyspnea, Cough Cardiovascular: No: Chest Pain, Palpitations Gastrointestinal: No: Nausea, Vomiting, Abdominal Pain, Diarrhea, Constipation Genitourinary: No Dysuria, No Frequency, No Incontinence Neurological: Weakness Focused Exam Lactate Level 04/09/18 18:15: Lactic Acid Level 3.14*H 04/09/18 20:30: Lactic Acid Level 3.18*H 04/10/18 00:45: Lactic Acid Level 1.49 Objective Exam Last Set of Vital Signs Vital Signs Date Time Temp Pulse Resp B/P (MAP) Pulse Ox O2 Delivery O2 Flow Rate FiO2 04/11/18 15:36 97.5 79 18 155/67 (96) 97 Nasal Cannula 3.50 Capillary Refill : Less Than 3 Seconds I&O Intake and Output 04/11/18 00:00 Intake Total 5550 ml Output Total 975 ml Balance 4575 ml Intake Oral 1200 ml IV Total 4350 ml Output Urine Total 975 ml # Bowel Movements 1 General: Alert, Oriented X3, Cooperative, No Acute Distress HEENT: Mucous Memb Moist/[place] Lungs: Normal Air Movement, Other (Basilar expiratory wheezes bilaterally) Heart: Regular Rate, No Murmurs Abdomen: Normal Bowel Sounds, Soft, No Tenderness, No Hepatosplenomegaly, No Masses Extremities: No Edema, No Tenderness/Swelling Psych/Mental Status: Other (+ Anxiety) Results/Procedures Lab Laboratory Tests 04/10/18 22:10: Glucometer 137H 04/11/18 05:44: Glucometer 111H 04/11/18 06:11: White Blood Count 9.6, Red Blood Count 3.54L, Hemoglobin 10.1L, Hematocrit 33L, Mean Corpuscular Volume 94, Mean Corpuscular Hemoglobin 29, Mean Corpuscular Hemoglobin Concent 30L, Red Cell Distribution Width 16.7H, Platelet Count 151, Mean Platelet Volume 10.0, Neutrophils (%) (Auto) 86H, Lymphocytes (%) (Auto) 5L , Monocytes (%) (Auto) 7, Eosinophils (%) (Auto) 2, Basophils (%) (Auto) 0, Neutrophils # (Auto) 8.3H, Lymphocytes # (Auto) 0.5L, Monocytes # (Auto) 0.7, Eosinophils # (Auto) 0.2, Basophils # (Auto) 0.0, Sodium Level 137, Potassium Level 4.2, Chloride Level 108H, Carbon Dioxide Level 22, Anion Gap 7, Blood Urea Nitrogen 22H, Creatinine 0.92, Estimat Glomerular Filtration Rate 60, BUN/ Creatinine Ratio 24, Glucose Level 102, Calcium Level 9.0, Total Bilirubin 1.2H , Aspartate Amino Transf (AST/SGOT) 24, Alanine Aminotransferase (ALT/SGPT) 12, Alkaline Phosphatase 53, Total Protein 5.7L, Albumin 3.2 04/11/18 11:09: Glucometer 131H 04/11/18 14:37: Glucometer 108 Microbiology 04/09/18 Blood Culture - Preliminary, Resulted No growth Radiology Date of Exam: 04/09/18 CHEST 1 VIEW, AP/PA ONLY CLINICAL INDICATION: Patient with hypoxia. EXAM: Portable chest x-ray semiupright view. COMPARISON: Portable chest x-ray upright view dated 04/01/2018. FINDINGS: Again seen cardiomegaly with pulmonary vascular congestion which appears stable. There is slight increased airspace consolidation in lateral left lung base and left lung base region. There is mild atelectasis versus infiltrate in right lung base. There is no pneumothorax. There is blunting of left costophrenic angle and a left pleural effusion may be present. There are degenerative spurs involving the spine. IMPRESSION: 1: Stable cardiomegaly with pulmonary vascular congestion which could be seen with congestive heart failure. 2: Interval increase consolidation left lung base which may represent progression of atelectasis and/or infiltrate. A small pleural effusion also can't be completely excluded. Assessment/Plan Assessment/Plan Admission Status: Inpatient Order (span 2 midnights) Reason for Inpatient Admission: Requiring increased oxygen to maintain oxygen saturations (1) Acute and chronic respiratory failure Status: Acute Assessment & Plan: - Requiring 8L oxygen, MAT protocol started, will titrate as tolerated, antibiotics started to cover for HCAP 04/11: Able to titrate patient down to 3-4L, will continue to monitor, continue IV antibiotics (2) Sepsis Status: Acute Assessment & Plan: - Hemodynamically stable 04/11: Sepsis Resolved Qualifiers: Qualified Codes: A41.9 - Sepsis, unspecified organism (3) COPD exacerbation Status: Acute Assessment & Plan: - Will start steroids and antibiotics 04/11: Continue PO steroids and IV antibiotics (4) Pneumonia Status: Acute Assessment & Plan: See Above Qualifiers: Qualified Codes: J18.1 - Lobar pneumonia, unspecified organism (5) Bacteremia Status: Acute Assessment & Plan: - Waiting for type and sensitivities, Gram Neg Gibran 04/11: Pseudomonas on blood culture, waiting for sensitivities (6) Normocytic anemia Status: Chronic Assessment & Plan: - At patient's baseline, will continue to monitor, no concerns for acute bleeding (7) HLD (hyperlipidemia) Status: Chronic Assessment & Plan: - Continue statin Qualifiers: Qualified Codes: E78.2 - Mixed hyperlipidemia (8) Anxiety Status: Chronic Assessment & Plan: - Will continue home meds (9) CHRISTINA on CPAP Status: Chronic (10) History of uterine cancer Status: Resolved (11) Atrial fibrillation Status: Chronic Assessment & Plan: - Rate controlled, currently in sinus Qualifiers: Qualified Codes: I48.2 - Chronic atrial fibrillation (12) DVT prophylaxis Status: Acute Assessment & Plan: - Pain on Xarelto Clinical Quality Measures DVT/VTE Risk/Contraindication: Risk Factor Score Per Nursin RFS Level Per Nursing on Admit: 4+=Very High TEMO BECK MD Apr 11, 2018 17:54
[2018-04-11] MEDS: predniSONE 20 MG TAB PO SCH (18:31)
[2018-04-11] MEDS: ATORVASTATIN 20 MG (LIPITOR) TABLET PO SCH (21:18)
[2018-04-11] MEDS: AZITHROMYCIN 250 MG TAB (ZITHROMAX) PO SCH (21:18)
[2018-04-12] MEDS: NS IV 1000 ML 1,000 ML IV SCH ×2 (00:02→13:54)
[2018-04-12] MEDS: HYDROcodone/APAP 10 MG/325 MG (LORTAB) TAB PO PRN (00:02)
[2018-04-12 00:28] VITALS: BP 132/62
[2018-04-12] MEDS: RT-ALBUTEROL/IPRATROPIUM 3 ML (DUONEB) VIAL INH SCH ×3 (02:08→18:54)
[2018-04-12 06:12] LABS: BASOPHILS % (AUTO) 0 % (0-10); EOSINOPHILS % (AUTO) 0 % (0-10); HEMATOCRIT 33 % (35-52); HEMOGLOBIN 10.3 G/DL (11.5-16.0); LYMPHOCYTES # (AUTO) 0.3 X 10^3 (1.0-4.0); LYMPHOCYTES % (AUTO) 5 % (12-44); MEAN CORPUSCULAR HEMOGLOBIN 29 PG (25-34); MEAN CORPUSCULAR HGB CONC 31 G/DL (32-36); MEAN CORPUSCULAR VOLUME 92 FL (80-99); MEAN PLATELET VOLUME 10.2 FL (7.4-10.4); MONOCYTES # (AUTO) 0.2 X 10^3 (0.0-1.0); MONOCYTES % (AUTO) 3 % (0-12); NEUTROPHILS # (AUTO) 5.4 X 10^3 (1.8-7.8); NEUTROPHILS % (AUTO) 92 % (42-75); PLATELET COUNT 155 10^3/uL (130-400); RED BLOOD COUNT 3.59 10^6/uL (4.35-5.85); RED CELL DISTRIBUTION WIDTH 15.8 % (10.0-14.5); WHITE BLOOD COUNT 5.8 10^3/uL (4.3-11.0)
[2018-04-12 06:30] LABS: BUN/CREATININE RATIO 20; CALCIUM 9.4 MG/DL (8.5-10.1); CARBON DIOXIDE 21 MMOL/L (21-32); CHLORIDE 112 MMOL/L (98-107); CREATININE SERUM 0.75 MG/DL (0.60-1.30); GFR ESTIMATED > 60; GLUCOSE 142 MG/DL (70-105); POTASSIUM 5.1 MMOL/L (3.6-5.0); SODIUM 137 MMOL/L (135-145)
[2018-04-12] MEDS: predniSONE 20 MG TAB PO SCH (06:38)
[2018-04-12] MEDS: PANTOPRAZOLE 20 MG TABLET (PROTONIX) PO SCH (07:35)
[2018-04-12 08:00] VITALS: BP 142/73
[2018-04-12 08:12] VITALS: BP 132/62
[2018-04-12] MEDS: FUROSEMIDE 40 MG (LASIX) TAB PO SCH (08:12)
[2018-04-12] MEDS: CEFEPIME INJECTION 2,000 MG in NS (IVPB) 50 ML IV SCH ×2 (08:12→20:31)
[2018-04-12] MEDS ORDERED: RT-ALBUTEROL/IPRATROPIUM 3 ML (DUONEB) VIAL INH PRN (08:45)
[2018-04-12] MEDS ORDERED: KCL 20 MEQ TAB (K-DUR) PO SCH (09:00)
[2018-04-12 15:35] VITALS: BP 136/68
[2018-04-12] MEDS: RIVAROXABAN 20 MG TABLET (XARELTO) PO SCH (17:53)
[2018-04-12] MEDS: ATORVASTATIN 20 MG (LIPITOR) TABLET PO SCH (20:30)
[2018-04-12] MEDS: AZITHROMYCIN 250 MG TAB (ZITHROMAX) PO SCH (20:30)
[2018-04-13] VITALS: BP 143/68
[2018-04-13] MEDS: NS IV 1000 ML 1,000 ML IV SCH ×2 (03:12→21:34)
[2018-04-13 04:20] VITALS: BP 146/66
[2018-04-13] MEDS: PANTOPRAZOLE 20 MG TABLET (PROTONIX) PO SCH (06:33)
[2018-04-13] MEDS: predniSONE 20 MG TAB PO SCH (06:34)
[2018-04-13] MEDS: RT-ALBUTEROL/IPRATROPIUM 3 ML (DUONEB) VIAL INH SCH ×2 (07:40→20:01)
[2018-04-13 07:46] VITALS: BP 165/77
--- NOTE | 2018-04-13 09:21 | Progress Note (SOAP) ---
Subjective Subjective/Events-last exam Patient states that she feels better. Shortness of breath improved. Denies any fever or chills. Review of Systems Date Seen by Provider: Apr 12, 2018 Time Seen by Provider: 09:00 Pulmonary: Cough Cardiovascular: No: Chest Pain, Palpitations Gastrointestinal: No: Nausea, Vomiting, Abdominal Pain, Diarrhea, Constipation Genitourinary: No Dysuria, No Frequency Objective Exam Last Set of Vital Signs Vital Signs Date Time Temp Pulse Resp B/P (MAP) Pulse Ox O2 Delivery O2 Flow Rate FiO2 04/13/18 08:00 Nasal Cannula 3.00 04/13/18 07:46 98.8 75 20 165/77 (106) 95 04/12/18 08:12 36 Capillary Refill : Less Than 3 Seconds I&O Intake and Output 04/13/18 00:00 Intake Total 3530 ml Output Total 3050 ml Balance 480 ml Intake Oral 1430 ml IV Total 2100 ml Output Urine Total 3050 ml # Urine Diapers 2 # Bowel Movements 2 General: Alert, Cooperative, No Acute Distress Lungs: Clear to Auscultation, Normal Air Movement Heart: Regular Rate, No Murmurs Abdomen: Normal Bowel Sounds, Soft, No Tenderness, No Masses Extremities: No Edema, No Tenderness/Swelling Results/Procedures Lab Laboratory Tests 04/12/18 09:36: Glucometer 165H 04/12/18 14:37: Glucometer 140H 04/12/18 19:25: Glucometer 124H 04/13/18 05:40: Glucometer 77 Microbiology 04/09/18 Blood Culture - Preliminary, Resulted No growth Radiology Date of Exam: 04/09/18 CHEST 1 VIEW, AP/PA ONLY CLINICAL INDICATION: Patient with hypoxia. EXAM: Portable chest x-ray semiupright view. COMPARISON: Portable chest x-ray upright view dated 04/01/2018. FINDINGS: Again seen cardiomegaly with pulmonary vascular congestion which appears stable. There is slight increased airspace consolidation in lateral left lung base and left lung base region. There is mild atelectasis versus infiltrate in right lung base. There is no pneumothorax. There is blunting of left costophrenic angle and a left pleural effusion may be present. There are degenerative spurs involving the spine. IMPRESSION: 1: Stable cardiomegaly with pulmonary vascular congestion which could be seen with congestive heart failure. 2: Interval increase consolidation left lung base which may represent progression of atelectasis and/or infiltrate. A small pleural effusion also can't be completely excluded. Assessment/Plan Assessment/Plan (1) Acute and chronic respiratory failure Status: Acute Assessment & Plan: - Requiring 8L oxygen, MAT protocol started, will titrate as tolerated, antibiotics started to cover for HCAP 04/11: Able to titrate patient down to 3-4L, will continue to monitor, continue IV antibiotics 04/12: Improved, almost down to baseline oxygen (2) COPD exacerbation Status: Acute Assessment & Plan: - Will start steroids and antibiotics 04/11: Continue PO steroids and IV antibiotics 04/12: Lung sounds improved, shortness of breath resolved (3) Pneumonia Status: Acute Assessment & Plan: See Above Qualifiers: Qualified Codes: J18.1 - Lobar pneumonia, unspecified organism (4) Bacteremia Status: Acute Assessment & Plan: - Waiting for type and sensitivities, Gram Neg Gibran 04/11: Pseudomonas on blood culture, waiting for sensitivities 04/12: Waiting on sensitivities, vital signs remain stable (5) Sepsis Status: Acute Assessment & Plan: - Hemodynamically stable 04/11: Sepsis Resolved Qualifiers: Qualified Codes: A41.9 - Sepsis, unspecified organism (6) Normocytic anemia Status: Chronic Assessment & Plan: - At patient's baseline, will continue to monitor, no concerns for acute bleeding (7) HLD (hyperlipidemia) Status: Chronic Assessment & Plan: - Continue statin Qualifiers: Qualified Codes: E78.2 - Mixed hyperlipidemia (8) Anxiety Status: Chronic Assessment & Plan: - Will continue home meds (9) CHRISTINA on CPAP Status: Chronic (10) History of uterine cancer Status: Resolved (11) Atrial fibrillation Status: Chronic Assessment & Plan: - Rate controlled, currently in sinus Qualifiers: Qualified Codes: I48.2 - Chronic atrial fibrillation (12) DVT prophylaxis Status: Acute Assessment & Plan: - Pain on Xarelto Clinical Quality Measures DVT/VTE Risk/Contraindication: Risk Factor Score Per Nursin RFS Level Per Nursing on Admit: 4+=Very High TEMO BECK MD Apr 13, 2018 09:20
[2018-04-13] MEDS: FUROSEMIDE 40 MG (LASIX) TAB PO SCH (09:30)
[2018-04-13 12:00] VITALS: BP_SYST 122; BP_SYST 194; BP_DIAS 58; BP_DIAS 77
[2018-04-13 16:48] VITALS: BP 178/70
[2018-04-13] MEDS: RIVAROXABAN 20 MG TABLET (XARELTO) PO SCH (17:11)
--- NOTE | 2018-04-13 21:00 | Progress Note (SOAP) ---
Subjective Subjective/Events-last exam Patient states that she is doing much better this AM. Discussed the importance of sitting up in chair. Tolerating PO diet. Review of Systems Date Seen by Provider: Apr 13, 2018 Time Seen by Provider: 09:45 Pulmonary: No Dyspnea; Cough Cardiovascular: No: Chest Pain, Palpitations Gastrointestinal: No: Nausea, Vomiting, Abdominal Pain Genitourinary: No Dysuria, No Frequency, No Hematuria Objective Exam Last Set of Vital Signs Vital Signs Date Time Temp Pulse Resp B/P (MAP) Pulse Ox O2 Delivery O2 Flow Rate FiO2 04/13/18 20:01 83 Room Air 3.00 04/13/18 16:48 99.1 59 18 178/70 (106) 04/12/18 08:12 36 Capillary Refill : Less Than 3 Seconds I&O Intake and Output 04/13/18 00:00 Intake Total 3530 ml Output Total 3050 ml Balance 480 ml Intake Oral 1430 ml IV Total 2100 ml Output Urine Total 3050 ml # Urine Diapers 2 # Bowel Movements 2 General: Alert, Cooperative, No Acute Distress HEENT: Mucous Memb Moist/Salt[place] Lungs: Clear to Auscultation, Normal Air Movement Heart: Regular Rate, No Murmurs Abdomen: Normal Bowel Sounds, Soft, No Tenderness, No Masses Extremities: No Edema, No Tenderness/Swelling Results/Procedures Lab Laboratory Tests 04/13/18 05:40: Glucometer 77 04/13/18 11:36: Glucometer 133H 04/13/18 15:43: Glucometer 119H Microbiology 04/09/18 Blood Culture - Preliminary, Resulted No growth Radiology Date of Exam: 04/09/18 CHEST 1 VIEW, AP/PA ONLY CLINICAL INDICATION: Patient with hypoxia. EXAM: Portable chest x-ray semiupright view. COMPARISON: Portable chest x-ray upright view dated 04/01/2018. FINDINGS: Again seen cardiomegaly with pulmonary vascular congestion which appears stable. There is slight increased airspace consolidation in lateral left lung base and left lung base region. There is mild atelectasis versus infiltrate in right lung base. There is no pneumothorax. There is blunting of left costophrenic angle and a left pleural effusion may be present. There are degenerative spurs involving the spine. IMPRESSION: 1: Stable cardiomegaly with pulmonary vascular congestion which could be seen with congestive heart failure. 2: Interval increase consolidation left lung base which may represent progression of atelectasis and/or infiltrate. A small pleural effusion also can't be completely excluded. Assessment/Plan Assessment/Plan (1) Acute and chronic respiratory failure Status: Acute Assessment & Plan: - Requiring 8L oxygen, MAT protocol started, will titrate as tolerated, antibiotics started to cover for HCAP 04/11: Able to titrate patient down to 3-4L, will continue to monitor, continue IV antibiotics 04/12: Improved, almost down to baseline oxygen 04/13: At baseline, continue azithromycin (2) COPD exacerbation Status: Acute Assessment & Plan: - Will start steroids and antibiotics 04/11: Continue PO steroids and IV antibiotics 04/12: Lung sounds improved, shortness of breath resolved 04/13: Continue antibiotics and steroids (3) Pneumonia Status: Acute Assessment & Plan: See Above Qualifiers: Qualified Codes: J18.1 - Lobar pneumonia, unspecified organism (4) Bacteremia Status: Acute Assessment & Plan: - Waiting for type and sensitivities, Gram Neg Gibran 04/11: Pseudomonas on blood culture, waiting for sensitivities 04/12: Waiting on sensitivities, vital signs remain stable 04/13: Cefepime d/c today due to sensitivities (5) Sepsis Status: Resolved Assessment & Plan: - Hemodynamically stable 04/11: Sepsis Resolved Qualifiers: Qualified Codes: A41.9 - Sepsis, unspecified organism (6) Normocytic anemia Status: Chronic Assessment & Plan: - At patient's baseline, will continue to monitor, no concerns for acute bleeding (7) HLD (hyperlipidemia) Status: Chronic Assessment & Plan: - Continue statin Qualifiers: Qualified Codes: E78.2 - Mixed hyperlipidemia (8) Anxiety Status: Chronic Assessment & Plan: - Will continue home meds (9) CHRISTINA on CPAP Status: Chronic (10) History of uterine cancer Status: Resolved (11) Atrial fibrillation Status: Chronic Assessment & Plan: - Rate controlled, currently in sinus Qualifiers: Qualified Codes: I48.2 - Chronic atrial fibrillation (12) DVT prophylaxis Status: Acute Assessment & Plan: - Pain on Xarelto, plan for dc back to [facility] tomorrow Clinical Quality Measures DVT/VTE Risk/Contraindication: Risk Factor Score Per Nursin RFS Level Per Nursing on Admit: 4+=Very High TEMO BECK MD Apr 13, 2018 21:00
[2018-04-13] MEDS: ATORVASTATIN 20 MG (LIPITOR) TABLET PO SCH (21:34)
[2018-04-13] MEDS: AZITHROMYCIN 250 MG TAB (ZITHROMAX) PO SCH (21:34)
[2018-04-14] VITALS: BP 172/68
[2018-04-14 06:12] LABS: BASOPHILS % (AUTO) 0 % (0-10); EOSINOPHILS % (AUTO) 0 % (0-10); HEMATOCRIT 35 % (35-52); HEMOGLOBIN 11.1 G/DL (11.5-16.0); LYMPHOCYTES # (AUTO) 0.8 X 10^3 (1.0-4.0); LYMPHOCYTES % (AUTO) 10 % (12-44); MEAN CORPUSCULAR HEMOGLOBIN 28 PG (25-34); MEAN CORPUSCULAR HGB CONC 31 G/DL (32-36); MEAN CORPUSCULAR VOLUME 89 FL (80-99); MEAN PLATELET VOLUME 9.5 FL (7.4-10.4); MONOCYTES # (AUTO) 0.9 X 10^3 (0.0-1.0); MONOCYTES % (AUTO) 11 % (0-12); NEUTROPHILS # (AUTO) 6.3 X 10^3 (1.8-7.8); NEUTROPHILS % (AUTO) 78 % (42-75); PLATELET COUNT 190 10^3/uL (130-400); RED CELL DISTRIBUTION WIDTH 15.6 % (10.0-14.5); WHITE BLOOD COUNT 8.1 10^3/uL (4.3-11.0)
[2018-04-14 06:26] LABS: BUN/CREATININE RATIO 17; CALCIUM 9.7 MG/DL (8.5-10.1); CARBON DIOXIDE 27 MMOL/L (21-32); CHLORIDE 102 MMOL/L (98-107); CREATININE SERUM 0.84 MG/DL (0.60-1.30); GFR ESTIMATED > 60; GLUCOSE 77 MG/DL (70-105); POTASSIUM 3.4 MMOL/L (3.6-5.0); SODIUM 139 MMOL/L (135-145)
[2018-04-14] MEDS: PANTOPRAZOLE 20 MG TABLET (PROTONIX) PO SCH (06:44)
[2018-04-14] MEDS: predniSONE 20 MG TAB PO SCH (06:44)
[2018-04-14] MEDS: FUROSEMIDE 40 MG (LASIX) TAB PO SCH (07:57)
[2018-04-14] MEDS: RT-ALBUTEROL/IPRATROPIUM 3 ML (DUONEB) VIAL INH SCH (07:57)
[2018-04-14 08:00] VITALS: BP 134/62
[2018-04-14] MEDS ORDERED: PRED10TA22 PO (10:37)
--- NOTE | 2018-04-14 10:39 | Discharge Inst-Skilled Nursing ---
Discharge Inst-Skilled NF Patient Instructions Patient Problems: Pneumonia AECOPD Slow recovery Goal: Return to independent ADL's Consult/Follow Up/Orders Follow Up Appt.: [facility] for [place] rounds Skilled NF Admit to: Via [facility] [place] Certification (SNF) I certify that SNF services are required to be given on an inpatient basis because of the above named patient's need for fci care on a continuing basis for the conditions(s) for which he/she was receiving inpatient hospital services prior to his/her transfer to the SNF. Fci Facility Order: Nursing Services, Absence Management Consultant-Evaluate & Treat, Physical Therapy-Evaluate & Treat, Speech Language-Evaluate & Treat Discharge Diet: No Restrictions Daily Activity as Tolerated: Yes New & Resume Previous Orders Gunjan Canseco Apr 14, 2018 10:38 GUNJAN CANSECO DO Apr 14, 2018 10:39
--- NOTE | 2018-04-14 10:41 | Discharge Summary-Hospitalist ---
Diagnosis/Chief Complaint Date of Admission Apr 09, 2018 at 20:17 Date of Discharge Discharge Date: Apr 14, 2018 Discharge Diagnosis (1) Acute and chronic respiratory failure Status: Acute Assessment & Plan: - Requiring 8L oxygen, MAT protocol started, will titrate as tolerated, antibiotics started to cover for HCAP 04/11: Able to titrate patient down to 3-4L, will continue to monitor, continue IV antibiotics 04/12: Improved, almost down to baseline oxygen 04/13: At baseline, continue azithromycin (2) COPD exacerbation Status: Acute Assessment & Plan: - Will start steroids and antibiotics 04/11: Continue PO steroids and IV antibiotics 04/12: Lung sounds improved, shortness of breath resolved 04/13: Continue antibiotics and steroids (3) Pneumonia Status: Acute Assessment & Plan: See Above (4) Bacteremia Status: Acute Assessment & Plan: - Waiting for type and sensitivities, Gram Neg Gibran 04/11: Pseudomonas on blood culture, waiting for sensitivities 04/12: Waiting on sensitivities, vital signs remain stable 04/13: Cefepime d/c today due to sensitivities (5) Sepsis Status: Resolved Assessment & Plan: - Hemodynamically stable 04/11: Sepsis Resolved (6) Normocytic anemia Status: Chronic Assessment & Plan: - At patient's baseline, will continue to monitor, no concerns for acute bleeding (7) HLD (hyperlipidemia) Status: Chronic Assessment & Plan: - Continue statin (8) Anxiety Status: Chronic Assessment & Plan: - Will continue home meds (9) CHRISTINA on CPAP Status: Chronic (10) History of uterine cancer Status: Resolved (11) Atrial fibrillation Status: Chronic Assessment & Plan: - Rate controlled, currently in sinus (12) DVT prophylaxis Status: Acute Assessment & Plan: - Pain on Xarelto, plan for dc back to [facility] tomorrow (13) Debility Status: Chronic Discharge Summary Discharge Physical Exam Allergies: Coded Allergies: levofloxacin (Verified Allergy, Intermediate, 05/29/17) ciprofloxacin (Verified Allergy, Unknown, 10/11/08) ofloxacin (Verified Allergy, Unknown, 10/11/08) Vitals & I&Os Vital Signs Date Time Temp Pulse Resp B/P (MAP) Pulse Ox O2 Delivery O2 Flow Rate FiO2 04/14/18 15:00 76 18 134/62 96 Nasal Cannula 3.00 04/14/18 08:00 98.7 04/12/18 08:12 36 General Appearance: Alert, Cooperative, Other (Poor recall, decreased motivation) Respiratory: Clear to Auscultation Psych/Mental Status: Other (Poor recall) Hospital Course Hospital course: Patient had a very complex hospital course she was admitted for acute on chronic respiratory failure and pneumonia. Atrial fibrillation was managed conservatively and placed back on home meds when she stabilized. She is a skilled nursing resident at [facility] of which her poor prognosis is due to multiple medical problems in addition to poor motivation to rehabilitate. Bacteremia was followed up on an patient was maintained on appropriate antibiotics and although she did stabilize enough to go back to the skilled nursing she has a very poor prognosis long-term. Labs (last 24 hrs) Laboratory Tests 04/13/18 23:01: Glucometer 89 04/14/18 05:59: White Blood Count 8.1, Red Blood Count 4.00L, Hemoglobin 11.1L, Hematocrit 35, Mean Corpuscular Volume 89, Mean Corpuscular Hemoglobin 28, Mean Corpuscular Hemoglobin Concent 31L, Red Cell Distribution Width 15.6H, Platelet Count 190, Mean Platelet Volume 9.5, Neutrophils (%) (Auto) 78H, Lymphocytes (%) (Auto) 10L , Monocytes (%) (Auto) 11, Eosinophils (%) (Auto) 0, Basophils (%) (Auto) 0, Neutrophils # (Auto) 6.3, Lymphocytes # (Auto) 0.8L, Monocytes # (Auto) 0.9, Eosinophils # (Auto) 0.0, Basophils # (Auto) 0.0, Sodium Level 139, Potassium Level 3.4L, Chloride Level 102, Carbon Dioxide Level 27, Anion Gap 10, Blood Urea Nitrogen 14, Creatinine 0.84, Estimat Glomerular Filtration Rate > 60, BUN/ Creatinine Ratio 17, Glucose Level 77, Calcium Level 9.7 04/14/18 06:19: Glucometer 74 04/14/18 10:29: Glucometer 121H Microbiology 04/09/18 Blood Culture - Preliminary, Resulted No growth Patient resulted labs reviewed. Pending Labs Discussion & Recommendations Discharge Planning: <30 minutes discharge planning Discharge Home Medications: Active Scripts Active Prednisone 10 Mg Tab.ds.pk 40 Mg PO DAILY 4 Days Take 4 tabs(40mg)daily,decrease by 1 tab(10MG)daily. Reported Hydrocodon-Acetaminophn 10-325 (Hydrocodone/Acetaminophen) 1 Each Tablet 1 Tab PO TID Xanax (Alprazolam) 0.5 Mg Tablet 0.5 Mg PO HS Xanax (Alprazolam) 0.25 Mg Tablet 0.25 Mg PO DAILY Hydrocodon-Acetaminophn 10-325 (Hydrocodone/Acetaminophen) 1 Each Tablet 1 Tab PO BID PRN Iprat-Albut 0.5-3(2.5) mg/3 ml (Ipratropium/Albuterol Sulfate) 3 Ml Ampul.neb 3 Ml IH QID Thera-M (Multivits,Th W-Fe,Other Min) 1 Each Tablet 1 Tab PO DAILY Atorvastatin Calcium 20 Mg Tablet 20 Mg PO HS Omeprazole 20 Mg Capsule.dr 20 Mg PO DAILY Milk of Magnesia (Magnesium Hydroxide) 400 Mg/5 Ml Oral.susp 30 Ml PO DAILY PRN Tylenol (Acetaminophen) 325 Mg Tablet 650 Mg PO Q4H PRN TAKES 2 (325MG) TABLETS Xarelto (Rivaroxaban) 20 Mg Tablet 20 Mg PO 1800 Vitamin D3 (Cholecalciferol (Vitamin D3)) 5,000 Unit Capsule 5,000 Unit PO WE Furosemide 40 Mg Tablet 40 Mg PO DAILY Potassium Chloride 20 Meq Tab.er.prt 20 Meq PO DAILY Guaifenesin Dm Syrup (Guaifenesin/Dextromethorphan) 5 Ml Syrup 5 Ml PO Q4H PRN Senokot-S Tablet (Sennosides/Docusate Sodium) 1 Each Tablet 1 Tab PO Q12H PRN Gabapentin 300 Mg Capsule 300 Mg PO DAILY Citalopram HBr (Citalopram Hydrobromide) 20 Mg Tablet 20 Mg PO DAILY Instructions to patient/family Please see electronic discharge instructions given to patient. Clinical Quality Measures DVT/VTE Risk/Contraindication: Risk Factor Score Per Nursin RFS Level Per Nursing on Admit: 4+=Very High Problem Qualifiers (1) Pneumonia: Pneumonia type: due to unspecified organism Laterality: left Lung location: lower lobe of lung Qualified Codes: J18.1 - Lobar pneumonia, unspecified organism (2) Sepsis: Sepsis type: sepsis due to unspecified organism Qualified Codes: A41.9 - Sepsis, unspecified organism (3) HLD (hyperlipidemia): Hyperlipidemia type: mixed hyperlipidemia Qualified Codes: E78.2 - Mixed hyperlipidemia (4) Atrial fibrillation: Atrial fibrillation type: chronic Qualified Codes: I48.2 - Chronic atrial fibrillation MALISSA JERRY DO Apr 14, 2018 10:40
[2018-04-14] MEDS: HYDROcodone/APAP 10 MG/325 MG (LORTAB) TAB PO PRN (13:28)
[2018-04-14 15:00] VITALS: BP 134/62
== END 2018-04-14 15:00 | DRG 871 ==
LOC: EDUNIT# 18:12 → ER 18:13 → 4TH 20:17
PROVIDERS: ADMIT Family Medicine; ATTEND Family Medicine
DX: A41.52 Sepsis due to Pseudomonas (principal); J18.9 Pneumonia, unspecified organism; J44.0 Chronic obstructive pulmonary disease with (acute) lower respiratory infection; J44.1 Chronic obstructive pulmonary disease with (acute) exacerbation; J96.21 Acute and chronic respiratory failure with hypoxia; I11.0 Hypertensive heart disease with heart failure; I50.30 Unspecified diastolic (congestive) heart failure; R41.841 Cognitive communication deficit; Z66 Do not resuscitate; E78.2 Mixed hyperlipidemia; D63.8 Anemia in other chronic diseases classified elsewhere; I48.0 Paroxysmal atrial fibrillation; G47.33 Obstructive sleep apnea (adult) (pediatric); F41.9 Anxiety disorder, unspecified; E11.9 Type 2 diabetes mellitus without complications; K21.9 Gastro-esophageal reflux disease without esophagitis; M19.91 Primary osteoarthritis, unspecified site; M54.9 Dorsalgia, unspecified; F32.9 Major depressive disorder, single episode, unspecified; M46.00 Spinal enthesopathy, site unspecified; R53.81 Other malaise; Z87.891 Personal history of nicotine dependence; Z85.42 Personal history of malignant neoplasm of other parts of uterus; Z85.43 Personal history of malignant neoplasm of ovary
CPT/HCPCS: 36415; 36600; 71045; 80048; 80053; 81000; 82805; 82962; 83605; 85007; 85025; 85027; 85610; 85730; 87040; 87186; 94640; 94664; 94760; 96361; 96365

== ENCOUNTER → 2020-01-27 | Outpatient (CLI) | payer MEDICARE ==
[~2020-01-27] MED LIST changes: +ACHYD1T PO; -HYDR-3820 PO; -OMEP20CA12 PO; +OMEP20CA18 PO; +PRED10TA22 PO; +RIVA10T PO; -RIVA10TA PO; -RIVA20TA PO; +RIVA20TA2 PO
[2020-01-27 18:22] LABS: BILIRUBIN,URINE NEGATIVE (NEGATIVE); CLARITY,URINE CLOUDY; COLOR,URINE YELLOW; GLUCOSE, URINE (UA) NEGATIVE (NEGATIVE); KETONES,URINE NEGATIVE (NEGATIVE); LEUKOCYTE ESTERASE ,URINE 1+ (NEGATIVE); NITRITE,URINE NEGATIVE (NEGATIVE); PH,URINE 5.5 (5-9); PROTEIN,URINE NEGATIVE (NEGATIVE)
[2020-01-27 18:29] LABS: AMORPHOUS SEDIMENT,UR LARGE AMOR URATES /LPF; BACTERIA,URINE LARGE /HPF; CALCIUM OXALATE CRYSTALS,UR MODERATE /LPF; WBC,URINE 25-50 /HPF
== END ==
LOC: LABNPT 18:15
PROVIDERS: ATTEND Allergy & Immunology Allergy
DX: R41.82 Altered mental status, unspecified (principal); R82.998 Other abnormal findings in urine
CPT/HCPCS: 81000; 87077; 87088

== ENCOUNTER 2020-07-11 12:02 | Inpatient (IN) | payer MEDICARE ==
[~2020-07-11] VITALS: Ht 154 cm; Wt 106.8 kg
[~2020-07-11 12:02] MED LIST changes: +MULT-567 PO; -MULT1TAB69 PO
[2020-07-11] MEDS ORDERED: meTOprolol 5 MG/5 ML (LOPRESSOR) VIAL IV ONE (12:15)
[2020-07-11] MEDS ORDERED: NS IV 1000 ML 1,000 ML IV SCH (12:15)
[2020-07-11 12:19] LABS: ABG BASE EXCESS 2.8 MMOL/L (-2.5-2.5); ABG OXYGEN SATURATION 90 % (94-100); ABG PCO2 40 MMHG (35-45); ABG PH 7.44 (7.37-7.43); ABG PO2 60 MMHG (79-93); ABG TCO2 28.3 MMOL/L (21.0-31.0); ALLENS TEST YES-POS; INSPIRED O2 4 L; VENTILATOR NO
--- NOTE | 2020-07-11 12:19 | ED General ---
General Stated Complaint: DECREASED CONCIOUNESS, SOB Source of Information: Patient Exam Limitations: No Limitations History of Present Illness Date Seen by Provider: Jul 11, 2020 Time Seen by Provider: 12:15 Initial Comments To ER by EMS from via [facility] with reports of hypoxia and altered mental status. They noticed her mental status to be somewhat declined this morning, despite her 4 L per nasal cannula of supplemental oxygen they found her SPO2 to be in the low 80% range. No cough no fever. She was tested for coronavirus yesterday with the results are not yet known. She does have a history of atrial fibrillation and COPD, she has DO NOT RESUSCITATE status. EMS arrived and initiated a duoneb treatment. Timing/Duration: 4-6 Hours, 1-2 Days Severity: Moderate Allergies and Home Medications Allergies Coded Allergies: levofloxacin (Verified Allergy, Intermediate, 05/29/17) ciprofloxacin (Verified Allergy, Unknown, 10/11/08) ofloxacin (Verified Allergy, Unknown, 10/11/08) Home Medications Acetaminophen 325 Mg Tablet, 650 MG PO Q4H PRN for PAIN-MILD OR TEMPATURE, (Reported) TAKES 2 (325MG) TABLETS Alprazolam 0.25 Mg Tablet, 0.25 MG PO DAILY, (Reported) Alprazolam 0.5 Mg Tablet, 0.5 MG PO HS, (Reported) Atorvastatin Calcium 20 Mg Tablet, 20 MG PO HS, (Reported) Cholecalciferol (Vitamin D3) 5,000 Unit Capsule, 5,000 UNIT PO We, (Reported) Citalopram Hydrobromide 20 Mg Tablet, 20 MG PO DAILY, (Reported) Furosemide 40 Mg Tablet, 40 MG PO DAILY, (Reported) Gabapentin 300 Mg Capsule, 300 MG PO DAILY, (Reported) Guaifenesin/Dextromethorphan 5 Ml Syrup, 5 ML PO Q4H PRN for COUGH, (Reported) Hydrocodone Bit/Acetaminophen 1 Each Tablet, 1 TAB PO BID PRN for PAIN-MODERATE, (Reported) Hydrocodone Bit/Acetaminophen 1 Each Tablet, 1 TAB PO TID, (Reported) Ipratropium/Albuterol Sulfate 3 Ml Ampul.neb, 3 ML IH QID, (Reported) Magnesium Hydroxide 400 Mg/5 Ml Oral.susp, 30 ML PO DAILY PRN for CONSTIPATION- 7TH LINE, (Reported) Multivits, W-Fe,Other Min 1 Each Tablet, 1 TAB PO DAILY, (Reported) Omeprazole 20 Mg Capsule.dr, 20 MG PO DAILY, (Reported) Potassium Chloride 20 Meq Tab.er.prt, 20 MEQ PO DAILY, (Reported) Prednisone 10 Mg Tab.ds.pk, 40 MG PO DAILY Take 4 tabs(40mg)daily,decrease by 1 tab(10MG)daily. Prescribed by: MALISSA JERRY on 04/14/18 1037 Rivaroxaban 20 Mg Tablet, 20 MG PO 1800, (Reported) Sennosides/Docusate Sodium 1 Each Tablet, 1 TAB PO Q12H PRN for CONSTIPATION-6TH LINE, (Reported) Patient Home Medication List Home Medication List Reviewed: Yes Review of Systems Review of Systems Constitutional: see HPI EENTM: see HPI Respiratory: no symptoms reported Cardiovascular: no symptoms reported Genitourinary: no symptoms reported Musculoskeletal: no symptoms reported Skin: no symptoms reported Psychiatric/Neurological: No Symptoms Reported Hematologic/Lymphatic: No Symptoms Reported Immunological/Allergic: no symptoms reported Past Tahkzwv-Zbtcbt-Ogcvck Hx Patient Social History Type Used: Cigarettes Former Smoker, Quit: Sep 23, 2007 2nd Hand Smoke Exposure: No Recent Hopitalizations: No Immunizations Up To Date Tetanus Booster (TDap): Unknown PED Vaccines UTD: No Date of Pneumonia Vaccine: Sep 23, 2012 Date of Influenza Vaccine: Jul 27, 2016 Seasonal Allergies Seasonal Allergies: No Past Medical History Surgeries: Yes (UMBILICAL HERNIA REPAIR, D&C) Orthopedic Respiratory: Yes Asthma, COPD Currently Using CPAP: No Currently Using BIPAP: No Cardiac: Yes Hypertension Neurological: Yes (BONE SPURS ALONG SPINE ) Reproductive Disorders: Yes (PMB) Female Reproductive Disorders: Endometriosis 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 Sexually Transmitted Disease: No HIV/AIDS: No Genitourinary: Yes Renal Failure, UTI-Chronic Gastrointestinal: Yes Gastroesophageal Reflux Musculoskeletal: Yes Degenerate Disk Disease, Arthritis, Chronic Back Pain, Fractures Endocrine: Yes (USED TO TAKE METFORMIN BUT NOW DIABETES IS DIET CONTROLLED) Diabetes, Non-Insulin dep Loss of Vision: Denies Cancer: Yes (ENDOMETRIAL, MALIGNANT NEOPLASM UTERUS) Ovarian, Uterine Psychosocial: Yes Sleep Difficulties, Anxiety, Depression Integumentary: No Blood Disorders: No Adverse Reaction/Blood Tranf: No Family Medical History Cancer 03 MOTHER 09 SISTER Family history: Breast disease 09 SISTER No Pertinent Family Hx Physical Exam Vital Signs Vital Signs - First Documented 07/11/20 12:26 Temp 36.3 Pulse 130 Resp 24 B/P (MAP) 77/50 (59) Pulse Ox 90 O2 Delivery OxyMask O2 Flow Rate 15.00 Capillary Refill : Height, Weight, BMI Height: 5'1.00" Weight: 231lbs. 0.0oz. [id number]; 42.9 BMI Method:Stated General Appearance: No Apparent Distress, WD/WN, Obese, Other (heart rate irregular rate 140s, BP 108 systolic. O2 89% on baseline 4 l) Eyes: Bilateral Eye Normal Inspection, Bilateral Eye PERRL, Bilateral Eye EOMI Neck: Full Range of Motion, Normal Inspection Respiratory: No Accessory Muscle Use, No Respiratory Distress, Wheezing (expiratory wheezing which is upper airway in nature, the lower lung traore are clear.) Cardiovascular: Irregularly Irregular, Tachycardia Gastrointestinal: Normal Bowel Sounds, Non Tender, Soft Extremity: Normal Capillary Refill, Normal Inspection Neurologic/Psychiatric: Alert, Oriented x3 Skin: Normal Color, Warm/Dry Procedures/Interventions Patient Education: Explained Benefits, Explained Risks, Pt. Ack. Understanding Breath Sounds per Auscultation: Clear Heart Sounds per Auscultation: Regular Airway Exam: Mouth opens >2 fingers, Neck Full Range of Motion, Visulation of Uvula Sedation Adminstration Time: 0303 Re-examination Time: 0335 Progress/Results/Core Measures Suspected Sepsis SIRS Temperature: Pulse: Respiratory Rate: Laboratory Tests 07/11/20 12:07: White Blood Count 9.1 Blood Pressure / Mean: Laboratory Tests 07/11/20 12:07: Creatinine 1.42H, Platelet Count 328, Total Bilirubin 1.9H Results/Orders Lab Results Laboratory Tests Test 07/11/20 12:07 07/11/20 12:17 Range/Units White Blood Count 9.1 4.3-11.0 10^3/uL Red Blood Count 4.18 3.80-5.11 10^6/uL Hemoglobin 11.4 L 11.5-16.0 g/dL Hematocrit 37 35-52 % Mean Corpuscular Volume 90 80-99 fL Mean Corpuscular Hemoglobin 27 25-34 pg Mean Corpuscular Hemoglobin Concent 31 L 32-36 g/dL Red Cell Distribution Width 15.8 H 10.0-14.5 % Platelet Count 328 130-400 10^3/uL Mean Platelet Volume 10.4 9.0-12.2 fL Immature Granulocyte % (Auto) 0 % Neutrophils (%) (Auto) 86 H 42-75 % Lymphocytes (%) (Auto) 6 L 12-44 % Monocytes (%) (Auto) 7 0-12 % Eosinophils (%) (Auto) 0 0-10 % Basophils (%) (Auto) 0 0-10 % Neutrophils # (Auto) 7.8 1.8-7.8 10^3/uL Lymphocytes # (Auto) 0.6 L 1.0-4.0 10^3/uL Monocytes # (Auto) 0.6 0.0-1.0 10^3/uL Eosinophils # (Auto) 0.0 0.0-0.3 10^3/uL Basophils # (Auto) 0.0 0.0-0.1 10^3/uL Immature Granulocyte # (Auto) 0.0 0.0-0.1 10^3/uL Neutrophils % (Manual) 88 % Lymphocytes % (Manual) 3 % Monocytes % (Manual) 7 % Eosinophils % (Manual) 0 % Basophils % (Manual) 0 % Band Neutrophils 2 % Anisocytosis SLIGHT Blood Gas Puncture Site RT RAD Blood Gas Patient Temperature 96.0 Arterial Blood pH 7.44 H 7.37-7.43 Arterial Blood Partial Pressure CO2 40 35-45 MMHG Arterial Blood Partial Pressure O2 60 L 79-93 MMHG Arterial Blood HCO3 27 23-27 MMOL/L Arterial Blood Total CO2 28.3 21.0-31.0 MMOL/L Arterial Blood Oxygen Saturation 90 L 94-100 % Arterial Blood Base Excess 2.8 H -2.5-2.5 MMOL/L Fidel Test YES-POS Blood Gas Ventilator Setting NO Blood Gas Inspired Oxygen 4 L Sodium Level 133 L 135-145 MMOL/L Potassium Level 3.8 3.6-5.0 MMOL/L Chloride Level 94 L 98-107 MMOL/L Carbon Dioxide Level 25 21-32 MMOL/L Anion Gap 14 5-14 MMOL/L Blood Urea Nitrogen 26 H 7-18 MG/DL Creatinine 1.42 H 0.60-1.30 MG/DL Estimat Glomerular Filtration Rate 36 BUN/Creatinine Ratio 18 Glucose Level 133 H 70-105 MG/DL Calcium Level 9.9 8.5-10.1 MG/DL Corrected Calcium 10.4 H 8.5-10.1 MG/DL Magnesium Level 2.0 1.6-2.4 MG/DL Total Bilirubin 1.9 H 0.1-1.0 MG/DL Aspartate Amino Transf (AST/SGOT) 89 H 5-34 U/L Alanine Aminotransferase (ALT/SGPT) 55 0-55 U/L Alkaline Phosphatase 87 40-136 U/L Troponin I < 0.028 <0.028 NG/ML B-Type Natriuretic Peptide 79.3 <100.0 PG/ML Total Protein 6.9 6.4-8.2 GM/DL Albumin 3.4 3.2-4.5 GM/DL Coronavirus 2019 (JACQUES) Negative Negative My Orders Orders - LUIS SULLIVAN APRN Arterial Blood Gas (07/11/20 12:10) BNP (07/11/20 12:10) Cbc With Automated Diff (07/11/20 12:10) Comprehensive Metabolic Panel (07/11/20 12:10) Ua Culture If Indicated (07/11/20 12:10) Ed Iv/Invasive Line Start (07/11/20 12:10) Covid 19 Inhouse Test (07/11/20 12:10) Magnesium (07/11/20 12:10) Catheter(Urinary) Care .0300, 1500 (07/11/20 12:10) Troponin I (07/11/20 12:10) Ekg Tracing (07/11/20 12:10) Chest 1 View, Ap/Pa Only (07/11/20 12:10) Ns Iv 1000 Ml (Sodium Chloride 0.9%) (07/11/20 12:15) Metoprolol Tartrate Injection (Lopressor (07/11/20 12:15) Manual Differential (07/11/20 12:07) Coronavirus Sars-Cov-2 So 2019 (07/11/20 12:42) Medications Given in ED Current Medications Medications Dose Ordered Sig/Betina Route Start Time Stop Time Status Last Admin Dose Admin Metoprolol Tartrate 5 mg ONCE ONCE IV 07/11/20 12:15 07/11/20 12:16 DC 07/11/20 12:20 5 MG Vital Signs/I&O 07/11/20 12:26 Temp 36.3 Pulse 130 Resp 24 B/P (MAP) 77/50 (59) Pulse Ox 90 O2 Delivery OxyMask O2 Flow Rate 15.00 Capillary Refill : Diagnostic Imaging Comments NAME: JERI BYRD [facility] REC#: [id number] PT STATUS: REG ER : 1945 PHYSICIAN: LUIS SULLIVAN APRN ADMIT DATE: 07/11/20/ER Draft Date of Exam:07/11/20 CHEST 1 VIEW, AP/PA ONLY INDICATION: Cough. TECHNIQUE/COMPARISON: A frontal chest was obtained at 12:42 PM and compared to 04/09/2018. FINDINGS: There is cardiomegaly. There is central vascular congestion with bibasilar infiltrates which appear chronic compared to the prior study. There is no pneumothorax or gross pleural fluid. IMPRESSION: Cardiomegaly. Central vascular congestion with chronic bibasilar infiltrate and/or scarring. No significant change from 04/09/2018. Dictated on workstation # [id number] Dict: 07/11/20 1254 Trans: 07/11/20 1255 [id number] Interpreted by: MARISELA SOARES MD Electronically signed by: Departure Impression Primary Impression: Atrial fibrillation with rapid ventricular response Disposition: ADMITTED INPATIENT Condition: Stable Admissions Decision to Admit Reason: Admit from ER (General) Decision to Admit/Date: Jul 11, 2020 Time/Decision to Admit Time: 12:18 Departure-Patient Inst. Referrals: RICHARDSON SANDRA DO (PCP/Family) Primary Care Physician LUIS SULLIVAN APRN Jul 11, 2020 12:19
[2020-07-11 12:20] LABS: BASOPHILS % (AUTO) 0 % (0-10); EOSINOPHILS % (AUTO) 0 % (0-10); HEMATOCRIT 37 % (35-52); HEMOGLOBIN 11.4 g/dL (11.5-16.0); LYMPHOCYTES # (AUTO) 0.6 10^3/uL (1.0-4.0); LYMPHOCYTES % (AUTO) 6 % (12-44); MEAN CORPUSCULAR HEMOGLOBIN 27 pg (25-34); MEAN CORPUSCULAR HGB CONC 31 g/dL (32-36); MEAN CORPUSCULAR VOLUME 90 fL (80-99); MEAN PLATELET VOLUME 10.4 fL (9.0-12.2); MONOCYTES # (AUTO) 0.6 10^3/uL (0.0-1.0); MONOCYTES % (AUTO) 7 % (0-12); NEUTROPHILS # (AUTO) 7.8 10^3/uL (1.8-7.8); NEUTROPHILS % (AUTO) 86 % (42-75); PLATELET COUNT 328 10^3/uL (130-400); WHITE BLOOD COUNT 9.1 10^3/uL (4.3-11.0)
[2020-07-11 12:32] LABS: ALBUMIN 3.4 GM/DL (3.2-4.5); CHLORIDE 94 MMOL/L (98-107); POTASSIUM 3.8 MMOL/L (3.6-5.0); SODIUM 133 MMOL/L (135-145)
[2020-07-11 12:33] LABS: CALCIUM 9.9 MG/DL (8.5-10.1)
[2020-07-11 12:34] LABS: GLUCOSE 133 MG/DL (70-105); TOTAL PROTEIN 6.9 GM/DL (6.4-8.2)
[2020-07-11 12:35] LABS: CARBON DIOXIDE 25 MMOL/L (21-32)
[2020-07-11 12:36] LABS: BILIRUBIN,TOTAL 1.9 MG/DL (0.1-1.0)
[2020-07-11 12:37] LABS: ANISOCYTOSIS SLIGHT; BAND NEUTROPHILS 2 %; BASOPHILS % (MANUAL) 0 %; EOSINOPHILS % (MANUAL) 0 %; LYMPHOCYTES % (MANUAL) 3 %; MONOCYTES % (MANUAL) 7 %; NEUTROPHILS % (MANUAL) 88 %
[2020-07-11 12:38] LABS: ALKALINE PHOSPHATASE 87 U/L (40-136); CREATININE SERUM 1.42 MG/DL (0.60-1.30); GFR ESTIMATED 36
[2020-07-11 12:39] LABS: BUN/CREATININE RATIO 18
[2020-07-11 12:41] LABS: ALANINE AMINOTRANSFERASE 55 U/L (0-55)
--- NOTE | 2020-07-11 12:56 | Diagnostic Imaging Report ---
INDICATION: Cough. TECHNIQUE/COMPARISON: A frontal chest was obtained at 12:42 PM and compared to 04/09/2018. FINDINGS: There is cardiomegaly. There is central vascular congestion with bibasilar infiltrates which appear chronic compared to the prior study. There is no pneumothorax or gross pleural fluid. IMPRESSION: Cardiomegaly. Central vascular congestion with chronic bibasilar infiltrate and/or scarring. No significant change from 04/09/2018. Dictated by: Dictated on workstation # [id number]
[2020-07-11 13:00] LABS: CLARITY,URINE CLEAR; COLOR,URINE YELLOW; GLUCOSE, URINE (UA) NEGATIVE (NEGATIVE); KETONES,URINE NEGATIVE (NEGATIVE); LEUKOCYTE ESTERASE ,URINE 1+ (NEGATIVE); NITRITE,URINE NEGATIVE (NEGATIVE); PH,URINE 5.5 (5-9); PROTEIN,URINE 2+ (NEGATIVE)
[2020-07-11 13:19] LABS: RBC,URINE 0-2 /HPF
[2020-07-11 13:20] LABS: AMORPHOUS SEDIMENT,UR MOD AMOR URATES /LPF; BACTERIA,URINE LARGE /HPF; BILIRUBIN,URINE 2+ (NEGATIVE)
--- NOTE | 2020-07-11 13:25 | NUR ---
Raul malone in ED - 07/11/20 at 1326 by TBERNOT PT NO LONGER PUI
[2020-07-11] MEDS ORDERED: dilTIAZem DRIP PRE-MIX 125 ML IV SCH (13:45)
[2020-07-11] MEDS ORDERED: CATHETER FLUSH 10 ML SYR IV PRN (15:15)
[2020-07-11] MEDS ORDERED: dilTIAZem DRIP 125 MG/125 ML DRIP IV SCH (15:15)
[2020-07-11] MEDS ORDERED: DEXT1DRO8 OU (15:31)
[2020-07-11] MEDS ORDERED: BUDE10.22 INH (15:31)
[2020-07-11] MEDS ORDERED: CHOL500044 PO (15:31)
[2020-07-11] MEDS ORDERED: MULT1TAB63 PO (15:31)
[2020-07-11] MEDS ORDERED: GABA300C PO (15:31)
[2020-07-11] MEDS ORDERED: CITA40TA11 PO (15:31)
--- NOTE | 2020-07-11 15:33 | NUR ---
MED REC WAS ENTERED USING THE MAR FROM [facility] ON THE EXT MED HISTORY IT SHOWS SYMBICORT 80/4.5MCG #10/22 DS HOWEVER ON THE MED LIST IT SHOWS THE PT JUST TAKES IT ONCE DAILY
--- NOTE | 2020-07-11 15:36 | Consultation-Cardiology ---
HPI-Cardiology Cardiology Consultation: Date of Consultation 07/11/20 Time Seen by a Provider: 15:40 Date of Admission 07-11-2020 Attending Physician Gunjan Canseco DO Admitting Physician Yanira Tolliver DO Consulting Physician HORTENCIA RUELAS Physician requesting consult: Dr Canseco HPI: Chief Complaint: Reason for cardiology consultation: A Fib with RVR Ms. Byrd is a 75 yr old female admitted to ICU 3 from [facility] with hypoxia, a-fib with RVR and UTI with sepsis. She is oriented to herself only. She is confused. She denies any pain or SOB. Review of chart has been done. Review of Systems-Cardiology Review of Systems Constitutional: other (not able to provide a review of systems due to confusion) Other comments Unable to obtain d/t confusion CTQ-Pobnlf-Wiihds Hx Patient Social History Former smoker/When Quit: Jul 07, 2005 Type Used: Cigarettes 2nd Hand Smoke Exposure: No Recent Foreign Travel: No Recent Infectious Disease Expo: No Immunizations Up To Date Tetanus Booster (TDap): Unknown Date of Pneumonia Vaccine: Sep 23, 2012 Date of Influenza Vaccine: Jul 27, 2016 Past Medical History PMH As described under Assessment. Family Medical History Family Medical History: Documented family history reviewed showing no family h/o CAD. Family History: Cancer 03 MOTHER 09 SISTER Family history: Breast disease 09 SISTER Allergies and Home Medications Allergies Coded Allergies: levofloxacin (Verified Allergy, Intermediate, 05/29/17) ciprofloxacin (Verified Allergy, Unknown, 10/11/08) ofloxacin (Verified Allergy, Unknown, 10/11/08) Home Medications Acetaminophen 325 Mg Tablet, 650 MG PO Q4H PRN for PAIN-MILD (1-4) OR TEMPATURE, (Reported) TAKES 2 (325MG) TABLETS Atorvastatin Calcium 20 Mg Tablet, 20 MG PO HS, (Reported) Budesonide/Formoterol Fumarate 10.2 Gm Hfa.aer.ad, 2 PUFF INH DAILY, (Reported) Cholecalciferol (Vitamin D3) 125 Mcg Tablet, 125 MCG PO DAILY, (Reported) Citalopram Hydrobromide 40 Mg Tablet, 40 MG PO DAILY, (Reported) Dextran 70/Hypromellose/Pf 1 Each Droperette, 1 DROP OU Q4H PRN for DRY EYES, (Reported) Furosemide 40 Mg Tablet, 40 MG PO DAILY, (Reported) Gabapentin 300 Mg Capsule, 300 MG PO DAILY, (Reported) Magnesium Hydroxide 400 Mg/5 Ml Oral.susp, 30 ML PO DAILY PRN for CONSTIPATION- 7TH LINE, (Reported) Multivits,Ca,Minerals/Iron/FA 1 Each Tablet, 1 EA PO DAILY, (Reported) Omeprazole 20 Mg Capsule.dr, 20 MG PO DAILY, (Reported) Potassium Chloride 20 Meq Tab.er.prt, 20 MEQ PO DAILY, (Reported) Rivaroxaban 20 Mg Tablet, 20 MG PO 1800, (Reported) Patient Home Medication List Home Medication List Reviewed: Yes Physical Exam-Cardiology Physical Exam Vital Signs/I&O 07/11/20 07/11/20 07/11/20 07/11/20 12:26 14:32 14:45 14:45 Temp 36.3 Pulse 130 114 119 Resp 24 20 B/P (MAP) 77/50 (59) 90/76 114/93 Pulse Ox 90 91 92 O2 Delivery OxyMask Nasal Cannula High Flow N/C O2 Flow Rate 15.00 4.00 10.00 07/11/20 07/11/20 16:10 16:28 Temp 36.3 Pulse 130 Pulse Ox 90 94 O2 Delivery High Flow N/C O2 Flow Rate 10.00 Capillary Refill : Less Than 3 Seconds Constitutional: No AAO x 3 (Oriented to self only); well-developed, well- nourished HEENT: PERRL, hearing is well preserved Neck: No carotid bruit; carotid pulses are 2 + bilaterally Respiratory: No accessory muscle use, No respiratory distress; chest expansion is symmetric, chest is bilaterally symmetric, other (good air entry) Cardiovascular: irregularly irregular; No JVD; S1 and S2 Gastrointestinal: No tender; soft, round, audible bowel sounds Extremities: no lower extremity edema bilateral Neurologic/Psychiatric: grossly intact (moves all extremities) Skin: No rash on exposed areas, No ulcerations on exposed areas Data Review Labs Laboratory Tests 07/11/20 12:07: White Blood Count 9.1, Red Blood Count 4.18, Hemoglobin 11.4L, Hematocrit 37, Mean Corpuscular Volume 90, Mean Corpuscular Hemoglobin 27, Mean Corpuscular Hemoglobin Concent 31L, Red Cell Distribution Width 15.8H, Platelet Count 328, Mean Platelet Volume 10.4, Immature Granulocyte % (Auto) 0, Neutrophils (%) (Auto) 86H, Lymphocytes (%) (Auto) 6L, Monocytes (%) (Auto) 7, Eosinophils (%) (Auto) 0, Basophils (%) (Auto) 0, Neutrophils # (Auto) 7.8, Lymphocytes # (Auto) 0.6L, Monocytes # (Auto) 0.6, Eosinophils # (Auto) 0.0, Basophils # (Auto) 0.0, Immature Granulocyte # (Auto) 0.0, Neutrophils % (Manual) 88, Lymphocytes % (Manual) 3, Monocytes % (Manual) 7, Eosinophils % (Manual) 0, Basophils % (Manual) 0, Band Neutrophils 2, Anisocytosis SLIGHT, Blood Gas Puncture Site RT RAD, Blood Gas Patient Temperature 96.0, Arterial Blood pH 7.44H, Arterial Blood Partial Pressure CO2 40, Arterial Blood Partial Pressure O2 60L, Arterial Blood HCO3 27, Arterial Blood Total CO2 28.3, Arterial Blood Oxygen Saturation 90L, Arterial Blood Base Excess 2.8H, Fidel Test YES-POS, Blood Gas Ventilator Setting NO, Blood Gas Inspired Oxygen 4 L, Sodium Level 133L, Potassium Level 3.8, Chloride Level 94L, Carbon Dioxide Level 25, Anion Gap 14, Blood Urea Nitrogen 26H, Creatinine 1.42H, Estimat Glomerular Filtration Rate 36, BUN/Creatinine Ratio 18, Glucose Level 133H, Calcium Level 9.9, Corrected Calcium 10.4H, Magnesium Level 2.0, Total Bilirubin 1.9H, Aspartate Amino Transf (AST/SGOT) 89H, Alanine Aminotransferase (ALT/SGPT) 55, Alkaline Phosphatase 87, Troponin I < 0.028, B-Type Natriuretic Peptide 79.3, Total Protein 6.9, Albumin 3.4 07/11/20 12:17: Coronavirus 2019 (JACQUES) Negative 07/11/20 12:53: Urine Color YELLOW, Urine Clarity CLEAR, Urine pH 5.5, Urine Specific [place] >=1.030, Urine Protein 2+H, Urine Glucose (UA) NEGATIVE, Urine Ketones NEGATIVE, Urine Nitrite NEGATIVE, Urine Bilirubin 2+H, Urine Urobilinogen 4.0, Urine Leukocyte Esterase 1+H, Urine RBC (Auto) TRACE-I, Urine RBC 0-2, Urine WBC 10- 25H, Urine Crystals PRESENTH, Urine Amorphous Sediment MOD SHASHA URATESH, Urine B acteria LARGEH, Urine Casts NONE, Urine Mucus SMALLH, Urine Culture Indicated YES Radiology NAME: JERI BYRD [facility] REC#: [id number] PT STATUS: REG ER : 1945 PHYSICIAN: LUIS SULLIVAN APRN ADMIT DATE: 07/11/20/ER Signed Date of Exam:07/11/20 CHEST 1 VIEW, AP/PA ONLY INDICATION: Cough. TECHNIQUE/COMPARISON: A frontal chest was obtained at 12:42 PM and compared to 04/09/2018. FINDINGS: There is cardiomegaly. There is central vascular congestion with bibasilar infiltrates which appear chronic compared to the prior study. There is no pneumothorax or gross pleural fluid. IMPRESSION: Cardiomegaly. Central vascular congestion with chronic bibasilar infiltrate and/or scarring. No significant change from 04/09/2018. Dictated by: Dictated on workstation # [id number] Dict: 07/11/20 1254 Trans: 07/11/20 1318 [id number] Interpreted by: MARISELA SOARES MD Electronically signed by: MARISELA SOARES MD 07/11/20 1318 ECG Impression ECG Initial ECG Impression: Atrial Fibrillation w/RVR A/P-Cardiology Assessment/Admission Diagnosis Septic shock, being managed by Dr Canseco UTI, being managed by Dr Harleen Ramirez-fib with RVR. Rapid ventricular response is likely due to septic shock Acute mental status changed likely due to septic shock Hypoxia likely multi-factorial d/t septic shorck, obesity-hypoventilation syndrome, CHRISTINA, and COPD COVID PUI H/O PAF Xarelto for stroke prophylaxis MPI of October 18, 2016 showed no evidence of significant myocardial ischemia or infarction. Normal regional wall motion. 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 If further hypotension on iv diltiazem, then dig for rate control H/O PAF - continue OAC with Xarelto for stroke prophylaxis, adjsut to renal function Management of septic shock, UTI, and possible COVID-[address] Canseco Monitor lab closely Replace electrolytes as indicated We would like to thank Dr Canseco for this consult Physician Assessment Physician Assessment The above is a report of mutual evaluation of the patient by Pastora Jesus APRN, and me. I have updated the report in in italics. HORTENCIA JESUS [facility] Jul 11, 2020 15:36 NASH ARCINIEGA MD [facility] Jul 11, 2020 17:43
[2020-07-11 16:10] VITALS: BP 77/50
[2020-07-11] MEDS ORDERED: DIGOXIN 0.25 MG/ML (LANOXIN) 2 ML AMP IV NR ×3 (16:45→21:00)
[2020-07-11] MEDS ORDERED: RIVAROXABAN 15 MG TABLET (XARELTO) PO SCH (17:00)
[2020-07-11] MEDS ORDERED: NS (IVPB) 500 ML IV ONE (17:00)
[2020-07-11] MEDS ORDERED: NS IV 500 ML 500 ML ONE (17:01)
[2020-07-11] MEDS: cefTRIAXone 1,000 MG/SWFI 10 ML IV PUSH IV SCH ×2 (17:47)
[2020-07-11] MEDS: LACTATED RINGERS 1,000 ML IV SCH (17:48)
[2020-07-11] MEDS: ALBUTEROL/IPRATROP (COMBIVENT RESPIMAT) 4 GM INHALER IH SCH ×2 (18:40→21:22)
--- NOTE | 2020-07-11 20:43 | History & Physical-Hospitalist ---
History of Present Illness HPI/Chief Complaint CC: Dyspnea HPI: This is a 75yoWF clinic patient of [facility] who presents to the ER with dyspnea so she was COVID swabbed and found to have AF w/RVR. Cardiology was consulted. She did present with AMS and remains a DNR. SHe does have a h/o COPD and remains on O2 at 4L/min. Patient required cervantes cath placement and currently she cannot give me any details. Source: patient, RN/MD Exam Limitations: clinical condition Date Seen 07/11/20 Time Seen by a Provider: 18:00 Attending Physician Gunjan Jerry DO PCP Yanira Tolliver DO Referring Physician Date of Admission Jul 11, 2020 at 13:49 Home Medications & Allergies Home Medications Reviewed patient Home Medication Reconciliation performed by pharmacy medication reconciliations scrub technician and/or nursing. Patients Allergies have been reviewed. Allergies Allergies Coded Allergies levofloxacin (Verified Allergy, Intermediate, 05/29/17) ciprofloxacin (Verified Allergy, Unknown, 10/11/08) ofloxacin (Verified Allergy, Unknown, 10/11/08) Past Zeajfrr-Divcil-Wxqajc Hx Past Med/Social Hx: Reviewed Nursing Past Med/Soc Hx, Reviewed and Corrections made Patient Social History Marrital Status: single Employed/Student: retired Smoking Status: Unknown if Ever Smoked Former Smoker, Quit: Sep 23, 2007 Type Used: Cigarettes 2nd Hand Smoke Exposure: No Recent Foreign Travel: No Contact w/other who traveled: No Recent Hopitalizations: No Recent Infectious Disease Expo: No Immunizations Up To Date Tetanus Booster (TDap): Unknown Pediatric: No Date of Pneumonia Vaccine: Sep 23, 2012 Date of Influenza Vaccine: Jul 27, 2016 Seasonal Allergies Seasonal Allergies: No Past Medical History Surgeries: Orthopedic Respiratory: Asthma, COPD Currently Using CPAP: No Currently Using BIPAP: No Cardiac: Atrial Fibrillation, Hypertension Reproductive: Yes (PMB) Sexually Transmitted Disease: No HIV/AIDS: No Female Reproductive Disorders: Endometriosis Menopausal Genitourinary: Renal Failure, UTI-Chronic Gastrointestinal: Gastroesophageal Reflux Musculoskeletal: Degenerate Disk Disease, Arthritis, Chronic Back Pain, Fractures Endocrine: Diabetes, Non-Insulin dep Loss of Vision: Denies Cancer: Ovarian, Uterine Psychosocial: Sleep Difficulties, Anxiety, Depression History of Blood Disorders: No Adverse Reaction to Blood Benson: No Family History Cancer 03 MOTHER 09 SISTER Family history: Breast disease 09 SISTER No Pertinent Family Hx Review of Systems Constitutional: see HPI, malaise, weakness Physical Exam Physical Exam Vital Signs Vital Signs - First Documented 07/11/20 12:26 Temp 36.3 Pulse 130 Resp 24 B/P (MAP) 77/50 (59) Pulse Ox 90 O2 Delivery OxyMask O2 Flow Rate 15.00 Capillary Refill : Less Than 3 Seconds Height, Weight, BMI Height: 5'1.00" Weight: 231lbs. 0.0oz. 104.257695sp; 35.37 BMI Method:Stated General Appearance: Anxious, Chronically ill, Mild Distress, Obese Eyes: Right Eye Normal Inspection, Right Eye PERRL HEENT: PERRL/EOMI, Normal ENT Inspection, Pharynx Normal, Moist Mucous Membran es Neck: Full Range of Motion, Normal Inspection, Non Tender Respiratory: Chest Non Tender, Lungs Clear, Normal Breath Sounds, No Accessory Muscle Use, No Respiratory Distress Cardiovascular: Regular Rate, Rhythm, No Edema, No Gallop, No JVD, No Murmur, Normal Peripheral Pulses, Irregularly Irregular, Tachycardia Gastrointestinal: Normal Bowel Sounds, No Organomegaly, No Pulsatile Mass, Non Tender, Soft Back: Normal Inspection, No CVA Tenderness, No Vertebral Tenderness Extremity: Normal Capillary Refill, Normal Inspection, Normal Range of Motion, Non Tender, No Calf Tenderness, No Pedal Edema Neurologic/Psychiatric: Alert, No Motor/Sensory Deficits, Normal Mood/Affect, Disoriented Skin: Normal Color, Warm/Dry Lymphatic: No Adenopathy Results Results/Procedures Labs Laboratory Tests 07/11/20 12:07 07/12/20 02:27 Patient resulted labs reviewed. Assessment/Plan Admission Diagnosis Assessment: AMS AF w/RVR COPD O2 dependent Obesity HTN CRI Elevated LFT's Plan: Monitor closely DNR COVID swab pending Admission Status: Inpatient Order (span 2 midnights) Reason for Inpatient Admission: af w/RVR Diagnosis/Problems Diagnosis/Problems (1) Atrial fibrillation with rapid ventricular response Status: Acute (2) Debility Status: Chronic (3) CHRISTINA on CPAP Status: Chronic (4) COPD exacerbation Status: Acute (5) HLD (hyperlipidemia) Status: Chronic (6) Acute and chronic respiratory failure Status: Acute Clinical Quality Measures DVT/VTE Risk/Contraindication: Risk Factor Score Per Nursin RFS Level Per Nursing on Admit: 4+=Very High GUNJAN JERRY DO Jul 11, 2020 20:43
[2020-07-12] MEDS: ALBUTEROL/IPRATROP (COMBIVENT RESPIMAT) 4 GM INHALER IH SCH ×5 (01:32→21:32)
--- NOTE | 2020-07-12 02:37 | NUR ---
DR JERRY CONTACTED D/T PT COVID RESULTS COMING BACK NEGATIVE. PER DR JERRY OK TO TAKE PT OUT OF ISOLATION.
[2020-07-12 02:58] LABS: BASOPHILS % (AUTO) 0 % (0-10); EOSINOPHILS % (AUTO) 1 % (0-10); HEMATOCRIT 39 % (35-52); HEMOGLOBIN 11.8 g/dL (11.5-16.0); LYMPHOCYTES # (AUTO) 0.5 10^3/uL (1.0-4.0); LYMPHOCYTES % (AUTO) 6 % (12-44); MEAN CORPUSCULAR HEMOGLOBIN 27 pg (25-34); MEAN CORPUSCULAR HGB CONC 30 g/dL (32-36); MEAN CORPUSCULAR VOLUME 90 fL (80-99); MEAN PLATELET VOLUME 10.5 fL (9.0-12.2); MONOCYTES # (AUTO) 0.6 10^3/uL (0.0-1.0); MONOCYTES % (AUTO) 7 % (0-12); NEUTROPHILS # (AUTO) 7.1 10^3/uL (1.8-7.8); NEUTROPHILS % (AUTO) 86 % (42-75); PLATELET COUNT 319 10^3/uL (130-400); WHITE BLOOD COUNT 8.3 10^3/uL (4.3-11.0)
[2020-07-12 03:12] LABS: ALBUMIN 3.3 GM/DL (3.2-4.5); POTASSIUM 4.1 MMOL/L (3.6-5.0)
[2020-07-12 03:13] LABS: CALCIUM 9.9 MG/DL (8.5-10.1)
[2020-07-12 03:14] LABS: TOTAL PROTEIN 6.6 GM/DL (6.4-8.2)
[2020-07-12 03:17] LABS: PHOSPHORUS 3.3 MG/DL (2.3-4.7)
[2020-07-12 03:18] LABS: CREATININE SERUM 1.39 MG/DL (0.60-1.30)
[2020-07-12 03:21] LABS: MAGNESIUM 1.9 MG/DL (1.6-2.4)
[2020-07-12] MEDS: LACTATED RINGERS 1,000 ML IV SCH ×3 (03:23→21:00)
--- NOTE | 2020-07-12 03:52 | Pulmonary Consultation ---
VICTOR HUGO WALDRON MED STUDENT 07/12/20 0352: History of Present Illness History of Present Illness Date Seen by Provider: Jul 12, 2020 Time Seen by Provider: 03:47 Date of Admission History of Present Illness Pt is oriented to self only, so history was obtained through chart review. Pt was at via [facility] when staff noticed she had AMS and hypoxia. She has a hx of afib and COPD and usually uses 4L O2, but when they checked her SpO2 she was in the low 80s, but without cough and fever. EMS provided her with a duoneb treatment before transport from the facility. Pt problem list currently includes: hypoxia, AMS, AFib with RVR, and UTI Unable to gather ROS d/t pt lack of orientation to time. Pt currently believes it is 2002 or 2003, and that she just had a child a few days prior. Pt does remember that she was a smoker- half pack a day, beginning in childhood, but that she has since stopped. Allergies and Home Medications Allergies Coded Allergies: levofloxacin (Verified Allergy, Intermediate, 05/29/17) ciprofloxacin (Verified Allergy, Unknown, 10/11/08) ofloxacin (Verified Allergy, Unknown, 10/11/08) Home Medications Acetaminophen 325 Mg Tablet, 650 MG PO Q4H PRN for PAIN-MILD (1-4) OR TEMPATURE, (Reported) TAKES 2 (325MG) TABLETS Atorvastatin Calcium 20 Mg Tablet, 20 MG PO HS, (Reported) Budesonide/Formoterol Fumarate 10.2 Gm Hfa.aer.ad, 2 PUFF INH DAILY, (Reported) Cefdinir 300 Mg Capsule, 300 MG PO BID Prescribed by: MALISSA JERRY on 07/14/20 1014 Cholecalciferol (Vitamin D3) 125 Mcg Tablet, 125 MCG PO DAILY, (Reported) Citalopram Hydrobromide 40 Mg Tablet, 40 MG PO DAILY, (Reported) Dextran 70/Hypromellose/Pf 1 Each Droperette, 1 DROP OU Q4H PRN for DRY EYES, (Reported) Digoxin 125 Mcg Tablet, 0.125 MG PO DAILY Prescribed by: MALISSA JERRY on 07/14/20 1014 Furosemide 40 Mg Tablet, 40 MG PO DAILY, (Reported) Gabapentin 300 Mg Capsule, 300 MG PO DAILY, (Reported) Magnesium Hydroxide 400 Mg/5 Ml Oral.susp, 30 ML PO DAILY PRN for CONSTIPATION- 7TH LINE, (Reported) Multivits,Ca,Minerals/Iron/FA 1 Each Tablet, 1 EA PO DAILY, (Reported) Omeprazole 20 Mg Capsule.dr, 20 MG PO DAILY, (Reported) Potassium Chloride 20 Meq Tab.er.prt, 20 MEQ PO DAILY, (Reported) Rivaroxaban 15 Mg Tablet, 15 MG PO 1800 Prescribed by: MALISSA JERRY on 07/14/20 1014 Past Nauvxcv-Ltkaqx-Lxylxe Hx Patient Social History Smoking Status: Former Smoker Type Used: Cigarettes Former Smoker, Quit: Sep 23, 2007 2nd Hand Smoke Exposure: No Recent Foreign Travel: No Contact w/Someone Who Travel: No Recent Infectious Disease Expo: No Recent Hopitalizations: No Physical Abuse: No Sexual Abuse: No Mistreated: No Fear: No Immunizations Up To Date Tetanus Booster (TDap): Unknown PED Vaccines UTD: No Date of Pneumonia Vaccine: Sep 23, 2012 Date of Influenza Vaccine: Jul 27, 2016 Seasonal Allergies Seasonal Allergies: No Past Medical History Surgeries: Yes (UMBILICAL HERNIA REPAIR, D&C) Orthopedic Respiratory: Yes (acute on chronic resp failure) Asthma, COPD Currently Using CPAP: No Currently Using BIPAP: No Cardiac: Yes (CHF) Atrial Fibrillation, Hypertension Neurological: Yes (BONE SPURS ALONG SPINE ) Reproductive Disorders: Yes (PMB) Female Reproductive Disorders: Endometriosis [employer] SPECIALIST History: Menopausal Sexually Transmitted Disease: No HIV/AIDS: No Genitourinary: Yes Renal Failure, UTI-Chronic Gastrointestinal: Yes Gastroesophageal Reflux Musculoskeletal: Yes (osteoarthritis) Degenerate Disk Disease, Arthritis, Chronic Back Pain, Fractures Endocrine: Yes (USED TO TAKE METFORMIN BUT NOW DIABETES IS DIET CONTROLLED) Diabetes, Non-Insulin dep Loss of Vision: Denies Cancer: Yes (ENDOMETRIAL, MALIGNANT NEOPLASM UTERUS) Ovarian, Uterine Psychosocial: Yes Sleep Difficulties, Anxiety, Depression Integumentary: No Blood Disorders: No Adverse Reaction/Blood Tranf: No Family Medical History Cancer 03 MOTHER 09 SISTER Family history: Breast disease 09 SISTER No Pertinent Family Hx Review of Systems Date Seen by Provider: Jul 12, 2020 Time Seen by Provider: 03:52 Sepsis Event Evaluation Sepsis Stage: Sepsis Possible Source: Genitouriary Height, Weight, BMI Height: 5'1.00" Weight: 231lbs. 0.0oz. 104.411964zp; 35.37 BMI Method:Stated Exam Exam Vital Signs Date Time Temp Pulse Resp B/P (MAP) Pulse Ox O2 Delivery O2 Flow Rate FiO2 07/12/20 02:39 High Flow N/C 4.00 07/12/20 02:00 80 88/68 97 High Flow N/C 6.00 07/12/20 01:00 108 95/75 91 High Flow N/C 6.00 07/12/20 00:00 88 109/90 95 High Flow N/C 6.00 07/11/20 23:53 97 High Flow N/C 6.00 07/11/20 23:00 79 101/76 99 High Flow N/C 6.00 07/11/20 22:40 36.0 High Flow N/C 6.00 07/11/20 22:00 87 91/71 96 High Flow N/C 8.00 07/11/20 21:48 High Flow N/C 8.00 07/11/20 21:00 82 130/89 97 High Flow N/C 10.00 07/11/20 20:57 97 High Flow N/C 10.00 07/11/20 20:00 97 High Flow N/C 10.00 07/11/20 20:00 112 104/86 98 High Flow N/C 10.00 07/11/20 20:00 36.6 High Flow N/C 10.00 07/11/20 19:43 High Flow N/C 9.00 9.00 07/11/20 19:35 98 High Flow N/C 9.00 07/11/20 19:00 108 89/63 97 High Flow N/C 10.00 07/11/20 19:00 108 07/11/20 18:44 98 High Flow N/C 9.00 07/11/20 18:00 97 106/68 96 High Flow N/C 10.00 07/11/20 17:00 112 92/79 98 High Flow N/C 10.00 07/11/20 16:28 94 High Flow N/C 10.00 07/11/20 16:15 114 106/55 96 High Flow N/C 10.00 07/11/20 16:10 36.3 130 90 07/11/20 14:45 114/93 92 High Flow N/C 10.00 07/11/20 14:45 119 07/11/20 14:32 114 20 90/76 91 Nasal Cannula 4.00 07/11/20 12:26 36.3 130 24 77/50 (59) 90 OxyMask 15.00 I & O 07/12/20 07:00 Intake Total 1175 ml Output Total 270 ml Balance 905 ml Height & Weight Height: 5'1.00" Weight: 231lbs. 0.0oz. 104.200817mc; 35.37 BMI Method:Stated General Appearance: No Apparent Distress, WD/WN, Obese, Other (heart rate irregular rate 140s, BP 108 systolic. O2 89% on baseline 4 l) HEENT: PERRL/EOMI Respiratory: No Accessory Muscle Use, No Respiratory Distress, Decreased Breath Sounds, Wheezing (expiratory wheezing which is upper airway in nature, the lower lung traore are clear.) Cardiovascular: Normal Peripheral Pulses, Irregularly Irregular, Tachycardia Capillary Refill: Less Than 3 Seconds Peripheral Pulses: 2+ Dorsalis Pedis (R); 1+ Left Dors-Pedis (L) Extremity: Normal Capillary Refill, Normal Inspection, Calf Tenderness (up to upper third of alvarez), Pedal Edema Neurologic/Psychiatric: Alert Skin: Normal Color, Warm/Dry, Other (dry scaly skin on Left alvarez) Results Lab Laboratory Tests 07/11/20 12:07 07/12/20 02:27 Assessment/Plan Assessment/Plan Afib with RVR -diltiazem and digoxin as per cardiac consult -dilt dc d/t pt not being able to tolerate BP drop -monitor for sx Sepsis -qualifies under qSOFA- AMS, SBP under 100 -treat source (UTI) -currently on ceftriaxone -watch IV lines, check pt daily for physical signs of infection AMS -treat sepsis -monitor -fall risk, bed alarm -meds reviewed Hypoxia -COPD, CHRISTINA, obesity-hypoventilation syndrome hx -continue at 6L O2, slowly titrate down to 4L, goal SpO2 of 89-92% s/p uterine cancer- 2015, being followed by Dr. Guy Negative COVID screen Anticoag: Xarelto GI Prophylaxis: Start Protonix DNR status MELECIO THAPA DO 07/12/20 0541: History of Present Illness History of Present Illness Time Seen by Provider: 05:37 Allergies and Home Medications Allergies Coded Allergies: levofloxacin (Verified Allergy, Intermediate, 05/29/17) ciprofloxacin (Verified Allergy, Unknown, 10/11/08) ofloxacin (Verified Allergy, Unknown, 10/11/08) Home Medications Acetaminophen 325 Mg Tablet, 650 MG PO Q4H PRN for PAIN-MILD (1-4) OR TEMPATURE, (Reported) TAKES 2 (325MG) TABLETS Atorvastatin Calcium 20 Mg Tablet, 20 MG PO HS, (Reported) Budesonide/Formoterol Fumarate 10.2 Gm Hfa.aer.ad, 2 PUFF INH DAILY, (Reported) Cefdinir 300 Mg Capsule, 300 MG PO BID Prescribed by: MALISSA JERRY on 07/14/20 1014 Cholecalciferol (Vitamin D3) 125 Mcg Tablet, 125 MCG PO DAILY, (Reported) Citalopram Hydrobromide 40 Mg Tablet, 40 MG PO DAILY, (Reported) Dextran 70/Hypromellose/Pf 1 Each Droperette, 1 DROP OU Q4H PRN for DRY EYES, (Reported) Digoxin 125 Mcg Tablet, 0.125 MG PO DAILY Prescribed by: MALISSA JERRY on 07/14/20 1014 Furosemide 40 Mg Tablet, 40 MG PO DAILY, (Reported) Gabapentin 300 Mg Capsule, 300 MG PO DAILY, (Reported) Magnesium Hydroxide 400 Mg/5 Ml Oral.susp, 30 ML PO DAILY PRN for CONSTIPATION- 7TH LINE, (Reported) Multivits,Ca,Minerals/Iron/FA 1 Each Tablet, 1 EA PO DAILY, (Reported) Omeprazole 20 Mg Capsule.dr, 20 MG PO DAILY, (Reported) Potassium Chloride 20 Meq Tab.er.prt, 20 MEQ PO DAILY, (Reported) Rivaroxaban 15 Mg Tablet, 15 MG PO 1800 Prescribed by: MALISSA JERRY on 07/14/20 1014 Past [place]-Pgjkrw-Qjkvsi Hx Family Medical History Cancer 03 MOTHER 09 SISTER Family history: Breast disease 09 SISTER Assessment/Plan Assessment/Plan Afib RVR -- now controlled -Controlled with PO meds -Cardiology consulted Severe oxygen dependent 4 l/min COPD -Monitor -Albuterol -Start Advair -COVID is negative UTI - No leukocytosis, and no fever -Continue Rocephin -Cultures pending Hypotension -Give liter bolus of LR Chronic dementia s/p uterine cancer- 2016 GI Prophylaxis: Start Protonix DNR status Supervisory-Addendum Brief Verification & Attestation Participated in pt care: history, MDM, physical Personally performed: exam, history, MDM Care discussed with: Medical Student Procedures: n/a Results interpretation: Verified all documentation Verification and Attestation of Medical Student E/M Service A medical student performed and documented this service in my presence. I reviewed and verified all information documented by the medical student and made modifications to such information, when appropriate. I personally performed the physical exam and medical decision making. Melecio Thapa, Jul 24, 2020,16:23 VICTOR HUGO WALDRON STUDENT Jul 12, 2020 03:52 MELECIO THAPA DO Jul 12, 2020 05:41
[2020-07-12] MEDS ORDERED: LACTATED RINGERS 1,000 ML IV SCH (05:45)
[2020-07-12] MEDS ORDERED: ENOXAPARIN 40 MG/0.4 ML (LOVENOX) SYR SC SCH (05:45)
[2020-07-12] MEDS ORDERED: PANTOPRAZOLE 40 MG (PROTONIX) TAB PO SCH (07:00)
--- NOTE | 2020-07-12 08:35 | Progress Note - Cardiology ---
Cardiology SOAP Progress Note Subjective: Lying in bed. States she feels much better today. Oriented x3. No c/o CP, dyspnea or palpitations. Objective: I&O/Vital Signs 07/12/20 07/12/20 07/12/20 07/12/20 02:00 02:29 02:39 03:00 Pulse 80 96 90 B/P (MAP) 88/68 102/74 95/60 Pulse Ox 97 96 96 O2 Delivery High Flow N/C High Flow N/C High Flow N/C High Flow N/C O2 Flow Rate 6.00 6.00 4.00 4.00 07/12/20 07/12/20 07/12/20 07/12/20 03:40 03:41 04:00 05:00 Temp 36.3 Pulse 82 97 B/P (MAP) 96/66 95/68 Pulse Ox 97 96 94 O2 Delivery High Flow N/C High Flow N/C High Flow N/C O2 Flow Rate 4.00 4.00 4.00 07/12/20 07/12/20 07/12/20 07/12/20 06:00 06:11 06:39 07:00 Pulse 97 78 113 B/P (MAP) 128/90 111/75 Pulse Ox 97 94 97 O2 Delivery High Flow N/C High Flow N/C High Flow N/C O2 Flow Rate 4.00 4.00 4.00 07/12/20 07/12/20 07/12/20 07/12/20 07:42 08:00 08:35 08:45 Temp 36.3 Pulse 98 B/P (MAP) 86/73 Pulse Ox 97 94 94 O2 Delivery High Flow N/C High Flow N/C High Flow N/C O2 Flow Rate 4.00 4.00 4.00 07/12/20 07/12/20 07/12/20 07/12/20 09:00 10:00 10:50 11:00 Pulse 101 93 96 B/P (MAP) 98/73 86/77 94/70 Pulse Ox 94 93 94 93 O2 Delivery High Flow N/C High Flow N/C High Flow N/C High Flow N/C O2 Flow Rate 4.00 4.00 4.00 4.00 07/12/20 07/12/20 07/12/20 12:00 12:15 12:43 Pulse 99 80 B/P (MAP) 95/72 Pulse Ox 93 94 O2 Delivery High Flow N/C High Flow N/C O2 Flow Rate 4.00 4.00 07/12/20 00:00 Intake Total 1150 ml Output Total 120 ml Balance 1030 ml Weight (Pounds): 231 Weight (Ounces): 0.0 Weight (Calculated Kilograms): 104.680308 Constitutional: AAO x 3, well-developed, well-nourished Respiratory: No accessory muscle use, No respiratory distress; chest expansion is symmetric, chest is bilaterally symmetric, other (good air entry) Cardiovascular: irregularly irregular; No JVD; S1 and S2 Gastrointestional: No tender; soft, round, audible bowel sounds Extremities: no lower extremity edema bilateral Neurologic/Psychiatric: grossly intact (moves all extremities) Skin: No rash on exposed areas, No ulcerations on exposed areas Results/Procedures: Labs Laboratory Tests 07/12/20 02:27: White Blood Count 8.3, Red Blood Count 4.36, Hemoglobin 11.8, Hematocrit 39, Mean Corpuscular Volume 90, Mean Corpuscular Hemoglobin 27, Mean Corpuscular Hemoglobin Concent 30L, Red Cell Distribution Width 15.4H, Platelet Count 319, Mean Platelet Volume 10.5, Immature Granulocyte % (Auto) 1, Neutrophils (%) (Auto) 86H, Lymphocytes (%) (Auto) 6L, Monocytes (%) (Auto) 7, Eosinophils (%) (Auto) 1, Basophils (%) (Auto) 0, Neutrophils # (Auto) 7.1, Lymphocytes # (Auto) 0.5L, Monocytes # (Auto) 0.6, Eosinophils # (Auto) 0.0, Basophils # (Auto) 0.0, Immature Granulocyte # (Auto) 0.0, Sodium Level 137, Potassium Level 4.1, Chloride Level 99, Carbon Dioxide Level 25, Anion Gap 13, Blood Urea Nitrogen 25H, Creatinine 1.39H, Estimat Glomerular Filtration Rate 37, BUN/Creatinine Ratio 18, Glucose Level 106H, Calcium Level 9.9, Corrected Calcium 10.5H, Phosphorus Level 3.3, Magnesium Level 1.9, Total Bilirubin 1.0, Aspartate Amino Transf (AST/SGOT) 99H, Alanine Aminotransferase (ALT/SGPT) 84H, Alkaline Phosphatase 84, Total Protein 6.6, Albumin 3.3, Digoxin Level 1.31 Microbiology 07/11/20 Urine Culture - Preliminary, Resulted Gram Negative Gibran A/P: Assessment: Septic shock, being managed by Dr Canseco UTI, being managed by Dr Canseco A-fib with RVR. Rapid ventricular response is likely due to septic shock Acute mental status changed likely due to septic shock Hypoxia likely multi-factorial d/t septic shorck, obesity-hypoventilation syndrome, CHRISTINA, and COPD COVID PUI H/O PAF Xarelto for stroke prophylaxis MPI of October 18, 2016 showed no evidence of significant myocardial ischemia or infarction. Normal regional wall motion. 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-status post Da Simeon assisted laparoscopic hysterectomy with total bilateral salpingo-oophorectomy, sentinel lymph node injection, superficial lymphadenectomy and appendectomy on 11/16/15 H/O bimalleolar fracture of the L ankle treated with internal fixation by Dr Peck in March 2016 Chronic bilat leg swelling, L>R DNR status Plan: A-fib with RVR - unable to tolerate Diltiazem d/t hypotension - rate improved with Digoxing - continue oral dig H/O PAF - continue OAC with Xarelto for stroke prophylaxis, adjsut to renal function Management of septic shock, UTI, and possible COVID-[address] Canseco Monitor lab closely Replace electrolytes as indicated HORETNCIA SUMMERS [facility] Jul 12, 2020 08:35
[2020-07-12] MEDS ORDERED: KCL 10 MEQ TAB (MICRO K) PO NR (08:45)
[2020-07-12] MEDS: DIGOXIN 0.25 MG (LANOXIN) TAB PO SCH (09:05)
[2020-07-12] MEDS: FUROSEMIDE 40 MG (LASIX) TAB PO SCH (09:05)
[2020-07-12] MEDS ORDERED: ACETAMINOPHEN 325 MG TABLET PO PRN (10:15)
[2020-07-12] MEDS ORDERED: MILK OF MAGNESIA 400 MG/5 ML 30 ML UDC PO PRN (10:15)
[2020-07-12] MEDS ORDERED: ARTIFICAL TEARS 0.4 ML UNIT DOSE (REFRESH PLUS) OU PRN (10:30)
--- NOTE | 2020-07-12 11:21 | Progress Note - Hospitalist ---
Subjective HPI/CC On Admission Date Seen by Provider: Jul 12, 2020 Time Seen by Provider: 09:00 CC: Dyspnea HPI: This is a 75yoWF clinic patient of [facility] who presents to the ER with dyspnea so she was COVID swabbed and found to have AF w/RVR. Cardiology was consulted. She did present with AMS and remains a DNR. SHe does have a h/o COPD and remains on O2 at 4L/min. Patient required cervantes cath placement and currently she cannot give me any details. Subjective/Events-last exam Pt doing a little better Liver enzymes a bit elevated PT and OT will be ordered Chronic changes on CXR Cervantes catheter still maintained UTI treated Maintain on O2 Transferring to 4th floor Covid test was negative Review of Systems General: Fatigue, Malaise Neurological: Weakness Objective Exam Vital Signs Vital Signs Date Time Temp Pulse Resp B/P (MAP) Pulse Ox O2 Delivery O2 Flow Rate FiO2 07/13/20 04:00 36.1 93 135/56 95 High Flow N/C 2.00 07/11/20 14:32 20 Capillary Refill : Less Than 3 Seconds General Appearance: No Apparent Distress, WD/WN HEENT: PERRL/EOMI, TMs Normal, Normal ENT Inspection, Pharynx Normal, Moist Mucous Membranes Neck: Full Range of Motion, Normal Inspection, Non Tender, Supple, Carotid Bruit Respiratory: Chest Non Tender, Lungs Clear, Normal Breath Sounds, No Accessory Muscle Use, No Respiratory Distress Cardiovascular: Regular Rate, Rhythm, No Edema, No Gallop, No JVD, No Murmur, Normal Peripheral Pulses Gastrointestinal: Normal Bowel Sounds, No Organomegaly, No Pulsatile Mass, Non Tender, Soft Back: Normal Inspection, No CVA Tenderness, No Vertebral Tenderness Extremity: Normal Capillary Refill, Normal Inspection, Normal Range of Motion, Non Tender, No Calf Tenderness, No Pedal Edema Neurologic/Psychiatric: Alert, Oriented x3, No Motor/Sensory Deficits, Normal Mood/Affect Skin: Normal Color, Warm/Dry Lymphatic: No Adenopathy Results/Procedures Lab Patient resulted labs reviewed. Assessment/Plan Assessment and Plan Assess & Plan/Chief Complaint Assessment: AMS AF w/RVR COPD O2 dependent Obesity HTN CRI Elevated LFT's Plan: Monitor closely DNR COVID swab pending 07/12/20: PT and OT Monitor liver enzymes Antibiotics for UTI Cervantes catheter Move to 4th floor Supportive care Diagnosis/Problems Diagnosis/Problems (1) Atrial fibrillation with rapid ventricular response Status: Acute (2) Debility Status: Chronic (3) CHRISTINA on CPAP Status: Chronic (4) COPD exacerbation Status: Acute (5) HLD (hyperlipidemia) Status: Chronic (6) Acute and chronic respiratory failure Status: Acute Clinical Quality Measures DVT/VTE Risk/Contraindication: Risk Factor Score Per Nursin RFS Level Per Nursing on Admit: 4+=Very High MALISSA JERRY DO Jul 12, 2020 11:21
--- NOTE | 2020-07-12 13:02 | Progress Note - Cardiology ---
Cardiology SOAP Progress Note Subjective: No cp or palp or syncope Shortness of breath and weakness are improving Denies focal weakness Does not report n/v/d Objective: I&O/Vital Signs 07/12/20 07/12/20 07/12/20 07/12/20 02:00 02:29 02:39 03:00 Pulse 80 96 90 B/P (MAP) 88/68 102/74 95/60 Pulse Ox 97 96 96 O2 Delivery High Flow N/C High Flow N/C High Flow N/C High Flow N/C O2 Flow Rate 6.00 6.00 4.00 4.00 07/12/20 07/12/20 07/12/20 07/12/20 03:40 03:41 04:00 05:00 Temp 36.3 Pulse 82 97 B/P (MAP) 96/66 95/68 Pulse Ox 97 96 94 O2 Delivery High Flow N/C High Flow N/C High Flow N/C O2 Flow Rate 4.00 4.00 4.00 07/12/20 07/12/20 07/12/20 07/12/20 06:00 06:11 06:39 07:00 Pulse 97 78 113 B/P (MAP) 128/90 111/75 Pulse Ox 97 94 97 O2 Delivery High Flow N/C High Flow N/C High Flow N/C O2 Flow Rate 4.00 4.00 4.00 07/12/20 07/12/20 07/12/20 07/12/20 07:42 08:00 08:35 08:45 Temp 36.3 Pulse 98 B/P (MAP) 86/73 Pulse Ox 97 94 94 O2 Delivery High Flow N/C High Flow N/C High Flow N/C O2 Flow Rate 4.00 4.00 4.00 07/12/20 07/12/20 07/12/20 07/12/20 09:00 10:00 10:50 11:00 Pulse 101 93 96 B/P (MAP) 98/73 86/77 94/70 Pulse Ox 94 93 94 93 O2 Delivery High Flow N/C High Flow N/C High Flow N/C High Flow N/C O2 Flow Rate 4.00 4.00 4.00 4.00 07/12/20 07/12/20 07/12/20 12:00 12:15 12:43 Pulse 99 80 B/P (MAP) 95/72 Pulse Ox 93 94 O2 Delivery High Flow N/C High Flow N/C O2 Flow Rate 4.00 4.00 07/12/20 00:00 Intake Total 1150 ml Output Total 120 ml Balance 1030 ml Weight (Pounds): 231 Weight (Ounces): 0.0 Weight (Calculated Kilograms): 104.111091 Constitutional: AAO x 3, well-developed, well-nourished Respiratory: No accessory muscle use, No respiratory distress; chest expansion is symmetric, chest is bilaterally symmetric, other (good air entry) Cardiovascular: irregularly irregular; No JVD; S1 and S2 Gastrointestional: No tender; soft, round, audible bowel sounds Extremities: no lower extremity edema bilateral Neurologic/Psychiatric: grossly intact (moves all extremities) Skin: No rash on exposed areas, No ulcerations on exposed areas Results/Procedures: Labs Laboratory Tests 07/12/20 02:27: White Blood Count 8.3, Red Blood Count 4.36, Hemoglobin 11.8, Hematocrit 39, Mean Corpuscular Volume 90, Mean Corpuscular Hemoglobin 27, Mean Corpuscular Hemoglobin Concent 30L, Red Cell Distribution Width 15.4H, Platelet Count 319, Mean Platelet Volume 10.5, Immature Granulocyte % (Auto) 1, Neutrophils (%) (Auto) 86H, Lymphocytes (%) (Auto) 6L, Monocytes (%) (Auto) 7, Eosinophils (%) (Auto) 1, Basophils (%) (Auto) 0, Neutrophils # (Auto) 7.1, Lymphocytes # (Auto) 0.5L, Monocytes # (Auto) 0.6, Eosinophils # (Auto) 0.0, Basophils # (Auto) 0.0, Immature Granulocyte # (Auto) 0.0, Sodium Level 137, Potassium Level 4.1, Chloride Level 99, Carbon Dioxide Level 25, Anion Gap 13, Blood Urea Nitrogen 25H, Creatinine 1.39H, Estimat Glomerular Filtration Rate 37, BUN/Creatinine Ratio 18, Glucose Level 106H, Calcium Level 9.9, Corrected Calcium 10.5H, Phosphorus Level 3.3, Magnesium Level 1.9, Total Bilirubin 1.0, Aspartate Amino Transf (AST/SGOT) 99H, Alanine Aminotransferase (ALT/SGPT) 84H, Alkaline Phosphatase 84, Total Protein 6.6, Albumin 3.3, Digoxin Level 1.31 Microbiology 07/11/20 Urine Culture - Preliminary, Resulted Gram Negative Gibran Laboratory Tests 07/11/20 12:07 07/12/20 02:27 A/P: Assessment: Septic shock, being managed by Dr Canseco UTI, being managed by Dr Canseco A-fib with RVR. Rapid ventricular response is likely due to septic shock Acute mental status changed likely due to septic shock Hypoxia likely multi-factorial d/t septic shorck, obesity-hypoventilation syndrome, CHRISTINA, and COPD COVID PUI H/O PAF Xarelto for stroke prophylaxis MPI of October 18, 2016 showed no evidence of significant myocardial ischemia or infarction. Normal regional wall motion. 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-status post Da Simeon assisted laparoscopic hysterectomy with total bilateral salpingo-oophorectomy, sentinel lymph node injection, superficial lymphadenectomy and appendectomy on 11/16/15 H/O bimalleolar fracture of the L ankle treated with internal fixation by Dr Peck in March 2016 Chronic bilat leg swelling, L>R DNR status Plan: A-fib with RVR - unable to tolerate iv diltiazem d/t hypotension - rate improved with digoxin - continue oral dig and attempt low dose oral dilt H/O PAF - continue OAC with Xarelto for stroke prophylaxis, adjust to renal function Management of septic shock, UTI, and possible COVID-[address] Canseco Monitor lab closely Replace electrolytes as indicated NASH ARCINIEGA MD FACP FAC CCDS Jul 12, 2020 13:02
[2020-07-12] MEDS ORDERED: dilTIAZem120 MG (CARDIZEM CD) CAP PO NR (13:15)
--- NOTE | 2020-07-12 14:07 | Physical Therapy Evaluation ---
PT Evaluation-General Medical Diagnosis Admission Date Jul 11, 2020 at 13:49 Medical Diagnosis: Dyspnea Onset Date: Jul 11, 2020 Therapy Diagnosis Therapy Diagnosis: Impaired mobility, strength, and ROM Height/Weight Height (Feet): 5 Height (Inches): 1.00 Weight (Pounds): 231 Weight (Ounces): 0.0 Precautions Precautions/Isolations: Airborne Isolation, Contact Isolation, Droplet Iso lation, Fall Prevention Referral Physician: Harleen Reason for Referral: Evaluation/Treatment Medical History Pertinent Medical History: COPD, DM, Renal Insufficiency Additional Medical History Surgeries: Orthopedic Respiratory: Asthma, COPD Currently Using CPAP: No Currently Using BIPAP: No Cardiac: Atrial Fibrillation, Hypertension Reproductive: Yes (PMB) Sexually Transmitted Disease: No HIV/AIDS: No Female Reproductive Disorders: Endometriosis Menopausal Genitourinary: Renal Failure, UTI-Chronic Gastrointestinal: Gastroesophageal Reflux Musculoskeletal: Degenerate Disk Disease, Arthritis, Chronic Back Pain, Fractures Endocrine: Diabetes, Non-Insulin dep Loss of Vision: Denies Cancer: Ovarian, Uterine Psychosocial: Sleep Difficulties, Anxiety, Depression History of Blood Disorders: No Adverse Reaction to Blood Benson: No Reviewed History: Yes Social History Home: Multilevel (Bedroom, bathroom, and kitchen are accessible on main level ) Current Living Status: Spouse Entry Into Home: Stairs Without Railing PT Steps Into Home: 6 PT Steps Inside Home: 14 unsure of the accuracy of this information, some history in the patient medical history is conflicting with this Prior Prior Level of Function SCALE: Activities may be completed with or without assistive devices. 4-Obduegfqam-czmyhfn completes the activity by him/herself with no assistance from a helper. 5-Set-up or Clean-up Assistance-helper sets up or cleans up; patient completes activity. [place] assists only prior to or following the activity. 4-Supervision or Touching Assistance-helper provides verbal cues and/or touching/steadying and/or contact guard assistance as patient completes activity. Assistance may be provided throughout the activity or intermittently. 3-Partial/Moderate Assistance-helper does LESS THAN HALF the effort. [place] lifts, holds or supports trunk or limbs, but provides less than half the effort. 2-Substantial/Maximal Assistance-helper does MORE THAN HALF the effort. [place] lifts or holds trunk or limbs and provides more than half the effort. 0-Qlrynxwlo-rbtpzt does ALL the effort. Patient does none of the effort to compl ete the activity. Or, the assistance of 2 or more helpers is required for the patient to complete the activity. If activity was not attempted, code reason: 7-Patient Refused. 9-Not Applicable-not attempted and the patient did not perform the activity before the current illness, exacerbation or injury. 10-Not Attempted due to Environmental Limitations-(lack of equipment, weather restraints, etc.). 88-Not Attempted due to Medical Conditions or Safety Concerns. Bed Mobility: 6 Transfers (B,C,W/C): 6 Gait: 6 Stairs: 6 Wheelchair Mobility: 88 Indoor Mobility (Ambulation): Independent Stairs: Independent Prior Devices Use: Walker, Other-see list below (cane) PT Evaluation-Current Subjective Pt presents lying supine in bed. Pt agrees to PT. Pt reports 10/10 pain in anterior hips; pt complains of chronic pain in her B Legs. Pt/Family Goals return home Objective Patient Orientation: Person, Place, Eyes Open, Mumbles Attachments: Oxygen, Momin Catheter ROM/Strength ROM Lower Extremities B limited dorsiflexion; unable to to bring ankles to neutral Strength Lower Extremities not formally assessed Sensory Hearing: Functional Transfers Sit to Lying (QC): 1 Lying to Sitting/Side of Bed(Q: 1 Treatment Supine B ankles pumps and quad sets x20 Assessment/Needs Pt is unable to sit EOB; pt states that she normally just swings her legs off the side of the bed but is unable to demonstrate this to therapist. When therapists offer assistance the pt resists movement and complains that PT is gripping her legs too tightly; PT was only lifting from underside of legs. Pt also complains that movement is hurting her back (she is resisting supine <-> sit with her back and right arm) and that she is stuck in the bed, pt refused assistance to get her unstuck and to EOB. She was never able to get completely sitting on the edge of the bed. Rehab Potential: Poor PT Summer Nanny Goals Retirement Goals PT Summer Nanny Goals Time Frame: Jul 19, 2020 Roll Left & Right (QC): 3 Sit to Lying (QC): 3 Lying-Sitting on Side/Bed(QC): 3 Sit to Stand (QC): 3 Chair/Wdf-bm-Jercl Xfer(QC): 3 PT Plan Problem List Problem List: Activity Tolerance, Functional Strength, Safety, Balance, Gait, Transfer, Bed Mobility, ROM Treatment/Plan Treatment Plan: Continue Plan of Care Treatment Plan: Bed Mobility, Education, Functional Activity [place], Functional Strength, Gait, Safety, Therapeutic Exercise, Transfers Treatment Duration: Jul 19, 2020 Frequency: 6 times per week Estimated Hrs Per Day: .25 hour per day Patient and/or Family Agrees t: Yes Safety Risks/Education Patient Education: Transfer Techniques, Correct Positioning, Safety Issues Teaching Recipient: Patient Teaching Methods: Demonstration, Discussion Response to Teaching: Reinforcement Needed Discharge Recommendations Plan Pt will work on bed mobility, transfers, and therapeutic exercises to improve functional strength and ROM. Time/GCodes Time In: 1330 Time Out: 1350 Total Billed Treatment Time: 20 Total Billed Treatment 1 visit MELINA ALEJO PT Jul 12, 2020 14:07
--- NOTE | 2020-07-12 14:49 | Occupational Therapy Eval ---
OT Evaluation-General/PLF Medical Diagnosis Admission Date Jul 11, 2020 at 13:49 Medical Diagnosis: AMS, Hypoxia Onset Date: Jul 11, 2020 Therapy Diagnosis Therapy Diagnosis: Weakness Height/Weight Height (Feet): 5 Height (Inches): 1.00 Weight (Pounds): 231 Weight (Ounces): 0.0 Precautions Precautions/Isolations: Airborne Isolation, Contact Isolation, Droplet Isolation, Fall Prevention Referral Physician: Harleen Referral Reason: Activity Tolerance, Self Care, Evaluation/Treatment, Strengthening/ROM Medical History Pertinent Medical History: COPD, DM, Renal Insufficiency Additional Medical History Uterine CA, oxygen dependent (4L). Current History Pt is resident at [facility]. Reviewed History: Yes Social History Home: [facility] Current Living Status: Entry Into Home: Level Entry, Stairs Without Railing ADL-Prior Level of Function SCALE: Activities may be completed with or without assistive devices. 0-Eefmetqfar-bzuaqxr completes the activity by him/herself with no assistance from a helper. 5-Set-up or Clean-up Assistance-helper sets up or cleans up; patient completes activity. [place] assists only prior to or following the activity. 4-Supervision or Touching Assistance-helper provides verbal cues and/or touching/steadying and/or contact guard assistance as patient completes activity. Assistance may be provided throughout the activity or intermittently. 3-Partial/Moderate Assistance-helper does LESS THAN HALF the effort. [place] lifts, holds or supports trunk or limbs, but provides less than half the effort. 2-Substantial/Maximal Assistance-helper does MORE THAN HALF the effort. [place] lifts or holds trunk or limbs and provides more than half the effort. 7-Okpqybyfa-hrgxxa does ALL the effort. Patient does none of the effort to complete the activity. Or, the assistance of 2 or more helpers is required for the patient to complete the activity. If activity was not attempted, code reason: 7-Patient Refused. 9-Not Applicable-not attempted and the patient did not perform the activity before the current illness, exacerbation or injury. 10-Not Attempted due to Environmental Limitations-(lack of equipment, weather restraints, etc.). 88-Not Attempted due to Medical Conditions or Safety Concerns. ADL PLOF Comments [facility]. Pt is confused and does not know where she is. She is unable to state what she is capable of doing for herself at [facility]. At times she indicates that she is walking, and other times she states she uses a wheelchair only. Self Care: Dependent Functional Cognition: Unknown OT Current Status Subjective Pt. states that she thinks she is on a ship. Mental Status/Objective Patient Orientation: Confused Attachments: Momin Catheter, IV, Oxygen Current Upper Extremity ROM Pt. is able to lift bilateral UE WFL. However, with multiple repetitions, her UE become weak and she begins only moving elbows. Other Treatments Pt. in bed. OT introduces self. It is clear that pt. is confused, but pt. does agree to attempt sitting on side of bed with encouragement. OT gives pt. time to attempt movement herself, but pt. only slightly bed walks legs toward side. OT attempts to assist her, and due to pt. not helping at all with transfer, transfer was terminated. Pt. made comfortable in bed. Given warm washcloth. Pt. washes her face. Falls asleep. All needs are met. OT calls [facility] and talks with clinician there to determine previous level of function. OT is told that pt. is basically bed bound, and has been for several years. She declines most OOB activities, and instead of using BSC, only uses bedpan. She is dependent with all other ADL skills such as bathing/dressing. Education OT Patient Education: Correct positioning, Exercise program, Modified ADL techniques, Progress toward Goal/Update tx plan, Purpose of tx/functional activities, Reviewed precautions, Rehab process, Transfer techniques Teaching Recipient: Patient Teaching Methods: Demonstration, Discussion Response to Teaching: Unable to Return Demonstration, Unable to Comprehend, Reinforcement Needed OT Cell Maker Goals Cell Maker Goals Time Frame: Jul 19, 2020 Eating (QC): 4 Oral Hygiene (QC): 4 Upper Body Dressing (QC): 3 (At bed level.) Additional Goals: 1-Demonstrate ADL Tasks, 2-Verbalize Understanding, 3- ImproveStrength/[place] 1=Demonstrate adherence to instructed precautions during ADL tasks. 2=Patient will verbalize/demonstrate understanding of assistive devices/modifications for ADL. 3=Patient will improve strength/tolerance for activity to enable patient to perform ADL's. OT Education/Plan Problem List/Assessment Assessment: Decreased Activ Tolerance, Decreased UE Strength, Dependent Transfers, Impaired Bed Mobility, Impaired Cognition, Impaired Funct Balance, Impaired I ADL's, Impaired Self-Care Skills, Restricted Funct UE ROM Discharge Recommendations Plan/Recommendations: Continue POC Therapy Discharge Recommendati: 24 Hour Supervision Treatment Plan/Plan of Care Treatment,Training & Education: Yes Patient would benefit from OT for education, treatment and training to promote independence in ADL's, mobility, safety and/or upper extremity function for ADL's. Plan of Care: ADL Retraining, Functional Mobility, UE Funct Exercise/Act Treatment Duration: Jul 19, 2020 Frequency: 5 times per week Estimated Hrs Per Day: .25 hour per day Agreement: Yes Rehab Potential: Poor Time/GCodes Start Time: 12:55 Stop Time: 13:16 Total Time Billed (hr/min): 21 Billed Treatment Time 1, ANNA REID OT Jul 12, 2020 14:49
--- NOTE | 2020-07-12 15:01 | NUR ---
pt is confused and does not want to take her breathing tx at this time Addendum: 07/12/20 at 1502 by DEBRA DE JESUS RT Amended: Links added.
[2020-07-12] MEDS: cefTRIAXone 1,000 MG/SWFI 10 ML IV PUSH IV SCH ×2 (15:21)
--- NOTE | 2020-07-12 15:45 | NUR ---
REPORT GIVEN TO Cody BURGER RN
--- NOTE | 2020-07-12 15:54 | NUR ---
PT TO ROOM 420 VIA BED ACCOMPANIED BY ICU STAFF. ALL PERSONAL BELONGINGS SENT DOWN WITH PT.
--- NOTE | 2020-07-12 15:56 | NUR ---
REPORT FROM AUTO PAINTER HELPEROLGA NEWMAN. PATIENT 4 L NC, LR AT 75. NEWS TURNED ON THE TV. PATIENT DENIES ANY OTHER NEEDS AT THIS TIME.
[2020-07-12] MEDS: RIVAROXABAN 15 MG TABLET (XARELTO) PO SCH (17:16)
[2020-07-12] MEDS: ADVAIR HFA 45/21 MCG INHALER 8 GM IH SCH (21:33)
[2020-07-13] MEDS: ALBUTEROL/IPRATROP (COMBIVENT RESPIMAT) 4 GM INHALER IH SCH ×6 (02:09→21:24)
[2020-07-13 06:27] LABS: BASOPHILS % (AUTO) 0 % (0-10); EOSINOPHILS # (AUTO) 0.1 10^3/uL (0.0-0.3); EOSINOPHILS % (AUTO) 1 % (0-10); HEMATOCRIT 36 % (35-52); HEMOGLOBIN 10.9 g/dL (11.5-16.0); LYMPHOCYTES # (AUTO) 0.6 10^3/uL (1.0-4.0); LYMPHOCYTES % (AUTO) 7 % (12-44); MEAN CORPUSCULAR HEMOGLOBIN 28 pg (25-34); MEAN CORPUSCULAR HGB CONC 31 g/dL (32-36); MEAN CORPUSCULAR VOLUME 91 fL (80-99); MEAN PLATELET VOLUME 10.4 fL (9.0-12.2); MONOCYTES # (AUTO) 0.7 10^3/uL (0.0-1.0); MONOCYTES % (AUTO) 8 % (0-12); NEUTROPHILS # (AUTO) 6.8 10^3/uL (1.8-7.8); NEUTROPHILS % (AUTO) 83 % (42-75); PLATELET COUNT 300 10^3/uL (130-400); WHITE BLOOD COUNT 8.1 10^3/uL (4.3-11.0)
[2020-07-13 06:37] LABS: ALBUMIN 3.1 GM/DL (3.2-4.5); POTASSIUM 3.9 MMOL/L (3.6-5.0)
[2020-07-13 06:38] LABS: CALCIUM 9.6 MG/DL (8.5-10.1)
[2020-07-13 06:40] LABS: TOTAL PROTEIN 6.4 GM/DL (6.4-8.2)
[2020-07-13 06:41] LABS: BILIRUBIN,TOTAL 0.9 MG/DL (0.1-1.0)
[2020-07-13 06:43] LABS: CREATININE SERUM 1.38 MG/DL (0.60-1.30)
[2020-07-13] MEDS: KCL 10 MEQ TAB (MICRO K) PO SCH (06:47)
[2020-07-13] MEDS: GABAPENTIN 300 MG (NEURONTIN) CAP PO SCH (08:38)
[2020-07-13] MEDS: MULTIVIT W/MINERALS TAB (THERAGRAN M) PO SCH (08:38)
[2020-07-13] MEDS: PANTOPRAZOLE 20 MG TABLET (PROTONIX) PO SCH (08:38)
[2020-07-13] MEDS: dilTIAZem120 MG (CARDIZEM CD) CAP PO SCH (08:38)
[2020-07-13] MEDS: FUROSEMIDE 40 MG (LASIX) TAB PO SCH (08:38)
[2020-07-13] MEDS: VITAMIN D3 125 MCG (5,000 UNITS) CAPSULE PO SCH (08:39)
[2020-07-13] MEDS: DIGOXIN 0.25 MG (LANOXIN) TAB PO SCH (08:39)
[2020-07-13] MEDS ORDERED: dilTIAZem120 MG (CARDIZEM CD) CAP PO SCH (09:00)
--- NOTE | 2020-07-13 09:51 | Physical Therapy Daily Note ---
PT Daily Note-Current Subjective Pt presents laying supine in bed. Pt agrees to PT. Pt reports 2/10 pain in her throat; pt believes she had surgery on her throat yesterday. Appearance At conclusion of PT treatment pt remains supine in bed with access to tray, call button, and all needs have been met. Mental Status Patient Orientation: Person, Confused, Eyes Open, Mumbles Transfers SCALE: Activities may be completed with or without assistive devices. 9-Bvvzdqvczh-ccfnncc completes the activity by him/herself with no assistance from a helper. 5-Set-up or Clean-up Assistance-helper sets up or cleans up; patient completes activity. [place] assists only prior to or following the activity. 4-Supervision or Touching Assistance-helper provides verbal cues and/or gianni flaquita/steadying and/or contact guard assistance as patient completes activity. Assistance may be provided throughout the activity or intermittently. 3-Partial/Moderate Assistance-helper does LESS THAN HALF the effort. [place] lifts, holds or supports trunk or limbs, but provides less than half the effort. 2-Substantial/Maximal Assistance-helper does MORE THAN HALF the effort. [place] lifts or holds trunk or limbs and provides more than half the effort. 9-Gmbkkeclq-oenktg does ALL the effort. Patient does none of the effort to complete the activity. Or, the assistance of 2 or more helpers is required for the patient to complete the activity. If activity was not attempted, code reason: 7-Patient Refused. 9-Not Applicable-not attempted and the patient did not perform the activity before the current illness, exacerbation or injury. 10-Not Attempted due to Environmental Limitations-(lack of equipment, weather restraints, etc.). 88-Not Attempted due to Medical Conditions or Safety Concerns. Exercises Supine Ex: Ankle pumps, Short Arc Quads Supine Reps: 10 Treatments Bed mobility for bathing and LE strengthening Assessment Current Status: Poor Progress Pt attempted a spongebath with OT; PT was present to assist with rolling; pt refused to roll to her side to clean her bottom or lean forward to wash her back, pt reports she is able to do these tasks on her own. Pt asked what she was suppose to do, pt would agree to task instructed but then would not complete the task. Pt did complete some LE exercises in supine with motivation. Pt appears confused with her situation. Co-treated with OT due to patients limitations in strength, mobility, and coordination of LEs and UEs. OT instructed on bathing while PT instructed on LE exercises. PT Chcf Goals Chcf Goals PT Parts Identifier Goals Time Frame: Jul 19, 2020 Roll Left & Right (QC): 3 Sit to Lying (QC): 3 Lying-Sitting on Side/Bed(QC): 3 Sit to Stand (QC): 3 Chair/Ymk-kk-Nswvz Xfer(QC): 3 PT Plan Problem List Problem List: Activity Tolerance, Functional Strength, Safety, Balance, Gait, Transfer, Bed Mobility, ROM Treatment/Plan Treatment Plan: Continue Plan of Care Treatment Plan: Bed Mobility, Education, Functional Activity P[place], Functional Strength, Gait, Safety, Therapeutic Exercise, Transfers Treatment Duration: Jul 19, 2020 Frequency: 6 times per week Estimated Hrs Per Day: .25 hour per day Patient and/or Family Agrees t: Yes Safety Risks/Education Patient Education: Correct Positioning, Safety Issues Teaching Recipient: Patient Teaching Methods: Demonstration, Discussion Response to Teaching: Reinforcement Needed Time/GCodes Time In: 0816 Time Out: 0844 Total Billed Treatment Time: 28 Total Billed Treatment 1 visit FA MELINA RUIZ PT Jul 13, 2020 09:51
--- NOTE | 2020-07-13 09:58 | Occupational Ther Daily Note ---
OT Current Status-Daily Note Subjective Pt in bed, OT/ PT co-treat this tx due to decrease of fx mobility, confusion, and decreased strength. Pt alert, oriented to person only. Pt states at [facility] able to get up/ walk/ utilize toilet/ get in and out of bathtub. Pt anxious through session, empathetic listening and calming/ reassurance techniques utilized. Mental Status/Objective Patient Orientation: Person ADL-Treatment Therapy Code Descriptions/Definitions Functional [place] Measure: 0=Not Assessed/NA 4=Minimal Assistance 1=Total Assistance 5=Supervision or Setup 2=Maximal Assistance 6=Modified [place] 3=Moderate Assistance 7=Complete IndependenceSCALE: Activities may be completed with or without assistive devices. 2-Exmjtxzxrb-nyaouve completes the activity by him/herself with no assistance from a helper. 5-Set-up or Clean-up Assistance-helper sets up or cleans up; patient completes activity. [place] assists only prior to or following the activity. 4-Supervision or Touching Assistance-helper provides verbal cues and/or touching/steadying and/or contact guard assistance as patient completes activity. Assistance may be provided throughout the activity or intermittently. 3-Partial/Moderate Assistance-helper does LESS THAN HALF the effort. [place] lifts, holds or supports trunk or limbs, but provides less than half the effort. 2-Substantial/Maximal Assistance-helper does MORE THAN HALF the effort. [place] lifts or holds trunk or limbs and provides more than half the effort. 0-Zgebswixe-brkdul does ALL the effort. Patient does none of the effort to complete the activity. Or, the assistance of 2 or more helpers is required for the patient to complete the activity. If activity was not attempted, code reason: 7-Patient Refused. 9-Not Applicable-not attempted and the patient did not perform the activity before the current illness, exacerbation or injury. 10-Not Attempted due to Environmental Limitations-(lack of equipment, weather restraints, etc.). 88-Not Attempted due to Medical Conditions or Safety Concerns. Eating (QC): 6 (Pt's food was in front of pt upon entry, per clinical judgment pt ate with IND.) Shower/Bathe Self (QC): 7 Upper Body Dressing (QC): 7 (denies doffin/ donning new gown.) Toileting Hygiene (QC): 7 Other Treatment Pt seen in bed. Readily agreeable to sponge bath. Pt states at [facility] she gets out of bed, "Very carefully," and takes a "shower bath." Pt educated on sponge bath and purpose of OT/ PT for assist. Pt agrees to sponge bath. pt completes face with encouragement. Pt's BLE completed with TD- pt then states "Don't do those, I can do them, or my kids will get them." Pt then encouraged to complete chest/ alex area/ bottom, pt states she will do, then continues to require encouragement to complete. Pt states will do, then denies completing task, stating she desires OT/ PT to look away when she doffs gown, that she doesn't li ke being naked. Towel placed on alex area/ chest to allow pt to comfortably complete gown doffing. Pt becomes distracted, asking multiple questions. Pt then encouraged to complete bottom care, pt states will roll and complete on own- pt's HOB lowered, when pt is asked to complete, pt states, "I'm not going to do that." Pt is asked if she is wanting a sponge bath. Pt states, "Not at this second." Pt is asked if she would like for OT/ PT to stop sponge bath, pt states, "You direct me, I'll do it." Upon further cues for sponge bath initiation, pt denies completing. Pt requests urination/ getting to toilet. Pt shown the catheter bag and educated on ability to urinate in bed. Pt becomes increasingly anxious, stating, "I don't know what you mean. I need to pee." Pt is calmed, denies further treatment. Left in recliner with all needs met, call light in reach, nursing present. Education OT Patient Education: Correct positioning, Modified ADL techniques, Purpose of tx/functional activities Teaching Recipient: Patient Teaching Methods: Demonstration, Discussion Response to Teaching: Verbalize Understanding, Unable to Return Demonstration OT Detention Goals Detention Goals Time Frame: Jul 19, 2020 Eating (QC): 4 Oral Hygiene (QC): 4 Upper Body Dressing (QC): 3 (At bed level.) Additional Goals: 1-Demonstrate ADL Tasks, 2-Verbalize Understanding, 3- ImproveStrength/[place] 1=Demonstrate adherence to instructed precautions during ADL tasks. 2=Patient will verbalize/demonstrate understanding of assistive devices/modifications for ADL. 3=Patient will improve strength/tolerance for activity to enable patient to perform ADL's. OT Education/Plan Problem List/Assessment Assessment: Decreased Activ Tolerance, Decreased UE Strength, Dependent Transfers, Impaired Bed Mobility, Impaired Cognition, Impaired Funct Balance, Impaired I ADL's, Impaired Self-Care Skills Discharge Recommendations Plan/Recommendations: Continue POC Therapy Discharge Recommendati: 24 Hour Supervision Treatment Plan/Plan of Care Patient would benefit from OT for education, treatment and training to promote independence in ADL's, mobility, safety and/or upper extremity function for ADL's. Plan of Care: ADL Retraining, Functional Mobility, UE Funct Exercise/Act Treatment Duration: Jul 19, 2020 Frequency: 5 times per week Estimated Hrs Per Day: .25 hour per day Agreement: Yes Rehab Potential: Poor Time/GCodes Start Time: 08:16 Stop Time: 08:45 Total Time Billed (hr/min): 29 Billed Treatment Time 1, ADL 2 (29) CANDY JUNIOR OTR Jul 13, 2020 09:58
[2020-07-13] MEDS: ADVAIR HFA 45/21 MCG INHALER 8 GM IH SCH ×2 (10:31→19:27)
[2020-07-13] MEDS: LACTATED RINGERS 1,000 ML IV SCH (10:35)
--- NOTE | 2020-07-13 10:59 | Cardiology Progress Note ---
Subjective Date Seen by Provider: Jul 13, 2020 Time Seen by Provider: 11:00 Subjective/Events-last exam Patient sitting up in bed. Denies any chest pain, states dyspnea has improved. Review of Systems General: No Chills, No Night Sweats; Fatigue, Malaise; No Appetite, No Other HEENT: No Head Aches, No Visual Changes, No Eye Pain, No Ear Pain, No Dysphasia, No Sinus Congestion, No Post Nasal Drip, No Sore Throat, No Other Pulmonary: No Dyspnea, No Cough, No Pleuritic Chest Pain, No Other Cardiovascular: No: Chest Pain, Palpitations, Orthopnea, Paroxysmal Noc. Dyspnea, Edema, Lt Headedness, Other Objective-Cardiology Exam Last Set of Vital Signs Vital Signs 07/13/20 07/13/20 11:37 14:54 Temp 36.5 Pulse 105 Resp 20 B/P (MAP) 121/78 Pulse Ox 92 O2 Delivery High Flow N/C O2 Flow Rate 5.00 Capillary Refill : Less Than 3 Seconds I&O Intake and Output 07/13/20 00:00 Intake Total 1390 ml Output Total 970 ml Balance 420 ml Intake Oral 390 ml IV Total 1000 ml Output Urine Total 970 ml # Bowel Movements 1 General: Alert, Oriented X3, Cooperative HEENT: Atraumatic, PERRLA Neck: Supple, No JVD Lungs: Clear to Auscultation, Normal Air Movement Heart: Normal S1, Normal S2, Other (irregulary irregular) Abdomen: Soft, No Tenderness Skin: No Rashes, No Significant Lesion Neuro: Normal Speech, Cranial Nerves 3-12 NL Psych/Mental Status: Mental Status NL, Mood NL Results Lab Laboratory Tests 07/13/20 06:05 A/P-Cardiology Admission Diagnosis UTI Sepsis Afib with RVR COPD/CHRISTINA Assessment/Plan Septic shock, improved, being managed by Dr Canseco UTI, currently on antibiotic, being managed by Dr Canseco PAF, A-fib with RVR. Rapid ventricular response is likely due to septic shock, was unable to tolerate beta jimmy of CCB d/u hypotension. Currently on digoxin. Heart rate better controlled. Continue to monitor. Maintained on Xarelto Acute mental status changed likely due to septic shock, resolved Hypoxia likely multi-factorial d/t septic shock, obesity-hypoventilation syndrome, CHRISTINA, and COPD MPI of October 18, 2016 showed no evidence of significant myocardial ischemia or infarction. Normal regional wall motion. 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-status post Da Simeon assisted laparoscopic hysterectomy with total bilateral salpingo-oophorectomy, sentinel lymph node injection, superficial lymphadenectomy and appendectomy on 11/16/15 Patient was seen and evaluated with Carrie, examination performed, management plan was discussed, agree with the current scribed note, I made few changes to the note using Italic font Patient is confused, laying down comfortably in bed, no active pain, no shortness of breath, I will change digoxin 0.125 mg daily and monitor tolerance and response Clinical Quality Measures DVT/VTE Risk/Contraindication: Risk Factor Score Per Nursin RFS Level Per Nursing on Admit: 4+=Very High CARRIE PHAM Jul 13, 2020 10:59 am SANDRA REEDER MD Jul 13, 2020 3:03 pm
--- NOTE | 2020-07-13 11:01 | Progress Note - Hospitalist ---
Subjective HPI/CC On Admission Date Seen by Provider: Jul 13, 2020 Time Seen by Provider: 10:00 CC: Dyspnea HPI: This is a 75yoWF clinic patient of [facility] who presents to the ER with dyspnea so she was COVID swabbed and found to have AF w/RVR. Cardiology was consulted. She did present with AMS and remains a DNR. SHe does have a h/o COPD and remains on O2 at 4L/min. Patient required cervantes cath placement and currently she cannot give me any details. Subjective/Events-last exam Pt doing a little bit better Oxygen supplementation 94% on 5L, will work to wean that down E. Coli an Klebsiella on urine culture Discharge planned for tomorrow Dementia noted Overall prognosis very poor Will go back to [facility] She is a DNR Review of Systems Neurological: Confusion Objective Exam Vital Signs Vital Signs Date Time Temp Pulse Resp B/P (MAP) Pulse Ox O2 Delivery O2 Flow Rate FiO2 07/13/20 19:52 36.0 51 18 127/74 96 High Flow N/C 4.00 Capillary Refill : Less Than 3 Seconds General Appearance: No Apparent Distress, WD/WN, Chronically ill, Obese Respiratory: Chest Non Tender, Lungs Clear, Normal Breath Sounds, No Accessory Muscle Use, No Respiratory Distress Cardiovascular: Regular Rate, Rhythm, No Edema, No Gallop, No JVD, No Murmur, Normal Peripheral Pulses Neurologic/Psychiatric: Alert, Oriented x3, Depressed Affect, Disoriented Results/Procedures Lab Laboratory Tests 07/13/20 06:05 Patient resulted labs reviewed. Assessment/Plan Assessment and Plan Assess & Plan/Chief Complaint Assessment: AMS AF w/RVR COPD O2 dependent Obesity HTN CRI Elevated LFT's Plan: Monitor closely DNR COVID swab pending 07/12/20: PT and OT Monitor liver enzymes Antibiotics for UTI Cervantes catheter Move to 4th floor Supportive care 07/13/20: DC home to [facility] tomorrow Diagnosis/Problems Diagnosis/Problems (1) Atrial fibrillation with rapid ventricular response Status: Acute (2) Debility Status: Chronic (3) CHRISTINA on CPAP Status: Chronic (4) COPD exacerbation Status: Acute (5) HLD (hyperlipidemia) Status: Chronic (6) Acute and chronic respiratory failure Status: Acute Clinical Quality Measures DVT/VTE Risk/Contraindication: Risk Factor Score Per Nursin RFS Level Per Nursing on Admit: 4+=Very High JERRY,MALISSA DO Jul 13, 2020 11:01
--- NOTE | 2020-07-13 11:05 | NUR ---
CM/SS visited with patient for discharge planning. Plan: Patient will return back to [facility] care home at time of discharge. The patient was lying in bed in the dark at time of visit. She reports that she is doing well today. The patient was pleasant and willing to discuss discharge. She is oriented x2 to person and place today. She stated the year was 2001 and the president was Govea. The patient reported that she is from a facility but [facility]; however, this sw contacted Anita from facility who verified she is a resident there. CM/SS faxed updated clinical to facility. CM/SS attempted to contact Jacquelin and Tonya for an update. Jacquelin's number is wrong and Tonya is not in service.
--- NOTE | 2020-07-13 11:07 | Pulmonary Progress Note ---
Subjective Time Seen by a Provider: 11:05 Subjective/Events-last exam No complications noted. Sepsis Event Evaluation Height, Weight, BMI Height: 5'1.00" Weight: 231lbs. 0.0oz. 104.282962pj; 35.37 BMI Method:Stated Exam Exam Vital Signs Date Time Temp Pulse Resp B/P (MAP) Pulse Ox O2 Delivery O2 Flow Rate FiO2 07/13/20 10:31 94 High Flow N/C 5.00 07/13/20 09:00 93 High Flow N/C 4.00 07/13/20 08:52 36.1 97 95/58 93 High Flow N/C 4.00 07/13/20 06:59 94 High Flow N/C 5.00 07/13/20 06:48 88 07/13/20 04:00 36.1 93 135/56 95 High Flow N/C 2.00 07/13/20 02:09 80 High Flow N/C 3.00 07/13/20 01:00 75 07/13/20 00:54 36.4 96 133/52 90 High Flow N/C 2.00 07/12/20 21:33 94 High Flow N/C 3.00 07/12/20 21:16 74 07/12/20 20:30 96 High Flow N/C 4.00 07/12/20 20:30 36.3 110 94/59 96 High Flow N/C 2.00 07/12/20 18:17 96 High Flow N/C 4.00 07/12/20 16:00 35.8 90 92/61 94 High Flow N/C 4.00 07/12/20 12:43 80 07/12/20 12:15 94 High Flow N/C 4.00 07/12/20 12:00 99 95/72 93 High Flow N/C 4.00 I & O 07/13/20 07:00 Intake Total 1540 ml Output Total 900 ml Balance 640 ml Height & Weight Height: 5'1.00" Weight: 231lbs. 0.0oz. 104.995659wg; 35.37 BMI Method:Stated General Appearance: No Apparent Distress, WD/WN HEENT: PERRL/EOMI, TMs Normal, Normal ENT Inspection, Pharynx Normal, Moist Mucous Membranes Neck: Full Range of Motion, Normal Inspection, Non Tender, Supple, Carotid Bruit Respiratory: Chest Non Tender, Lungs Clear, Normal Breath Sounds, No Accessory Muscle Use, No Respiratory Distress Cardiovascular: Regular Rate, Rhythm, No Edema, No Gallop, No JVD, No Murmur, Normal Peripheral Pulses Capillary Refill: Less Than 3 Seconds Peripheral Pulses: 2+ Dorsalis Pedis (R); 1+ Left Dors-Pedis (L) Extremity: Normal Capillary Refill, Normal Inspection, Normal Range of Motion, Non Tender, No Calf Tenderness, No Pedal Edema Neurologic/Psychiatric: Alert, Oriented x3, No Motor/Sensory Deficits, Normal Mood/Affect Skin: Normal Color, Warm/Dry Lymphatic: No Adenopathy Results Lab Laboratory Tests 07/11/20 12:07 07/12/20 02:27 07/13/20 06:05 Assessment/Plan Assessment/Plan Severe oxygen dependent 4 l/min COPD -Monitor -Albuterol -Advair -COVID is negative UTI - No leukocytosis, and no fever - Rocephin -Cultures pending Afib -Controlled with PO meds -Cardiology consulted Chronic dementia s/p uterine cancer- 2016 GI Prophylaxis: Start Protonix DNR status CARMINE ALVARES DO Jul 13, 2020 11:07
--- NOTE | 2020-07-13 13:21 | NUR ---
"RD ASSESSMENT PMHx: COPD; HTN; GERD; DM; CA(ovarian,uterine); afib; renal failure; chronic UTI PT INTERACTION: Pt was awake and pleasant during nutrition assessment. Note pt has AMS, per chart review. Pt states current appetite is not good, and has been this way for about 1day. Note avg PO intake 25% x2meal, per chart review. Pt states following a regular diet at home, and states some issues with chewing/swallowing food. Pt states some recent issues with diarrhea. Note last BM was 07/12 and pt not currently on bowel regimen per chart review. Pt states no recent wt changes. Note unable to determine recent wt hx, per chart review. Pt did not answer questions related to current level of DM management, even after redirection. Note unable to determine recent HbA1c, per chart review. ABNORMAL NUTRITION-RELATED LAB VALUES LOW: alb 3.1; HIGH: BUN 23; cr 1.38; AST 56; ALT 68 Est. kcal needs: 1525 kcal | 15 kcal/kg Est. Pro needs: 81 g Pro | 0.8 g Pro/kg PES STATEMENT: Inadequate oral intake (NI-2.1) related to loss of appetite | diarrhea as evidenced by pt interview | avg PO intake 25% x2meal INTERVENTION: Continue with current diet order of 2000mg Na diet. Pt may benefit from consistent CHO restriction if blood glucose levels become elevated. Add Glucerna (vary) to meals TID, for increased kcal intake. Provides 220 kcal and 10 g Pro per serving. Did not offer diet education on DM management, d/t pt's AMS. Will attempt to offer when family present at bedside. Will continue to follow and reassess as pt needs, intake, and status change. Cody Kirk, MS RD LD"
[2020-07-13] MEDS ORDERED: WATER (STERILE) FOR INJECTION 10 ML ONE (14:22)
[2020-07-13] MEDS ORDERED: cefTRIAXone 1,000 MG IV (ROCEPHIN) VIAL ONE (14:22)
[2020-07-13] MEDS: cefTRIAXone 1,000 MG/SWFI 10 ML IV PUSH IV SCH ×2 (14:35)
[2020-07-13] MEDS: RIVAROXABAN 15 MG TABLET (XARELTO) PO SCH (18:23)
[2020-07-14] MEDS: ALBUTEROL/IPRATROP (COMBIVENT RESPIMAT) 4 GM INHALER IH SCH ×3 (03:18→10:34)
[2020-07-14 05:29] LABS: BASOPHILS % (AUTO) 0 % (0-10); EOSINOPHILS # (AUTO) 0.1 10^3/uL (0.0-0.3); EOSINOPHILS % (AUTO) 1 % (0-10); HEMATOCRIT 37 % (35-52); HEMOGLOBIN 10.9 g/dL (11.5-16.0); LYMPHOCYTES # (AUTO) 0.7 10^3/uL (1.0-4.0); LYMPHOCYTES % (AUTO) 8 % (12-44); MEAN CORPUSCULAR HEMOGLOBIN 27 pg (25-34); MEAN CORPUSCULAR HGB CONC 30 g/dL (32-36); MEAN CORPUSCULAR VOLUME 92 fL (80-99); MEAN PLATELET VOLUME 10.5 fL (9.0-12.2); MONOCYTES # (AUTO) 0.8 10^3/uL (0.0-1.0); MONOCYTES % (AUTO) 9 % (0-12); NEUTROPHILS # (AUTO) 6.4 10^3/uL (1.8-7.8); NEUTROPHILS % (AUTO) 81 % (42-75); PLATELET COUNT 305 10^3/uL (130-400)
[2020-07-14 05:49] LABS: BILIRUBIN,TOTAL 0.7 MG/DL (0.1-1.0); CALCIUM 9.8 MG/DL (8.5-10.1); CREATININE SERUM 1.47 MG/DL (0.60-1.30); TOTAL PROTEIN 6.3 GM/DL (6.4-8.2)
[2020-07-14] MEDS: ADVAIR HFA 45/21 MCG INHALER 8 GM IH SCH (06:41)
[2020-07-14] MEDS: KCL 10 MEQ TAB (MICRO K) PO SCH (06:55)
--- NOTE | 2020-07-14 08:43 | Pulmonary Progress Note ---
Subjective Time Seen by a Provider: 08:42 Subjective/Events-last exam No complications noted. Sepsis Event Evaluation Height, Weight, BMI Height: 5'1.00" Weight: 231lbs. 0.0oz. 104.867855bl; 35.37 BMI Method:Stated Exam Exam Vital Signs Date Time Temp Pulse Resp B/P (MAP) Pulse Ox O2 Delivery O2 Flow Rate FiO2 07/14/20 07:25 36.0 92 20 92/63 94 High Flow N/C 4.00 07/14/20 06:41 99 High Flow N/C 3.00 07/14/20 04:53 36.5 84 20 129/82 98 High Flow N/C 4.00 07/13/20 23:52 36.2 74 19 110/81 97 High Flow N/C 4.00 07/13/20 21:30 96 High Flow N/C 6.00 07/13/20 21:24 98 High Flow N/C 5.00 07/13/20 19:52 36.0 51 18 127/74 96 High Flow N/C 4.00 07/13/20 19:32 98 High Flow N/C 5.00 07/13/20 19:28 99 High Flow N/C 5.00 07/13/20 16:28 36.2 79 20 109/72 89 High Flow N/C 4.00 07/13/20 14:54 92 High Flow N/C 5.00 07/13/20 11:37 36.5 105 20 121/78 96 High Flow N/C 4.00 07/13/20 10:31 94 High Flow N/C 5.00 07/13/20 09:00 93 High Flow N/C 4.00 07/13/20 08:52 36.1 97 95/58 93 High Flow N/C 4.00 I & O 07/14/20 07:00 Intake Total 570 ml Output Total 250 ml Balance 320 ml Height & Weight Height: 5'1.00" Weight: 231lbs. 0.0oz. 104.743037dd; 35.37 BMI Method:Stated General Appearance: No Apparent Distress, WD/WN, Chronically ill, Obese HEENT: PERRL/EOMI, TMs Normal, Normal ENT Inspection, Pharynx Normal, Moist Mucous Membranes Neck: Full Range of Motion, Normal Inspection, Non Tender, Supple, Carotid Bruit Respiratory: Chest Non Tender, Lungs Clear, Normal Breath Sounds, No Accessory Muscle Use, No Respiratory Distress Cardiovascular: Regular Rate, Rhythm, No Edema, No Gallop, No JVD, No Murmur, Normal Peripheral Pulses Capillary Refill: Less Than 3 Seconds Peripheral Pulses: 2+ Dorsalis Pedis (R); 1+ Left Dors-Pedis (L) Extremity: Normal Capillary Refill, Normal Inspection, Normal Range of Motion, Non Tender, No Calf Tenderness, No Pedal Edema Neurologic/Psychiatric: Alert, Oriented x3, Depressed Affect, Disoriented Skin: Normal Color, Warm/Dry Lymphatic: No Adenopathy Results Lab Laboratory Tests 07/13/20 06:05 07/14/20 04:58 Assessment/Plan Assessment/Plan Severe oxygen dependent 4 l/min COPD -Monitor -Albuterol -Advair -COVID is negative UTI - No leukocytosis, and no fever - Rocephin -Cultures pending Afib -Controlled with PO meds -Cardiology consulted Chronic dementia s/p uterine cancer- 2016 GI Prophylaxis: Start Protonix DNR status CARMINE ALVARES DO Jul 14, 2020 08:43
[2020-07-14] MEDS ORDERED: DIGOXIN 0.125 MG (LANOXIN) TAB PO SCH (09:00)
[2020-07-14] MEDS: dilTIAZem120 MG (CARDIZEM CD) CAP PO SCH (09:15)
[2020-07-14] MEDS: FUROSEMIDE 40 MG (LASIX) TAB PO SCH (09:15)
[2020-07-14] MEDS: VITAMIN D3 125 MCG (5,000 UNITS) CAPSULE PO SCH (09:15)
[2020-07-14] MEDS: MULTIVIT W/MINERALS TAB (THERAGRAN M) PO SCH (09:15)
[2020-07-14] MEDS: GABAPENTIN 300 MG (NEURONTIN) CAP PO SCH (09:15)
[2020-07-14] MEDS: PANTOPRAZOLE 20 MG TABLET (PROTONIX) PO SCH (09:15)
--- NOTE | 2020-07-14 09:32 | Occupational Ther Daily Note ---
OT Current Status-Daily Note Subjective Pt alert in bed, eating. Pt denies pain, agrees to OT tx. ADL-Treatment Therapy Code Descriptions/Definitions Functional Sabin Measure: 0=Not Assessed/NA 4=Minimal Assistance 1=Total Assistance 5=Supervision or Setup 2=Maximal Assistance 6=Modified Sabin 3=Moderate Assistance 7=Complete IndependenceSCALE: Activities may be completed with or without assistive devices. 3-Otrsmjqbai-kutvwqe completes the activity by him/herself with no assistance from a helper. 5-Set-up or Clean-up Assistance-helper sets up or cleans up; patient completes activity. [place] assists only prior to or following the activity. 4-Supervision or Touching Assistance-helper provides verbal cues and/or touching/steadying and/or contact guard assistance as patient completes activity. Assistance may be provided throughout the activity or intermittently. 3-Partial/Moderate Assistance-helper does LESS THAN HALF the effort. [place] lifts, holds or supports trunk or limbs, but provides less than half the effort. 2-Substantial/Maximal Assistance-helper does MORE THAN HALF the effort. [place] lifts or holds trunk or limbs and provides more than half the effort. 8-Hmjzgfoku-qjtbzi does ALL the effort. Patient does none of the effort to complete the activity. Or, the assistance of 2 or more helpers is required for the patient to complete the activity. If activity was not attempted, code reason: 7-Patient Refused. 9-Not Applicable-not attempted and the patient did not perform the activity before the current illness, exacerbation or injury. 10-Not Attempted due to Environmental Limitations-(lack of equipment, weather restraints, etc.). 88-Not Attempted due to Medical Conditions or Safety Concerns. Eating (QC): 6 Oral Hygiene (QC): 7 Other Treatment Pt in bed, agrees to ther ex in bed with use of theraband. Pt completes 10 reps bilaterally of the following exercises: forward shoulder flexion (no band), nemesio ulder horizontal abduction, bicep curls, shoulder external rotation. Pt maintains fair attention throughout, able to complete with minimal modifications for problem solving and strength. Pt left in bed with all needs met, call light in reach, food placed in front of pt. Education OT Patient Education: Exercise program, Home exercise program, Purpose of tx/functional activities Teaching Recipient: Patient Teaching Methods: Demonstration, Discussion Response to Teaching: Verbalize Understanding, Return Demonstration, Reinforcement Needed OT Group Home Goals Group Home Goals Time Frame: Jul 19, 2020 Eating (QC): 4 Oral Hygiene (QC): 4 Upper Body Dressing (QC): 3 (At bed level.) Additional Goals: 1-Demonstrate ADL Tasks, 2-Verbalize Understanding, 3- ImproveStrength/Peewee 1=Demonstrate adherence to instructed precautions during ADL tasks. 2=Patient will verbalize/demonstrate understanding of assistive devices/mo difications for ADL. 3=Patient will improve strength/tolerance for activity to enable patient to perform ADL's. OT Education/Plan Problem List/Assessment Assessment: Decreased Activ Tolerance, Decreased UE Strength, Dependent Transfers, Impaired Bed Mobility, Impaired Cognition, Impaired Funct Balance, Impaired I ADL's, Impaired Self-Care Skills Discharge Recommendations Plan/Recommendations: Continue POC Therapy Discharge Recommendati: 24 Hour Supervision Treatment Plan/Plan of Care Treatment,Training & Education: Yes Patient would benefit from OT for education, treatment and training to promote independence in ADL's, mobility, safety and/or upper extremity function for ADL's. Plan of Care: ADL Retraining, Functional Mobility, UE Funct Exercise/Act Treatment Duration: Jul 19, 2020 Frequency: 5 times per week Estimated Hrs Per Day: .25 hour per day Agreement: Yes Rehab Potential: Poor Time/GCodes Start Time: 08:18 Stop Time: 08:29 Total Time Billed (hr/min): 11 Billed Treatment Time 1, EX (11) CANDY JUNIOR OTR Jul 14, 2020 09:32
--- NOTE | 2020-07-14 09:43 | Cardiology Progress Note ---
Subjective Date Seen by Provider: Jul 14, 2020 Time Seen by Provider: 08:00 Subjective/Events-last exam Patient is sitting in bed eating breakfast, feeling better. No new complaint Review of Systems General: No Chills, No Night Sweats, No Fatigue, No Malaise, No Appetite, No Other HEENT: No Head Aches, No Visual Changes, No Eye Pain, No Ear Pain, No Dysphasia, No Sinus Congestion, No Post Nasal Drip, No Sore Throat, No Other Pulmonary: Dyspnea; No Cough, No Pleuritic Chest Pain, No Other Cardiovascular: No: Chest Pain, Palpitations, Orthopnea, Paroxysmal Noc. Dyspnea, Edema, Lt Headedness, Other Objective-Cardiology Exam Last Set of Vital Signs Vital Signs 07/14/20 07/14/20 07:25 09:00 Temp 36.0 Pulse 92 Resp 20 B/P (MAP) 92/63 Pulse Ox 93 O2 Delivery High Flow N/C O2 Flow Rate 4.00 Capillary Refill : Less Than 3 Seconds I&O Intake and Output 07/14/20 00:00 Intake Total 720 ml Output Total 450 ml Balance 270 ml Intake Oral 720 ml Output Urine Total 450 ml # Voids 1 # Urine Diapers 2 # Bowel Movements 1 General: Alert, Oriented X3, Cooperative HEENT: Atraumatic, PERRLA Neck: Supple, No JVD Lungs: Clear to Auscultation, Normal Air Movement Heart: Normal S1, Normal S2, Other (irregulary irregular) Abdomen: Soft, No Tenderness Skin: No Rashes, No Significant Lesion Neuro: Normal Speech, Cranial Nerves 3-12 NL Psych/Mental Status: Mental Status NL, Mood NL Results Lab Laboratory Tests 07/14/20 04:58 A/P-Cardiology Admission Diagnosis UTI Sepsis Afib with RVR COPD/CHRISTINA Assessment/Plan UTI, currently on antibiotic, being managed by Dr Harleen MONTERROSO, A-fib with RVR. Rapid ventricular response is likely due to septic shock, was unable to tolerate beta jimmy of CCB d/u hypotension. Currently on digoxin. Heart rate better controlled. Continue to monitor. Maintained on Xarelto Acute mental status changed likely due to septic shock, resolved, back to baseline, underlying dementia. Hypoxia likely multi-factorial, obesity-hypoventilation syndrome, CHRISTINA, and COPD MPI of October 18, 2016 showed no evidence of significant myocardial ischemia or infarction. Normal regional wall motion. 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
[2020-07-14] MEDS ORDERED: DIGO125T18 PO (10:14)
[2020-07-14] MEDS ORDERED: CEFD300C3 PO (10:14)
[2020-07-14] MEDS ORDERED: RIVA15TA2 PO (10:14)
--- NOTE | 2020-07-14 10:15 | Discharge Inst-Skilled Nursing ---
Discharge Inst-Skilled NF Reconcile Patient Problems Problems Reviewed?: Yes Chief Complaint CC: Dyspnea HPI: This is a 75yoWF clinic patient of [facility] who presents to the ER with dyspnea so she was COVID swabbed and found to have AF w/RVR. Cardiology was consulted. She did present with AMS and remains a DNR. SHe does have a h/o COPD and remains on O2 at 4L/min. Patient required cervantes cath placement and currently she cannot give me any details. Patient Instructions Patient Problems: AF UTI Goal: Indpendence Consult/Follow Up/Orders Follow Up Appt.: [facility] rounds [facility] Skilled NF Admit to: Via [facility] ([facility]) I certify that [facility] services are required to be given on an inpatient basis because of the above named patient's need for nursing home care on a continuing basis for the conditions(s) for which he/she was receiving inpatient hospital services prior to his/her transfer to the [facility]. 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-Evaluate & Treat, Physical Therapy-Evaluate & Treat, Speech Language-Evaluate & Treat Oxygen Delivery Method: High Flow N/C Discharge Diet: No Restrictions Daily Activity as Tolerated: Yes Resuscitation Status: Do Not Resuscitate New & Resume Previous Orders New Medications: Cefdinir (Cefdinir) 300 Mg Capsule 300 MG PO BID for 5 Days, CAP Digoxin (Digox) 125 Mcg Tablet 0.125 MG PO DAILY for 365 Days, TAB Rivaroxaban (Xarelto Tablet) 15 Mg Tablet 15 MG PO 1800 for 365 Days, TAB Continued Medications: Acetaminophen (Tylenol) 325 Mg Tablet 650 MG PO Q4H PRN for PAIN-MILD (1-4) OR TEMPATURE, TAB TAKES 2 (325MG) TABLETS Atorvastatin Calcium (Atorvastatin Calcium) 20 Mg Tablet 20 MG PO HS, TAB Budesonide/Formoterol Fumarate (Symbicort 80-4.5 Mcg Inhaler) 10.2 Gm Hfa.aer.ad 2 PUFF INH DAILY, EA Cholecalciferol (Vitamin D3) (Vitamin D3) 125 Mcg Tablet 125 MCG PO DAILY, TAB Citalopram Hydrobromide (Citalopram HBr) 40 Mg Tablet 40 MG PO DAILY, TAB Dextran 70/Hypromellose/Pf (Artificial Tears Drops) 1 Each Droperette 1 DROP OU Q4H PRN for DRY EYES, DROP Furosemide (Furosemide) 40 Mg Tablet 40 MG PO DAILY, TAB Gabapentin (Neurontin) 300 Mg Capsule 300 MG PO DAILY, CAP Magnesium Hydroxide (Milk of Magnesia) 400 Mg/5 Ml Oral.susp 30 ML PO DAILY PRN for CONSTIPATION-7TH LINE, ML Multivits,Ca,Minerals/Iron/FA (Thera-M Tablet) 1 Each Tablet 1 EA PO DAILY, TAB Omeprazole (Omeprazole) 20 Mg Capsule.dr 20 MG PO DAILY, CAP Potassium Chloride (Potassium Chloride) 20 Meq Tab.er.prt 20 MEQ PO DAILY, TAB Discontinued Medications: Rivaroxaban (Xarelto Tablet) 20 Mg Tablet 20 MG PO 1800, TAB Gunjan Canseco Jul 14, 2020 10:14 GUNJAN CANSECO DO Jul 14, 2020 10:15
--- NOTE | 2020-07-14 10:15 | Discharge Summary ---
Discharge Summary Hospital Course Was the Problem List Reviewed?: Yes Problems/Dx: (1) Atrial fibrillation with rapid ventricular response Status: Acute (2) Debility Status: Chronic (3) CHRISTINA on CPAP Status: Chronic (4) COPD exacerbation Status: Acute (5) HLD (hyperlipidemia) Status: Chronic (6) Acute and chronic respiratory failure Status: Acute Hospital Course Date of Admission: Jul 11, 2020 at 13:49 Admission Diagnosis : Family Physician/Provider: Yanira Tolliver DO Date of Discharge: 07/14/20 Discharge Diagnosis: AMS, Hypoxia, UTI, dementia Hospital Course: Hospital Course: Pt had an uneventful hospital course. She was admitted for altered mental status. She was covid swabbed and that was negative. AF with RVR was managed by cardiology and UTI was managed with Rocephin. Momin catheter was discontinued and pt was placed on oral antibiotics and at time of discharge she was deemed stable to go back to [facility]. Overall poor prognosis though, she remains a DNR. Labs and Pending Lab Test: Laboratory Tests 07/14/20 04:58: White Blood Count 8.0, Red Blood Count 4.00, Hemoglobin 10.9L, Hematocrit 37, Mean Corpuscular Volume 92, Mean Corpuscular Hemoglobin 27, Mean Corpuscular Hemoglobin Concent 30L, Red Cell Distribution Width 15.5H, Platelet Count 305, Mean Platelet Volume 10.5, Immature Granulocyte % (Auto) 0, Neutrophils (%) (Auto) 81H, Lymphocytes (%) (Auto) 8L, Monocytes (%) (Auto) 9, Eosinophils (%) (Auto) 1, Basophils (%) (Auto) 0, Neutrophils # (Auto) 6.4, Lymphocytes # (Auto) 0.7L, Monocytes # (Auto) 0.8, Eosinophils # (Auto) 0.1, Basophils # (Auto) 0.0, Immature Granulocyte # (Auto) 0.0, Sodium Level 138, Potassium Level 4.0, Chloride Level 98, Carbon Dioxide Level 28, Anion Gap 12, Blood Urea Nitrogen 23H, Creatinine 1.47H, Estimat Glomerular Filtration Rate 35, BUN/Creatinine Ratio 16, Glucose Level 106H, Calcium Level 9.8, Corrected Calcium 10.6H, Total Bilirubin 0.7, Aspartate Amino Transf (AST/SGOT) 38H, Alanine Aminotransferase (ALT/SGPT) 53, Alkaline Phosphatase 77, Total Protein 6.3L, Albumin 3.0L Microbiology 07/11/20 Urine Culture - Final, Complete Klebsiella pneumoniae Escherichia coli 07/11/20 Blood Culture - Preliminary, Resulted No growth Home Meds Active Cefdinir 300 Mg Capsule 300 Mg PO BID 5 Days Xarelto Tablet (Rivaroxaban) 15 Mg Tablet 15 Mg PO 1800 365 Days Digox (Digoxin) 125 Mcg Tablet 0.125 Mg PO DAILY 365 Days Reported Artificial Tears Drops (Dextran 70/Hypromellose/Pf) 1 Each Droperette 1 Drop OU Q4H PRN Symbicort 80-4.5 Mcg Inhaler (Budesonide/Formoterol Fumarate) 10.2 Gm Hfa.aer.ad 2 Puff INH DAILY Citalopram HBr (Citalopram Hydrobromide) 40 Mg Tablet 40 Mg PO DAILY Neurontin (Gabapentin) 300 Mg Capsule 300 Mg PO DAILY Thera-M Tablet (Multivits,Ca,Minerals/Iron/FA) 1 Each Tablet 1 Ea PO DAILY Vitamin D3 (Cholecalciferol (Vitamin D3)) 125 Mcg Tablet 125 Mcg PO DAILY Atorvastatin Calcium 20 Mg Tablet 20 Mg PO HS Omeprazole 20 Mg Capsule.dr 20 Mg PO DAILY Milk of Magnesia (Magnesium Hydroxide) 400 Mg/5 Ml Oral.susp 30 Ml PO DAILY PRN Tylenol (Acetaminophen) 325 Mg Tablet 650 Mg PO Q4H PRN TAKES 2 (325MG) TABLETS Xarelto Tablet (Rivaroxaban) 20 Mg Tablet 20 Mg PO 1800 Furosemide 40 Mg Tablet 40 Mg PO DAILY Potassium Chloride 20 Meq Tab.er.prt 20 Meq PO DAILY Assessment/Pt Instructions chc 1 week Discharge Planning: <30 minutes discharge planning Discharge Instructions Discharge Diet: No Restrictions Discharge Physical Examination Vital Signs Vital Signs Date Time Temp Pulse Resp B/P (MAP) Pulse Ox O2 Delivery O2 Flow Rate FiO2 07/14/20 09:00 93 High Flow N/C 4.00 07/14/20 07:25 36.0 92 20 92/63 General Appearance: No Apparent Distress, WD/WN, Chronically ill Respiratory: Lungs Clear Cardiovascular: Regular Rate, Rhythm Neurologic/Psychiatric: Alert, Oriented x3, No Motor/Sensory Deficits, Normal Mood/Affect, Disoriented Allergies: Coded Allergies: levofloxacin (Verified Allergy, Intermediate, 05/29/17) ciprofloxacin (Verified Allergy, Unknown, 10/11/08) ofloxacin (Verified Allergy, Unknown, 10/11/08) Discharge Summary Date of Admission Jul 11, 2020 at 13:49 Date of Discharge Discharge Date: Jul 14, 2020 Admission Diagnosis Assessment: AMS AF w/RVR COPD O2 dependent Obesity HTN CRI Elevated LFT's Plan: Monitor closely DNR COVID swab pending Discharge Diagnosis Assessment: AMS AF w/RVR COPD O2 dependent Obesity HTN CRI Elevated LFT's Plan: Monitor closely DNR COVID swab pending 07/12/20: PT and OT Monitor liver enzymes Antibiotics for UTI Momin catheter Move to 4th floor Supportive care 07/13/20: DC home to [facility] tomorrow (1) Atrial fibrillation with rapid ventricular response Status: Acute (2) Debility Status: Chronic (3) CHRISTINA on CPAP Status: Chronic (4) COPD exacerbation Status: Acute (5) HLD (hyperlipidemia) Status: Chronic (6) Acute and chronic respiratory failure Status: Acute Clinical Quality Measures DVT/VTE Risk/Contraindication: Risk Factor Score Per Nursin RFS Level Per Nursing on Admit: 4+=Very High MALISSA JERRY DO Jul 14, 2020 10:15
--- NOTE | 2020-07-14 10:35 | NUR ---
ATTEMPTED TO CALL REPORT TO [facility]. THE NURSE WAS NOT AVAILABLE. TOLD TO CALL BACK LATER
--- NOTE | 2020-07-14 10:43 | NUR ---
SHARMILA/SHINE finalized discharge. Plan: The patient is discharging to [facility] today. 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 SHARMILA/SHINE was contacted by Anita from the facility this a.m. to discuss turkey picker time. SHARMILA/SHINE discussed with Dr. Canseco and a turkey picker time was set for 11:00. SHARMILA/SS faxed finalized discharge orders to facility. SHARMILA/SHINE spoke with Anita about family and contact numbers. She states the patient's daughter had a car wreck and had a major TBI. She is the patient's DPOA but it is inappropriate. Anita reports that she had a DCF report and they are working on Guardianship. Granddaughters: Ronald- [phone], Aimee- [phone]. CM/SS will call to inform of discharge. No further needs at this time.
--- NOTE | 2020-07-14 10:44 | NUR ---
CALLED REPORT TO MARY TURNER [facility]
[2020-07-14 11:00] VITALS: BP 92/63
--- NOTE | 2020-07-14 12:13 | Progress Note ---
ESME ELIZABETH MED STUDENT 07/14/20 1213: Progress Note Patient was seen this morning prior to discharge. Ms. Marsh said her shortness of breath has improved and she would like to know when her surgery is. We informed her that she will not be needing any surgeries at this time and that she will be discharged today. She agreed with this plan. Objective: Cr still elevated at 1.47 from 1.38 yesterday but this could be her baseline since last normal Cr in the EHR is from 2018. Discharged on 0.125mg PO digoxin and 120mg PO diltiazem per cardiology. Will send her home with cefdinir 10 day course for her UTI treatment. GUNJAN JERRY DO 07/14/209: Supervisory-Addendum Brief Verification & Attestation Participated in pt care: history, MDM, physical Personally performed: exam, history, MDM, supervision of care Care discussed with: Medical Student Procedures: n/a Results interpretation: Verified all documentation Verification and Attestation of Medical Student E/M Service A medical student performed and documented this service in my presence. I reviewed and verified all information documented by the medical student and made modifications to such information, when appropriate. I personally performed the physical exam and medical decision making. Gunjan Jerry, Jul 14, 2020,21:29 ESME ELIZABETH MED STUDENT Jul 14, 2020 12:13 GUNJAN JERRY DO Jul 14, 2020 21:29
--- NOTE | 2020-07-14 18:47 | Physician Query Clarification ---
"Physician Query-General Query to Physician: History/Risk factors: UTI, NIDDM, Chronic illness/debility Clinical Findings: HR 130, RR 24, BP 77/50, Sp02 90% on 15L Treatment: IVF Bolus, IV ABX, Monitoring Question: Do you agree with the impression of Sepsis with septic shock per Mary Ann Delgado and Dr. Reinaldo Thapa? If you agree, please document in Progress Notes or Discharge Summary. 1. Yes; will document Sepsis/septic shock with UTI present on admission in the Progress Notes/Discharge Summary. 2. No; will continue to document UTI in the Progress Notes/Discharge summary. 3. Other; will document explanation of clinical findings 4. Clinically undetermined; no explanation for clinical findings Please remember a lack of response to the above will prompt a phone page by CDI/coding staff. In responding to this query, please exercise your independent professional judgment. The purpose of this communication is to more accurately reflect the complexity of your patients condition. The fact that a question is asked does not imply that any particular answer is desired or expected. Thank you for timely response to this clarification. Ayesha Gardner, MSN, RN RN Specialist-Clinical Doc Improvement CD -Health Info Mgmt Operations [address] [facility] t: [phone] | f: [phone] If you are unable to reach me at my extension, I may be working from home. Please contact me at [phone] PHYSICIAN RESPONSE: Based on the clinical findings in the record, please respond to the query above on this document as an addendum. Physician Response: Physician Response 1 If you have questions please contact: Lieutenant Shift Supervisor: Ext: Thank you for your time and cooperation. Clinical Airframe And Power Plant Mechanic/Lieutenant Shift Supervisor This is a permanent part of the medical record AYESHA GARDNER Jul 14, 2020 18:47 MALISSA JERRY DO Jul 21, 2020 20:46"
== END 2020-07-14 11:00 | DRG 871 ==
LOC: EDUNIT# 12:02 → ER 12:03 → ICU 13:49 → 4TH 07-12 15:45
PROVIDERS: ADMIT Internal Medicine; ATTEND Internal Medicine
DX: A41.9 Sepsis, unspecified organism (principal); R65.21 Severe sepsis with septic shock; J96.21 Acute and chronic respiratory failure with hypoxia; N39.0 Urinary tract infection, site not specified; J44.1 Chronic obstructive pulmonary disease with (acute) exacerbation; Z68.42 Body mass index [BMI] 45.0-49.9, adult; E66.2 Morbid (severe) obesity with alveolar hypoventilation; I48.91 Unspecified atrial fibrillation; Z66 Do not resuscitate; Z20.828 Contact with and (suspected) exposure to other viral communicable diseases; E78.5 Hyperlipidemia, unspecified; F03.90 Unspecified dementia, unspecified severity, without behavioral disturbance, psychotic disturbance, mood disturbance, and anxiety; I12.9 Hypertensive chronic kidney disease with stage 1 through stage 4 chronic kidney disease, or unspecified chronic kidney disease; N18.9 Chronic kidney disease, unspecified; K21.9 Gastro-esophageal reflux disease without esophagitis; M19.91 Primary osteoarthritis, unspecified site; E11.9 Type 2 diabetes mellitus without complications; F41.9 Anxiety disorder, unspecified; F32.9 Major depressive disorder, single episode, unspecified; B96.20 Unspecified Escherichia coli [E. coli] as the cause of diseases classified elsewhere; B96.1 Klebsiella pneumoniae [K. pneumoniae] as the cause of diseases classified elsewhere; Z99.81 Dependence on supplemental oxygen; Z85.42 Personal history of malignant neoplasm of other parts of uterus
CPT/HCPCS: 36415; 71045; 80053; 80162; 81000; 82805; 83735; 83880; 84100; 84484; 85007; 85025; 85027; 87040; 87077; 87088; 87186; 87635; 93005; 94640; 96361; 96365; 96375; 99291